=== PATIENT | female | born 1980 | race Caucasian/White ===

== ENCOUNTER 2017-10-02 10:00 | Emergency (ER) | payer OTHER ==
[2017-10-02 12:06] LABS: Urine Blood TRACE (NEG); Urine Glucose NEGATIVE (NEG); Urine Protein NEGATIVE (NEG); Urine pH 6.5 (5.0-7.0)
[2017-10-02 12:08] LABS: Absolute Lymphocytes (CBC) 2.9 K/uL (0.7-4.9); Absolute Monocytes 1.1 K/uL (0.1-1.3); Absolute Neutrophil 10.1 K/uL (1.8-8.0); Eosinophils % 0.7 % (0-4.4); Lymphocytes % 20.1 % (15.3-44.8); MCH 31.4 pg (27.0-35.0); MCV 93.1 fL (80-100); MPV 8.2 fL (7.6-11.3); Monocytes % 7.5 % (3.3-12.3); RBC Red Blood Cell Count 4.95 M/uL (3.86-4.86)
[2017-10-02] MEDS ORDERED: NA CHLORIDE 0.9% 1,000 ML ONE (12:13)
[2017-10-02] MEDS ORDERED: ONDANSETRON 4 MG/2 ML VIAL ONE (12:13)
[2017-10-02 12:16] LABS: Potassium 3.5 mEq/L (3.6-5.0)
[2017-10-02 12:23] LABS: Albumin 4.6 g/dL (3.2-5.5); Bilirubin Direct 0.1 mg/dL (0-0.2); Bilirubin Total 0.8 mg/dL (0.3-1.2); Protein, Total 8.1 g/dL (6.0-8.3)
[2017-10-02 12:24] LABS: Urine Bacteria <20 /HPF (<20); Urine Culture Reflex Order NOT NEEDED; Urine Mucus SLIGHT /HPF (NONE SEEN)
--- NOTE | 2017-10-02 13:03 | EDPHYS ---
Physician Documentation [facility] Name: Sally Vora Age: 37 yrs Sex: Female : 1980 Arrival Date: 10/02/2017 Time: 10:02 Bed 16 Private MD: ED Physician Rusty Gamino HPI: 10/02 12:55 This 37 yrs old Female presents to ER via Ambulatory with complaints of gs Vomiting. 12:55 The patient presents to the emergency department with vomiting. Onset: The gs symptoms/episode began/occurred yesterday. Possible causes: unknown. The symptoms are aggravated by food . Associated signs and symptoms: Pertinent negatives: abdominal pain, dysuria, fever, GI bleeding, hematuria. Severity of symptoms: At their worst the symptoms were moderate in the emergency department the symptoms are unchanged. The patient has experienced similar episodes in the past, several times. The patient has been recently seen by a physician: The patient has been recently seen at the [facility] Emergency Department, last month, for similar complaints labs were performed, CT scan was performed. 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 - Social history:: Smoking status: Patient uses tobacco products, smokes one-half pack cigarettes per day. ROS: 12:55 Constitutional: Negative for fever. gs 12:55 Cardiovascular: Negative for chest pain. 12:55 Abdomen/GI: Negative for diarrhea. 12:55 All other systems are negative. Exam: 12:55 Head/Face: Normocephalic, atraumatic. Eyes: Pupils equal round and reactive to light, gs extra-ocular motions intact. Lids and lashes normal. Conjunctiva and sclera are non-icteric and not injected. Cornea within normal limits. Periorbital areas with no swelling, redness, or edema. ENT: Nares patent. No nasal discharge, no septal abnormalities noted. Tympanic membranes are normal and external auditory canals are clear. Oropharynx with no redness, swelling, or masses, exudates, or evidence of obstruction, uvula midline. Mucous membranes moist. Neck: Trachea midline, no thyromegaly or masses palpated, and no cervical lymphadenopathy. Supple, full range of motion without nuchal rigidity, or vertebral point tenderness. No Meningismus. Chest/axilla: Normal chest wall appearance and motion. Nontender with no deformity. No lesions are appreciated. Cardiovascular: Regular rate and rhythm with a normal S1 and S2. No gallops, murmurs, or rubs. Normal PMI, no JVD. No pulse deficits. Respiratory: Lungs have equal breath sounds bilaterally, clear to auscultation and percussion. No rales, rhonchi or wheezes noted. No increased work of breathing, no retractions or nasal flaring. Back: No spinal tenderness. No costovertebral tenderness. Full range of motion. Skin: Warm, dry with normal turgor. Normal color with no rashes, no lesions, and no evidence of cellulitis. MS/ Extremity: Pulses equal, no cyanosis. Neurovascular intact. Full, normal range of motion. Neuro: Awake and alert, GCS 15, oriented to person, place, time, and situation. Cranial nerves II-XII grossly intact. Motor strength 5/5 in all extremities. Sensory grossly intact. Cerebellar exam normal. Normal gait. 12:55 Constitutional: The patient appears alert, awake, non-toxic. 12:55 Abdomen/GI: Palpation: mild abdominal tenderness, in all quadrants, mass, is not appreciated, rebound tenderness, is not appreciated. Vital Signs: 10:18 BP 135 / 100; Pulse 92; Resp 18; Temp 98.6(TE); Pulse Ox 100% on R/A; Weight 58.97 kg; hj Height 5 ft. 4 in. (162.56 cm); Pain 0/10; 11:57 BP 114 / 92; Pulse 81; Resp 17; Pulse Ox 100% on R/A; tw2 12:46 BP 112 / 84; Pulse 72; Resp 14; Pulse Ox 100% on R/A; mh5 10:18 Body Mass Index 22.32 (58.97 kg, 162.56 cm) MDM: 11:45 Patient medically screened. 12:55 Differential diagnosis: Nonspecific abd pain, gastritis, pancreatitis. Data reviewed: vital signs, nurses notes. Response to treatment: the patient's symptoms have markedly improved after treatment, and as a result, I will discharge patient. 10/02 11:46 Order name: Hepatic Function; Complete Time: 12:51 10/02 11:46 Order name: Basic Metabolic Panel; Complete Time: 12:51 10/02 11:46 Order name: CBC with Diff; Complete Time: 12:51 10/02 11:46 Order name: Lipase; Complete Time: 12:51 10/02 11:46 Order name: Urine Microscopic Only; Complete Time: 12:51 10/02 11:59 Order name: Urine Dipstick--Ancillary (enter results); Complete Time: 12:51 10/02 11:46 Order name: Urine Test (obtain specimen); Complete Time: 11:57 10/02 11:46 Order name: IV Saline Lock; Complete Time: 11:57 10/02 11:46 Order name: Labs collected and sent; Complete Time: 11:57 10/02 11:46 Order name: Urine Dipstick-Ancillary (obtain specimen); Complete Time: 11:57 10/02 11:59 Order name: Urine --Ancillary (enter results); Complete Time: 12:51 ag Administered Medications: 11:56 Drug: NS 0.9% 1000 ml Route: IV; Rate: 1 bolus; Site: right antecubital; tw2 13:40 Follow up: Response: No adverse reaction; IV Status: Completed infusion; IV Intake: tw2 1000ml 11:56 Drug: Zofran 4 mg Route: IVP; Site: right antecubital; tw2 13:40 Follow up: Response: No adverse reaction tw2 Disposition: 10/02/17 13:03 Discharged to Home. Impression: Cyclical vomiting, not intractable. - Condition is Stable. - Discharge Instructions: Cyclic Vomiting Syndrome. - Prescriptions for Reglan 10 mg Oral Tablet - take 1 tablet by ORAL route every 6 hours As needed take 30 minutes before meals and at bedtime; 20 tablet. Pepcid 20 mg Oral Tablet - take 1 tablet by ORAL route once daily; 20 tablet. - Medication Reconciliation Form, Thank You Letter, Antibiotic Education, Prescription Opioid Use form. - Follow up: Krystal Zuniga MD; When: 2 - 3 days; Reason: Re-evaluation by your physician. Signatures: Dispatcher [employer] Adrián Huntley RN RN hj Magali Prabhakar RN RN tw2 Rusty Gamino MD MD
--- NOTE | 2017-10-02 13:03 | ER ---
Nurse's Notes [facility] Name: Sally Vora Age: 37 yrs Sex: Female : 1980 Arrival Date: 10/02/2017 Time: 10:02 Bed 16 Private MD: Diagnosis: Cyclical vomiting, not intractable Presentation: 10/02 10:15 Presenting complaint: Patient states: been throwing up since Monday, reports fever; hj denies abd pain and denies diarrhea;. Transition of care: patient was not received from another setting of care. Onset of symptoms was October 02, 2017. Care prior to arrival: None. 10:15 Method Of Arrival: Ambulatory hj 10:15 Acuity: MICHELLE 3 hj Triage Assessment: 10:17 General: Appears in no apparent distress. uncomfortable, Behavior is calm, cooperative, hj appropriate for age. Pain: Denies pain. GI: Reports nausea, vomiting. 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 - Social history:: Smoking status: Patient uses tobacco products, smokes one-half pack cigarettes per day. Screenin:45 Abuse screen: Denies threats or abuse. Nutritional screening: No deficits noted. tw2 Tuberculosis screening: No symptoms or risk factors identified. Fall Risk None identified. Assessment: 10:18 GI: Abdomen is non-distended. hj 11:57 General: Appears in no apparent distress. unkempt, Behavior is calm, cooperative, tw2 appropriate for age. Pain: Complains of pain in abdomen. Neuro: Level of Consciousness is awake, alert, obeys commands, Oriented to person, place, time, situation. Cardiovascular: Denies chest pain, shortness of breath, Heart tones S1 S2 Capillary refill < 3 seconds Patient's skin is warm and dry. Respiratory: Airway is patent Respiratory effort is even, unlabored, Respiratory pattern is regular, symmetrical, Breath sounds are clear bilaterally. GI: Abdomen is flat, non-distended, Bowel sounds present X 4 quads. Abd is soft X 4 quads Reports intolerance of fluids, intolerance of food, nausea. : No signs and/or symptoms were reported regarding the genitourinary system. Urine is dark sarah urine noted. EENT: No signs and/or symptoms were reported regarding the EENT system. Derm: No signs and/or symptoms reported regarding the dermatologic system. Skin is intact, is healthy with good turgor, Skin temperature is warm. Musculoskeletal: Range of motion: intact in all extremities. 12:47 Reassessment: Patient appears in no apparent distress at this time. No changes from tw2 previously documented assessment. Patient and/or family updated on plan of care and expected duration. Pain level reassessed. Patient is alert, oriented x 3, equal unlabored respirations, skin warm/dry/pink. Vital Signs: 10:18 BP 135 / 100; Pulse 92; Resp 18; Temp 98.6(TE); Pulse Ox 100% on R/A; Weight 58.97 kg; hj Height 5 ft. 4 in. (162.56 cm); Pain 0/10; 11:57 BP 114 / 92; Pulse 81; Resp 17; Pulse Ox 100% on R/A; tw2 12:46 BP 112 / 84; Pulse 72; Resp 14; Pulse Ox 100% on R/A; mh5 10:18 Body Mass Index 22.32 (58.97 kg, 162.56 cm) ED Course: 10:02 Patient arrived in ED. rg4 10:16 Triage completed. hj 10:17 Arm band placed on right wrist. 11:37 Rusty Gamino MD is Attending Physician. 11:44 Magali Prabhakar, TERRANCE is Primary Nurse. tw2 11:44 Bed in low position. Call light in reach. Pulse ox on. NIBP on. tw2 11:59 Urine collected: clean catch specimen, cloudy. 5 12:00 Urine Dipstick--Ancillary (enter results) Sent. 5 12:00 Urine --Ancillary (enter results) Sent. 5 12:47 No provider procedures requiring assistance completed. tw2 13:01 Krystal Zuniga MD is Referral Physician. 13:46 IV discontinued, intact, bleeding controlled, No redness/swelling at site. Pressure tw2 dressing applied. Administered Medications: 11:56 Drug: NS 0.9% 1000 ml Route: IV; Rate: 1 bolus; Site: right antecubital; tw2 13:40 Follow up: Response: No adverse reaction; IV Status: Completed infusion; IV Intake: tw2 1000ml 11:56 Drug: Zofran 4 mg Route: IVP; Site: right antecubital; tw2 13:40 Follow up: Response: No adverse reaction tw2 Intake: 13:40 IV: 1000ml; Total: 1000ml. tw2 Outcome: 13:03 Discharge ordered by . 13:46 Patient left the ED. tw2 13:46 Discharged to home ambulatory. tw2 13:46 Condition: stable 13:46 Discharge instructions given to patient, Instructed on discharge instructions, follow up and referral plans. medication usage, Demonstrated understanding of instructions, follow-up care, medications, Prescriptions given X 2. Signatures: Adrián Shaikh RN RN Magali Prabhakar RN RN 2 Jessica Olea [facility] Joanne Mendez 5 Rusty Gamino MD MD Corrections: (The following items were deleted from the chart) 10:19 10:18 Pulse 92bpm; Resp 18bpm; Pulse Ox 100% RA; Temp 98.6F Temporal; 58.97 kg; Height hj 5 ft. 4 in.; BMI: 22.3; Pain 0/10; hj
== END 2017-10-02 13:46 | disposition home or self-care (01) ==
LOC: ER 10:00
DX: G43.A0 Cyclical vomiting, in migraine, not intractable (principal); E03.9 Hypothyroidism, unspecified; D64.9 Anemia, unspecified; F17.210 Nicotine dependence, cigarettes, uncomplicated
CPT/HCPCS: 36415; 80048; 80076; 81025; 83690; 85025; 96361; 96374; 99284; J2405; J7030; 81003; 81015

== ENCOUNTER 2017-10-03 14:17 | Emergency (ER) | payer OTHER ==
[2017-10-03 15:03] LABS: Absolute Lymphocytes (CBC) 2.6 K/uL (0.7-4.9); Absolute Monocytes 1.1 K/uL (0.1-1.3); Absolute Neutrophil 8.4 K/uL (1.8-8.0); Basophils % 0.7 % (0-1.3); Eosinophils % 1.1 % (0-4.4); Hematocrit 42.6 % (36.0-45.0); Lymphocytes % 21.1 % (15.3-44.8); MCH 31.7 pg (27.0-35.0); MCV 93.2 fL (80-100); MPV 8.3 fL (7.6-11.3); Monocytes % 8.8 % (3.3-12.3); RBC Red Blood Cell Count 4.57 M/uL (3.86-4.86)
[2017-10-03 15:25] LABS: ALT/SGPT 12 IU/L (10-60); AST/SGOT 21 IU/L (10-42); Albumin 4.1 g/dL (3.2-5.5); Alkaline Phosphatase 56 IU/L (42-121); BUN Blood Urea Nitrogen 12 mg/dL (6-20); Bicarbonate 26 mEq/L (21-31); Bilirubin Total 0.6 mg/dL (0.3-1.2); Glomerular Filtration Rate > 90 mL/min (=/>90); Glucose Level 113 mg/dL (65-120); Potassium 3.3 mEq/L (3.6-5.0); Protein, Total 7.3 g/dL (6.0-8.3); Sodium Level 133 mEq/L (135-145)
[2017-10-03] MEDS ORDERED: HALOPERIDOL LACT 5 MG/ML INJ ONE (15:34)
[2017-10-03] MEDS ORDERED: DICYCLOMINE HCL 10 MG CAP ONE (15:35)
[2017-10-03] MEDS ORDERED: NA CHLORIDE 0.9% 1,000 ML ONE (15:35)
[2017-10-03] MEDS ORDERED: DIPHENHYDRAMINE 50 MG/ML VIAL ONE (15:35)
[2017-10-03] MEDS ORDERED: ONDANSETRON 4 MG/2 ML VIAL ONE (15:35)
--- NOTE | 2017-10-03 17:45 | ER ---
Nurse's Notes [facility] Name: Sally Vora Age: 37 yrs Sex: Female : 1980 Arrival Date: 10/03/2017 Time: 14:24 Bed 13 Private MD: Diagnosis: Nausea and vomiting Presentation: 10/03 14:25 Presenting complaint: Patient states: "I have been throwing up almost a week. I came lk1 here yesterday and got pills, but im getting worse.". Transition of care: patient was not received from another setting of care. Onset of symptoms was September 27, 2017. Care prior to arrival: None. 14:25 Method Of Arrival: Ambulatory lk1 14:25 Acuity: MICHELLE 3 lk1 Triage Assessment: 14:26 General: Appears ill, Behavior is calm, cooperative, appropriate for age. Pain: Pain lk1 currently is 8 out of 10 on a pain scale. GI: Reports nausea, normal bowel habits, vomiting. 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 - Social history:: Smoking status: Patient uses tobacco products, smokes one-half pack cigarettes per day. Screenin:57 Abuse screen: Denies threats or abuse. Denies injuries from another. Nutritional ch screening: No deficits noted. Tuberculosis screening: No symptoms or risk factors identified. Fall Risk None identified. Assessment: 15:00 Reassessment: Patient appears in no apparent distress at this time. Patient and/or ch family updated on plan of care and expected duration. Pain level reassessed. Patient is alert, oriented x 3, equal unlabored respirations, skin warm/dry/pink. General: Appears in no apparent distress. uncomfortable, Behavior is cooperative, appropriate for age. 15:00 GI: Reports nausea, vomiting. ch 15:57 Reassessment: Patient appears in no apparent distress at this time. Patient and/or ch family updated on plan of care and expected duration. Pain level reassessed. Patient is alert, oriented x 3, equal unlabored respirations, skin warm/dry/pink. General: Appears in no apparent distress. comfortable, Behavior is calm, cooperative, appropriate for age. Pain: Complains of pain in abdomen Pain currently is 4 out of 10 on a pain scale. Pain began gradually. Respiratory: Airway is patent Respiratory effort is even, unlabored, Breath sounds are clear bilaterally. GI: Abdomen is flat, non-distended, Bowel sounds present X 4 quads. Abd is soft and non tender X 4 quads. Reports nausea, vomiting, pt states her stomach is just sore from vomiting. Derm: No signs and/or symptoms reported regarding the dermatologic system. Skin is pink, warm \\T\\ dry. 17:00 Reassessment: Patient appears in no apparent distress at this time. Patient and/or ch family updated on plan of care and expected duration. Pain level reassessed. Patient is alert, oriented x 3, equal unlabored respirations, skin warm/dry/pink. Patient states feeling better. Patient states symptoms have improved. 17:40 Reassessment: Patient appears in no apparent distress at this time. Patient and/or ch family updated on plan of care and expected duration. Pain level reassessed. Patient is alert, oriented x 3, equal unlabored respirations, skin warm/dry/pink. pt tolerating po water well. 18:04 Reassessment: Patient appears in no apparent distress at this time. No changes from previously documented assessment. Patient is alert, oriented x 3, equal unlabored respirations, skin warm/dry/pink. Patient states feeling better. Patient states symptoms have improved. Vital Signs: 14:27 BP 119 / 86; Pulse 86; Resp 15; Temp 98.6(TE); Pulse Ox 97% on R/A; Weight 58.97 kg lk1 (R); Height 5 ft. 4 in. (162.56 cm) (R); Pain 8/10; 15:57 BP 116 / 84; Pulse 56; Resp 16; Temp 98.3; Pulse Ox 99% on R/A; Pain 6/10; ch 18:04 BP 132 / 74; Pulse 62; Resp 18; Temp 98.3; Pulse Ox 99% on R/A; Pain 0/10; ch 14:27 Body Mass Index 22.31 (58.97 kg, 162.56 cm) [facility] ED Course: 14:24 Patient arrived in ED. lk1 14:26 Triage completed. lk1 14:28 Arm band placed on right wrist. lk1 14:36 Jose Otero MD is Attending Physician. ps1 14:50 Initial lab(s) drawn, by me, sent to lab. Inserted saline lock: 20 gauge in left tm3 antecubital area, using aseptic technique. Blood collected. 15:00 No apparent distress. Resting quietly. ch 15:00 Patient has correct armband on for positive identification. Placed in gown. Bed in low ch position. Call light in reach. Side rails up X2. Adult w/ patient. Pulse ox on. NIBP on. 15:00 Warm blanket given. ch 15:00 No provider procedures requiring assistance completed. ch 15:13 La Piper, TERRANCE is Primary Nurse. ch 18:04 IV discontinued, intact, bleeding controlled, No redness/swelling at site. Pressure ch dressing applied. Administered Medications: 15:20 Drug: Benadryl 50 mg Route: IVP; Site: right antecubital; ch 16:03 Follow up: Response: No adverse reaction; Marked relief of symptoms ch 15:20 Drug: Zofran 4 mg Route: IVP; Site: right antecubital; ch 16:03 Follow up: Response: No adverse reaction; Marked relief of symptoms ch 15:20 Drug: Bentyl 20 mg Route: PO; ch 16:03 Follow up: Response: No adverse reaction; Marked relief of symptoms ch 15:25 Drug: HALdol 2.5 mg Route: IVP; Site: right antecubital; ch 16:04 Follow up: Response: No adverse reaction; Marked relief of symptoms ch 16:03 Drug: NS 0.9% 1000 ml Route: IV; Rate: 1 bolus; Site: right antecubital; ch 17:20 Follow up: IV Status: Completed infusion; IV Intake: 1000ml ch Intake: 17:20 IV: 1000ml; Total: 1000ml. ch Outcome: 17:44 Discharge ordered by . ps1 18:04 Discharged to home ambulatory, with family. ch 18:04 Condition: stable 18:04 Discharge instructions given to patient, Instructed on discharge instructions, follow up and referral plans. Demonstrated understanding of instructions, follow-up care. 18:06 Patient left the ED. ch Signatures: La Piper RN RN Hemanth Preciado tm3 Claire Khalil, TERRANCE RN lk1 Jose Otero MD MD ps1
--- NOTE | 2017-10-03 17:45 | EDPHYS ---
Physician Documentation [facility] Name: Sally Vora Age: 37 yrs Sex: Female : 1980 Arrival Date: 10/03/2017 Time: 14:24 Bed 13 Private MD: ED Physician Jose Otero HPI: 10/03 17:45 This 37 yrs old Female presents to ER via Ambulatory with complaints of ps1 Nausea/Vomiting. 17:45 The patient presents to the emergency department with nausea, vomiting, daily. Onset: ps1 The symptoms/episode began/occurred last week. Possible causes: unknown, bad food exposure. The symptoms are aggravated by nothing. Associated signs and symptoms: Pertinent positives: fatigue, Pertinent negatives: fever. Severity of symptoms: At their worst the symptoms were moderate. The patient has experienced similar episodes in the past, several times. The patient has been recently seen at the [facility] Emergency Department, yesterday, for similar complaints labs were performed, was given IV fluids, was given a prescription for an antiemetic, the patient was told to return for a recheck. Has an appointment with GI tomorrow. Not able to keep fluids down. . 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 - Social history:: Smoking status: Patient uses tobacco products, smokes one-half pack cigarettes per day. ROS: 17:45 Constitutional: Negative for fever, chills, and weight loss, Eyes: Negative for injury, ps1 pain, redness, and discharge, Neck: Negative for injury, pain, and swelling, Cardiovascular: Negative for chest pain, palpitations, and edema, Respiratory: Negative for shortness of breath, cough, wheezing, and pleuritic chest pain, Back: Negative for injury and pain, MS/Extremity: Negative for injury and deformity, Skin: Negative for injury, rash, and discoloration. 17:45 Constitutional: Positive for fatigue. 17:45 Abdomen/GI: Positive for nausea and vomiting. 17:45 Psych: Exam: 17:45 Constitutional: This is a well developed, well nourished patient who is awake, alert, ps1 and in no acute distress. Head/Face: Normocephalic, atraumatic. Eyes: Pupils equal round and reactive to light, extra-ocular motions intact. Lids and lashes normal. Conjunctiva and sclera are non-icteric and not injected. Chest/axilla: Normal chest wall appearance and motion. Nontender with no deformity. No lesions are appreciated. Cardiovascular: Regular rate and rhythm. No gallops, murmurs, or rubs. Normal PMI, no JVD. No pulse deficits. Respiratory: Lungs have equal breath sounds bilaterally, clear to auscultation and percussion. No rales, rhonchi or wheezes noted. No increased work of breathing, no retractions or nasal flaring. Abdomen/GI: Soft, non-tender, with normal bowel sounds. No distension or tympany. No guarding or rebound. No evidence of tenderness throughout. Skin: Warm, dry with normal turgor. Normal color with no rashes, no lesions, and no evidence of cellulitis. MS/ Extremity: Pulses equal, no cyanosis. Neurovascular intact. Full, normal range of motion. Neuro: Awake and alert, GCS 15, oriented to person, place, time, and situation. Cranial nerves II-XII grossly intact. Sensory grossly intact. Vital Signs: 14:27 BP 119 / 86; Pulse 86; Resp 15; Temp 98.6(TE); Pulse Ox 97% on R/A; Weight 58.97 kg lk1 (R); Height 5 ft. 4 in. (162.56 cm) (R); Pain 8/10; 15:57 BP 116 / 84; Pulse 56; Resp 16; Temp 98.3; Pulse Ox 99% on R/A; Pain 6/10; ch 18:04 BP 132 / 74; Pulse 62; Resp 18; Temp 98.3; Pulse Ox 99% on R/A; Pain 0/10; ch 14:27 Body Mass Index 22.31 (58.97 kg, 162.56 cm) lk1 MDM: 14:42 Patient medically screened. ps1 17:45 Data reviewed: vital signs, nurses notes, lab test result(s). ED course: responded to ps1 treatment. Will send home with zofran. Follow up with GI tomorrow. . 10/03 14:42 Order name: CBC with Diff; Complete Time: 15:06 ps1 10/03 14:42 Order name: CMP; Complete Time: 15:28 ps1 10/03 15:09 Order name: Urine Dipstick--Ancillary (enter results) 10/03 15:10 Order name: Urine --Ancillary (enter results) 10/03 14:42 Order name: Urine Dipstick-Ancillary (obtain specimen); Complete Time: 18:06 ps1 Administered Medications: 15:20 Drug: Benadryl 50 mg Route: IVP; Site: right antecubital; ch 16:03 Follow up: Response: No adverse reaction; Marked relief of symptoms ch 15:20 Drug: Zofran 4 mg Route: IVP; Site: right antecubital; ch 16:03 Follow up: Response: No adverse reaction; Marked relief of symptoms ch 15:20 Drug: Bentyl 20 mg Route: PO; ch 16:03 Follow up: Response: No adverse reaction; Marked relief of symptoms ch 15:25 Drug: HALdol 2.5 mg Route: IVP; Site: right antecubital; ch 16:04 Follow up: Response: No adverse reaction; Marked relief of symptoms ch 16:03 Drug: NS 0.9% 1000 ml Route: IV; Rate: 1 bolus; Site: right antecubital; ch 17:20 Follow up: IV Status: Completed infusion; IV Intake: 1000ml ch Disposition: 10/03/17 17:44 Discharged to Home. Impression: Nausea and vomiting. - Condition is Stable. - Discharge Instructions: Nausea and Vomiting. - Prescriptions for Zofran 4 mg Oral Tablet - take 1 tablet by ORAL route every 12 hours As needed; 20 tablet. Bentyl 10 mg Oral Capsule - take 1 capsule by ORAL route every 6 hours As needed; 40 capsule. - Medication Reconciliation Form, Thank You Letter, Antibiotic Education, Prescription Opioid Use form. - Follow up: Private Physician; When: Tomorrow; Reason: Recheck today's complaints, Continuance of care, Re-evaluation by your physician. Follow up: Emergency Department; When: As needed; Reason: Fever > 102 F, Worsening of condition. - Problem is an ongoing problem. - Symptoms are unchanged. Signatures: Dispatcher [employer] EDMS La Piper, RN RN ch Claire Khalil RN RN lk1 Jose Otero MD MD ps1
[2017-10-03 18:18] LABS: Urine Specific Gravity 1.015 (1.005-1.030)
[2017-10-03 18:19] LABS: Urine Blood 2+ (NEG); Urine Glucose NEGATIVE (NEG); Urine Protein NEGATIVE (NEG); Urine Specific Gravity 1.015 (1.005-1.030); Urine pH 7.5 (5.0-7.0)
== END 2017-10-03 18:06 | disposition home or self-care (01) ==
LOC: ER 14:17
DX: F17.210 Nicotine dependence, cigarettes, uncomplicated; E03.9 Hypothyroidism, unspecified; R11.2 Nausea with vomiting, unspecified
CPT/HCPCS: 36415; 80053; 81003; 81025; 85025; 96361; 96374; 96375; 99284; J1630; J2405; J7030

== ENCOUNTER 2020-01-18 12:27 | Emergency (ER) | payer OTHER ==
[2020-01-18] MEDS ORDERED: LIDOCAINE 1% MPF 5 ML VIAL ONE (13:49)
--- NOTE | 2020-01-18 13:55 | RAD REPORT ---
EXAM DESCRIPTION: RAD - Foot Left 3 View - 01/18/2020 1:31 pm CLINICAL HISTORY: puncture wound on L big toe with object still in place COMPARISON: None FINDINGS: No fracture, dislocation or periosteal reaction. No acute or destructive bony process. A small metallic foreign body is present in the medial plantar soft tissues at the first proximal pha lanx level. There is a single linear foreign body with no small foreign body fragments. IMPRESSION: Left first toe foreign body as detailed.
--- NOTE | 2020-01-18 14:03 | ER ---
Nurse's Notes [facility] Name: Sally Vora Age: 39 yrs Sex: Female : 1980 Arrival Date: 01/18/2020 Time: 12:29 Bed 25 Private MD: Diagnosis: Puncture wound with foreign body, left foot Presentation: 01/17 12:34 Chief complaint: Patient states: Stepped on a tiny metal in mu living room carpet ca1 today. I tried to take it out but can't. Puncture wound on L lateral big toe, piece of metal still in place. No bleeding noted. Coronavirus screen: Proceed with normal triage. Patient denies a cough. Patient denies shortness of breath or difficulty breathing. Patient denies measured and/or subjective temperature greater than 100.4F prior to today's visit. Patient denies travel on a cruise ship or to a country the [facility] currently lists as an affected area. Patient denies contact with known and/or suspected case of COVID-19. Ebola Screen: Patient negative for fever greater than or equal to 101.5 degrees Fahrenheit, and additional compatible Ebola Virus Disease symptoms Patient denies exposure to infectious person. Patient denies travel to an Ebola-affected area in the 21 days before illness onset. No symptoms or risks identified at this time. Initial Sepsis Screen: Does the patient meet any 2 criteria? No. Patient's initial sepsis screen is negative. Does the patient have a suspected source of infection? No. Patient's initial sepsis screen is negative. Risk Assessment: Do you want to hurt yourself or someone else? Patient reports no desire to harm self or others. Onset of symptoms was January 18, 2020. 12:34 Method Of Arrival: Wheelchair ca1 12:34 Acuity: MICHELLE 4 ca1 Triage Assessment: 14:20 General: Appears in no apparent distress. Behavior is calm. 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 - Social history:: Smoking status: Patient reports the use of cigarette tobacco products, smokes one-half pack cigarettes per day. - Family history:: not pertinent. - Hospitalizations: : No recent hospitalization is reported. Screenin:29 Abuse screen: Denies threats or abuse. Denies injuries from another. Nutritional iw screening: No deficits noted. Tuberculosis screening: No symptoms or risk factors identified. Fall Risk None identified. Assessment: 13:30 General: Appears in no apparent distress. Behavior is calm, cooperative. Pain: iw Complains of pain in plantar aspect of left first toe. Neuro: Level of Consciousness is awake, alert, obeys commands, Oriented to person, place, time, situation, Moves all extremities. Full function. Cardiovascular: Patient's skin is warm and dry. Respiratory: Respiratory effort is even, unlabored, Respiratory pattern is regular, symmetrical. Derm: Skin is intact, is healthy with good turgor. Injury Description: Puncture sustained to plantar aspect of left first toe. Vital Signs: 12:34 BP 107 / 73; Pulse 59; Resp 15 S; Temp 97.6(TE); Pulse Ox 98% on R/A; Weight 61.23 kg ca1 (R); Height 5 ft. 4 in. (162.56 cm) (R); Pain 8/10; 12:34 Body Mass Index 23.17 (61.23 kg, 162.56 cm) ca1 ED Course: 12:29 Patient arrived in ED. ag5 12:36 Triage completed. ca1 12:37 Arm band placed on right wrist. ca1 12:57 Alek Kidd MD is Attending Physician. rn 13:00 Patient has correct armband on for positive identification. iw 13:31 Foot Left 3 View XRAY In Process Unspecified. EDMS 14:04 Alma Lim, TERRANCE is Primary Nurse. iw 14:20 Assist provider with foreign body removal of needle Performed by Alek Kidd MD Patient iw tolerated well. Patient did not have IV access during this emergency room visit. 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 Exp: iw 02/09/2020. Lot #: [id number]. } Route: IM; Site: right deltoid; 14:30 Follow up: Response: No adverse reaction iw Outcome: 14:02 Discharge ordered by . rn 14:29 Discharged to home with family. iw 14:29 Condition: good 14:29 Discharge instructions given to patient, Instructed on discharge instructions, follow up and referral plans. Demonstrated understanding of instructions, follow-up care. 14:30 Patient left the ED. iw Signatures: Dispatcher [employer] Alma Hidalgo RN RN iw Nieto, Roman, MD MD rn Acob, Cheryl, RN RN ca1 Gaskin, Ajare ag5
--- NOTE | 2020-01-18 14:03 | EDPHYS ---
Physician Documentation [facility] Name: Sally Vora Age: 39 yrs Sex: Female : 1980 Arrival Date: 01/18/2020 Time: 12:29 Bed 25 Private MD: ED Physician Alek Kidd HPI: 01/17 13:04 This 39 yrs old Female presents to ER via Wheelchair with complaints of rn Puncture Wound To Foot. 13:04 The patient presents with stepped on piece of metal. The patient presents with a rn puncture wound. Context: The problem was sustained at home, resulted from the patient stepping on the patient can fully bear weight. Onset: The symptoms/episode began/occurred just prior to arrival. Severity of symptoms: At their worst the symptoms were mild, in the emergency department the symptoms are unchanged. The patient has not experienced similar symptoms in the past. Reports stepped on something today, looks like nail or needle, soaked it, unable to pull out, also not UTD on tetanus. . 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 - Social history:: Smoking status: Patient reports the use of cigarette tobacco products, smokes one-half pack cigarettes per day. - Family history:: not pertinent. - Hospitalizations: : No recent hospitalization is reported. ROS: 13:04 MS/extremity: Positive for puncture, Negative for erythema, laceration. rn 13:04 Constitutional: Negative for fever, chills, and weight loss, MS/Extremity: + puncture with foreign body to left great toe Exam: 13:04 Constitutional: This is a well developed, well nourished patient who is awake, alert, rn and in no acute distress. Skin: Warm, dry, no surrounding erythema. MS/ Extremity: Pulses equal, no cyanosis. NV intact. + left great toe with metallic thin object, appears to be finish nail, approx 2 cm straight metallic object. Vital Signs: 12:34 BP 107 / 73; Pulse 59; Resp 15 S; Temp 97.6(TE); Pulse Ox 98% on R/A; Weight 61.23 kg ca1 (R); Height 5 ft. 4 in. (162.56 cm) (R); Pain 8/10; 12:34 Body Mass Index 23.17 (61.23 kg, 162.56 cm) ca1 Procedures: 14:00 Foreign Body Removal: sewing needle, from the left first toe, by using a hemostat, rn Dressing: none, The patient tolerated the removal well, Numbed using lidocaine without epi, 1cc, after skin cleaned with alcohol.. MDM: 12:57 Patient medically screened. rn 14:00 Differential diagnosis: foreign body. Data reviewed: vital signs, nurses notes, rn radiologic studies, plain films, and as a result, I will discharge patient. Counseling: I had a detailed discussion with the patient and/or guardian regarding: the historical points, exam findings, and any diagnostic results supporting the discharge/admit diagnosis, radiology results, the need for outpatient follow up, to return to the emergency department if symptoms worsen or persist or if there are any questions or concerns that arise at home. Response to treatment: the patient's symptoms have resolved after treatment, the patient's condition has returned to base line, and as a result, I will discharge patient. Special discussion: I discussed with the patient/guardian in detail that at this point there is no indication for admission to the hospital. It is understood, however, that if the symptoms persist or worsen the patient needs to return immediately for re-evaluation. ED course: Sewing needle removed after lidocaine, using hemostat, tolerated well. Tetanus updated.. 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 Exp: iw 02/09/2020. Lot #: [id number]. } Route: IM; Site: right deltoid; 14:30 Follow up: Response: No adverse reaction iw Disposition: 01/18/20 14:02 Discharged to Home. Impression: Puncture wound with foreign body, left foot. - Condition is Stable. - Discharge Instructions: Puncture Wound. - Medication Reconciliation Form, Thank You Letter, Antibiotic Education, Prescription Opioid Use form. - Follow up: Private Physician; When: As needed; Reason: Recheck today's complaints, Re-evaluation by your physician. - Problem is new. - Symptoms have improved. Signatures: Dispatcher [employer] Alma Hidalgo, RN RN Alek Carver MD MD rn Acob, TERRANCE Garza RN ca1 Corrections: (The following items were deleted from the chart) 14:30 14:02 01/18/2020 14:02 Discharged to Home. Impression: Puncture wound with foreign iw body, left foot. Condition is Stable. Forms are Medication Reconciliation Form, Thank You Letter, Antibiotic Education, Prescription Opioid Use. Follow up: Private Physician; When: As needed; Reason: Recheck today's complaints, Re-evaluation by your physician. Problem is new. Symptoms have improved. rn
[2020-01-18] MEDS ORDERED: TETANUS & DIPHTHERIA TOX,ADULT 0.5 ML VIAL ONE (14:21)
[2020-01-18 14:36] VITALS: BP 107/73; TEMP 97.6; O2SAT 98
== END 2020-01-18 14:30 | disposition home or self-care (01) ==
LOC: ER 12:27
DX: S91.142A Puncture wound with foreign body of left great toe without damage to nail, initial encounter (principal); W45.8XXA Other foreign body or object entering through skin, initial encounter; Y93.01 Activity, walking, marching and hiking; Y92.009 Unspecified place in unspecified non-institutional (private) residence as the place of occurrence of the external cause; Z23 Encounter for immunization; E03.9 Hypothyroidism, unspecified; F17.210 Nicotine dependence, cigarettes, uncomplicated
CPT/HCPCS: 90471; 90714; 99283

== ENCOUNTER 2021-03-17 08:23 | Emergency (ER) | payer OTHER ==
--- NOTE | 2021-03-17 09:32 | RAD REPORT ---
EXAM DESCRIPTION: RAD -Hand Left 3 View - 03/17/2021 8:50 am CLINICAL HISTORY: Left hand pain status post injury FINDINGS: A curvilinear lucency within the hamate. Prominent trabecula versus nondisplaced fracture. This should be correlated clinically. No dislocation
--- NOTE | 2021-03-17 10:01 | EDPHYS ---
Physician Documentation [facility] Name: Sally Vora Age: 40 yrs Sex: Female : 1980 Arrival Date: 03/17/2021 Time: 08:26 Bed 11 Private MD: ED Physician Elisa Limon HPI: 03/17 09:55 This 40 yrs old Female presents to ER via Ambulatory with complaints of Hand kb Pain. 09:55 The patient or guardian reports an abrasion, a rash. The complaints affect the left kb little finger. Context: resulted from breaking pets apart. Onset: The symptoms/episode began/occurred yesterday. Modifying factors: The symptoms are alleviated by nothing, the symptoms are aggravated by movement. Associated signs and symptoms: The patient has no apparent associated signs or symptoms. Severity of symptoms: At their worst the symptoms were mild, in the emergency department the symptoms are unchanged. The patient has not experienced similar symptoms in the past. The patient has not recently seen a physician. 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 - Social history:: Smoking status: Patient reports the use of cigarette tobacco products, denies chronic smoking, but will smoke occasionally. ROS: 09:35 Constitutional: Negative for fever, chills, and weight loss. kb 09:35 MS/extremity: Positive for injury or acute deformity, pain, tenderness, of the left little finger. 09:35 Skin: Positive for abrasion(s), of the left hand. 09:35 All other systems are negative. Exam: 09:54 Constitutional: This is a well developed, well nourished patient who is awake, alert, kb and in no acute distress. Head/Face: Normocephalic, atraumatic. ENT: Moist Mucous membranes Respiratory: Respirations even and unlabored. No increased work of breathing, no retractions or nasal flaring. Skin: Warm, dry with normal turgor. Normal color. Neuro: Awake and alert, GCS 15, oriented to person, place, time, and situation. Moves all extremities. Normal gait. Psych: Awake, alert, with orientation to person, place and time. Behavior, mood, and affect are within normal limits. 09:54 Musculoskeletal/extremity: Extremities: grossly normal except: noted in the left little finger: abrasion, pain, ROM: limited active range of motion due to pain, Circulation is intact in all extremities. Sensation intact. Vital Signs: 08:32 BP 133 / 89; Pulse 82; Resp 17; Temp 98.8(TE); Pulse Ox 100% on R/A; Weight 63.5 kg (R);tw2 MDM: 08:32 Patient medically screened. kb 09:38 Data reviewed: vital signs, nurses notes. Data interpreted: Pulse oximetry: on room air kb is 100 %. Interpretation: normal. Counseling: I had a detailed discussion with the patient and/or guardian regarding: the historical points, exam findings, and any diagnostic results supporting the discharge/admit diagnosis, radiology results, the need for outpatient follow up, a orthopedic surgeon, to return to the emergency department if symptoms worsen or persist or if there are any questions or concerns that arise at home. 03/17 08:32 Order name: Hand Left 3 View XRAY; Complete Time: 09:35 kb Administered Medications: No medications were administered Disposition: 03/18 06:59 Co-signature as Attending Physician, Elisa Limon MD I agree with the assessment and sp3 plan of care. Disposition Summary: 03/17/21 10:00 Discharge Ordered Location: Home kb Condition: Stable kb Diagnosis - Abrasion of left hand kb - Pain in left hand kb Followup: kb - With: Private Physician - When: 2 - 3 days - Reason: Recheck today's complaints, Continuance of care, Re-evaluation by your physician Followup: kb - With: Emergency Department - When: As needed - Reason: Worsening of condition Discharge Instructions: - Discharge Summary Sheet kb - Musculoskeletal Pain kb Forms: - Medication Reconciliation Form kb - Thank You Letter kb - Antibiotic Education kb - Prescription Opioid Use kb Signatures: Dispatcher [employer] Mariluz Fox, RUTH ANN QUEEN-Magali Ignacio RN RN tw2 Limon, Setul, MD MD sp3
--- NOTE | 2021-03-17 10:01 | ER ---
Nurse's Notes [facility] Name: Sally Vora Age: 40 yrs Sex: Female : 1980 Arrival Date: 03/17/2021 Time: 08:26 Bed 11 Private MD: Diagnosis: Abrasion of left hand;Pain in left hand Presentation: 03/17 08:32 Chief complaint: Patient states: yesterday i was pulling apart cats and it pulled my tw2 left hand back. i just need to make sure its not broken. its my LEFT hand pinky finger area. Coronavirus screen: At this time, the client does not indicate any symptoms associated with coronavirus-19. Ebola Screen: Patient denies travel to an Ebola-affected area in the 21 days before illness onset. Initial Sepsis Screen: Does the patient meet any 2 criteria? No. Patient's initial sepsis screen is negative. Does the patient have a suspected source of infection? No. Patient's initial sepsis screen is negative. Risk Assessment: Do you want to hurt yourself or someone else? Patient reports no desire to harm self or others. Note provider in triage room at this time performing assessment. Note provider in exam room at this time. Onset of symptoms was March 16, 2021. 08:32 Acuity: MICHELLE 4 tw2 08:32 Method Of Arrival: Ambulatory tw2 Triage Assessment: 08:36 General: Appears in no apparent distress. slender, well groomed, Behavior is calm, tw2 cooperative, appropriate for age. Pain: Complains of pain in medial aspect of left hand and medial aspect of left fingers. Neuro: Level of Consciousness is awake, alert, obeys commands, Oriented to person, place, time, situation. Respiratory: Airway is patent Respiratory effort is even, unlabored, Respiratory pattern is regular, symmetrical. Musculoskeletal: Circulation, motion, and sensation intact. Range of motion: intact in all extremities. 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 - Social history:: Smoking status: Patient reports the use of cigarette tobacco products, denies chronic smoking, but will smoke occasionally. Screenin:38 Abuse screen: Denies threats or abuse. Nutritional screening: No deficits noted. tw2 Tuberculosis screening: No symptoms or risk factors identified. Fall Risk None identified. Assessment: 08:37 Reassessment: see triage assessment. tw2 10:03 Reassessment: Patient appears in no apparent distress at this time. Patient is alert, vg1 oriented x 3, equal unlabored respirations, skin warm/dry/pink. Vital Signs: 08:32 BP 133 / 89; Pulse 82; Resp 17; Temp 98.8(TE); Pulse Ox 100% on R/A; Weight 63.5 kg (R);tw2 ED Course: 08:26 Patient arrived in ED. am2 08:26 [facility] kb 08:26 Elisa Limon MD is Attending Physician. kb 08:35 Triage completed. tw2 08:37 Arm band placed on. tw2 08:37 pt returned to waiting area chair at this time. awaiting xray. tw2 08:38 No provider procedures requiring assistance completed. tw2 08:49 Hand Left 3 View XRAY In Process Unspecified. EDMS 10:04 Patient did not have IV access during this emergency room visit. vg1 Administered Medications: No medications were administered Outcome: 10:00 Discharge ordered by . kb 10:04 Discharged to home ambulatory. vg1 10:04 Condition: stable 10:04 Discharge instructions given to patient, Instructed on discharge instructions, follow up and referral plans. Demonstrated understanding of instructions, follow-up care. 10:04 Patient left the ED. vg1 Signatures: Dispatcher [employer] EDHI Mariluz Booth FNP-C FNP-Ckb Wise, Tara RN RN tw2 Theresa Romeo [facility] Mala Olea RN RN vg1
[2021-03-17 10:08] VITALS: BP 133/89; TEMP 98.8; O2SAT 100
== END 2021-03-17 10:04 | disposition home or self-care (01) ==
LOC: ER 08:23
DX: S60.512A Abrasion of left hand, initial encounter (principal); X50.3XXA Overexertion from repetitive movements, initial encounter; Y93.89 Activity, other specified; Y92.9 Unspecified place or not applicable; Y99.9 Unspecified external cause status; F17.210 Nicotine dependence, cigarettes, uncomplicated
CPT/HCPCS: 99283

== ENCOUNTER 2021-12-25 14:13 | Inpatient (IN) | payer OTHER ==
--- OUTSIDE RECORDS SUMMARY | 2021-12-25 14:15 | XMS REPORT | Continuity of Care Document ---
:1980 Author Organization [facility] t Address [address] [place] [address] Care Team Providers Name Role Phone GC_SWHATBIC_Ball_C Attending Clinician Unavailable GC_SWHAOMC_Ramos_C Attending Clinician Unavailable Michael Milner Attending Clinician [phone] Alf, Rinku Attending Clinician Unavailable GC_SWHAWPRC_Cathey Attending Clinician Unavailable Alvarez_R Attending Clinician Unavailable GC_SWHATBIC_Ball_C Admitting Clinician Unavailable GC_SWHAOMC_Ramos_C Admitting Clinician Unavailable GC_SWHAWPRC_Cathey Admitting Clinician Unavailable Alvarez_R Admitting Clinician Unavailable Payers Payer Name Policy Type Policy Number Effective Date Expiration Date S [facility] [id number] Dual Complete [facility] - [id number] [facility] - DUAL ELIGIBLE (MEDICARE REPLACEMENT/ADVANTAGE - HMO) [place] [id number] [place]MEDICAID[place] Problems This patient has no known problems. Allergies, Adverse Reactions, Alerts This patient has no known allergies or adverse reactions. Medications This patient has no known medications. Procedures This patient has no known procedures. Encounters Start End Encounter Admission Attending Care Care Encounter Source Date/Time Date/Time Type Type Clinicians Facility Department ID 2021-04-25 Outpatient [facility] [id number] [facility] 12:49:24 [id number] [facility] 2021-04-25 Outpatient [facility] [id number] [facility] 12:06:46 [id number] [facility] 2021-11-10 2021-11-10 Outpatient [facility] PRIV PRIV [id number] [facility] 03:29:00 03:29:00 _Ball_C [id number] [facility] 2021-10-14 2021-10-14 Outpatient GC_[facility] PRIV PRIV [id number] [facility] 01:06:00 01:06:00 _Ball_C [id number] Med[facility] 2021-10-14 2021-10-14 Outpatient GC_SWHAOMC_ PRIV PRIV [id number] [facility] 01:06:00 01:06:00 Ramos_C [id number] Medica l 2021-10-12 2021-10-12 Outpatient GC_SWHATBIC PRIV PRIV [id number] [facility] 02:16:00 02:16:00 _Ball_C [id number] Medica l 2021-10-06 2021-10-06 Outpatient GC_SWHAOMC_ PRIV PRIV [id number] [facility] 10:50:00 10:50:00 Ramos_C [id number] Medica l 2021-10-05 2021-10-05 Outpatient GC_SWHATBIC PRIV PRIV [id number] [facility] 01:26:00 01:26:00 _Ball_C [id number] Medica l 2021-09-29 2021-09-29 Outpatient GC_[facility]AOM[facility]_ PRIV PRIV 226 [id number] [facility] 11:55:00 11:55:00 Ramos_C [id number] Medica l 2021-09-27 2021-09-27 Outpatient GC_SWHATBIC PRIV PRIV [id number] [facility] 03:15:00 03:15:00 _Ball_C [id number] Medica l 2021-09-27 2021-09-27 Outpatient Milner, PRIV PRIV [id number] [id number] 00:00:00 00:00:00 Chandan [id number] Michael [id number] 2021-09-22 2021-09-22 Outpatient [facility]_ PRIV PRIV [id number] [facility] 03:12:00 03:12:00 Ramos_C [id number] Medica l 2021-09-01 2021-09-01 Outpatient GC_SWHAOMC_ PRIV PRIV [id number] [facility] 05:45:00 05:45:00 Ramos_C [id number] Medica l 2021-09-01 2021-09-01 Outpatient GC_SWHAOMC_ PRIV PRIV [id number] [facility] 05:45:00 05:45:00 Ramos_C [id number] Medica l 2021-09-01 2021-09-01 Outpatient Milner, PRIV PRIV [id number] 00:00:00 00:00:00 Chandan [id number] [facility] [id number] 2021-08-31 2021-08-31 Outpatient GC_SWHAOMC_ PRIV PRIV [id number] [facility] 04:03:00 04:03:00 Ramos_C [id number] Medica l 2021-08-25 2021-08-25 Outpatient GC_SWHAOMC_ PRIV PRIV [id number] [facility] 03:09:00 03:09:00 Ramos_C [id number] Medica l 2021-08-25 2021-08-25 Outpatient GC_SWHAOMC_ PRIV PRIV [id number] [facility] 03:09:00 03:09:00 Ramos_C [id number] Medica l 2021-08-09 2021-08-09 [facility] [id number] 14:25:00 14:25:00 Chandan [id number] [facility] 2021-08-09 2021-08-09 Outpatient Milner, [facility] [id number] [facility] 14:25:00 14:25:00 Chandan [address] [facility] 2021-08-09 2021-08-09 Outpatient GC_SWHAOMC_ PRIV PRIV [id number] [facility] 08:37:00 08:37:00 Ramos_C [id number] Medica l 2021-08-05 2021-08-05 Outpatient GC_SWHAOMC_ PRIV PRIV [id number] [facility] 04:29:00 04:29:00 Ramos_C [id number] Medica l 2021-08-04 2021-08-04 Outpatient GC_SWHAOMC_ PRIV PRIV [id number] [facility] 03:25:00 03:25:00 Ramos_C [id number] Medica l 2021-08-03 2021-08-03 Outpatient GC_SWHAOMC_ PRIV PRIV [id number] [facility] 12:45:00 12:45:00 Ramos_C [id number] Medica l 2021-08-02 2021-08-02 Outpatient GC_SWHAOMC_ PRIV PRIV [id number] [facility] 04:05:00 04:05:00 Ramos_C [id number] Medica l 2021-07-27 2021-07-27 Outpatient GC_SWHAOMC_ PRIV PRIV 226 [id number] [facility] 11:36:00 11:36:00 Ramos_C [id number] Medica l 2021-07-27 2021-07-27 Outpatient GC_SWHAOMC_ PRIV PRIV [id number] [facility] 11:36:00 11:36:00 Ramos_C [id number] Medica l 2021-07-21 2021-07-21 Outpatient GC_SWHAWPRC PRIV PRIV [id number] [facility] 04:29:00 04:29:00 _Toña [id number] Medica l 2021-05-25 2021-05-25 Outpatient GC_SWHAOMC_ PRIV PRIV [id number] [facility] 04:19:00 04:19:00 Ramos_C [id number] Medica l 2020-08-12 2020-08-12 Outpatient Alvarez_R VFP VFP [id number] [facility] 11:07:00 11:07:00 [id number] [facility] Results Test Description Test Time Test Comments Results Result Comments Source SURGICAL 2021-08-11 13:49:00 Test Item Value Reference Range Interpretation Comme nts SURGICAL RUN (test DATE: 08/11/21 [facility] PAGE 1 RUN code = TIME: 1349 Specimen Inquiry RUN USER: INTERFACE SR) JACKY ENT: STEFFEN CABRAL LOC: YAJAIRA U #: [id number] AGE/SX: 40/F ROOM: RE08/09/21REG DR: Chandan Milner Jr, MD : 82 BED : DIS: STATUS: REG REF TLOC: SPEC #: [id number] DIETARY SERVICES DIRECTOR: 08/09/21 STATUS: RHIANNON REQ #: [id number] EUSEBIO: [facility] DR: Chandan Milner Jr, MD ENTERED: 08/09/21 SP TYPE: COY RGICAL [facility] DR: ORDERED: ANATOMIC SPEC, SPEC TRACK, [id number] PROCEDURES: [id number] (08/09/21) TISSUE S: A. UTERUS W/WO TUBES OVARIES NON NEOPLASTIC/PROLAPSE - UTERUS, BILATERAL FALLOPIAN TUBES FINAL DIAGNOSIS UTERUS, CERVIX, BILATERAL FALLOPIAN TUBES, T OTAL HYSTERECTOMY AND BILATERAL SALPINGECTOMY: - Cervix with parakeratosis. - Basalis la rita of endometrium. - Adenomyosis. - Serosa without pathologic alteration. - Bilateral fal lopian tubes without pathologic alteration. - No malignancy seen.- Specimen 107 gram. GR OSS DESCRIPTION Labeled with the patient's name, designated "uterus, bilateral fallopian tubes", andReceived in formalin is an intact total hysterectomy and bilateral salpingectomy. The uterus weighs 107 grams and measures 4.5 cm (cornu- cornu) x 4.7 cm (fundus-lower uterinesegment ) x 5 cm (anterior - posterior)]. The cervix measures 3.8 cm in length x 2.7 cm indiameter. The endometrial cavity measures 4.5 cm in length, up to 2.6 cm wide. Theendometrium measures 0.1 cm in average thickness. The myometrium ranges from 0.9 to 2 cm inthickness. The right fallo pian tube measures 6 cm in length with fimbriae x 0.7 cm indiameter, with a 0.4 cm average lumina l diameter. The left fallopian tube measures 5.7 cmin length with fimbriae x 0.8 cm in diamete r, with a 0.4 cm average luminal diameter.The serosa is pink, smooth, glistening. The endo metrium is lizama-red, unremarkable. Themyometrium is lizama-yellow, unremarkable. No lesions or masses are grossly identified. Theright and left fallopian tubes are grossly unremarkable. Repre sentative sections aresubmitted as follows:Section code: A1: Anterior cervix. A2: General Utility Machine Operator ior cervix A3: Anterior endometrium.A4: Posterior endometrium. A5: Anterior myometrium.A6: Pos terior myometrium.A7: Right fallopian tube. A 8: Left fallopian tube.XZ CONTINUED ON NEXT PAGE RUN DATE: 08/11/21 [facility] PAGE 2 RUN TIME: 1349 Specimen Inquiry RUN USER: INTERFACE SPEC #: [id number] PATIENT: STEFFEN CABRAL #[id number] (Continued) ------- RHODA XIE (Continued) Technical component performed at [employer],[id number], [place] [address] MICROSCOPIC DESCRIPTION The diagnosis is based upon microscopic exami [facility] CLINICAL INFORMATION DYSMENORRHEA, MENORRHAGIA, ADENOMYOSIS ------- Signed SIGNATURE ON FILE Rusty Siulin 08/11/21 1349 END OF REPORT
[2021-12-25 14:41] LABS: Absolute Lymphocytes (CBC) 1.1 K/uL (0.7-4.9); Hematocrit 37.1 % (36.0-45.0); Lymphocytes % 3.7 % (15.3-44.8); MCV 92.8 fL (80-100); MPV 8.1 fL (7.6-11.3)
[2021-12-25] MEDS ORDERED: NA CHLORIDE 0.9% 1,000 ML ONE (15:04)
[2021-12-25] MEDS ORDERED: ONDANSETRON 4 MG/2 ML VIAL ONE ×2 (15:04→21:07)
[2021-12-25 15:10] LABS: Albumin 3.4 g/dL (3.4-5.0); Bilirubin Total 0.4 mg/dL (0.2-1.0); Potassium 3.3 mmol/L (3.5-5.1); Protein, Total 8.4 g/dL (6.4-8.2)
--- NOTE | 2021-12-25 15:44 | RAD REPORT ---
EXAM DESCRIPTION: CTAbdomen Pelvis W Contrast - 12/25/2021 3:26 pm CLINICAL HISTORY: Abdominal pain. Abdominal pain, acute, nonlocalized COMPARISON: <Comparisons> TECHNIQUE: Biphasic CT imaging of the abdomen and pelvis was performed with 100 ml non-ionic IV cont rast. All CT scans are performed using dose optimization technique as appropriate and may include automated exposure control or mA/KV adjustment according to patient size. FINDINGS: The lung bases are clear. The liver, spleen, pancreas, adrenal glands and kidneys are within normal limits. Significant stool is retained throughout the colon. Inflammatory changes are present in the left lowe r quadrant in close approximation to the left ovary as well as small bowel loops in the region. Sever al cystic collections are present in the left adnexa. Appendectomy. No evidence of significant lymph adenopathy. No suspicious bony findings. IMPRESSION: Left lower quadrant inflammatory changes seen in close proximity to the left ovary small bowel loops. Possibilities would include pelvic infection with left-sided tubo-ovarian abscesses sonia orestes small bowel enteritis.
[2021-12-25 16:15] LABS: Blood Morphology Comment NOT SEEN (NOT SEEN); Platelet Estimate INCR
--- NOTE | 2021-12-25 18:14 | RAD REPORT ---
EXAM DESCRIPTION: US - Transvaginal Study Probe - 12/25/2021 6:05 pm CLINICAL HISTORY: ABD PAIN Pelvic pain. COMPARISON: No comparisons FINDINGS: The patient is status posthysterectomy. Both ovaries are normal in size, shape and echotexture. The right ovary measures 2.8 x 2.2 cm. The left ovary measures 3.8 x 3.5 cm. Mild heterogenous material seen surrounding the left ovary. Normal Doppler blood flow was demonstrated to both ovaries. No significant pelvic ascites. IMPRESSION: No evidence of ovarian torsion. Mild heterogenous material surrounds left ovary which could indicate infection. Correlation with clin ical signs and symptoms of pelvic infection recommended.
[2021-12-25] MEDS ORDERED: CEFTRIAXONE 1000 MG/VIAL ONE (18:18)
[2021-12-25] MEDS ORDERED: DOXYCYCLINE 100 MG CAP PO ONE (18:18)
--- NOTE | 2021-12-25 18:45 | ER ---
Nurse's Notes [facility] Name: Sally Vora Age: 41 yrs Sex: Female : 1980 Arrival Date: 12/25/2021 Time: 14:13 Bed 13 Private MD: Diagnosis: Elevated white blood cell count;Nausea with vomiting, unspecified Presentation: 12/25 14:13 Coronavirus screen: fever, vomiting. Ebola Screen: Patient denies travel to an [facility] Ebola-affected area in the 21 days before illness onset. Initial Sepsis Screen: Does the patient meet any 2 criteria? No. Patient's initial sepsis screen is negative. Does the patient have a suspected source of infection? No. Patient's initial sepsis screen is negative. Risk Assessment: Do you want to hurt yourself or someone else? Patient reports no desire to harm self or others. Onset of symptoms was December 2021. 14:13 Method Of Arrival: EMS: [facility] 14:13 Acuity: MICHELLE 3 aa5 14:13 Chief complaint: reports generalized abd cramping, vomiting that began yesterday. Pt aa5 reports syncopal episode prior to EMS's arrival. Triage Assessment: 14:45 General: Appears uncomfortable, Behavior is calm. Pain: Complains of pain in abdomen. jg9 EENT: No deficits noted. Neuro: No deficits noted. Cardiovascular: No deficits noted. Respiratory: No deficits noted. GI: Reports nausea, vomiting. : No deficits noted. Derm: No deficits noted. Musculoskeletal: No deficits noted. 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 - Social history:: Smoking status: Patient reports the use of cigarette tobacco products, smokes one-half pack cigarettes per day. Screenin:54 Abuse screen: Denies threats or abuse. Denies injuries from another. Nutritional jg9 screening: No deficits noted. Tuberculosis screening: No symptoms or risk factors identified. Fall Risk None identified. Assessment: 14:52 Reassessment: No changes from previously documented assessment. Patient and/or family jg9 updated on plan of care and expected duration. Pain level reassessed. Patient is alert, oriented x 3, equal unlabored respirations, skin warm/dry/pink. 14:55 GI: Bowel sounds present X 4 quads. Abd is soft Abdomen is tender to palpation X 4 jg9 quads. 15:41 Reassessment: Patient and/or family updated on plan of care and expected duration. Pain jg9 level reassessed. Patient is alert, oriented x 3, equal unlabored respirations, skin warm/dry/pink. Patient states symptoms have improved. 18:58 Reassessment: Patient and/or family updated on plan of care and expected duration. Pain jg9 level reassessed. Patient is alert, oriented x 3, equal unlabored respirations, skin warm/dry/pink. Vital Signs: 14:13 BP 136 / 89; Pulse 66; Resp 18 S; Temp 100.1(O); Pulse Ox 100% on R/A; Weight 57.61 kg aa5 (R); Height 5 ft. 3 in. (160.02 cm) (R); 14:16 BP 127 / 82 Supine; Pulse 69; Resp 14 S; Pulse Ox 100% on R/A; jg9 14:18 BP 123 / 91; Pulse 86; Resp 18; Pulse Ox 100% on R/A; jg9 14:20 BP 118 / 91; Pulse 93; Resp 20 S; Pulse Ox 100% on R/A; jg9 15:42 BP 133 / 84; Pulse 64; Resp 22; Pulse Ox 100% on R/A; jg9 16:00 BP 138 / 96; Pulse 66; Resp 17; Pulse Ox 100% on R/A; jg9 17:00 BP 111 / 83; Pulse 65; Resp 22; Pulse Ox 100% on R/A; jg9 18:00 BP 133 / 85; Pulse 86; Resp 14 S; Temp 99.0(O); Pulse Ox 99% ; jg9 14:13 Body Mass Index 22.50 (57.61 kg, 160.02 cm) aa5 ED Course: 14:13 Patient arrived in ED. aa 14:13 Mariluz Booth FNP-C is PHCP. 14:13 Erika Granger MD is Attending Physician. kb 14:13 Arm band placed on. aa5 14:14 Triage completed. aa5 14:32 Inserted saline lock: 20 gauge in right antecubital area, using aseptic technique. mb7 Blood collected. 14:32 EKG done, by ED staff, reviewed by Mariluz VALLECILLO. mb7 14:32 CBC with Diff Sent. mb7 14:32 CMP Sent. mb7 14:32 Lipase Sent. mb7 14:33 Bed in low position. Call light in reach. Side rails up X 1. Door closed. Noise mb7 minimized. Warm blanket given. 14:33 COVID-19 SARS RT PCR (Document "Date of Onset" if Symptomatic) Sent. mb7 14:33 Flu Sent. mb7 14:52 Maricarmen Rahman, RN is Primary Nurse. jg9 15:27 CT Abd/Pelvis - IV Contrast Only In Process Unspecified. EDMS 16:16 Appears to be sleeping. jg9 18:07 US Transvaginal Study (Probe) In Process Unspecified. EDMS 18:45 Erika Forde MD is Hospitalizing Provider. kb Administered Medications: 15:01 Drug: NS 0.9% 1000 ml Route: IV; Rate: 1 bolus; Site: right antecubital; jg9 16:14 Follow up: IV Status: Completed infusion; IV Intake: 1000ml jg9 15:01 Drug: Zofran (Ondansetron) 4 mg Route: IVP; Site: right antecubital; jg9 16:14 Follow up: Response: No adverse reaction; Nausea is decreased jg9 18:17 Drug: Rocephin (cefTRIAXone) 1 grams Route: IV; Rate: calculated rate; Site: right j9 antecubital; 18:59 Follow up: IV Status: Completed infusion; IV Intake: 50ml jg9 18:17 Drug: Doxycycline 100 mg Route: PO; jg9 18:59 Follow up: Response: No adverse reaction jg9 Medication: 14:56 VIS not applicable for this client. jg9 Intake: 16:14 IV: 1000ml; Total: 1000ml. jg9 18:59 IV: 50ml; Total: 1050ml. jg9 Outcome: 18:45 Decision to Hospitalize by Provider. kb 21:33 Patient left the ED. ke1 Signatures: Dispatcher [employer] EDMS Mariluz Booth, RUTH ANN COMMERCIAL REAL ESTATE ASSISTANT-Ame Jansen, RN RN aa5 Madison Mock Jennifer, RN RN jg9 Caroline Naik RN RN ke1 Corrections: (The following items were deleted from the chart) 15:45 15:42 Pulse 64bpm; Resp 22bpm; Pulse Ox 100% RA; jg9 jg9 19:00 18:00 BP 133 / 85; Pulse 86bpm; Resp 14bpm; Spontaneous; Pulse Ox 99%; jg9 jg9
--- NOTE | 2021-12-25 18:46 | EDPHYS ---
Physician Documentation [facility] Name: Sally Vora Age: 41 yrs Sex: Female : 1980 Arrival Date: 12/25/2021 Time: 14:13 Bed 13 Private MD: ED Physician Erika Granger HPI: 12/25 17:27 This 41 yrs old Female presents to ER via EMS with complaints of Abdominal Pain. kb 17:27 The patient has not experienced similar symptoms in the past. The patient has not kb recently seen a physician. Pt reports she had fever 2 days ago, then started vomiting last night at 2100. States she has been unable to tolerate fluids due to vomiting. Also reports abd cramping that is diffuse and started after vomiting. Had a syncopal episode prior to calling 911. . 17:28 The patient presents to the emergency department with nausea, vomiting, abdominal pain, kb of the abdomen diffusely, described as crampy. Onset: The symptoms/episode began/occurred last night. Possible causes: unknown. The symptoms are aggravated by nothing. The symptoms are alleviated by nothing. Associated signs and symptoms: Pertinent positives: abdominal pain, fever, nausea, vomiting. Severity of symptoms: At their worst the symptoms were moderate in the emergency department the symptoms are unchanged. 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 - Social history:: Smoking status: Patient reports the use of cigarette tobacco products, smokes one-half pack cigarettes per day. ROS: 17:26 Respiratory: Negative for shortness of breath, cough, wheezing, and pleuritic chest kb pain. 17:26 Abdomen/GI: Positive for nausea and vomiting, abdominal cramps. 17:26 Neuro: Positive for syncope. 17:26 All other systems are negative. 17:29 Constitutional: Positive for fever. kb Exam: 14:51 Constitutional: This is a well developed, well nourished patient who is awake, alert, kb and in no acute distress. Head/Face: Normocephalic, atraumatic. ENT: Moist Mucous membranes Cardiovascular: Regular rate and rhythm with a normal S1 and S2. No gallops, murmurs, or rubs. No pulse deficits. Respiratory: Respirations even and unlabored. No increased work of breathing. Talking in full sentences Skin: Warm, dry with normal turgor. Normal color. MS/ Extremity: Pulses equal, no cyanosis. Neurovascular intact. Full, normal range of motion. Neuro: Awake and alert, GCS 15, oriented to person, place, time, and situation. Moves all extremities. Normal gait. Psych: Awake, alert, with orientation to person, place and time. Behavior, mood, and affect are within normal limits. 14:51 ECG was reviewed by the Attending Physician. 14:51 Abdomen/GI: Inspection: abdomen appears normal, Bowel sounds: normal, in all quadrants, Palpation: soft, in all quadrants, mild abdominal tenderness, in all quadrants. Vital Signs: 14:13 BP 136 / 89; Pulse 66; Resp 18 S; Temp 100.1(O); Pulse Ox 100% on R/A; Weight 57.61 kg aa5 (R); Height 5 ft. 3 in. (160.02 cm) (R); 14:16 BP 127 / 82 Supine; Pulse 69; Resp 14 S; Pulse Ox 100% on R/A; jg9 14:18 BP 123 / 91; Pulse 86; Resp 18; Pulse Ox 100% on R/A; jg9 14:20 BP 118 / 91; Pulse 93; Resp 20 S; Pulse Ox 100% on R/A; jg9 15:42 BP 133 / 84; Pulse 64; Resp 22; Pulse Ox 100% on R/A; jg9 16:00 BP 138 / 96; Pulse 66; Resp 17; Pulse Ox 100% on R/A; jg9 17:00 BP 111 / 83; Pulse 65; Resp 22; Pulse Ox 100% on R/A; jg9 18:00 BP 133 / 85; Pulse 86; Resp 14 S; Temp 99.0(O); Pulse Ox 99% ; jg9 14:13 Body Mass Index 22.50 (57.61 kg, 160.02 cm) aa5 MDM: 14:17 Patient medically screened. kb 17:26 Data reviewed: vital signs, nurses notes. Data interpreted: Pulse oximetry: on room air kb is 100 %. Interpretation: normal. 18:31 Physician consultation: Buck Warner MD was called at 18:32, regarding consult, kb voicemail left on cell, no answer at home. 18:41 Counseling: I had a detailed discussion with the patient and/or guardian regarding: the kb historical points, exam findings, and any diagnostic results supporting the discharge/admit diagnosis, lab results, radiology results, the need for further work-up and treatment in the hospital. Physician consultation: Buck Warner MD was contacted at 18:42, regarding consult, patient's condition, and will see patient in inpatient room, tomorrow. 18:44 Physician consultation: Marita RECINOS was called at 18:44, regarding admission, to the medical/surgical unit. patient's condition, and will see patient in ED, shortly. 12/25 14:14 Order name: CBC with Diff; Complete Time: 16:17 kb 12/25 14:14 Order name: CMP; Complete Time: 15:22 kb 12/25 14:14 Order name: Lipase; Complete Time: 15:22 kb 12/25 14:14 Order name: Flu; Complete Time: 15:22 kb 12/25 14:14 Order name: COVID-19 SARS RT PCR (Document "Date of Onset" if Symptomatic); Complete kb Time: 15:30 12/25 16:16 Order name: Manual Differential; Complete Time: 16:17 EDMS 12/25 14:44 Order name: CT Abd/Pelvis - IV Contrast Only; Complete Time: 15:51 kb 12/25 15:52 Order name: US Transvaginal Study (Probe); Complete Time: 18:22 kb 12/25 18:43 Order name: Blood Culture Adult (2) kb 12/25 18:44 Order name: Lactate; Complete Time: 19:56 kb 12/25 14:14 Order name: IV Saline Lock; Complete Time: 14:32 kb 12/25 14:14 Order name: Labs collected and sent; Complete Time: 14:32 kb 12/25 14:14 Order name: Orthostatics; Complete Time: 14:53 kb 12/25 14:14 Order name: EKG; Complete Time: 14:16 kb 12/25 14:14 Order name: EKG - Nurse/Tech; Complete Time: 14:32 kb 12/25 18:44 Order name: Vital Signs: repeat temp; Complete Time: 18:59 kb EC:51 Rate is 67 beats/min. Rhythm is regular. QRS [place] is Normal. [place] interval is normal at kb 120 msec. QRS interval is normal at 72 msec. QT interval is normal at 435 msec. Administered Medications: 15:01 Drug: NS 0.9% 1000 ml Route: IV; Rate: 1 bolus; Site: right antecubital; jg9 16:14 Follow up: IV Status: Completed infusion; IV Intake: 1000ml jg9 15:01 Drug: Zofran (Ondansetron) 4 mg Route: IVP; Site: right antecubital; jg9 16:14 Follow up: Response: No adverse reaction; Nausea is decreased jg9 18:17 Drug: Rocephin (cefTRIAXone) 1 grams Route: IV; Rate: calculated rate; Site: right jg9 antecubital; 18:59 Follow up: IV Status: Completed infusion; IV Intake: 50ml jg9 18:17 Drug: Doxycycline 100 mg Route: PO; jg9 18:59 Follow up: Response: No adverse reaction jg9 Disposition Summary: 12/25/21 18:45 Hospitalization Ordered Hospitalization Status: Inpatient Admission kb Provider: Erika Forde [facility] kb Condition: Stable kb Problem: new kb Symptoms: are unchanged kb Bed/Room Type: Standard Room Assignment: 205(12/25/21 19:49) Diagnosis - Elevated white blood cell count kb - Nausea with vomiting, unspecified kb Forms: - Medication Reconciliation Form kb - SBAR form kb Addendum: 01/02/2022 18:05 Co-signature as Attending Physician, Erika Granger MD. m a2 Signatures: Dispatcher [employer] Mariluz Fox, BERNICE-C DEVELOPER ARCHITECT-Radha Ozuna RN RN Ame De La Rosa RN RN javed5 Erika Granger MD MD ma2 Maricarmen Rahman RN RN jg9 Corrections: (The following items were deleted from the chart) 12/25 17:29 17:26 Constitutional: Negative for fever, chills, and weight loss, kb kb 19:49 18:45 kb dw
--- NOTE | 2021-12-25 19:32 | P.HP ---
Certification for Inpatient Patient admitted to: Inpatient With expected LOS: <2 Midnights Patient will require the following post-hospital care: None Practitioner: I am a practitioner with admitting privileges, knowledge of patient current condition, hospital course, and medical plan of care. Services: Services provided to patient in accordance with Admission requirements found in Title 42 Section 412.3 of the Code of Federal Regulations <Marita Brower - Last Filed: 12/25/21 22:02> Patient History Date of Service: 12/25/21 Reason for admission: Enteritis/Oophoritis History of Present Illness: Patient is a 41-year-old female who presented to the ED with complaints of fever, generalized abdominal pain, nausea, vomiting, and 1 episode of syncope. Patient reports that she had a fever about 2 days ago then started vomiting last night and has been unable to tolerate fluids. She had a hysterectomy in August 2021 because of endometriosis. Labs significant for WBC 30, neutrophils 88.1%, potassium 3.3, bandemia. Temp of 100.[address] abdomen pelvis showed left lower quadrant inflammatory changes seen in close proximity to the left ovary small bowel loops. Follow-up transvaginal ultrasound showed mild heterogeneous material surrounding left ovary which could indicate infection. Dr. Warner was notified and wishes for patient to be admitted under hospitalist and he will consult. She was given fluids and started on doxycycline and Rocephin in the ED. Home medications list reviewed: Yes (NA) - Past Medical/Surgical History Diabetic: No Past Medical History: Patient denies medical history -: Hysterectomy (08/2021) -: Endometriosis -: -: C5-C6 Spinal Fusion Psychosocial/ Personal History: Patient lives at home with her son. - Family History Family History: Reviewed- Non-Contributory - Social History Smoking Status: Current every day smoker Alcohol use: No CD- Drugs: No Caffeine use: Yes Place of Residence: Home <Marita Brower - Last Filed: 12/25/21 22:02> Date of Service: 12/26/21 <Erika Forde - Last Filed: 12/26/21 16:15> Allergies No Known Allergies Allergy (Verified 12/25/21 21:56) Home Medications: NK [No Home Meds] 12/25/21 Review of Systems General: Fever, Weakness Gastrointestinal: Nausea, Vomiting, Abdominal Pain <Marita Brower - Last Filed: 12/25/21 22:02> Physical Examination - Physical Exam General: Alert, In no apparent distress HEENT: Atraumatic, PERRLA, EOMI, Sclerae nonicteric Neck: Supple, 2+ carotid pulse no bruit, No LAD, Without JVD or thyroid abnormality Respiratory: Clear to auscultation bilaterally, Normal air movement Cardiovascular: Regular rate/rhythm, Normal S1 S2 Gastrointestinal: Normal bowel sounds, No rebound, No guarding, Tenderness Musculoskeletal: No tenderness Integumentary: No rashes Neurological: Normal gait, Normal speech, Normal strength at 5/5 x4 extr, Normal tone, Normal affect - Studies Laboratory Data (last 24 hrs) 12/25/21 14:28: Sodium 135 L, Potassium 3.3 L, BUN 18, Creatinine 0.81, Glucose 174 H, Total Bilirubin 0.4, AST 7 L, ALT 15, Alkaline Phosphatase 103, Lipase 22 L 12/25/21 14:28: WBC 30.9 H*, Hgb 12.4, Hct 37.1, Plt Count 443 H Microbiology Data (last 24 hrs): 12/25/21 14:20 Nasopharnyx Influenza Type A Antigen Screen - Final 12/25/21 14:20 Nasopharnyx Influenza Type B Antigen Screen - Final <Marita Brower - Last Filed: 12/25/21 22:02> - Studies Laboratory Data (last 24 hrs) 12/25/21 14:28: WBC 30.9 H*, Hgb 12.4, Hct 37.1, Plt Count 443 H Microbiology Data (last 24 hrs): 12/25/21 14:20 Nasopharnyx Influenza Type A Antigen Screen - Final 12/25/21 14:20 Nasopharnyx Influenza Type B Antigen Screen - Final <Erika Forde - Last Filed: 12/26/21 16:15> Assessment and Plan - Problems (Diagnosis) (1) Enteritis Current Visit: Yes Status: Acute (2) Oophoritis Current Visit: Yes Status: Acute (3) Leukocytosis Current Visit: Yes Status: Acute Qualifiers: Leukocytosis type: unspecified Qualified Code(s): D72.829 - Elevated white blood cell count, unspecified (4) Nausea and vomiting Current Visit: Yes Status: Acute Qualifiers: Vomiting type: unspecified Qualified Code(s): R11.2 - Nausea with vomiting, unspecified (5) Fever Current Visit: Yes Status: Acute Qualifiers: Fever type: unspecified Qualified Code(s): R50.9 - Fever, unspecified (6) Syncope Current Visit: Yes Status: Acute Qualifiers: Syncope type: unspecified Qualified Code(s): R55 - Syncope and collapse - Plan -Continue IVF and IV antibiotics -Dr. Warner to see patient tomorrow -Lactate negative. WBC 30, will monitor CBC. Blood cultures drawn. -Orthostatic VS + in ED. Likely cause of syncope. Continue to monitor. -Morphine PRN pain, zofran PRN nausea -Monitor and replete electrolytes per protocol -Lovenox for VTE ppx -Full code Discharge Plan: Home Plan to discharge in: 48 Hours - Advance Directives Does patient have a Living Will: No Does patient have a Durable POA for Healthcare: No - Code Status/Comfort Care Code Status Assessed: Yes (Full) Critical Care: No Time Spent Managing Pts Care (In Minutes): 50 <Marita Brower - Last Filed: 12/25/21 22:02> Date of Service: 12/25/21 Subjective: HPI as mentioned above Physical Examination: Vitals: Afebrile vital signs are stable Physical exam: Cardiovascular: Within normal limits. Lungs: Within normal limits Abdomen: Within normal limits Neuro: Awake, alert, oriented to person place and time Assessment: 1. Enteritis/ovarian infection Plan: 1. Continue with current plan of care as mentioned above <Erika Forde - Last Filed: 12/26/21 16:15>
[2021-12-25 20:54] VITALS: BMI 22.5
[2021-12-25] MEDS: CEFTRIAXONE 1,000 MG in NA CHLORIDE 0.9% 50 ML IVPB SCH (21:00)
[2021-12-25] MEDS: DOXYCYCLINE 100 MG in NA CHLORIDE 0.9% 100 ML IVPB SCH (21:00)
[2021-12-25] MEDS: MORPHINE 2 MG/ML SYR IV PRN (21:04)
[2021-12-25] MEDS: ONDANSETRON 4 MG/2 ML VIAL IV PRN (21:04)
[2021-12-25] MEDS ORDERED: MORPHINE 2 MG/ML SYR ONE (21:07)
[2021-12-25] MEDS ORDERED: POTASSIUM CL SA 10 MEQ TAB PO ONE (22:05)
[2021-12-25] MEDS: NA CHLORIDE 0.9% 1,000 ML IV SCH (22:18)
[2021-12-25 22:51] VITALS: O2SAT 99
[2021-12-26] MEDS: MORPHINE 2 MG/ML SYR IV PRN ×5 (02:32→20:46)
[2021-12-26 04:14] LABS: Absolute Lymphocytes (CBC) 1.4 K/uL (0.7-4.9); Hematocrit 34.2 % (36.0-45.0); Lymphocytes % 5.5 % (15.3-44.8); MCV 94.1 fL (80-100); MPV 8.4 fL (7.6-11.3); RBC Red Blood Cell Count 3.64 M/uL (3.86-4.86)
[2021-12-26 04:17] LABS: Urine Appearance Clear (Clear); Urine Bilirubin Negative (Negative); Urine Blood 2+ (Negative); Urine Color Yellow (Yellow); Urine Glucose Negative (Negative); Urine Protein 1+ (Negative); Urine Specific Gravity 1.025 (1.005-1.030); Urine Urobilinogen 0.2 mg/dL (0.2-1.0)
[2021-12-26 04:29] LABS: Urine Microscopic Reflex ORDER UMIC
[2021-12-26 04:32] LABS: Urine Bacteria 20-50 /HPF (<20); Urine Mucus 3+ /HPF (NONE SEEN)
[2021-12-26 04:42] LABS: Magnesium 1.6 mg/dL (1.8-2.4); Potassium 3.3 mmol/L (3.5-5.1); Thyroid Stimulating Hormone 1.77 uIU/mL (0.360-3.740)
[2021-12-26] MEDS ORDERED: POTASSIUM CL SA 10 MEQ TAB PO ONE (05:09)
[2021-12-26] MEDS ORDERED: MAGNESIUM SULFATE 1 gm IVPB 1 GM/100 ML BAG IV ONE (06:10)
[2021-12-26] MEDS: ONDANSETRON 4 MG/2 ML VIAL IV PRN ×2 (06:34→19:01)
--- NOTE | 2021-12-26 07:43 | CON ---
A 41-year-old female, admitted through the emergency room with diffuse abdominal pain, low-grade fever, nausea and vomiting. The patient says she is better this morning. The patient gives a history of _hysterectomy in August of this year, she had a laparoscopic hysterectomy for something that was endometriosis or close to endometriosis, apparently a lot of scarring going on into her pelvis. Could , but she is unsure. The surgery went apparently uneventfully and she had uneventful postoperative course. She has been having intermittent episodes of nausea and vomiting and abdominal discomfort that have cleared on their own during the last 2-3 months. At this time, she has came to the emergency room because of the intensity of the discomfort. Ultrasound and CAT scan demonstrated what could be a left lower quadrant inflammatory mass, could be the left ovary, could be an inflammatory bowel disease or some other type of problems. The patient has no history of any kind of bowel problems. No history of diverticulitis. She has been placed on antibiotics. Says she is hungry this morning and looks quite good now with no signs of any problems and moving around the bed quite easily. The plan at this point is to continue antibiotics until she is afebrile and the white count is back down to normal. She knows she will be going home today, possibly tomorrow either. If she does not get better, then at some point laparoscopy would be in order, but right now she certainly does not qualify for that. If she has recurrence in the future, she said she will contact her physician in [place] who did surgery since they are more aware of why she had that surgery. It would be interesting to get a surgical note from the surgeon who did the procedure at [facility]. In any event, the patient is quite stable this morning. I think the current course of action is reasonable and should continue. I will see the patient again tomorrow, but right now I do not think she needs any kind of surgical intervention. ALLYSSA/NEEMA Voice ID: [id number] Report ID: [id number] PRABHU
[2021-12-26] MEDS: NA CHLORIDE 0.9% 1,000 ML IV SCH ×2 (08:12→16:18)
[2021-12-26] MEDS: CEFTRIAXONE 1,000 MG in NA CHLORIDE 0.9% 50 ML IVPB SCH (08:13)
[2021-12-26] MEDS: ENOXAPARIN 40 MG/0.4 ML SQ SCH (08:13)
[2021-12-26] MEDS: DOXYCYCLINE 100 MG in NA CHLORIDE 0.9% 100 ML IVPB SCH (09:54)
[2021-12-26] MEDS: ACETAMINOPHEN 500 MG TAB PO PRN (13:23)
--- NOTE | 2021-12-26 15:28 | CON ---
History Of Present Illness: This is a 41-year-old female coming into the emergency non with fever, g eneralized abdominal pain, nausea, vomiting. Her symptoms started about a month ago. The patient devine s no fever this morning, but she was running fever of 100.[address] abdomen showed the patien t has left upper quadrant inflammatory changes compatible with pelvic infection and left-sided tubo-o varian abscess with small bowel enteritis. The patient was started on Rocephin and doxycycline. Den ies any headache and vomiting this morning. Continue to have some nausea. Past Medical History: Hysterectomy, endometriosis, , C5-C6 spinal fusion. Social History: Tobacco positive, half pack per day since age 13. Medications: Doxycycline, Rocephin. See MAR for other medications. Allergies: INCLUDE NO KNOWN DRUG ALLERGIES. Review of Systems: A 10-point review was performed. Physical Examination: General: This is a 41-year-old female, sitting in bed, not in any acute cardiopulmonary distress. Vital signs: Temperature 100, pulse 91, respirations 16, blood pressure 127/77. HEENT: Unremarkable. Neck: Supple. Lungs: Clear to auscultation. Heart: S1, S2, regular. Abdomen: Soft. Bowel sounds present. Abdominal discomfort in the left lower quadrant. Extremities: No edema. Laboratory Data: Shows WBC 25,000 down from 30,000, hemoglobin 11.5, platelets 381. Micro data: Blood cultures are pending. Urine cultures are pending. Assessment And Plan: The patient with abdominal pain and possible abscess and left-sided tubo-ovaria n junction with small bowel enteritis, leukocytosis in a patient with multiple surgeries in the repro ductive region, pending culture results. We will recommend to start the patient on Zosyn, and discon tinue doxycycline and Rocephin. We will follow the patient closely. Thank you Dr. Forde for consult. NF/ARIL Voice ID: [id number] Report ID: [id number]
[2021-12-26] MEDS: PIPER TAZO 3.375 GM in NA CHLORIDE 0.9% 100 ML IV SCH (16:18)
--- NOTE | 2021-12-26 16:20 | P.PN ---
Subjective Date of Service: 12/26/21 Subjective: Improving Patient is feeling better. Still having abdominal pain. Clinical symptoms continue to improve Review of Systems 10-point ROS is otherwise unremarkable Physical Examination - Vital Signs Temperature: 98.6 F Blood Pressure: 142/93 Pulse: 78 Respirations: 14 Pulse Ox (%): 100 - Physical Exam General: Alert, In no apparent distress, Oriented x3 HEENT: Atraumatic, PERRLA, EOMI Neck: Supple, JVD not distended Respiratory: Clear to auscultation bilaterally, Normal air movement Cardiovascular: Regular rate/rhythm, Normal S1 S2 Gastrointestinal: Normal bowel sounds, Soft and benign, Non-distended, Tenderness Musculoskeletal: No clubbing, No swelling, No tenderness Neurological: Sensation intact, Cranial nerves 3-12 intact - Studies Laboratory Data (last 24 hrs) 12/25/21 14:28: WBC 30.9 H*, Hgb 12.4, Hct 37.1, Plt Count 443 H Microbiology Data (last 24 hrs): 12/25/21 14:20 Nasopharnyx Influenza Type A Antigen Screen - Final 12/25/21 14:20 Nasopharnyx Influenza Type B Antigen Screen - Final Medications List Reviewed: Yes Assessment & Plan - Problems (Diagnosis) (1) Enteritis Current Visit: Yes Status: Acute (2) Fever Current Visit: Yes Status: Acute Qualifiers: Fever type: unspecified Qualified Code(s): R50.9 - Fever, unspecified (3) Leukocytosis Current Visit: Yes Status: Acute Qualifiers: Leukocytosis type: unspecified Qualified Code(s): D72.829 - Elevated white blood cell count, unspecified (4) Oophoritis Current Visit: Yes Status: Acute - Plan -IV antibiotics -IV fluids -OB and infectious disease consultation -Monitor lab -Clear liquid diet and n.p.o. after midnight -Repeat abdominal film -NG tube if persistent nausea and vomiting -Antiemetics Discharge Plan: Home Plan to discharge in: Greater than 2 days - Advance Directives Does patient have a Living Will: No Does patient have a Durable POA for Healthcare: No - Code Status/Comfort Care Code Status Assessed: Yes Code Status: Full Code Critical Care: No Time Spent Managing PTS Care (In Minutes): 35
[2021-12-27] MEDS: PIPER TAZO 3.375 GM in NA CHLORIDE 0.9% 100 ML IV SCH ×3 (00:50→17:27)
[2021-12-27] MEDS: ONDANSETRON 4 MG/2 ML VIAL IV PRN ×2 (00:50→14:30)
[2021-12-27] MEDS: MORPHINE 2 MG/ML SYR IV PRN ×6 (00:50→21:02)
[2021-12-27 04:44] LABS: Absolute Lymphocytes (CBC) 1.9 K/uL (0.7-4.9); Hematocrit 34.3 % (36.0-45.0); MCV 92.8 fL (80-100); MPV 8.4 fL (7.6-11.3); RBC Red Blood Cell Count 3.69 M/uL (3.86-4.86)
[2021-12-27 04:45] LABS: Potassium 4.1 mmol/L (3.5-5.1)
[2021-12-27] MEDS: NA CHLORIDE 0.9% 1,000 ML IV SCH ×2 (05:01→12:16)
[2021-12-27] MEDS: ACETAMINOPHEN 500 MG TAB PO PRN (08:09)
[2021-12-27] MEDS: ENOXAPARIN 40 MG/0.4 ML SQ SCH (08:09)
--- NOTE | 2021-12-27 11:38 | PN ---
Over the last 24 hours, the patient spiked a fever. White count is still in the 24,000 range. She devine s no real good appetite, not really ambulating. Her pain level is no worse, but no better. I think that I would add metronidazole 500 mg IV q.8 hours. I would also try to give her Toradol 30 mg IV ev true 8-12 hours to see if we can get her off morphine, so she can ambulate and then may be switched to Percocet instead of morphine. All of this is discussed with the patient. Our laparoscopist, Dr. Magnolia hawk, is out of town and will not be back until the . If the patient does not improve in the n ext 24-48 hours, I suggested that we possibly transfer her to her doctor in [place] at [facility] for possible laparoscopic evaluation. If we do it here, we will get General Surgery involved, but I am sure they would rather have a gynecologic laparoscopist involved in this case if possible. Follow up according to response. ALLYSSA/NEEMA Voice ID: [id number] Report ID: [id number]
--- NOTE | 2021-12-27 11:54 | EKG ---
Test Date: 2021-12-25 Test Time: 14:12:26 Locator Specialist: KALE MEASUREMENT RESULTS: Intervals: Rate: 67 NH: 120 QRSD: 72 QT: 412 QTc: 435 [place]: P: 33 NH: 120 QRS: 79 T: 65 INTERPRETIVE STATEMENTS: Normal sinus rhythm Normal ECG Compared to ECG 10/19/2018 13:47:56 No significant changes Electronically Signed On 12-27-21 11:50:29 CDT by Vasquez Cardoso
--- NOTE | 2021-12-27 13:09 | P.PN ---
Subjective Date of Service: 12/27/21 Chief Complaint: Enteritis/Oophoritis Subjective: No new changes (Recurrent abdominal pain Tolerating p.o.) Physical Examination - Vital Signs Temperature: 98.1 F Blood Pressure: 107/74 Pulse: 80 Respirations: 12 Pulse Ox (%): 98 - Studies Medications List Reviewed: Yes Assessment And Plan Physician Review: Patient Assessed, Agree with Above Assessment and Plan Physician Review Additional Text: 12/27/21 13:07 - Physical Exam General: Alert, In no apparent distress, Oriented x3 HEENT: Atraumatic, PERRLA, EOMI Neck: Supple, JVD not distended Respiratory: Clear to auscultation bilaterally, Normal air movement Cardiovascular: Regular rate/rhythm, Normal S1 S2 Gastrointestinal: Normal bowel sounds, Soft and benign, Non-distended, mild generalized tenderness Musculoskeletal: No clubbing, No swelling, No tenderness Neurological: Sensation intact, Cranial nerves 3-12 intact - Studies Laboratory Data (last 24 hrs) 12/25/21 14:28: WBC 30.9 H*, Hgb 12.4, Hct 37.1, Plt Count 443 H Microbiology Data (last 24 hrs): 12/25/21 14:20 Nasopharnyx Influenza Type A Antigen Screen - Final 12/25/21 14:20 Nasopharnyx Influenza Type B Antigen Screen - Final Medications List Reviewed: Yes Assessment & Plan - Problems (Diagnosis) (1) Enteritis Current Visit: Yes Status: Acute (2) Fever Current Visit: Yes Status: Acute Qualifiers: Fever type: unspecified Qualified Code(s): R50.9 - Fever, unspecified (3) Leukocytosis Current Visit: Yes Status: Acute Qualifiers: Leukocytosis type: unspecified Qualified Code(s): D72.829 - Elevated white blood cell count, unspecified (4) Oophoritis Current Visit: Yes Status: Acute Brief [id number] female with recent hysterectomy for endometriosis 4 months ago admitted for abdominal pain. CT shows inflammation of the bowel surrounding the left ovary, transvaginal ultrasound shows possible ovarian abscess - Plan -Likely due to left ovarian abscess based on transvaginal ultrasound and CT finding Possible secondary inflammatory bowel adjacent to the left ovary Continue antibiotics, added Flagyl by SENIOR LIVING ADVISOR to the Consult general surgery as per SENIOR LIVING ADVISOR for possible assist with laparoscopy Continue gentle IV fluid Renal function stable Continue clear liquid diet Continue antiemetics Continue pain regimen, avoid excess Toradol to avoid kidney injury Discharge Plan: Home Plan to discharge in: Greater than 2 days Time Spent Managing PTS Care (In Minutes): 35
--- NOTE | 2021-12-27 15:04 | P.PN ---
Subjective Date of Service: 12/27/21 Chief Complaint: Enteritis/Oophoritis Patient is still having sharp abdominal pain, anorexia, nausea. WBC downtrending, afebrile. Review of Systems 10-point ROS is otherwise unremarkable Physical Examination - Vital Signs Temperature: 98.1 F Blood Pressure: 107/74 Pulse: 80 Respirations: 16 Pulse Ox (%): 99 - Physical Exam General: Alert, In no apparent distress, Oriented x3 HEENT: Atraumatic, Normocephalic Neck: 2+ carotid pulse no bruit Respiratory: Clear to auscultation bilaterally, Normal air movement Capillary refill: <2 Seconds Gastrointestinal: Other, Tenderness (diffuse), Guarding Musculoskeletal: No clubbing, No swelling, No contractures Integumentary: No rashes, No breakdown, No significant lesion - Studies Medications List Reviewed: Yes Assessment And Plan - Plan Antibiotics Zosyn: 12/26current Left-sided enteritis versus tubo-ovarian abscess CT abdomen pelvis demonstrated pelvic inflammation concerning for small bowel enteritis versus tubo-ovarian abscess We recommend continuing Zosyn at this time. Can discontinue on oral antibiotic. Recommend treating for at least 2 to 4 weeks. Patient has no history of sexually transmitted infections, is not currently sexually active, and has no current concern for loki an STD. Patient had hysterectomy in August 2021 secondary to endometriosis. Both fallopian tubes and ovaries still present. -Patient seen and cleared by surgery. Recommend patient follow-up with her surgeon who performed her hysterectomy on discharge - Leukocytosis Downtrending, patient afebrile Anemia Continue to monitor H&H Plan of care discussed Dr. Newton Thank you for consultation Physician Review: Patient Assessed, Agree with Above Assessment and Plan
--- NOTE | 2021-12-27 16:02 | P.DS ---
Admission Date: 12/25/21 Discharge Date: 12/27/21 Disposition: TRANSFER TO [facility] Discharge Condition: FAIR Reason for Admission: Enteritis/Oophoritis Brief History of Present Illness: istory of Present Illness: Patient is a 41-year-old female who presented to the ED with complaints of fever, generalized abdominal pain, nausea, vomiting, and 1 episode of syncope. Patient reports that she had a fever about 2 days ago then started vomiting last night and has been unable to tolerate fluids. She had a hysterectomy in August 2021 because of endometriosis. Labs significant for WBC 30, neutroph ils 88.1%, potassium 3.3, bandemia. Temp of 100.[address] abdomen pelvis showed left lower quadrant inflammatory changes seen in close proximity to the left ovary small bowel loops. Follow-up transvaginal ultrasound showed mild heterogeneous material surrounding left ovary which could indicate infection. Dr. Warner was notified and wishes for patient to be admitted under hospitalist and he will consult. She was given fluids and started on doxycycline and Rocephin in the ED. Home medications list reviewed: Yes (NA) - Past Medical/Surgical History Diabetic: No Past Medical History: Patient denies medical history -: Hysterectomy (08/2021) -: Endometriosis -: -: C5-C6 Spinal Fusion Psychosocial/ Personal History: Patient lives at home with her son. - Family History Family History: Reviewed- Non-Contributory - Social History Smoking Status: Current every day smoker Alcohol use: No CD- Drugs: No Caffeine use: Yes Place of Residence: Home <Marita Brower - Last Filed: 12/25/21 22:02> Date of Service: 12/26/21 <Erika Forde - Last Filed: 12/26/21 16:15> Allergies No Known Allergies Allergy (Verified 12/25/21 21:56) Home Medications: Hospital Course: Hospital course Patient with recent hysterectomy admitted for abdominal pain. CT imaging as well as transvaginal ultrasound shows evidence of left ovarian abscess with secondary inflammation of the surrounding bowel. Patient has marked leukocytosis started on Zosyn with marginal change in WBC count. Abdominal pain still persistent. Added Flagyl today. Evaluated by gynecology and recommended transfer for laparoscopic gynecology evaluation. 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 reaves Chandan Physical Exam General: Alert, In no apparent distress HEENT: Atraumatic, PERRLA, EOMI, Sclerae nonicteric Neck: Supple, 2+ carotid pulse no bruit, No LAD, Without JVD or thyroid abnormality Respiratory: Clear to auscultation bilaterally, Normal air movement Cardiovascular: Regular rate/rhythm, Normal S1 S2 Gastrointestinal: Normal bowel sounds, No rebound, No guarding, + Tenderness Musculoskeletal: No tenderness Integumentary: No rashes Neurological: Normal gait, Normal speech, Normal strength at 5/5 x4 extr, Normal tone, Normal affect Vital Signs/Physical Exam: Temp Pulse Resp BP Pulse Ox 98.1 F 80 16 107/74 99 12/27/21 15:04 12/27/21 15:04 12/27/21 15:04 12/27/21 15:04 12/27/21 15:04 Laboratory Data at Discharge: WBC 24.4 K/uL (4.3-10.9) H* 12/27/21 03:55 Hgb 11.5 g/dL (12.0-15.0) L 12/27/21 03:55 Hct 34.3 % (36.0-45.0) L 12/27/21 03:55 Plt Count 382 K/uL (152-406) 12/27/21 03:55 Sodium 137 mmol/L (136-145) 12/27/21 03:55 Potassium 4.1 mmol/L (3.5-5.1) 12/27/21 03:55 BUN 4 mg/dL (7-18) L 12/27/21 03:55 Creatinine 0.47 mg/dL (0.55-1.3) L 12/27/21 03:55 Glucose 111 mg/dL (74-106) H 12/27/21 03:55 Magnesium 1.6 mg/dL (1.8-2.4) L 12/26/21 03:36 Total Bilirubin 0.4 mg/dL (0.2-1.0) 12/25/21 14:28 AST 7 U/L (15-37) L 12/25/21 14:28 ALT 15 U/L (12-78) 12/25/21 14:28 Alkaline Phosphatase 103 U/L (45-117) 12/25/21 14:28 Lipase 22 U/L (73-393) L 12/25/21 14:28 Home Medications: NK [No Home Meds] 12/25/21 Activity: Ad michael Followup: Unknown,U [Primary Care Provider] - Physician Review: Patient Assessed, Agree with Above Assessment and Plan Time spent managing pt's care (in minutes): 35
[2021-12-27] MEDS ORDERED: METRONIDAZOLE 500mg IVPB 500 MG/100 ML BAG IV SCH (17:00)
[2021-12-27 20:29] VITALS: BP 135/79; TEMP 99.5
== END 2021-12-27 22:51 | disposition short-term general hospital (02) | DRG 872 ==
LOC: ER 14:13 → ERHOLD 19:23 → 2ND 20:57
PROVIDERS: ADMIT Hospitalist; ATTEND Hospitalist
DX: A41.9 Sepsis, unspecified organism (principal); N70.02 Acute oophoritis; Z90.710 Acquired absence of both cervix and uterus; K52.9 Noninfective gastroenteritis and colitis, unspecified; Z20.822 Contact with and (suspected) exposure to COVID-19
CPT/HCPCS: 36415; 74177; 76830; 80048; 80053; 81003; 81015; 83605; 83690; 83735; 84132; 84443; 85025; 87040; 87086; 87088; 87804; 93005; 96361; 96365; 96375; 99284; J1650; J2270; J2405; J2543; J3475; J3490; J7030; Q9967; U0003

== ENCOUNTER → 2023-08-26 | Emergency (ER) | payer OTHER, SELFPAY ==
[~2023-08-26] MED LIST: FLUORESCEIN SODIUM 1 MG/WRAP ONE; GENTAMICIN 0.3% OPTH DROP 5ML ONE; HYDROCODONE/APAP 10/325 TAB ONE; TETRACAINE HCL 0.5% 4ML OPTH ONE; TOBRAMYCIN SULF 0.3% OPTH OINT ONE; WATER FOR INJ,STERILE 10 ML ONE
--- OUTSIDE RECORDS SUMMARY | 2023-08-26 11:26 | XMS REPORT | Continuity of Care Document ---
Author Name Unknown Address [address] [facility] [place] [address] [facility] thconnect Address [address] [place] [address] Care Team Providers Care Nuts And Bolts Assembler Name Role Phone Chandan Reaves Attending Clinician Unavailable Physician, No Primary or Family Attending Clinic codi Unavailable GC_SWHATBIC_Ramos_C Attending Clinician Unavaila ble GC_SWHAOMC_Ramos_C Attending Clinician Unavailab Chandan Ledezma Attending Clinician [phone] GC_SWHATBIC_Ball_C Attending Clinician Unavailab le GC_SWHAWPRC_Cathey Attending Clinician Unavailab le Alvarez_R Attending Clinician Unavailable Chandan Reaves Admitting Clinician Unavailable Physician, No Primary or Family Admitting Clinic codi Unavailable GC_SWHATBIC_Ramos_C Admitting Clinician Unavaila ble GC_SWHAOMC_Ramos_C Admitting Clinician Unavailab le GC_SWHATBIC_Ball_C Admitting Clinician Unavailab le GC_SWHAWPRC_Cathey Admitting Clinician Unavailab le Alvarez_R Admitting Clinician Unavailable Payers Payer Name Policy Type Policy Number Effective Date Expirati on Date Source [facility] Dual Complete P [id number] [facility] - DUAL ELIGIBLE (MEDICARE REPLACEMENT/ADVANTA GE - HMO) [id number] 2021 00:00:00 [place] [id number] Allergies, Adverse Reactions, Alerts Allergy Name Allergy Type Status Severity Reaction(s) Onset Date Inactive Date Treating Clinician Comments Source No Known Allergie s DA Active U 12-28 00:00: 00 [facility] Social History Smoking Status Start Date Stop Date Source Heavy Tobacco Smoker [facility] Medications Ordered Medication Name Filled Medication Name Start Date Stop Date Current Medication? Ordering Clinician Indication Dosage Frequency Signature (SIG) Comments Components Source benzonatate 100 mg capsule benzonatate 100 mg capsule No benzonatat e 100 mg capsule [facility] Colace 100 mg capsule Take 1 capsule twice a day by oral route as needed. Colace 100 mg capsule Take 1 capsule twice a day by oral route as needed. No 1capsul e(s) BID Colace 100 mg capsule Take 1 capsule twice a day by oral route as needed. [facility] dextroamphe tamine-amph etamine 20 mg tablet TAKE 1 TABLET BY MOUTH EVERY DAY FOR 30 DAYS dextroamphe tamine-amph etamine 20 mg tablet TAKE 1 TABLET BY MOUTH EVERY DAY FOR 30 DAYS No dextroamph etamine-am phetamine 20 mg tablet TAKE 1 TABLET BY MOUTH EVERY DAY FOR 30 DAYS [facility] hydrocodone 5 mg-acetamin ophen 325 mg tablet Take 1 tablet every 6 hours by oral route as needed. hydrocodone 5 mg-acetamin ophen 325 mg tablet Take 1 tablet every 6 hours by oral route as needed. No 1 Q6H hydrocodon e 5 mg-acetami nophen 325 mg tablet Take 1 tablet every 6 hours by oral route as needed. [facility] ibuprofen 600 mg tablet Take 1 tablet 3 times a day by oral route as needed. ibuprofen 600 mg tablet Take 1 tablet 3 times a day by oral route as needed. No 1 TID ibuprofen 600 mg tablet Take 1 tablet 3 times a day by oral route as needed. [facility] acetaminoph en 300 mg-codeine 30 mg tablet Take 1 tablet every 6 hours by oral route as needed. acetaminoph en 300 mg-codeine 30 mg tablet Take 1 tablet every 6 hours by oral route as needed. No 1 Q6H acetaminop hen 300 mg-codeine 30 mg tablet Take 1 tablet every 6 hours by oral route as needed. [facility] benzonatate 100 mg capsule benzonatate 100 mg capsule No benzonatat e 100 mg capsule [facility] dextroamphe tamine-amph etamine 20 mg tablet TAKE 1 TABLET BY MOUTH TWICE A DAY FOR 30 DAYS dextroamphe tamine-amph etamine 20 mg tablet TAKE 1 TABLET BY MOUTH TWICE A DAY FOR 30 DAYS No dextroamph etamine-am phetamine 20 mg tablet TAKE 1 TABLET BY MOUTH TWICE A DAY FOR 30 DAYS [facility] docusate sodium 100 mg capsule Take 1 capsule twice a day by oral route. docusate sodium 100 mg capsule Take 1 capsule twice a day by oral route. No docusate sodium 100 mg capsule Take 1 capsule twice a day by oral route. [facility] ibuprofen 800 mg tablet TAKE 1 TABLET 3 TIMES A DAY BY ORAL ROUTE. ibuprofen 800 mg tablet TAKE 1 TABLET 3 TIMES A DAY BY ORAL ROUTE. No ibuprofen 800 mg tablet TAKE 1 TABLET 3 TIMES A DAY BY ORAL ROUTE. [facility] oxycodone-a cetaminophe n 5 mg-325 mg tablet TAKE 1 TABLET BY MOUTH EVERY 6 HOURS NEEDED oxycodone-a cetaminophe n 5 mg-325 mg tablet TAKE 1 TABLET BY MOUTH EVERY 6 HOURS NEEDED No oxycodone- acetaminop hen 5 mg-325 mg tablet TAKE 1 TABLET BY MOUTH EVERY 6 HOURS NEEDED [facility] benzonatate 100 mg capsule benzonatate 100 mg capsule No benzonatat e 100 mg capsule [facility] dextroamphe tamine-amph etamine 20 mg tablet TAKE 1 TABLET BY MOUTH TWICE A DAY FOR 30 DAYS dextroamphe tamine-amph etamine 20 mg tablet TAKE 1 TABLET BY MOUTH TWICE A DAY FOR 30 DAYS No dextroamph etamine-am phetamine 20 mg tablet TAKE 1 TABLET BY MOUTH TWICE A DAY FOR 30 DAYS [facility] hydrocodone 5 mg-acetamin ophen 325 mg tablet Take 1 tablet every 6 hours by oral route as needed. hydrocodone 5 mg-acetamin ophen 325 mg tablet Take 1 tablet every 6 hours by oral route as needed. No 1 Q6H hydrocodon e 5 mg-acetami nophen 325 mg tablet Take 1 tablet every 6 hours by oral route as needed. [facility] Vital Signs Vital Name Observation Time Observation Value Comments S ource BP Diastolic 2022-01-20 00:00:00 80 mm[Hg] [facility] Height 2022-01-20 00:00:00 63 [in_i] [facility] BMI (Body Mass Index) 2022-01-20 00:00:00 22.3 kg/m2 [facility] BP Systolic 2022-01-20 00:00:00 128 mm[Hg] [facility] Body Weight 2022-01-20 00:00:00 126 [lb_av] [facility] BP Diastolic 2021-09-27 00:00:00 74 mm[Hg] [facility] Height 2021-09-27 00:00:00 63 [in_i] [facility] BMI (Body Mass Index) 2021-09-27 00:00:00 24.1 kg/m2 [facility] BP Systolic 2021-09-27 00:00:00 116 mm[Hg] [facility] Body Weight 2021-09-27 00:00:00 136 [lb_av] [facility] BP Diastolic 2021-09-01 00:00:00 58 mm[Hg] [facility] Height 2021-09-01 00:00:00 63 [in_i] [facility] BMI (Body Mass Index) 2021-09-01 00:00:00 24.4 [facility] 2021-09-01 00:00:00 120 mm[Hg] [facility] Body Weight 2021-09-01 00:00:00 138 [lb_av] [facility] Procedures Procedure Date / Time Performed Performing Clinicia n Source MAMMO, screening, bilateral 2022-01-20 00:00:00 [facility] [id number] 2022-01-06 00:00:00 RODED.01 [facility] [id number] 2021-12-30 00:00:00 [facility] [id number] 2021-12-30 00:00:00 [facility] [id number] 2021-12-30 00:00:00 [facility] [id number] 2021-12-29 00:00:00 RAMCA.01 [facility] MAMMO, screening, bilateral 2021-09-27 00:00:00 [facility] Oral / Dental Surgery 2018-07-19 00:00:00 [facility] Caesarean Section 2006-04-13 00:00:00 [facility] Appendectomy 1991-08-19 00:00:00 [facility] Encounters Start Date/Time End Date/Time Encounter Type Admission Type Attending Critical Access Hospital Care Facility Care Department Encounter ID Source 2021-12-28 00:31:00 Inpatient UR Chandan Reaves [facility].01 [id number] [facility] 2021-12-27 19:06:00 Inpatient UR Carrie Anderson [facility] [id number] [facility] 2021-04-25 12:49:24 Outpatient [facility] [id number] [facility] 2021-04-25 12:06:46 Outpatient [facility] [id number] [facility] 2023-03-13 00:00:00 2023-03-13 00:00:00 Outpatient GC_SWHATBIC _Ramos_C PRIV PRIV [id number] [facility] 2023-03-13 00:00:00 2023-03-13 00:00:00 Outpatient GC_SWHATBIC _Ramos_C PRIV PRIV [id number] [facility] 2023-03-13 00:00:00 2023-03-13 00:00:00 Outpatient GC_SWHATBIC _Ramos_C PRIV PRIV [id number] [facility] 2023-02-13 00:00:00 2023-02-13 00:00:00 Outpatient GC_SWHAOMC_ Ramos_C PRIV PRIV [id number] [facility] 2023-02-13 00:00:00 2023-02-13 00:00:00 Outpatient GC_SWHAOMC_ Ramos_C PRIV PRIV [id number] [facility] 2023-02-13 00:00:00 2023-02-13 00:00:00 Outpatient GC_SWHATBIC _Ramos_C PRIV PRIV [id number] [facility] 2023-02-13 00:00:00 2023-02-13 00:00:00 Outpatient GC_SWHAOMC_ Ramos_C PRIV PRIV [id number] [facility] 2023-02-11 00:00:00 2023-02-11 00:00:00 Outpatient GC_SWHAOMC_ Ramos_C PRIV PRIV [id number] [facility] 2023-01-23 00:00:00 2023-01-23 00:00:00 Outpatient GC_SWHAOMC_ Ramos_C PRIV PRIV [id number] [facility] 2022-01-27 05:12:00 2022-01-27 05:12:00 Outpatient GC_SWHAOMC_ Ramos_C PRIV PRIV [id number] [facility] 2022-01-20 11:38:00 2022-01-20 11:38:00 Outpatient GC_SWHATBIC _Ramos_C PRIV PRIV [id number] [facility] 2022-01-20 00:00:00 2022-01-20 00:00:00 Outpatient Chandan Reaves PRIV PRIV [id number] 2022-01-20 00:00:00 2022-01-20 00:00:00 Chandan Reaves MD: [address], [address], [place] [address] , Ph. Formerly [facility], [facility]1983 - GC_SWHAOMC_ [place] Office* [id number] [facility] 2022-01-19 05:02:00 2022-01-19 05:02:00 Outpatient GC_SWHAOMC_ Ramos_C PRIV PRIV [id number] [facility] 2022-01-14 11:01:00 2022-01-14 11:01:00 Outpatient GC_SWHAOMC_ Ramos_C PRIV PRIV [id number] [facility] 2021-12-29 12:00:00 2022-01-08 13:11:00 Inpatient UR Chandan Reaves [facility]. [id number] [facility] 2021-12-29 12:00:00 2022-01-08 13:11:00 Inpatient UR Chandan Reaves [facility] MED[facility].01 [id number] [facility] 2021-11-10 03:29:00 2021-11-10 03:29:00 Outpatient GC_SWHATBIC _Ball_C PRIV PRIV [id number] [facility] 2021-10-14 01:06:00 2021-10-14 01:06:00 Outpatient GC_SWHATBIC _Ball_C PRIV PRIV [id number] [facility] 2021-10-14 01:06:00 2021-10-14 01:06:00 Outpatient GC_SWHAOMC_ Ramos_C PRIV PRIV [id number] [facility] 2021-10-12 02:16:00 2021-10-12 02:16:00 Outpatient GC_SWHATBIC _Ball_C PRIV PRIV [id number] [facility] 2021-10-06 10:50:00 2021-10-06 10:50:00 Outpatient GC_SWHAOMC_ Ramos_C PRIV PRIV [id number] [facility] 2021-10-05 01:26:00 2021-10-05 01:26:00 Outpatient GC_SWHATBIC _Ball_C PRIV PRIV [id number] [facility] 2021-09-29 11:55:00 2021-09-29 11:55:00 Outpatient GC_SWHAOMC_ Ramos_C PRIV PRIV [id number] [facility] 2021-09-27 03:15:00 2021-09-27 03:15:00 Outpatient GC_SWHATBIC _Ball_C PRIV PRIV [id number] [facility] 2021-09-27 00:00:00 2021-09-27 00:00:00 Outpatient Chandan Reaves [facility] PRIV PRIV [id number] 2021-09-27 00:00:00 2021-09-27 00:00:00 Chandan Reaves MD: [address], [address], [place] [address] , Ph. Formerly [facility], [facility] - GC_SWHAOMC_ [place] Office* [id number] [facility] 2021-09-22 03:12:00 2021-09-22 03:12:00 Outpatient GC_SWHAOMC_ Ramos_C PRIV PRIV [id number] [facility] 2021-09-01 05:45:00 2021-09-01 05:45:00 Outpatient GC_SWHAOMC_ Ramos_C PRIV PRIV [id number] [facility] 2021-09-01 05:45:00 2021-09-01 05:45:00 Outpatient GC_SWHAOMC_ Ramos_C PRIV PRIV [id number] [facility] 2021-09-01 00:00:00 2021-09-01 00:00:00 Outpatient Alf Chandan Rodriguez PRIV PRIV [id number] 2021-09-01 00:00:00 2021-09-01 00:00:00 Chandan Reaves MD: [address], [address], [place] [address] , Ph. Formerly [facility], [facility] - GC_SWHAOMC_ [place] Office* [id number] [facility] 2021-08-31 04:03:00 2021-08-31 04:03:00 Outpatient GC_SWHAOMC_ Ramos_C PRIV PRIV [id number] [facility] 2021-08-25 03:09:00 2021-08-25 03:09:00 Outpatient GC_SWHAOMC_ Ramos_C PRIV PRIV [id number] [facility] 2021-08-25 03:09:00 2021-08-25 03:09:00 Outpatient GC_SWHAOMC_ Ramos_C PRIV PRIV [id number] [facility] 2021-08-09 14:25:00 2021-08-09 14:25:00 Outpatient Chandan Reaves [facility] [id number] [facility] 2021-08-09 08:37:00 2021-08-09 08:37:00 Outpatient GC_SWHAOMC_ Ramos_C PRIV PRIV [id number] [facility] 2021-08-05 04:29:00 2021-08-05 04:29:00 Outpatient GC_SWHAOMC_ Ramos_C PRIV PRIV [id number] [facility] 2021-08-04 03:25:00 2021-08-04 03:25:00 Outpatient GC_SWHAOMC_ Ramos_C PRIV PRIV [id number] [facility] 2021-08-03 12:45:00 2021-08-03 12:45:00 Outpatient GC_SWHAOMC_ Ramos_C PRIV PRIV [id number] [facility] 2021-08-02 04:05:00 2021-08-02 04:05:00 Outpatient GC_SWHAOMC_ Ramos_C PRIV PRIV [id number] [facility] 2021-08-02 00:00:00 2021-08-02 00:00:00 Chandan Reaves MD: [address], [address], [place] [address] , Ph. [facility] - GC_SWHAOMC_ [place] Office* [id number] [facility] 2021-07-27 11:36:00 2021-07-27 11:36:00 Outpatient GC_SWHAOMC_ Ramos_C PRIV PRIV [id number] [facility] 2021-07-27 11:36:00 2021-07-27 11:36:00 Outpatient GC_SWHAOMC_ Ramos_C PRIV PRIV [id number] [facility] 2021-07-21 04:29:00 2021-07-21 04:29:00 Outpatient GC_SWHAWPRC _Cathey PRIV PRIV [id number] [facility] 2021-05-25 04:19:00 2021-05-25 04:19:00 Outpatient GC_PATRICIA_ Ramjuan c_C [facility] [id number] [facility] 2020-08-12 11:07:00 2020-08-12 11:07:00 Outpatient Alvarez_R VFP VFP [id number] [facility] Results Test Description Test Time Test Comments Results Result Co mments Source BASIC METABOLIC [id number] 05:34:00* Test Item Value Reference Range Interpretation Comme nts SODIUM (test code = NA) 136 mEq/L 135-145 N POTASSIUM (test code = K) 3.5 mEq/L 3.5-5.0 N CHLORIDE (test code = CL) 104 mEq/L 100-115 N CARBON DIOXIDE (test code = CO2) 26 mEq/L 22-31 N ANION GAP (test code = GAP) 9.50 10-20 L GLUCOSE (test code = GLU) 86 mg/dL 65-110 N BLOOD UREA NITROGEN (test co de = BUN) 7 mg/dL 7-18 GLOMERULAR FILTRATION RATE ( test code = GFR) 111 ml/min >60 N CREATININE (test code = CREAT) 0.6 mg/dL 0.5-1.0 N CALCIUM (test code = CA) 8.0 mg/dL 8.4-10.2 L CBC W/AUTO [id number] 05:30:00* Test Item Value Reference Range Interpretation Comme nts WHITE BLOOD CELL (test code = WBC) 12.6 K/mm3 6.5-12.3 H RED BLOOD CELL (test code = RBC) 3.57 M/mm3 3.51-4.69 N HEMOGLOBIN (test code = HGB) 10.7 g/dL 10.1-13.8 N HEMATOCRIT (test code = HCT) 33.7 % 32.5-41.8 N MEAN CELL VOLUME (test code = MCV) 94.4 fL 84.6-96.6 N MEAN CELL HGB (test code = MCH) 30.0 pg 27.3-33.9 N MEAN CELL HGB CONCETRATION ( test code = MCHC) 31.8 gm/dL 32.0-34.2 L RED CELL DISTRIBUTION WIDTH (test code = RDW) 13.6 % 12.2-16.3 N PLATELET COUNT (test code = PLT) 741 K/mm3 134-363 H MEAN PLATELET VOLUME (test c ode = MPV) 9.2 fL 9.2-12.7 N NEUTROPHIL % (test code = NT%) 63.8 % 57.9-77.3 N LYMPHOCYTE % (test code = LY%) 20.5 % 14.5-29.7 N MONOCYTE % (test code = MO%) 8.4 % 3.6-10.2 N EOSINOPHIL % (test code = EO%) 3.8 % 0.0-3.0 H BASOPHIL % (test code = BA%) 1.1 % 0.1-0.9 H NEUTROPHIL # (test code = NT#) 8.1 K/mm3 LYMPHOCYTE # (test code = LY#) 2.6 K/mm3 MONOCYTE # (test code = MO#) 1.1 K/mm3 EOSINOPHIL # (test code = EO#) 0.48 K/mm3 BASOPHIL # (test code = BA#) 0.1 K/mm3 RBC MORPHOLOGY REQUIRED (estlele t code = RBCM) NORMAL NORMAL PLATELET MORPHOLOGY REQUIRED (test code = PLTMR) NORMAL NORMAL - US ABDOMEN [id number] 00:00:00 [facility] : 1980 Sex: F Patient Name: STEFFEN CABRAL Unit No: [id number] EXAMS: CPT CODE: [id number] US ABDOM EN LTD 78524 PROCEDURE INFORMATION: Exam: US Abdomen; Limited Exam date and time: 01/06/2022 10:14 AM Age: 41 years old Clinical indication: Screening exam; Other: Abscess; Prior surgery TECHNIQUE: Imaging protocol: Real time ultrasound of the abdomen with image documentation. Limited exam focused on the region of clinical interest. COMPARISON: CT ABD PELVIS W/CONT 01/04/2022 11:33 AM FINDINGS: Limited grayscale assessment of the left adnexa was performed using a transabdominal approach. Ovaries:A persistent left adnexal collection is noted measuring roughly 27 x 20 mm versus 31 x [address] Low volume hypoechoic material is seen intraluminally. No free pelvic fluid. IMPRESSION: 1. Similar, roughly 27 mm hypoechoic left tubo-ovarian abscess. 2. No surrounding free fluid. at 1231 Reported and signed by:Real Ko MD CC: Chandan Reaves Technologist: Taylor Meraz RDMS Probe: Trnscrbd D/ (1231) GCD.CPS Orig Print D/T: S: 01/07/2022 (1133) [facility] [place] [facility] Rad[facility] Department PHYS: Chandan Cabrera MD [address] : 1980 AGE: 41 SEX: F [place] [address] LOC: F.2600 A PHONE #: [phone] EXAM DATE: 01/06/2022 STATUS: ADM IN FAX #: [phone] RAD NO: Page 1 Signed Report Patient Name: RYLEE CABRALPHERJm BRIANDOREEN Unit No: [id number] EXAMS: CPT CODE: [id number] ABDOMEN LTD 74982 (Continued) [facility] NAME: STEFFEN CABRAL Radiology Department PHYS: Chandan Cabrera MD [address] : 1980 AGE: 41 SEX: F [place] [address] LOC: F.2600 A PHONE #: [phone] EXAM DATE: 01/06/2022 STATUS: ADM IN FAX #: [phone] RAD NO: Page 2 Signed Report- CT GUID NDL [facility] (Biopsy/Asp)2022-01-06 00:00:00 [facility] : 1980 Sex: F Patient Name: STEFFEN CABRAL Unit No: [id number] EXAMS: CPT CODE: [id number] CT GUID [facility] (Biopsy/Asp) 99923 Radiation Dose CTDIVOL = 13.84 (mGy): DLP = 1025.37 (mGy-cm) PROCEDUREINFORMATION: Exam: IR Left DRAIN OVARIAN ABCESS ABD APPROACH Exam date and time: 01/06/2022 3:53 PM Age: 41 years old Clinical indication: Device placement; Patient HX: Pelvic abscess drain and elsie placement on 12/30/2021; Additional info: Left ovarian abscess drain TECHNIQUE: Imaging protocol: Left IR DRAIN OVARIAN ABCESS ABD APPROACH Radiation optimization: All CT scans at this facility use at least one of these dose optimization techniques: automated exposure control; mA and/or kV adjustment per patient size (includes targeted exams where dose is matched to clinical indication); or iterativereconstruction. ADDITIONAL STUDY INFORMATION: CTDI volume (mGy): 13.84 Total DLP (mGy-cm): 1025.37 Fluoroscopy time (seconds): N/A Number of fluoro spot images: N/A COMPARISON: US ABDOMEN LTD 01/06/2022 10:14 AM FINDINGS: After explanation of the procedure as well as the involved risks and alternatives, written informed consent was obtained. A time-out procedure was performed to document the patient's name, date of , medical record number, procedure, procedure site and allergy history and the entire team is in agreement. The patient was placed in prone position on the CT table and the left tubo-ovarian abscess was localized under CT imaging. The intended puncture site was marked on the skin and this area prepped and draped in the usual sterile fashion. Elements of maximum sterile barrier use include face mask, sterile drapes, sterile gloves, hand washing and chlorhexidine for cutaneous antisepsis (skin prep). [facility] NAME: MARIANNASTEFFEN FOSS Radiology Dep artment PHYS: ANA. Chandan Reaves MD [address] : 1980 AGE: 41 SEX: F [place], [place] [address] LOC: Phill.2600 A PHONE #: [phone] EXAM DATE: 01/06/2022 STATUS: ADM IN FAX #: [phone] RAD NO: Page 1 Signed Report 1 Patient Name: STEFFEN CABRALDOREEN Unit No: [id number] EXAMS: CPT CODE: [id number] CT GUID NDL [facility] (Biopsy/Asp) 17027 (Continued) After infiltration of the skin and soft tissues with 1% lidocaine solution, access into the left tubal ovarian abscess was obtained using an 18 gauge, 20 cm long Chiba biopsy needle. After confirmation of needle tip position with CT, approximately 11 cc of jorje purulent fluid were aspirated with complete collapse of the abscess cavity. Postprocedure images showed collapse of the pre-existing cavity and no visible procedural complication. The procedure was then terminated and adequate hemostasis was achieved. No immediate complications were reported. The fluid sample was sent for culture, sensitivity and Gram stain analysis. IMPRESSION: 1. Successful, uncomplicated CT-guided aspiration of left tubalovarian abscess. Comments: Case was discussed with Dr. Reaves at 1658 hrs. at 1811 Reported and signed by: Real Ko MD CC: Chandan Reaves Technologist: Xavier Deutsch, RT, CT CTDI: DLP: Trnscrbd D/ (181) GCD.CPS [facility] NAME: STEFFEN CABRAL Radiology Department PHYS: ANA. Ok Chandan Reaves MD [address] : 1980 AGE: 41 SEX: F [place], [place] [address] LOC: Phill.2600 A PHONE #: [phone] EXAM DATE: 01/06/2022 STATUS: ADM IN FAX#: [phone] RAD NO: Page 2 Signed Report 1 Patient Name: STEFFEN CABRAL Unit No: [id number] EXAMS: CPT CODE: [id number] CT GUID NDL [facility] (Biopsy/Asp) 74562 (Continued) Orig Print D/T: S: 01/06/2022 (1810) [facility] NAME: STEFFEN CABRAL Radiology Department PHYS: Ok Chandan Reaves MD [address] : 1980 AGE: 41 SEX: F [place], [place] [address] LOC: F.2600 A PHONE #: [phone] EXAM DATE: 01/06/2022 STATUS: ADM IN FAX#: [phone] RAD NO: Page 3 Signed Report 1BASIC METABOLIC [id number] 06:22:00* Test Item Value Reference Range Interpretation Comme nts SODIUM (test code = NA) 133 mEq/L 135-145 L POTASSIUM (test code = K) 3.9 mEq/L 3.5-5.0 N CHLORIDE (test code = CL) 101 mEq/L 100-115 N CARBON DIOXIDE (test code = CO2) 26 mEq/L 22-31 N ANION GAP (test code = GAP) 10.10 10-20 N GLUCOSE (test code = GLU) 81 mg/dL 65-110 N BLOOD UREA NITROGEN (test co de = BUN) 4 mg/dL 7-18 L GLOMERULAR FILTRATION RATE ( test code = GFR) 111 ml/min >60 N CREATININE (test code = CREAT) 0.6 mg/dL 0.5-1.0 N CALCIUM (test code = CA) 8.0 mg/dL 8.4-10.2 L PROTHROMBIN [id number] 06:11:00* Test Item Value Reference Range Interpretation Comme nts PROTHROMBIN TIME PATIENT (te st code = PTP) 16.6 secs 10.1-12.3 H IS PATIENT ON ANTICOAGULANTS ? NINTERNATIONAL NORMAL [id number] 06:11:00* Test Item Value Reference Range Interpretation Comme nts INTERNATIONAL NORMAL RATIO (test code = INR) 1.45 The INR is to be used only for monitoring oral anticoagulanttherapy. INDICATION INR VALUE 1. Prophylaxis including high risk surgery 2.0 - 2.52. Deep venous thrombosis. Pulmonary embolism. Atrial fibrillation or bioprosthetic heart valves 2.0 - 3.03. Mechanical heart valves or recurrent systemic embolism. 3.0 - 3.5 IS PATIENT ON ANTICOAGULANTS ? NTHROMBOPLASTIN TIME [id number] 06:11:00* Test Item Value Reference Range Interpretation Comme nts THROMBOPLASTIN TIME PARTIAL (test code = PTT) 36.6 secs 22-38 N IS PATIENT ON ANTICOAGULANTS ? NCBC W/AUTO [id number] 05:52:00* Test Item Value Reference Range Interpretation Comme nts WHITE BLOOD CELL (test code = WBC) 18.1 K/mm3 6.5-12.3 H RED BLOOD CELL (test code = RBC) 3.53 M/mm3 3.51-4.69 N HEMOGLOBIN (test code = HGB) 10.8 g/dL 10.1-13.8 N HEMATOCRIT (test code = HCT) 33.0 % 32.5-41.8 N MEAN CELL VOLUME (test code = MCV) 93.5 fL 84.6-96.6 N MEAN CELL HGB (test code = MCH) 30.6 pg 27.3-33.9 N MEAN CELL HGB CONCETRATION ( test code = MCHC) 32.7 gm/dL 32.0-34.2 N RED CELL DISTRIBUTION WIDTH (test code = RDW) 13.2 % 12.2-16.3 N PLATELET COUNT (test code = PLT) 702 K/mm3 134-363 H MEAN PLATELET VOLUME (test c ode = MPV) 9.4 fL 9.2-12.7 N NEUTROPHIL % (test code = NT%) 72.5 % 57.9-77.3 N LYMPHOCYTE % (test code = LY%) 13.3 % 14.5-29.7 L MONOCYTE % (test code = MO%) 7.1 % 3.6-10.2 N EOSINOPHIL % (test code = EO%) 2.1 % 0.0-3.0 N BASOPHIL % (test code = BA%) 1.1 % 0.1-0.9 H NEUTROPHIL # (test code = NT#) 13.1 K/mm3 LYMPHOCYTE # (test code = LY#) 2.4 K/mm3 MONOCYTE # (test code = MO#) 1.3 K/mm3 EOSINOPHIL # (test code = EO#) 0.38 K/mm3 BASOPHIL # (test code = BA#) 0.2 K/mm3 RBC MORPHOLOGY REQUIRED (estelle t code = RBCM) NORMAL NORMAL PLATELET MORPHOLOGY REQUIRED (test code = PLTMR) NORMAL NORMAL CBC W/AUTO [id number] 05:22:00* Test Item Value Reference Range Interpretation Comme nts WHITE BLOOD CELL (test code = WBC) 17.3 K/mm3 6.5-12.3 H RED BLOOD CELL (test code = RBC) 3.35 M/mm3 3.51-4.69 L HEMOGLOBIN (test code = HGB) 10.3 g/dL 10.1-13.8 N HEMATOCRIT (test code = HCT) 31.1 % 32.5-41.8 L MEAN CELL VOLUME (test code = MCV) 92.8 fL 84.6-96.6 N MEAN CELL HGB (test code = MCH) 30.7 pg 27.3-33.9 N MEAN CELL HGB CONCETRATION ( test code = MCHC) 33.1 gm/dL 32.0-34.2 N RED CELL DISTRIBUTION WIDTH (test code = RDW) 13.2 % 12.2-16.3 N PLATELET COUNT (test code = PLT) 571 K/mm3 134-363 H MEAN PLATELET VOLUME (test c ode = MPV) 9.3 fL 9.2-12.7 N NEUTROPHIL % (test code = NT%) 70.8 % 57.9-77.3 N LYMPHOCYTE % (test code = LY%) 13.9 % 14.5-29.7 L MONOCYTE % (test code = MO%) 7.1 % 3.6-10.2 N EOSINOPHIL % (test code = EO%) 2.5 % 0.0-3.0 N BASOPHIL % (test code = BA%) 0.8 % 0.1-0.9 N NEUTROPHIL # (test code = NT#) 12.3 K/mm3 LYMPHOCYTE # (test code = LY#) 2.4 K/mm3 MONOCYTE # (test code = MO#) 1.2 K/mm3 EOSINOPHIL # (test code = EO#) 0.44 K/mm3 BASOPHIL # (test code = BA#) 0.1 K/mm3 RBC MORPHOLOGY REQUIRED (estelle t code = RBCM) NORMAL NORMAL PLATELET MORPHOLOGY REQUIRED (test code = PLTMR) NORMAL NORMAL - CT ABD PELVIS W/[id number] 00:00:00 [facility] 1980 Sex: F Patient Name: STEFFEN CABRAL Unit No: [id number] EXAMS: CPT CODE: [id number] CT ABD PELVIS W/CONT 25712 Radiation Dose CTDIVOL = 4.43 (mGy): DLP = 217.96 (mGy-cm) PROCEDURE INFORMATION: Exam: CT Abdomen And Pelvis With Contrast Exam date and time: 01/04/2022 11:33 AM Age: 41 years old Clinical indication: Condition or disease; Patient HX: Pelvic abscess drain and elsie placement 12/30/2021. Total hysterectomy 07/2021. L-spine hardware 2009. Appendectomy 1992. ; Additional info: Pelvic abscess follow up TECHNIQUE: Imaging protocol: Computed tomography of the abdomen and pelvis with contrast. Radiation optimization: All CT scans at this facility use at least one of these dose optimization techniques: automated exposure control; mA and/or kV adjustment per patient size (includes targeted exams where dose is matched to clinical indication); or iterative reconstruction. Contrastmaterial: ISOVUE 300; Contrast volume: 100 ml; Contrast route: INTRAVENOUS (IV); Other contrast: Oral, GASTROGRAFIN, 40ML; Rectal, GASTROGRAFIN, 60ML; COMPARISON: 1. CTA ABDPEL W CONT 12/25/2021 3:[address] ABD PELVIS W/CONT 12/28/2021 9:44 AM RADIATION DOSE METRICS: CTDI volume (mGy): 4.43 Total DLP (mGy-cm): 217.96 FINDINGS: Lungs: Dependent atelectasis in bilateral lung bases. Pleural spaces: Small bilateral pleural effusions, left greater than right. Liver: Smooth contour. No focal mass. Gallbladder and bile ducts: No calcified stones, wall thickening or pericholecystic fluid. No ductal dilation. Pancreas: Normal. No ductal dilation. Spleen: Normal. No splenomegaly. Adrenal glands: Normal. No mass. The [facility] NAME: STEFFEN CABRAL Radiology Department PHYS: Arvin Williamson MD [address] : 1980 AGE: 41 SEX: F [place], [place] [address] LOC: F.2600 A PHONE #: [phone] EXAM DATE: 01/04/2022 STATUS: ADM IN FAX #: [phone] RAD NO: Page 1 Signed Report 1 Patient Name: STEFFEN CABRAL Unit No: [id number] EXAMS: CPT CODE: [id number] CT ABD PELVIS W/CONT 47347 (Continued) Kidneys and ureters: Normal. No stones or hydronephrosis. Stomach and bowel: Mild circumferential wall thickening of the sigmoid colon is felt to be secondary. No significant colonic diverticula. Contrast passes throughout the small bowel as well as the colon and to the rectum. No abnormal small bowel wall thickening or distention. Appendix: No evidence of appendicitis. Intraperitoneal space: See "Soft tissues" finding. Vasculature: Noabdominal aortic aneurysm. Lymph nodes: No lymphadenopathy. Urinary bladder: Normal for degree of distention. Reproductive: The uterus is surgically absent. Decreased size of the complex multi cysticfluid collection in the left hemipelvis. Left lower quadrant surgical drain terminates in the region of the previously visualized largest cyst which has resolved. Multiple adjacent cysts remain posterior to the drain. The entire collection now measures 4.3 x 3.9 x 3.6 cm, previously 7.1 x 7.4 x 5.7cm. Normal appearance of the right ovary. Bones/joints: Stable lumbar spine fusion hardware. Soft tissues: Subcutaneous air along the abdominal wall related to recent surgical procedure. Air is most p rominent along the left, but a small amount is also noted in the right upper quadrant in extending along the left inguinal region. IMPRESSION: 1. Decreased size of the left pelvic abscess following placement of abdominal drain. The largest previously visualized cyst has resolved, and a multi-cysticfluid collection now remains posterior to the location of the drain. 2. Inflammatory changes of thesigmoid colon are felt to be secondary. 3. Postsurgical changes along the abdominal wall. 4. Small bilateral pleural effusions with bibasilar atelectasis. at 2939 Reported and signed by: Jose J Shearer MD [facility] NAME: STEFFEN CABRAL Radiology Department PHYS: Arvin Williamson MD [address] : 1980 AGE: 41 SEX: F [place] [address] LOC: F.2600 A PHONE #: [phone] EXAM DATE: 01/04/2022 STATUS: ADM IN FAX #: [phone] RAD NO: Page 2 Signed Report 1Patient Name: MARIANNASTEFFEN FOSS Unit No: [id number] EXAMS: CPT CODE: [id number] CT ABD PELVIS W/CONT 63133 (Continued) CC: Chandan Reaves; Arvin Harding MD Technologist: Xavier Deutsch, RT, CT CTDI: DLP: Trnscrbd D/ (1225) GCD.CPS The [facility] NAME: STEFFEN CABRAL Radiology Department PHYS: Arvin Williamson MD [address] : 1980 AGE: 41 SEX: F [place] [address] LOC: F.2600 A PHONE #: [phone] EXAM DATE: 01/04/2022 STATUS: ADM IN FAX #: [phone] RAD NO: Page 3 Signed Report 1 Patient Name: STEFFEN CABRAL Unit No: [id number] EXAMS: CPT CODE: [id number] CT ABD PELVIS W/CONT 40701 (Continued) Orig Print D/T: S: 01/04/2022 (1225) The [facility] NAME: STEFFEN CABRAL Radiology Department PHYS: Arvin Williamson MD [address] : 1980 AGE: 41 SEX: F [place], [place] [address] LOC: Rayo0 A PHONE #: [phone] EXAM DATE: 01/04/2022TATUS: ADM IN FAX #: [phone] RAD NO: Page 4 Signed Report 1CBC W/AUTO [id number] 07:10:00* Test Item Value Reference Range Interpretation Comme nts WHITE BLOOD CELL (test code = WBC) 19.1 K/mm3 6.5-12.3 H RED BLOOD CELL (test code = RBC) 3.33 M/mm3 3.51-4.69 L HEMOGLOBIN (test code = HGB) 10.3 g/dL 10.1-13.8 N HEMATOCRIT (test code = HCT) 31.0 % 32.5-41.8 L MEAN CELL VOLUME (test code = MCV) 93.1 fL 84.6-96.6 N MEAN CELL HGB (test code = MCH) 30.9 pg 27.3-33.9 N MEAN CELL HGB CONCETRATION ( test code = MCHC) 33.2 gm/dL 32.0-34.2 N RED CELL DISTRIBUTION WIDTH (test code = RDW) 13.2 % 12.2-16.3 N PLATELET COUNT (test code = PLT) 552 K/mm3 134-363 H MEAN PLATELET VOLUME (test c ode = MPV) 9.2 fL 9.2-12.7 N MANUAL DIFF REQUIRED (test c ode = MDIFF) YES RBC MORPHOLOGY REQUIRED (estelle t code = RBCM) NORMAL NORMAL PLATELET MORPHOLOGY REQUIRED (test code = PLTMR) NORMAL NORMAL WBC [id number] 07:10:00* Test Item Value Reference Range Interpretation Comme nts SEGMENTED NEUTROPHILS (test code = SEG) 75 % 56.5-79.4 N LYMPHOCYTE (test code = LYMPH) 11 % 20-40 L TOTAL CELLS COUNTED (test co de = TCC) 100 #CELLS BAND NEUTROPHIL (test code = BAND) 1 % 0-5 N MONOCYTE (test code = MON) 9 % 0-8 H EOSINOPHIL (test code = EOS) 4 % 0-4 N MICROCYTOSIS (test code = MICR) 1+ PLATELET ESTIMATE (test code = PLTEST) ADEQUATE ADEQ PLATELET MORPHOLOGY (test co de = PLTMORPH) NORMAL NORMAL CBC W/AUTO [id number] 05:42:00* Test Item Value Reference Range Interpretation Comme nts WHITE BLOOD CELL (test code = WBC) 16.8 K/mm3 6.5-12.3 H RED BLOOD CELL (test code = RBC) 3.00 M/mm3 3.51-4.69 L HEMOGLOBIN (test code = HGB) 9.3 g/dL 10.1-13.8 L HEMATOCRIT (test code = HCT) 28.4 % 32.5-41.8 L MEAN CELL VOLUME (test code = MCV) 94.7 fL 84.6-96.6 N MEAN CELL HGB (test code = MCH) 31.0 pg 27.3-33.9 N MEAN CELL HGB CONCETRATION ( test code = MCHC) 32.7 gm/dL 32.0-34.2 N RED CELL DISTRIBUTION WIDTH (test code = RDW) 13.3 % 12.2-16.3 N PLATELET COUNT (test code = PLT) 466 K/mm3 134-363 H MEAN PLATELET VOLUME (test c ode = MPV) 9.5 fL 9.2-12.7 N NEUTROPHIL % (test code = NT%) 68.3 % 57.9-77.3 N LYMPHOCYTE % (test code = LY%) 15.2 % 14.5-29.7 N MONOCYTE % (test code = MO%) 9.6 % 3.6-10.2 N EOSINOPHIL % (test code = EO%) 1.7 % 0.0-3.0 N BASOPHIL % (test code = BA%) 0.9 % 0.1-0.9 N NEUTROPHIL # (test code = NT#) 11.5 K/mm3 LYMPHOCYTE # (test code = LY#) 2.6 K/mm3 MONOCYTE # (test code = MO#) 1.6 K/mm3 EOSINOPHIL # (test code = EO#) 0.29 K/mm3 BASOPHIL # (test code = BA#) 0.2 K/mm3 RBC MORPHOLOGY REQUIRED (estelle t code = RBCM) NORMAL NORMAL PLATELET MORPHOLOGY REQUIRED (test code = PLTMR) NORMAL NORMAL CBC W/AUTO [id number] 05:32:00* Test Item Value Reference Range Interpretation Comme nts WHITE BLOOD CELL (test code = WBC) 19.9 K/mm3 6.5-12.3 H RED BLOOD CELL (test code = RBC) 3.12 M/mm3 3.51-4.69 L HEMOGLOBIN (test code = HGB) 9.7 g/dL 10.1-13.8 L HEMATOCRIT (test code = HCT) 29.3 % 32.5-41.8 L MEAN CELL VOLUME (test code = MCV) 93.9 fL 84.6-96.6 N MEAN CELL HGB (test code = MCH) 31.1 pg 27.3-33.9 N MEAN CELL HGB CONCETRATION ( test code = MCHC) 33.1 gm/dL 32.0-34.2 N RED CELL DISTRIBUTION WIDTH (test code = RDW) 13.2 % 12.2-16.3 N PLATELET COUNT (test code = PLT) 505 K/mm3 134-363 H MEAN PLATELET VOLUME (test c ode = MPV) 9.5 fL 9.2-12.7 N NEUTROPHIL % (test code = NT%) 74.4 % 57.9-77.3 N LYMPHOCYTE % (test code = LY%) 10.1 % 14.5-29.7 L MONOCYTE % (test code = MO%) 9.6 % 3.6-10.2 N EOSINOPHIL % (test code = EO%) 1.5 % 0.0-3.0 N BASOPHIL % (test code = BA%) 0.5 % 0.1-0.9 N NEUTROPHIL # (test code = NT#) 14.9 K/mm3 LYMPHOCYTE # (test code = LY#) 2.0 K/mm3 MONOCYTE # (test code = MO#) 1.9 K/mm3 EOSINOPHIL # (test code = EO#) 0.29 K/mm3 BASOPHIL # (test code = BA#) 0.1 K/mm3 RBC MORPHOLOGY REQUIRED (estelle t code = RBCM) NORMAL NORMAL PLATELET MORPHOLOGY REQUIRED (test code = PLTMR) NORMAL NORMAL CBC W/AUTO [id number] 06:01:00* Test Item Value Reference Range Interpretation Comme nts WHITE BLOOD CELL (test code = WBC) 27.2 K/mm3 6.5-12.3 HH RESULTS CALLED Arnaud NOWAK.READ BACK & CONFIRMED? Y.BY FMateusLAB.LGL0 12/31/21 0559.RESULTS VERIFIED BY REPEAT ANALYSIS RED BLOOD CELL (test code = RBC) 3.41 M/mm3 3.51-4.69 L HEMOGLOBIN (test code = HGB) 10.6 g/dL 10.1-13.8 N HEMATOCRIT (test code = HCT) 32.5 % 32.5-41.8 N MEAN CELL VOLUME (test code = MCV) 95.3 fL 84.6-96.6 N MEAN CELL HGB (test code = MCH) 31.1 pg 27.3-33.9 N MEAN CELL HGB CONCETRATION (test code = MCHC) 32.6 gm/dL 32.0-34.2 N RED CELL DISTRIBUTION WIDTH (test code = RDW) 13.1 % 12.2-16.3 N PLATELET COUNT (test code = PLT) 501 K/mm3 134-363 H MEAN PLATELET VOLUME (test code = MPV) 9.7 fL 9.2-12.7 N NEUTROPHIL % (test code = NT%) 86.1 % 57.9-77.3 H LYMPHOCYTE % (test code = LY%) 5.2 % 14.5-29.7 L MONOCYTE % (test code = MO%) 4.9 % 3.6-10.2 N EOSINOPHIL % (test code = EO%) 0.0 % 0.0-3.0 N BASOPHIL % (test code = BA%) 0.4 % 0.1-0.9 N NEUTROPHIL # (test code = NT#) 23.5 K/mm3 LYMPHOCYTE # (test code = LY#) 1.4 K/mm3 MONOCYTE # (test code = MO#) 1.3 K/mm3 EOSINOPHIL # (test code = EO#) 0 K/mm3 BASOPHIL # (test code = BA#) 0.1 K/mm3 RBC MORPHOLOGY REQUIRED (test code = RBCM) NORMAL NORMAL PLATELET MORPHOLOGY REQUIRED (test code = PLTMR) NORMAL NORMAL CBC W/AUTO [id number] 06:43:00* Test Item Value Reference Range Interpretation Comme nts WHITE BLOOD CELL (test code = WBC) 19.9 K/mm3 6.5-12.3 H RED BLOOD CELL (test code = RBC) 3.48 M/mm3 3.51-4.69 L HEMOGLOBIN (test code = HGB) 10.9 g/dL 10.1-13.8 N HEMATOCRIT (test code = HCT) 33.5 % 32.5-41.8 N MEAN CELL VOLUME (test code = MCV) 96.3 fL 84.6-96.6 N MEAN CELL HGB (test code = MCH) 31.3 pg 27.3-33.9 N MEAN CELL HGB CONCETRATION ( test code = MCHC) 32.5 gm/dL 32.0-34.2 N RED CELL DISTRIBUTION WIDTH (test code = RDW) 13.5 % 12.2-16.3 N PLATELET COUNT (test code = PLT) 429 K/mm3 134-363 H MEAN PLATELET VOLUME (test c ode = MPV) 9.6 fL 9.2-12.7 N NEUTROPHIL % (test code = NT%) 75.2 % 57.9-77.3 N LYMPHOCYTE % (test code = LY%) 9.7 % 14.5-29.7 L MONOCYTE % (test code = MO%) 10.2 % 3.6-10.2 N EOSINOPHIL % (test code = EO%) 2.0 % 0.0-3.0 N BASOPHIL % (test code = BA%) 0.6 % 0.1-0.9 N NEUTROPHIL # (test code = NT#) 14.9 K/mm3 LYMPHOCYTE # (test code = LY#) 1.9 K/mm3 MONOCYTE # (test code = MO#) 2.0 K/mm3 EOSINOPHIL # (test code = EO#) 0.40 K/mm3 BASOPHIL # (test code = BA#) 0.1 K/mm3 RBC MORPHOLOGY REQUIRED (estelle t code = RBCM) NORMAL NORMAL PLATELET MORPHOLOGY REQUIRED (test code = PLTMR) NORMAL NORMAL - CT ABD PELVIS [id number] 00:00:00 [facility] : 1980 Sex: F Patient Name: STEFFEN CABRAL Unit No: [id number] Report Has Been Amended EXAM S: CPT CODE: [id number] CT ABD PELVIS W/CONT 16690 Addendum - 12/29/2021 SIGNED 12/29/2021 ADDENDUM: [id number] CT/CTABPLW Radiation Dose CTDIVOL = 4.51 (mGy): DLP = 219.41 (mGy-cm) Addendum after is questions with colorectal surgeon the finding in the pelvis may represent tubo-ovarian abscess. Lesslikely is postop abscess as the patient's prior surgery was in July 2021. The possibility this is an colonic abscess is thought to be less likely. at 0808 Reported and signed by: Talia Branch MD Transcribed: 12/29/2021 (0808) GCD.CPS Report Radiation Dose CTDIVOL = 4.51 (mGy): DLP = 219.41 (mGy-cm) PROCEDURE INFORMATION: Exam:CT Abdomen And Pelvis With Contrast Exam date and time: 12/28/2021 9:44 AM Age: 41 years old Clinical indication: Abdominal pain; Prior surgery; Surgery type: History of hysterectomy/appendectomy/csection/spine surgery; Additional info: Abdominal pain, pelvic infection TECHNIQUE: Imaging protocol: Computed tomography of the abdomen and pelvis with contrast. Radiation optimization: All CT scans at this facility use at least one of these dose optimization techniques: automated exposure control; mAand/or kV adjustment per patient size (includes targeted exams where dose is matched to clinical indication); or iterative reconstruction. Contrast material: ISOVUE 300; Contrast volume: 100 ml; Contrast route: INTRAVENOUS (IV); Other contrast: Oral, GASTROGRAFIN, 40; COMPARISON: The [facility] NAME: STEFFEN CABRAL Radiology Department PHYS: Karen Cruz MD [address] : 1980 AGE: 41 SEX: F [place], [place] [address] LOC: F.2600 A PHONE#: [phone] EXAM DATE: 12/28/2021 STATUS: ADM IN FAX #: [phone] RAD NO: Page 1 Signed Report 1 Patient Name: STEFFEN CABRAL Unit No: [id number] Report Has Been Amended EXAMS:CPT CODE: [id number] CT ABD PELVIS W/CONT 43584 (Continued) No relevant prior studies available. RADIATION DOSE METRICS: CTDI volume (mGy): 4.51 Total DLP (mGy-cm): 219.41 FINDINGS: Lungs: Hypoventilat ory changes are noted in the lung bases bilaterally.. Heart: Visualized portions of the heart are unremarakble. Liver: Normal. No mass. Gallbladder and bile ducts: Normal. No calcified stones. No ductal dilation. Pancreas: Normal. No ductal dilation. Spleen: Normal. No splenomegaly. Adrenal glands:Normal. No mass. Kidneys and ureters: Normal. No hydronephrosis. Stomach and bowel: Moderate residual fecal matter is noted. Intraperitoneal space: In the pelvic region midline to the left is a multifocal fluid collection with thickened rim. This area in total measures 7.1 x 7.4 by 5.7 cm with the largest fluid collection measuring 4.0 x 2.2 x 2.6 cm. Small amount of free fluid is noted. Vasculature: Unremarkable. No abdominal aortic aneurysm. Lymph nodes: Unremarkable. No enlarged lymph nodes.Urinary bladder: Unremarkable as visualized. Reproductive: Patient is status post hysterectomy Bones/joints: Fixation device is noted in the L5 4-5 region. Soft tissues: Unremarkable. IMPRESSION: Findings compatible with abscess noted in the left pelvic region as described above. Small amount of free fluid noted in the pelvic region. Bilateral bibasilar hypoventilatory changes noted. [facility] NAME: STEFFEN CABRAL Radiology Department PHYS: Karen Cruz MD[address] : 1980 AGE: 41 SEX: F [place], [place] [address] LOC: F.2600 A PHONE #: [phone] EXAM DATE: 12/28/2021 STATUS: ADM IN FAX #: [phone] RAD NO: Page 2 Signed Report 1 Patient Name: STEFFEN CABRAL Unit No: [id number] Report Has Been Amended EXAMS: CPT CODE: [id number] CT ABD PELVIS W/CONT 13957 (Continued) at 1019 Reported and signed by: Talia Branch MD CC: Karen De La Rosa MD; Chandan Reaves Technologist: Danii Guerra RT, CT CTDI: 4.51 DLP: 219.41 Trnscrbd D/ (1019) GCD.[facility] NAME: RYLEE CABRALNORA FOSS Radiology Department PHYS: Karen Cruz MD [address] : 1980 AGE: 41 SEX: F [place] [address] LOC: F.2600 A PHONE #: [phone] EXAM DATE: 12/28/2021 STATUS: ADM IN FAX #: [phone] RAD NO: Page 3 Signed Report 1 Patient Name: STEFFEN CABRAL Unit No: [id number] Report Has Been Amended EXAMS: CPT CODE: [id number] CT ABD PELVIS W/CONT 59072 (Continued) Orig Print D/T: S: 12/28/2021 (1020) [facility] NAME: STEFFEN CABRAL Radiology Department PHYS: Karen Cruz MD [address] : 1980 AGE: 41 SEX: F [place], [place] [address] LOC: F.2600 A PHONE #: [phone] EXAM DATE: 12/28/2021 STATUS: ADM IN FAX #: [phone] RAD NO: Page 4 Signed Report 1CBC W/AUTO [id number] 06:22:00* Test Item Value Reference Range Interpretation Comme nts WHITE BLOOD CELL (test code = WBC) 20.8 K/mm3 6.5-12.3 HH RESULTS CALLED Arnaud HERNANDEZ.READ BACK & CONFIRMED? Y.BY [id number] 12/28/21 0604. RED BLOOD CELL (test code = RBC) 3.44 M/mm3 3.51-4.69 L HEMOGLOBIN (test code = HGB) 10.7 g/dL 10.1-13.8 N HEMATOCRIT (test code = HCT) 32.6 % 32.5-41.8 N MEAN CELL VOLUME (test code = MCV) 94.8 fL 84.6-96.6 N MEAN CELL HGB (test code = MCH) 31.1 pg 27.3-33.9 N MEAN CELL HGB CONCETRATION (test code = MCHC) 32.8 gm/dL 32.0-34.2 N RED CELL DISTRIBUTION WIDTH (test code = RDW) 13.2 % 12.2-16.3 N PLATELET COUNT (test code = PLT) 403 K/mm3 134-363 H MEAN PLATELET VOLUME (test code = MPV) 9.9 fL 9.2-12.7 N MANUAL DIFF REQUIRED (test code = MDIFF) YES RBC MORPHOLOGY REQUIRED (test code = RBCM) NORMAL NORMAL PLATELET MORPHOLOGY REQUIRED (test code = PLTMR) NORMAL NORMAL WBC [id number] 06:22:00* Test Item Value Reference Range Interpretation Comme nts SEGMENTED NEUTROPHILS (test code = SEG) 76 % 56.5-79.4 N LYMPHOCYTE (test code = LYMPH) 11 % 20-40 L TOTAL CELLS COUNTED (test co de = TCC) 100 #CELLS MONOCYTE (test code = MON) 12 % 0-8 H EOSINOPHIL (test code = EOS) 1 % 0-4 N COMPREHENSIVE METABOLIC [id number] 05:59:00* Test Item Value Reference Range Interpretation Comme nts SODIUM (test code = NA) 138 mEq/L 135-145 N POTASSIUM (test code = K) 3.6 mEq/L 3.5-5.0 N CHLORIDE (test code = CL) 103 mEq/L 100-115 N CARBON DIOXIDE (test code = CO2) 27 mEq/L 22-31 N ANION GAP (test code = GAP) 11.70 10-20 N GLUCOSE (test code = GLU) 113 mg/dL 65-110 H BLOOD UREA NITROGEN (test co de = BUN) 4 mg/dL 7-18 L GLOMERULAR FILTRATION RATE ( test code = GFR) 111 ml/min >60 N CREATININE (test code = CREAT) 0.6 mg/dL 0.5-1.0 N TOTAL PROTEIN (test code = PROT) 5.5 gm/dL 6.3-8.2 L ALBUMIN (test code = ALB) 2.3 gm/dL 3.4-4.8 L CALCIUM (test code = CA) 8.3 mg/dL 8.4-10.2 L BILIRUBIN TOTAL (test code = BILT) 0.2 mg/dL 0.2-1.0 N SGOT/AST (test code = AST) 13 units/L 15-37 L SGPT/ALT (test code = ALT) 13 units/L 12-78 N ALKALINE PHOSPHATASE TOTAL ( test code = ALKP) 106 units/L 46-116 N [id number] 13:49:00* Test Item Value Reference Range Interpretation Comme nts SURGICAL (test code = SR) RUN DATE: 08/11/21 [facility] PAGE 1 RUN TIME: 1349 Specimen Inquiry RUN USER: INTERFACE [id number] LOC: YAJAIRA #: [id number] AGE/SX: 40/F ROOM: RE08/09/21REG DR: Chandan Reaves Jr, MD : 81 BED: DIS: STATUS: REG REF TLOC: SPEC #: [id number] RECD: 08/09/21 STATUS: [facility] #: [id number] EUSEBIO: 08/09/[address]: Chandan Reaves Jr, MD ENTERED: 08/09/21 SP TYPE: SURGICAL OTHR DR: ORDERED: ANATOMIC SPEC, SPEC TRACK, [id number] PROCEDURES: [id number] (08/09/21) TISSUES: A. UTERUS W/WO TUBES OVARIES NON NEOPLASTIC/PROLAPSE - UTERUS, BILATERAL FALLOPIAN TUBES FINAL DIAGNOSIS UTERUS, CERVIX, BILATERAL FALLOPIAN TUBES, TOTAL HYSTERECTOMY AND BILATERAL SALPINGECTOMY: - Cervix with parakeratosis. - Basalis layer of endometrium. - Adenomyosis. - Serosa without pathologic alteration. - Bilateral fallopian tubes without pathologic alteration. - No malignancy seen.- Specimen 107 gram. GROSS DESCRIPTION Labeled with the patient's name, designated "uterus, bilateral fallopian tubes", andReceived in formalin is an intact total hysterectomy and bilateral salpingectomy. Theuterus weighs 107 grams and measures 4.5 cm (cornu-cornu) x 4.7 cm (fundus-lower uterinesegment) x 5 cm (anterior - posterior)]. The cervix measures 3.8 cm in length x 2.7 cm indiameter. The endometrial cavity measures 4.5 cm in length, up to 2.6 cm wide. Theendometrium measures 0.1 cm in average thickness. The myometrium ranges from 0.9 to 2 cm inthickness. The right fallopian tube measures 6 cm in length with fimbriae x 0.7 cm indiameter, with a 0.4 cm average luminal diameter. The left fallopian tube measures 5.7 cmin length with fimbriae x 0.8 cm in diameter, with a 0.4 cm average luminal diameter.The serosa is pink, smooth, glistening. The endometrium is lizama-red, unremarkable. Themyometrium is lizama-yellow, unremarkable. No lesions or masses are grossly identified. Theright and left fallopian tubes are grossly unremarkable. Almond Huller sections aresubmitted as follows:Section code: A1: Anterior cervix. A2: Posterior cervix A3: Anterior endometrium.A4: Posterior endometrium. A5: Anterior myometrium.A6: Posterior myometrium.A7: Right fallopian tube. A 8: Left fallopian tube.XZ CONTINUED ON NEXT PAGE RUN DATE: 08/11/21 [facility] PAGE 2 RUN TIME: 1349 Specimen Inquiry RUN USER: INTERFACE SPEC #: [id number] PATIENT: RYLEE CABRALNORA Duarte #[id number] (Continued) --- GROSS DESCRIPTION (Continued) Technical component performed at [facility],[id number] , [place] [address] MICROSCOPIC DESCRIPTION The diagnosis is based upon microscopic examination. CLINICAL INFORMATION DYSMENORRHEA, MENORRHAGIA, ADENOMYOSIS --- Signed SIGNATURE ON FILE Mildred Siu 08/11/21 1349 END OF REPORT Notes Date/Time Note Provider Source 2022-01-20 13:01:00 [id number]:01:0 [id number] [facility] [facility] [address] [place], [place] [address] PATIENT NAME: STEFFEN CABRAL ADMIT DATE: 12/29/21ACCOUNT NO: [id number] ROOM NO: [facility] AGE: 41 SEX: F ADMITTING PHYSICIAN: Chandan Reaves MD ATTENDING PHYSICIAN: Chandan Reaves MD ADMISSION DATE: 2DISCHARGE DATE: 01/08/2022 ADMISSION DIAGNOSIS: Pelvic abscess. DISCHARGE DIAGNOSIS: Status post treatment of pelvic abscess. DISCHARGE MEDICATIONS: Augmentin. DISCHARGE FOLLOWUP: In 2 weeks. DISCHARGE ACTIVITY: Nonstrenuous. SUMMARY OF HOSPITAL COURSE: The patient is a 41-year-old who was transferredfrom [place] for continued care of a pelvic abscess. The patient had anuncomplicated hysterectomy in 07/2021 with full recovery. Two to three daysprior to transfer, the patient experienced abdominal pain and fever and nausea.She was admitted and was determined to have a pelvic abscess of unknown origin.She was placed on antibiotics. After 2 nights with no improvement, the managingphysician asked for her to be transferred to [facility]. Theyinformed the patient there were no surgeons available to potentially drain theabscess. They were also uncertain if this was an ovarian abscess in nature.The patient does not have fallopian tubes which were removed with priorhysterectomy. Transfer was accepted and she was admitted to [facility] on[facility]. Upon admission to [facility], her antibiotics were changed toZosyn and Flagyl. Her initial temperature was 98.6. Other vitals were normal.Her initial white count upon admission was 20.8. The patient underwent a repeatCAT scan. Her CAT scan on 12/28 had findings compatible with an abscess notedin the left pelvic region. The abscess measured approximately 7 cm in diameterand again it was difficult to ascertain the exact etiology of the abscess.Colorectal surgery consultation was obtained. Colorectal surgery initiallyconsulted with interventional radiology who stated they were initially unable toperform the drainage. I explained to the patient that a TOA is usuallyassociated with STI, which the patient never had a history of and has no uterusor fallopian tubes. However, an ovarian abscess would still be a remotepossibility. Colorectal surgery agreed to perform a diagnostic laparoscopy withwashout, and if necessary, possible oophorectomy if needed. The patient agreedto the surgery. The patient underwent the surgery by colorectal surgery, whichis dictated separately and was found to have a pelvic abscess, still of unknownorigin, as the ovary was not identified. A drain was placed and the pus wassent for cultures. Postoperatively, the patient was feeling well and remainedafebrile; but however, the WBC was elevated at 27.2. On postoperative day #3,from the laparoscopic abscess drainage, the patient was continued to have an PATIENT NAME: STEFFEN CABRAL elevated white count of 16.8 and remained afebrile, but was still having someabdominal pain. The microbiology of the cultures returned streptococcus. Atthis time, an infectious disease consult was obtained and the patient wasevaluated by ID. There was no change in antibiotics. On 01/03, the patient'swhite count was again elevated at 19.1 and the patient was therefore re-imaged.Reimaging showed a residual abscess but smaller than originally seen. IR reevaluated the imaging and agreed to the drain the abscess. She underwent drainage and felt significantly improved the next day. Her WBC dropped to 12 and her pain dissapated. Patient remained stable two days after the drainage and was ready for discharge home. ID susgested two weeks of oral antibiotics. Patient was given precautions and a follow appointment was scheduled. Dictated By: Chandan Reaves Jr, MD WT: DS:FCOLBY/ANA.Guerda/NTSDD: 01/20/2022 13:01:08DT: 01/21/2022 03:43:54Conf#: [id number]/DID#: [id number] Authenticated and Edited by Chandan Reaves MD On 02/10/22 7:52:24 AM at 0755 PATIENT NAME: STEFFEN CABRAL wjwiwln8291-53-15V21:43:00F.[id number] ilable for patient exmrTBYSJOBLSRBMRP1038-09-00B92:55:51 [facility] 2022-01-13 07:23:00 [id number] cXZgwfkuQC7p3pDOLkk8edyOkQPor 5gPWab3G6WUZw7S+e3bpHh4qy4gmilt1545-31-59M98:23:0 [id number] [facility] [address] [place], [place] [address] PATIENT NAME: STEFFEN CABRAL ADMIT DATE: 12/29/21ACCOUNT NO: [id number] ROOM NO: 260 AGE: 41 SEX: F ADMITTING PHYSICIAN: Chandan Reaves MD ATTENDING PHYSICIAN: Chandan Reaves MD Provider Query QUERY TEXT: Relationship Procedure Condition 360MD Query related questions should be directed to: [facility] Coding Query Helpline Please clarify the etiology of the diagnosis left tubal ovarian abscess and its relationship, if any, to the procedure s/p hysterectomyThe classification system provides these guidelines for intraoperative and/or post procedure conditions/diagnoses:-- Not all post procedure conditions are classified as complications.- There must be an unexpected or abnormal occurrence.- There must be a documented cause and effect relationship between the condition and the care.- There must be an indication that it is a complication-- The term ''complication'' as used in ICD-10-CM does not imply that improper or inadequate care is responsible for the problem-- There is no time limit for development of complication-- The term postoperative requires clarity to determine if it is a complication or condition resulting from medical/surgical care that is a residual condition of the procedure.-- When laceration/tear/enterotomy occurs during a procedure, the physician must provide clarity as to whether the tear was an incidental occurrence inherent to the procedure or clinically significant (complication).-- When hemorrhage occurs with procedure, clarify if it is expected or unexpected as well as abnormal amount of blood loss and the organ or tissue structure involved (i.e., subcutaneous, fascia, specific organ, specific artery/vein, etc.). The patient's Clinical Indicators include:Upon entry into the pocket and we opened this up, there was noted to be copious amounts of purulent drainage.The drainage was thick white drainage.We cultured this and sent off as pelvic abscess and we irrigated the area locally.We then placed a 19 round Taran drain under laparoscopic guidance at the areaand secured this to the skin-OPERATIVE REPORT 12/30/2021he had uncomplicated recovery from hysterectomy, these symptoms started approximately a month ago well after surgical recovery-History Physical - Adult 12/28/2021OD 4 for l-scope pelvic abscess drainage by CRS.Afebrile since procedure with an initial drop in WBC.However patient is clinically the same and WBC is elevated this am.Continues on Zosyn/Flagly and awaiting sensitivities-Clinical Note 01/03/2022T scan of abd/pelvis repeated 6/28- showing decreased size of the left pelvic abscess following placement of abdominal drain-Infectious Dis. Progress Note 01/07/2022uccessful, uncomplicated CT-guided aspiration of left tubal ovarian abscess-CT GUID NDL PLCMT 2Options provided:-- Routine, inherent or integral-- Unexpected or abnormal-- Unrelated, Please specify the cause if known.-- Other - I will add my own diagnosis-- Dismiss - Not applicable / Not valid-- Dismiss - Clinically unable to determine / Unknown-- Assign to another provider QUERY RESPONSE: This was unrelated to procedure/due to other cause. The abscess was GI related and not ovarian. She does not have fallopian tubes. The hyst was 6 months prior and she was fully recovered. The abscess is totally unrelated to the hysterectomy. Query created by: Ashley Pimentel on 01/10/2022 7:56 AM QUERY TEXT: Clarification Diagnostic Test 360MD Query related questions should be directed to: [facility] Coding Query Helpline Please clarify the condition or diagnosis for the clinical / diagnostic findings noted within the clinical indicators. (Hyponatremia ,Abnormal Lab result ,unable to determine or other more appropriate diagnosis) The patient's Clinical Indicators include:SODIUM (mEq/L) 136 133L -Laboratory ResultsRINGERS SOLUTION,LACTATED 1000 ML BAG-MAR Options provided:-- Respond - Create new note now-- Dismiss - Not applicable / Not valid-- Dismiss - Clinically unable to determine / Unknown-- Assign to another provider QUERY RESPONSE: Provider was clinically unable to determine a response for this query Query created by: Ashley Pimentel on 01/10/2022 7:58 AM at 0723 PATIENT NAME: STEFFEN CABRAL noteF.[id number] for patient vplvBWICAAPWUBAWIO9047-85-37T23:24:44 [facility] 2022-01-08 08:30:00 [id number] E+kL/KBUJJUplW2rgv53riCvL9IiZ 6/paz2Tabuon1Ps6TbselILoJXU2lMD6379-65-17U09:30:0 0 [facility] ([facility])Colorectal Surgery Prog NoteREPORT#:[id number] REPORT STATUS: SignedDATE:01/08/22 TIME: 829 PATIENT: STEFFEN CABRAL UNIT #: [id number]#: [id number] ROOM/BED: [facility]-ADOB: [birth year] AGE: 41 SEX: F ATTEND: Chandan Reaves [facility] AUTHOR: Chucky Velarde MD * ALL edits or amendments must be made on the electronic/computer document * SubjectiveChief complaint:Abdominal pain and LLQ pelvic multiloculated massHPI:s/p IR drainage on 01/06 and she is feeling better. Still with some slight soreness but denies fever or chills, no nausea or vomiting, tolerating diet. + ambulation Objective Physical ExamWound/incision: Location:CDI.Respiratory: aerating wellAbdomen: tenderness (minimal in LLQ), soft, no distention, no guarding, no rebound, ELSIE drain is serous. ResultsFindings/Data:Laboratory Tests 01/08/22 0620:[Embedded Image Not Available]Laboratory Tests 01/09 620 Hematology WBC (6.5 - 12.3 K/mm3) 12.3 RBC (3.51 - 4.69 M/mm3) 3.71 Hgb (10.1 - 13.8 g/dL) 11.3 Hct (32.5 - 41.8 %) 35.6 MCV (84.6 - 96.6 fL) 96.0 MCH (27.3 - 33.9 pg) 30.5 MCHC (32.0 - 34.2 gm/dL) 31.7 L RDW (12.2 - 16.3 %) 13.8 Plt Count (134 - 363 K/mm3) 829 H MPV (9.2 - 12.7 fL) 9.4 Neut % (Auto) (57.9 - 77.3 %) 62.6 Lymph % (Auto) (14.5 - 29.7 %) 22.2 Citrus % (Auto) (3.6 - 10.2 %) 7.6 Eos % (Auto) (0.0 - 3.0 %) 3.6 H Baso % (Auto) (0.1 - 0.9 %) 1.6 H Neut # (Auto) (K/mm3) 7.7 Lymph # (Auto) (K/mm3) 2.7 Citrus # (Auto) (K/mm3) 0.9 Eos # (Auto) (K/mm3) 0.44 Baso # (Auto) (K/mm3) 0.2 Diagnosis, Assessment PlanFree Text A P:41/F with pelvic abscess on cross sectional imaging WBC remains elevated, vitals stable. Hgb stable. Continue IV abx, Continue PPI, Cotninue zofran as needed. Advance diet as tolerated. IF the WBC remains elevated consider CT scan with rectal contrast tomorrow to rule out undrained abscesses. remainder of care per [facility]IOLOGIST [facility]ARMACEUT[facility].Discussed with Dr. Velarde. 01/04/22. PT is still feeling distended and hacing abdominal discomfort. Toelrating diet and having bowel movement. No chills, no fevers. WBC trending down, rest of vitals stable. Recommend advancing diet ast tolerated, low residue diet. Continue antibiotics for now. No CT scan today as WBC is improving. IF needed, the farther from surgery the better the quality of the CT scan. No other intervention from the colorectal surgery standpoint. 01/05/22. After reviewing CT scan with Dr. Velarde we decided to consult IR. I discussed the imaging with Dr. Real Davies and he agreed to perform percutaneous drainage on . We will keep the ELSIE drain until after the procedure. No other change from CRs standpoint. Continue antibiotics and diet. rest of the management per primary. We will continue to follow. 01/06/22. Pt scheduled to have IR percutaneous aspiration of fluid collection.NPO until after the procedure is completed. No labs today. We should follow WBC trend.Continue antibiotics per ID recommendations. We will continue to follow. 01/08/22She is doing better with improved pain and no fever or chills. WBC: 12okay to advance and keep on soft dietAbx recs per ID We discussed with her that either a repeat imaging study or another surgery may be required in the future, but at this time, we would attempt to allow the inflammation to improve and for her to recover. She is okay to discharge from a colona nd rectal standpoint at 0835 RPT #:[id number] OF REPORT PRProgress gexn3547-38-13K02:30:00F.[id number] able for patient ogsmBNDYYEIVLTPTDJ3425-73-43J00:35:43 [facility] 2022-01-08 07:57:00 [id number] KS9qYYT5eq5ZAm8jcBgET05kRfj98 JDqURaPiEjTTYuLd8HB9HHnFzeK/2h69235-53-21W07:57:0 0 [facility] ([facility])Clinical NoteREPORT#:[id number] REPORT STATUS: SignedDATE:01/08/22 TIME: 756 PATIENT: STEFFEN CABRAL UNIT #: [id number]#: [id number] [address] [birth year] AGE: 41 SEX: F ATTEND: Chandan Reaves [facility] AUTHOR: Chandan Reaves MD * ALL edits or amendments must be made on the electronic/computer document * Clinical NoteNote:Patient is doing wellJP removed yesterday Vital Signs Date Time Temp Pulse Resp B/P B/P Pulse O2 O2 Flow FiO2 Mean Ox Delivery Rate 01/08 713 98.2 69 16 113/75 87.3 98 01/08 0530 98.1 83 18 124/86 98.8 97 Room air 01/07 2340 97.9 74 18 105/69 81.2 97 Room air 01/07 2000 98.1 64 18 134/58 0.0 98 Room air 01/07 1612 98.1 60 18 113/72 85.6 97 07/ 1110 97.5 63 16 112/74 86.3 97 / 0712 97.7 66 18 109/71 83.6 98 07/ 0323 98.1 61 16 124/80 95.0 98 Room air 01/07 0004 97.9 68 16 115/77 89.9 97 Room air 01/06 2006 97.7 73 16 122/83 95.7 97 Room air 01/06 1748 98.2 63 18 127/86 99.4 97 01/06 1730 63 17 114/79 99 Room air 01/06 1715 62 15 113/75 98 Room air 01/06 1700 86 17 108/71 97 Room air 01/06 1655 98.0 66 18 131/77 98 Room air 01/06 1153 97.5 63 17 128/87 100.3 97 01/06 0805 98.2 66 17 132/88 102.7 97Laboratory Tests: 01/08 01/07 0620 0445 Chemistry Sodium (135 - 145 mEq/L) 136 Potassium (3.5 - 5.0 mEq/L) 3.5 Chloride (100 - 115 mEq/L) 104 Carbon Dioxide (22 - 31 mEq/L) 26 Anion Gap (10 - 20) 9.50 L BUN (7 - 18 mg/dL) 7 Creatinine (0.5 - 1.0 mg/dL) 0.6 Glomerular Filtr Rate (>60 ml/min) 111 Glucose (65 - 110 mg/dL) 86 Calcium (8.4 - 10.2 mg/dL) 8.0 L Hematology WBC (6.5 - 12.3 K/mm3) 12.3 12.6 H RBC (3.51 - 4.69 M/mm3) 3.71 3.57 Hgb (10.1 - 13.8 g/dL) 11.3 10.7 Hct (32.5 - 41.8 %) 35.6 33.7 MCV (84.6 - 96.6 fL) 96.0 94.4 MCH (27.3 - 33.9 pg) 30.5 30.0 MCHC (32.0 - 34.2 gm/dL) 31.7 L 31.8 L RDW (12.2 - 16.3 %) 13.8 13.6 Plt Count (134 - 363 K/mm3) 829 H 741 H MPV (9.2 - 12.7 fL) 9.4 9.2 Neut % (Auto) (57.9 - 77.3 %) 62.6 63.8 Lymph % (Auto) (14.5 - 29.7 %) 22.2 20.5 Citrus % (Auto) (3.6 - 10.2 %) 7.6 8.4 Eos % (Auto) (0.0 - 3.0 %) 3.6 H 3.8 H Baso % (Auto) (0.1 - 0.9 %) 1.6 H 1.1 H Neut # (Auto) (K/mm3) 7.7 8.1 Lymph # (Auto) (K/mm3) 2.7 2.6 Citrus # (Auto) (K/mm3) 0.9 1.1 Eos # (Auto) (K/mm3) 0.44 0.48 Baso # (Auto) (K/mm3) 0.2 0.1 Microbiology: Date/Time Procedure - Status Source Growth 01/06 2100 Gram Stain - CAN ABDOMINAL Cancelled: DUPLICATE 01/06 2100 Body Fluid Culture - RES GASTRIC 01/06 2100 Gram Stain - RES GASTRIC Pending Recent Impressions:ULTRASOUND - US ABDOMEN LTD 01/06 1015 Report Impression - Status: SIGNED Entered: 01/07/2022 1133 IMPRESSION: 1. Similar, roughly 27 mm hypoechoic left tubo-ovarian abscess. 2. No surrounding free fluid. Impression By: Chantal Ko [facility] SCAN - CT GUID NDL [facility] (Biopsy/Asp) 01/06 1535 Report Impression - Status: SIGNED Entered: 01/06/2022 1811 IMPRESSION:1. Successful, uncomplicated CT-guided aspiration of left tubal ovarian abscess. Comments: Case was discussed with Dr. Reaves at 1658 hrs.Impression By: Chantal Ko MD Discussed potential discharge today.Awaiting updated read on cultures this am to help determine PO antibiotics. at 0800 RPT #:[id number] OF REPORT CLClinical sbcf1844-71-06G54:57:00F.[id number] able for patient jvfdZOGPZJAUOUEOOA1868-28-69X06:01:01 [facility] 2022-01-07 14:34:00 [id number] fSnrvtDA1l23I5Jj+hnMiiXu5uF26 39cdJTQ5+ntnj9+0LF+n5DGJVmzov620114-94-52H19:34:0 0 [facility] ([facility])Infectious Dis. Progress NoteREPORT#:[id number] REPORT STATUS: SignedDATE:01/07/22 TIME: 1434 PATIENT: STEFFEN CABRAL UNIT #: [id number]#: [id number] ROOM/BED: [facility]-ADOB: [birth year] AGE: 41 SEX: F ATTEND: Chandan Reaves [facility] AUTHOR: Henrique Mckenna APRNNP * ALL edits or amendments must be made on the electronic/computer document * Henrique Mckenna 01/07/22 1434:SubjectivePatient reports:Yes: feeling better. No: fever. Objective GeneralVS/I O:Vital Signs Date Temp Pulse Resp B/P B/P Mean Pulse Ox FiO2 01/06-01/07 97.5-98.2 61-86 15-18 108-131/71-86 83.6-99.4 97-99 Last Documented: Result Date Time Pulse Ox 97 / 1110 B/P 112/74 07/ 1110 B/P Mean 86.3 07/ 1110 Temp 97.5 / 1110 Pulse 63 / 1110 Resp 16 / 1110 O2 Delivery Room air 01/07 0323 O2 Flow Rate 12/30 Vital Signs: Date Time Temp Pulse Resp B/P B/P Pulse O2 O2 Flow FiO2 Mean Ox Delivery Rate 01/07 1110 97.5 63 16 112/74 86.3 97 / 0712 97.7 66 18 109/71 83.6 98 / 0323 98.1 61 16 124/80 95.0 98 Room air 01/07 0004 97.9 68 16 115/77 89.9 97 Room air 01/06 2006 97.7 73 16 122/83 95.7 97 Room air 01/06 1748 98.2 63 18 127/86 99.4 97 01/06 1730 63 17 114/79 99 Room air 01/06 1715 62 15 113/75 98 Room air 01/06 1700 86 17 108/71 97 Room air 01/06 1655 98.0 66 18 131/77 98 Room air 24 hour I O ending at 0700: 01/07 0700 01/06 1900 Intake Total 250.00 220.00 Output Total 2 Balance 248.00 220.00 Intake, IV 250.00 220.00 Intake, Oral 0 Output, 2 Drainage PATIENT WEIGHT: Weight (lb): 130Weight (oz): 1.16Weight (kg): 59.000 Medications:Active Meds + DC'd Last 24 HrsLidocaine HCl (XYLOCAINE 1% MDV 20 ML) 20 ML .STK-MED ONE SUBDERMAL (DC) Fentanyl Citrate (SUBLIMAZE 2 ML) 50 MCG PACU ASDIR PRN PRN IV (DC) Hydromorphone HCl (DILAUDID) 0.5 MG PACU Q5MIN PRN PRN IV (DC) Ondansetron HCl (ZOFRAN 2 MG/ML 4 MG SYR) 4 MG PACU ONCE PRN IV (DC) Oxycodone HCl (OXYIR 5MG TAB) 5 MG PACU ONCE PRN PO (DC) Promethazine HCl (PROMETHAZINE HCL 25 MG) 12.5 MG PACU ONCE PRN IM (DC) Sevoflurane (SEVOFLURANE 250ML BOTTLE) 0 .STK-MED ONE .ROUTE (DC) Fentanyl Citrate (SUBLIMAZE 2 ML) 0 .STK-MED ONE .ROUTE (DC) Midazolam HCl (VERSED 2 MG/2 ML VIAL) 0 .STK-MED ONE .ROUTE (DC) Propofol (DIPRIVAN 10MG/ML 20 ML AMP) 0 .STK-MED ONE .ROUTE (DC) Diatrizoate Meglum/Diatrizoate Sod (GASTROGRAFIN) 40 ML ONCE PRN PO Piperacillin Sod/Tazobactam Sod (PIPERACILLIN/TAZOBACTAM 3 GM/0.375 GM INJ.) 3.375 GM Q6H IV Sodium Chloride (SODIUM CHLORIDE 0.9% 100 ML ADD-[place]) 100 MLOndansetron HCl (ZOFRAN 2 MG/ML 4 MG SYR) 4 MG Q6H PRN IV Tramadol HCl (ULTRAM 50 MG) 50 MG Q6H PRN PRN PO Sodium Chloride (SODIUM CHLORIDE 0.9% PF) 10 ML ASDIR IV Hydromorphone HCl (DILAUDID HCl) 1 MG Q3H PRN PRN IV Oxycodone/Acetaminophen (PERCOCET TAB 5/325 MG) 1 TAB Q4H PRN PRN PO Pantoprazole Sodium (PROTONIX VIAL) 40 MG DAILY IV Ibuprofen (IBUPROFEN 800 MG TAB) 800 MG Q8H PRN PRN PO Docusate Sodium (DOCUSATE SODIUM 100 MG CAP) 200 MG 0900,2100 PO (CKD) Ondansetron HCl (ZOFRAN 2 MG/ML 4 MG SYR) 4 MG Q8H PRN PRN IV (DC) Promethazine HCl (PROMETHAZINE HCL 25 MG) 12.5 MG Q6H PRN PRN IM Promethazine HCl (PROMETHAZINE HCL) 25 MG Q6H PRN PRN PO Physical ExamGeneral appearance: alert, awake, orientedHead/Eyes: atraumatic, EOMI, normocephalic, PERRLACardiovascular: normal heart sounds, regular rate rhythmRespiratory: clear to auscultation, aerating well, no distressAbdomen: non-tender, normal bowel sounds, soft, no distentionExtremities: no contracture, no cyanosis, no edemaNeuro/MEALS ON WHEELS DRIVER: alert, oriented X 3 ResultsFindings/Data:Laboratory Tests 01/07 445 Chemistry Sodium (135 - 145 mEq/L) 136 Potassium (3.5 - 5.0 mEq/L) 3.5 Chloride (100 - 115 mEq/L) 104 Carbon Dioxide (22 - 31 mEq/L) 26 Anion Gap (10 - 20) 9.50 L BUN (7 - 18 mg/dL) 7 Creatinine (0.5 - 1.0 mg/dL) 0.6 Glomerular Filtr Rate (>60 ml/min) 111 Glucose (65 - 110 mg/dL) 86 Calcium (8.4 - 10.2 mg/dL) 8.0 L Laboratory Tests 01/07 445 Hematology WBC (6.5 - 12.3 K/mm3) 12.6 H RBC (3.51 - 4.69 M/mm3) 3.57 Hgb (10.1 - 13.8 g/dL) 10.7 Hct (32.5 - 41.8 %) 33.7 MCV (84.6 - 96.6 fL) 94.4 MCH (27.3 - 33.9 pg) 30.0 MCHC (32.0 - 34.2 gm/dL) 31.8 L RDW (12.2 - 16.3 %) 13.6 Plt Count (134 - 363 K/mm3) 741 H MPV (9.2 - 12.7 fL) 9.2 Neut % (Auto) (57.9 - 77.3 %) 63.8 Lymph % (Auto) (14.5 - 29.7 %) 20.5 Citrus % (Auto) (3.6 - 10.2 %) 8.4 Eos % (Auto) (0.0 - 3.0 %) 3.8 H Baso % (Auto) (0.1 - 0.9 %) 1.1 H Neut # (Auto) (K/mm3) 8.1 Lymph # (Auto) (K/mm3) 2.6 Citrus # (Auto) (K/mm3) 1.1 Eos # (Auto) (K/mm3) 0.48 Baso # (Auto) (K/mm3) 0.1 Radiology data:Recent Impressions:CAT SCAN - CT GUID [facility] (Biopsy/Asp) 01/06 1535 Report Impression - Status: SIGNED Entered: 01/06/2022 1811 IMPRESSION:1. Successful, uncomplicated CT-guided aspiration of left tubal ovarian abscess. Comments: Case was discussed with Dr. Reaves at 1658 hrs.Impression By: InesERR2 - Real Ko MD Results: labs reviewed, vital signs reviewed, vital signs stable, CT results reviewed, x-ray personally reviewed, current med profile rev'd Diagnosis, Assessment PlanFree Text A P:This is a 41-year-old female, who has a history of hysterectomy in July or August of this year. Has been unwell with abdominal pain, which has been going on for about a month, had been at outpatient facility, and which showed a CT scan showing a left lower quadrant inflammatory mass. The patient had been started on antibiotic treatment. Seen by colorectal surgery. Underwent an evaluation by IR, not a drainable collection. Subsequently, on 12/30/2021 had arobotic-assisted diagnostic laporoscopy with lysis of pelvic adhesions, drainageof pelvic abscess on the left side. A drain was left in place. A small bowel or large bowel resection was deferred at that point. The patient has been on antibiotic treatment with Zosyn and metronidazole. Cultures from abscess showedStreptococcus anginosus. Since surgery, white count has fluctuated between 19,000 to 16,000. Abdominal pain is less and has not had any febrile episodes. CT scan of abd/pelvis repeated 01/04- showing decreased size of the left pelvic abscess following placement of abdominal drain. The largest previously visualized cyst has resolved, and a multi-cystic fluid collection now remains posterior to the location of the drain. IR has been consulted for aspiration of remaining fluid and plans procedure tomorrow (01/06) ASSESSMENT pelvic abscess, status post laparoscopic drainage of multiloculated mass. Probably related to small bowel or colon. Cultures positive for Streptococcus anginosus. Persistent leukocytosis, need to evaluate for any residual fluid collection.- CTscan repeated 01/04 RECOMMENDATIONS continue with IV Zosyn follow repeat culture results case discussed with Dr. Harding we will continue to follow along with you Arvin Harding 01/08/22 1809:Attestations Physician AttestationAgree w/findings plan:Agree with the findings and plan as documented by Bala COBURN at 1539 at 1813 RPT #:[id number] OF REPORT PRProgress ytxr0947-94-57Q22:34:00F.[id number] able for patient cgfxNJRNBOJVZVVSRL7579-34-33T61:39:54 [facility] 2022-01-07 11:56:00 [id number] onH5xhawv5DMfb0CNX9kMG6Qeom2w FeODV4pT+eNEdQ0Q6Rrv9dMDwcQq6dD0331-48-03F51:56:0 0 [facility] ([facility])Clinical NoteREPORT#:[id number] REPORT STATUS: SignedDATE:01/07/22 TIME: 1156 PATIENT: STEFFEN CABRAL UNIT #: [id number]#: [id number] ROOM/BED: [facility]-ADOB: [birth year] AGE: 41 SEX: F ATTEND: Chandan Reaves [facility] AUTHOR: Chandan Reaves MD * ALL edits or amendments must be made on the electronic/computer document * Clinical NoteNote:POD 7 s/p l-scope pelvic abscess drainagePOD 1 s/p IR drainage of residual abscess Feeling better after drainage of abscess yesterday 01/06/22. Vital Signs Date Time Temp Pulse Resp B/P B/P Pulse O2 O2 Flow FiO2 Mean Ox Delivery Rate 01/07 1110 97.5 63 16 112/74 86.3 97 01/07 0712 97.7 66 18 109/71 83.6 98 01/07 0323 98.1 61 16 124/80 95.0 98 Room air 01/07 0004 97.9 68 16 115/77 89.9 97 Room air 01/06 2006 97.7 73 16 122/83 95.7 97 Room air 01/06 1748 98.2 63 18 127/86 99.4 97 01/06 1730 63 17 114/79 99 Room air 01/06 1715 62 15 113/75 98 Room air 01/06 1700 86 17 108/71 97 Room air 01/06 1655 98.0 66 18 131/77 98 Room air 01/06 1153 97.5 63 17 128/87 100.3 97 01/06 0805 98.2 66 17 132/88 102.7 97 01/06 0402 98.6 62 18 136/88 103.6 96 Room air 01/06 0005 98.2 66 18 118/76 90.0 97 Room air 01/05 1920 98.4 77 19 111/74 86.5 97 Room air 01/05 1606 98.1 69 16 119/77 91.1 98 Abd soft Laboratory Tests: 01/07 0445 Chemistry Sodium (135 - 145 mEq/L) 136 Potassium (3.5 - 5.0 mEq/L) 3.5 Chloride (100 - 115 mEq/L) 104 Carbon Dioxide (22 - 31 mEq/L) 26 Anion Gap (10 - 20) 9.50 L BUN (7 - 18 mg/dL) 7 Creatinine (0.5 - 1.0 mg/dL) 0.6 Glomerular Filtr Rate (>60 ml/min) 111 Glucose (65 - 110 mg/dL) 86 Calcium (8.4 - 10.2 mg/dL) 8.0 L Hematology WBC (6.5 - 12.3 K/mm3) 12.6 H RBC (3.51 - 4.69 M/mm3) 3.57 Hgb (10.1 - 13.8 g/dL) 10.7 Hct (32.5 - 41.8 %) 33.7 MCV (84.6 - 96.6 fL) 94.4 MCH (27.3 - 33.9 pg) 30.0 MCHC (32.0 - 34.2 gm/dL) 31.8 L RDW (12.2 - 16.3 %) 13.6 Plt Count (134 - 363 K/mm3) 741 H MPV (9.2 - 12.7 fL) 9.2 Neut % (Auto) (57.9 - 77.3 %) 63.8 Lymph % (Auto) (14.5 - 29.7 %) 20.5 Citrus % (Auto) (3.6 - 10.2 %) 8.4 Eos % (Auto) (0.0 - 3.0 %) 3.8 H Baso % (Auto) (0.1 - 0.9 %) 1.1 H Neut # (Auto) (K/mm3) 8.1 Lymph # (Auto) (K/mm3) 2.6 Citrus # (Auto) (K/mm3) 1.1 Eos # (Auto) (K/mm3) 0.48 Baso # (Auto) (K/mm3) 0.1 Microbiology: Date/Time Procedure - Status Source Growth 01/06 2100 Gram Stain - CAN ABDOMINAL Cancelled: DUPLICATE 01/06 2100 Body Fluid Culture - RES GASTRIC 01/06 2100 Gram Stain - RES GASTRIC Recent Impressions:CAT SCAN - CT GUID NDL [facility] (Biopsy/Asp) 01/06 1535 Report Impression - Status: SIGNED Entered: 01/06/2022 1811 IMPRESSION:1. Successful, uncomplicated CT-guided aspiration of left tubal ovarian abscess. Comments: Case was discussed with Dr. Reaves at 1658 hrs.Impression By: InesERR2 - Real Ko MD Doing wellImproved leukocytosis Discussed with ID discharge plan. Awaiting culture results to determine antibiotic regimen. at 1200 RPT #:[id number] OF REPORT CLClinical nfqq0039-28-88H16:56:00F.[id number] able for patient apmgVENTIFZDIWZDYZ1503-69-42D89:01:05 [facility] 2022-01-06 13:22:00 [id number] 1pIpgxX8C610UeNoA0IGJXnnKMgsZ lsZpIXi+zTkNWoAIXGhTmrtHqW+XUHU8624-50-05W33:22:0 0 [facility] ([facility])Clinical NoteREPORT#:[id number] REPORT STATUS: SignedDATE:01/06/22 TIME: 1322 PATIENT: STEFFEN CABRAL UNIT #: [id number]#: [id number] [address] [birth year] AGE: 41 SEX: F ATTEND: Chandan Reaves [facility] AUTHOR: Chandan Reaves MD * ALL edits or amendments must be made on the electronic/computer document * Clinical NoteNote:Patient awainting IR abscess drainage.Schedule for 11 am but IR is delayed. at 1323 RPT #:[id number] OF REPORT CLClinical vore8568-39-27J17:22:00F.UWTW64060320-2162IFBhsxj able for patient kubaTUAZSGOYYFDZLB7021-90-69R20:23:55 [facility] 2022-01-06 09:24:00 [id number]/c0 3b4JpPUrAamZpG/0Q1BZD/dnYH28z Ath9HBH94hPU/FdRnDnvdkVMrqAzVNe6406-85-02R06:24:0 0 [facility] ([facility])Colorectal Surgery Prog NoteREPORT#:[id number] REPORT STATUS: SignedDATE:01/06/22 TIME: 923 PATIENT: STEFFEN CABRAL UNIT #: [id number]#: [id number] [address] [birth year] AGE: 41 SEX: F ATTEND: Chandan Reaves [facility] AUTHOR: Scott Nguyễn MD * ALL edits or amendments must be made on the electronic/computer document * SubjectiveChief complaint:Abdominal pain and LLQ pelvic multiloculated massComments:Pt feels better, still having lower abdominal pain, low appetite. No fevers or chills. Objective GeneralVS/I O:Last Documented: Result Date Time Pulse Ox 97 01/06 0805 B/P 132/88 01/06 0805 B/P Mean 102.7 01/06 0805 Temp 36.8 01/06 0805 Pulse 66 01/06 0805 Resp 17 01/06 0805 O2 Delivery Room air 01/06 0402 O2 Flow Rate 10 12/30 1957 24 hour I O ending at 0700: 01/06 0700 01/05 1900 Intake Total 450.00 240.00 Output Total 0 Balance 450.00 240.00 Intake, IV 250.00 240.00 Intake, Oral 200 Output, 0 Drainage PATIENT WEIGHT: Weight (lb): 130Weight (oz): 1.16Weight (kg): 59.000 Nutrition assessment:The data set between the solid lines has been imported from the dietitian's assessment. Any exceptions have been noted under Provider comments. BMI Calculated: 23.8Nutrition related diagnosis: Nutrition diagnosis details: Nutrition problem: Altered nutrition labsNutrition etiology: Inadequate mineral intakeNutrition signs and symptoms: LOW H HNutrition prescription: Dietitian name: Mickey Mccallessment completed: 01/04/22 Provider comments on imported dietitian assessment: Physical ExamGeneral appearance: alert, awake, oriented, no acute distress, no respiratory distressWound/incision: Location:CDI.Respiratory: aerating wellAbdomen: tenderness (lower abdomen), soft, no distention, no guarding, no rebound, ELSIE drain is serous. Diagnosis, Assessment PlanFree Text A P:4//0/F with pelvic abscess on cross sectional imaging WBC remains elevated, vitals stable. Hgb stable. Continue IV abx, Continue PPI, Cotninue zofran as needed. Advance diet as tolerated. IF the WBC remains elevated consider CT scan with rectal contrast tomorrow to rule out undrained abscesses. remainder of care per BACTERIOLOGIST PHARMACEUTICAL.Discussed with Dr. Velarde. 01/04/22. PT is still feeling distended and hacing abdominal discomfort. Toelrating diet and having bowel movement. No chills, no fevers. WBC trending down, rest of vitals stable. Recommend advancing diet ast tolerated, low residue diet. Continue antibiotics for now. No CT scan today as WBC is improving. IF needed, the farther from surgery the better the quality of the CT scan. No other intervention from the colorectal surgery standpoint. 01/05/22. After reviewing CT scan with Dr. Velarde we decided to consult IR. I discussed the imaging with Dr. Real Davies and he agreed to perform percutaneous drainage on . We will keep the ELSIE drain until after the procedure. No other change from CRs standpoint. Continue antibiotics and diet. rest of the management per primary. We will continue to follow. 01/06/22. Pt scheduled to have IR percutaneous aspiration of fluid collection.NPO until after the procedure is completed. No labs today. We should follow WBC trend.Continue antibiotics per ID recommendations. We will continue to follow. at 0928 RPT #:[id number] OF REPORT PRProgress yjsc5570-17-15L87:24:00F.ZSGF18694133-7250TOHgacr able for patient xkqpGIRACGQZUXNYCI2427-16-51Y39:28:41 [facility] 2022-01-05 19:18:00 [id number] cfGl0ldGdPYurQ5oIf7MRV6eYR6Lc phb/PnjcxR/WrrAQ5b0wPHa09Vm89tq9108-47-04R95:18:0 0 [facility] ([facility])Infectious Dis. Progress NoteREPORT#:[id number] REPORT STATUS: SignedDATE:01/05/22 TIME: 1917 PATIENT: STEFFEN CABRAL UNIT #: [id number]#: [id number] [address] [birth year] AGE: 41 SEX: F ATTEND: Chandan Reaves [facility] AUTHOR: Henrique Mckenna * ALL edits or amendments must be made on the electronic/computer document * Henrique Mckenna 01/05/221917:SubjectiveChief complaint:[id number] reports:Yes: feeling better. No: fever. Objective GeneralVS/I O:Vital SignsDate Temp Pulse Resp B/P B/P Mean Pulse Ox OxF058/-01/05 98.1-98.8 65-70 16-18 112-138/76-89 88.1-105.6 97-98 Last Documented: Result Date Time Pulse Ox 98 01/05 1606 B/P 119/77 01/05 1606 B/P Mean 91.1 01/05 1606 Temp 98.1 01/05 1606 Pulse 69 01/05 1606 Resp 16 01/05 1606 O2 Delivery Room air 01/05 1135 O2 Flow Rate 10 12/30 1956 Vital Signs: Date Time Temp Pulse Resp B/P B/P Pulse O2 O2 Flow FiO2 Mean Ox Delivery Rate 01/05 1606 98.1 69 16 119/77 91.1 98 01/05 1135 98.1 70 16 112/76 88.1 97 Room air 01/05 0830 98.1 66 16 120/81 93.7 97 Room air 01/05 0539 98.2 65 16 138/89 105.6 98 Room air 01/05 0006 98.2 67 18 117/78 91.2 97 Room air 01/04 1956 98.8 67 16 115/77 89.6 98 Room air 24 hour I O ending at 0700: 01/05 0700 01/04 1900 Intake Total 430.00 300.00 Output Total 0 Balance 430.00 300.00 Intake, IV 230.00 300.00 Intake, Oral 200 Output, 0 Drainage PATIENT WEIGHT: Weight (lb): 130Weight (oz): 1.16Weight (kg): 59.000 Medications:Active Meds + DC'd Last 24 HrsDiatrizoate Meglum/Diatrizoate Sod (GASTROGRAFIN) 40 ML ONCE PRN PO Piperacillin Sod/Tazobactam Sod (PIPERACILLIN/TAZOBACTAM 3 GM/0.375 GM INJ.) 3.375 GM Q6H IV Sodium Chloride (SODIUM CHLORIDE 0.9% 100 ML ADD-[place]) 100 MLOndansetron HCl (ZOFRAN 2 MG/ML 4 MG SYR) 4 MG Q6H PRN IV Tramadol HCl (ULTRAM 50 MG) 50 MG Q6H PRN PRN PO Sodium Chloride (SODIUM CHLORIDE 0.9% PF) 10 ML ASDIR IV Hydromorphone HCl (DILAUDID HCl) 1 MG Q3H PRN PRN IV Oxycodone/Acetaminophen (PERCOCET TAB 5/325 MG) 1 TAB Q4H PRN PRN PO Pantoprazole Sodium (PROTONIX VIAL) 40 MG DAILY IV Ibuprofen (IBUPROFEN 800 MG TAB) 800 MG Q8H PRN PRN PO Docusate Sodium (DOCUSATE SODIUM 100 MG CAP) 200 MG 0900,2100 PO (CKD) Ondansetron HCl (ZOFRAN 2 MG/ML 4 MG SYR) 4 MG Q8H PRN PRN IV Promethazine HCl (PROMETHAZINE HCL 25 MG) 12.5 MG Q6H PRN PRN IM Promethazine HCl (PROMETHAZINE HCL) 25 MG Q6H PRN PRN PO Physical ExamGeneral appearance: alert, awake, orientedHead/Eyes: atraumatic, EOMI, normocephalic, PERRLACardiovascular: normal heart sounds, regular rate rhythmRespiratory: clear to auscultation, aerating well, no distressAbdomen: non-tender, normal bowel sounds, soft, no distentionExtremities: no contracture, no cyanosis, no edemaNeuro/MEALS ON WHEELS DRIVER: alert, oriented X 3 ResultsFindings/Data:Laboratory Tests 01/05 0437 Chemistry Sodium (135 - 145 mEq/L) 133 L Potassium (3.5 - 5.0 mEq/L) 3.9 Chloride (100 - 115 mEq/L) 101 Carbon Dioxide (22 - 31 mEq/L) 26 Anion Gap (10 - 20) 10.10 BUN (7 - 18 mg/dL) 4 L Creatinine (0.5 - 1.0 mg/dL) 0.6 Glomerular Filtr Rate (>60 ml/min) 111 Glucose (65 - 110 mg/dL) 81 Calcium (8.4 - 10.2 mg/dL) 8.0 L Laboratory Tests 01/057 Coagulation PT (10.1 - 12.3 secs) 16.6 H INR 1.45 PTT ([place]) (22 - 38 secs) 36.6 Laboratory Tests 01/057 Hematology WBC (6.5 - 12.3 K/mm3) 18.1 H RBC (3.51 - 4.69 M/mm3) 3.53 Hgb (10.1 - 13.8 g/dL) 10.8 Hct (32.5 - 41.8 %) 33.0 MCV (84.6 - 96.6 fL) 93.5 MCH (27.3 - 33.9 pg) 30.6 MCHC (32.0 - 34.2 gm/dL) 32.7 RDW (12.2 - 16.3 %) 13.2 Plt Count (134 - 363 K/mm3) 702 H MPV (9.2 - 12.7 fL) 9.4 Neut % (Auto) (57.9 - 77.3 %) 72.5 Lymph % (Auto) (14.5 - 29.7 %) 13.3 L Citrus % (Auto) (3.6 - 10.2 %) 7.1 Eos % (Auto) (0.0 - 3.0 %) 2.1 Baso % (Auto) (0.1 - 0.9 %) 1.1 H Neut # (Auto) (K/mm3) 13.1 Lymph # (Auto) (K/mm3) 2.4 Citrus # (Auto) (K/mm3) 1.3 Eos # (Auto) (K/mm3) 0.38 Baso # (Auto) (K/mm3) 0.2 Results: labs reviewed, vital signs reviewed, vital signs stable, x-ray personally reviewed, current med profile rev'd Diagnosis, Assessment PlanFree Text A P:This is a 41-year-old female, who has a history of hysterectomy in July or August of this year. Has been unwell with abdominal pain, which has been going on for about a month, had been at outpatient facility, and which showed a CT scan showing a left lower quadrant inflammatory mass. The patient had been started on antibiotic treatment. Seen by colorectal surgery. Underwent an evaluation by IR, not a drainable collection. Subsequently, on 12/30/2021 had arobotic-assisted diagnostic laporoscopy with lysis of pelvic adhesions, drainageof pelvic abscess on the left side. A drain was left in place. A small bowel or large bowel resection was deferred at that point. The patient has been on antibiotic treatment with Zosyn and metronidazole. Cultures from abscess showedStreptococcus anginosus. Since surgery, white count has fluctuated between 19,000 to 16,000. Abdominal pain is less and has not had any febrile episodes. CT scan of abd/pelvis repeated 01/04- showing decreased size of the left pelvic abscess following placement of abdominal drain. The largest previously visualized cyst has resolved, and a multi-cystic fluid collection now remains posterior to the location of the drain. IR has been consulted for aspiration of remaining fluid and plans procedure tomorrow (01/06) ASSESSMENT pelvic abscess, status post laparoscopic drainage of multiloculated mass. Probably related to small bowel or colon. Cultures positive for Streptococcus anginosus. Persistent leukocytosis, need to evaluate for any residual fluid collection.- CTscan repeated 01/04 RECOMMENDATIONS continue with IV Zosyn planning oral abxs for discharge aspiration planned tomorrow case discussed with Dr. Harding we will continue to follow along with Arvin Rey 01/08/221:Attestations Physician AttestationAgree w/findings plan:Agree with the findings and plan as documented by Bala COBURN at 1928 at 1813 RPT #:[id number] OF REPORT PRProgress nucn5634-37-45I68:18:00F.SADO31303858-9695HPZwswj able for patient wvwaSRMNLMUYLXLUXQ3004-08-30F95:29:12 [facility] 2022-01-05 09:04:00 [id number] V9XyJVglps79pXOBJuHYE3EG8DFhq O7lIGvcvSZCN6114Av4dhHh2ppbzhGH8709-20-40Q73:04:0 0 [facility] ([facility])Colorectal Surgery Prog NoteREPORT#:[id number] REPORT STATUS: SignedDATE:01/05/22 TIME: 09 PATIENT: STEFFEN CABRAL UNIT #: [id number]#: [id number] ROOM/BED: [facility]-ADOB: [birth year] AGE: 41 SEX: F ATTEND: Chandan Reaves [facility] AUTHOR: Scott Nguyễn MD * ALL edits or amendments must be made on the electronic/computer document * SubjectiveChief complaint:Abdominal pain and LLQ pelvic multiloculated massComments:PT feels well, passing BMs and eating well, no chills. Still complains of mild lower abdominal discomfort. Objective GeneralVS/I O:Last Documented: Result Date Time Pulse Ox 97 01/05 08 B/P 120/81 01/05 0830 B/P Mean 93.7 01/05 0830 O2 Delivery Room air 01/05 08 Temp 36.7 01/05 0830 Pulse 66 01/05 0830 Resp 16 01/05 0830 O2 Flow Rate 10 12/30 1956 24 hour I O ending at 0700: 01/05 0700 01/04 1900 Intake Total 430.00 300.00 Output Total 0 Balance 430.00 300.00 Intake, IV 230.00 300.00 Intake, Oral 200 Output, 0 Drainage PATIENT WEIGHT: Weight (lb): 130Weight (oz): 1.16Weight (kg): 59.000 Physical ExamWound/incision: Location:CDI.Respiratory: aerating wellAbdomen: tenderness (lower abdomen), soft, no distention, no guarding, no rebound, ELSIE drain is serous. Diagnosis, Assessment PlanFree Text A P:4//0F with pelvic abscess on cross sectional imaging WBC remains elevated, vitals stable. Hgb stable. Continue IV abx, Continue PPI, Cotninue zofran as needed. Advance diet as tolerated. IF the WBC remains elevated consider CT scan with rectal contrast tomorrow to rule out undrained abscesses. remainder of care per BACTERIOLOGIST PHARMACEUTICAL.Discussed with Dr. Velarde. 01/04/22. PT is still feeling distended and hacing abdominal discomfort. Toelrating diet and having bowel movement. No chills, no fevers. WBC trending down, rest of vitals stable. Recommend advancing diet ast tolerated, low residue diet. Continue antibiotics for now. No CT scan today as WBC is improving. IF needed, the farther from surgery the better the quality of the CT scan. No other intervention from the colorectal surgery standpoint. 01/05/22. After reviewing CT scan with Dr. Velarde we decided to consult IR. I discussed the imaging with Dr. Real Davies and he agreed to perform percutaneous drainage on . We will keep the ELSIE drain until after the procedure. No other change from CRs standpoint. Continue antibiotics and diet. rest of the management per primary. We will continue to follow. at 0909 [facility] #:[id number] OF REPORT PRProgress keue3976-15-45Z74:04:00F.UHNY39735174-0028YEDcfkx able for patient nkzpXTPJFUTRHNROUY5369-09-50T72:09:34 [facility] 2022-01-05 07:46:00 [id number] D2uwIpfS05t/ufZf4Ke3QBtH6cihX vEKw7CumPQVAqUSBijTFY/xGjiK/OEd7788-77-05H32:46:0 0 [facility] ([facility])Clinical NoteREPORT#:[id number] REPORT STATUS: SignedDATE:01/05/22 TIME: 07 PATIENT: STEFFEN CABRAL UNIT #: [id number]#: [id number] ROOM/BED: [facility]-ADOB: [birth year] AGE: 41 SEX: F ATTEND: Chandan Reaves AUTHOR: Chandan Reaves MD * ALL edits or amendments must be made on the electronic/computer document * Clinical NoteNote:POD 5 s/p l-scope pelvic abscess drainage No new complaintsPatient had discussion with CRS yesterday regarding IR drainage of residual abscess seen on CT 01/04/22.Pt agrees with plan.Also seen by ID 01/04/22 who agreed with antibiotic choice. at 0752 RPT #:[id number] OF REPORT CLClinical soht3099-42-89P22:46:00F.EDWU87236573-3362XBNfjua able for patient pbssIEIZFHSHJSXJKC1192-92-09Q70:52:39 [facility] 2022-01-04 17:42:00 [id number] i8iscO91JU2lN1G2ZzZ7ifXY60Q/z 14hdsge0bKwF/SnpDtGYyyJ2IsIrFeo7787-01-32H57:42:0 0 [facility] ([facility])Clinical NoteREPORT#:[id number] REPORT STATUS: SignedDATE:01/04/22 TIME: 1741 PATIENT: STEFFEN CABRAL UNIT #: [id number]#: [id number] ROOM/BED: [facility]-ADOB: [birth year] AGE: 41 SEX: F ATTEND: Chandan Reaves AUTHOR: Chucky Velarde MD * ALL edits or amendments must be made on the electronic/computer document * Clinical NoteNote:The patient was seen and evaluated with her mother in the room. The patient is doing well but feeling tired. She has completed the CT scan of the abdomen pelvis at this time. She denies any fevers or chills. She states she will havesome discomfort in her lower pelvic region. But mainly at this time she is hungry. Reviewed the CT scan of the abdomen pelvis. We discussed the findings with interventional radiology. They stated that they could access the area at this time and would consider doing so on . At this time we made the patient n.p.o. after midnight on Monday as well as ordered labs for potential interventional radiology intervention. We answered all the patient's questions and her mother's questions. We discussed with them that due to the amount of inflammation present in the secondary reaction from the left lower pelvic abscess site we would likely require bowel resection and possibility of an ostomy. If drainage is possible we would recommend that at this time. We also discussed that we would defer to infectious disease regarding antibiotictreatment plan. Please call with any questions or concerns Efren Velarde [phone] at 1745 RPT #:[id number] OF REPORT CLClinical wbgn1450-90-95L65:42:00F.WRDH38833660-8487NCUgzke able for patient hpnyFZXAYBZFBEGDVY9605-06-83I44:45:19 [facility] 2022-01-04 10:27:00 [id number]/F9 /UxhkHXnYvewbWYV+arstJFN6 65hjRxzTntqtVPmq5XxY+QT0xP5Bdhr0842-46-18I98:27:0 0 [facility] ([facility])Infect Dis Consult Note_ BriefREPORT#:[id number] REPORT STATUS: SignedDATE:01/04/22 TIME: 1027 PATIENT: STEFFEN CABRAL UNIT #: [id number]#: [id number] ROOM/BED: [facility]-ADOB: [birth year] AGE: 41 SEX: F ATTEND: Chandan Reaves MDADM AUTHOR: Arvin Harding MD * ALL edits or amendments must be made on the electronic/computer document * History of Present Illness [facility] complaint:[id number] History - Adult longitudinalPast medical history:Reports: ADD/ADHD. Past surgical history:Reports: Appendectomy, , Hysterectomy, Spine surgery. Smoking status: Smoking status for patients 13 years old or older: Current every day smoker Packs per day: 0.5 Pack years: 0Other social history: Local resident, Good social supportAllergies:Coded Allergies:No Known Allergies (12/28/21) at 1346 RPT #:[id number] OF REPORT EPFydrtczygovs9939-58-41O79:27:00F.EECV76453660-4 164AVAvailable for patient bttfSOGZVKIYBORCTT7586-88-33D30:46:13 [facility] 2022-01-04 10:27:00 [id number]/Vincent U2NW9nE4Rg1mSyf06LFfbeHq8GG39 mUsiaLVngxsGfrfOB9WAmYFMpWD3562-26-86J74:27:51789 8-[address]10 [place] [address] patient name: steffen cabral admit date: 12/29/21account no: [id number] room no: f.2600 age: 41 sex: f admitting physician: chandan reaves md attending physician: chandan reaves md consultation date: 01/04/2022 consulting physician: arvin harding md hematology consultation physician requesting consultation: chandan reaves jr, md consultation requested regarding: pelvic abscess, persistent leukocytosis. thank you for this consultation. history of present illness: this is a 41-year-old female, who has a history ofhysterectomy in july or august of this year. has been unwell withabdominal pain, which has been going on for about a month, [facility] and which showed a ct scan showing a left lower quadrantinflammatory mass. the patient had been started on antibiotic treatment. seenby colorectal surgery. underwent an evaluation by ir, not a drainablecollection. subsequently, on 12/30/2021 had a robotic-assisted diagnosticlaporoscopy with lysis of pelvic adhesions, drainage of pelvic abscess on theleft side. a drain was left in place. a small bowel or large bowel resectionwas deferred at that point. the patient has been on antibiotic treatment withzosyn and metronidazole. cultures from abscess showed streptococcus anginosus. since surgery, white count has fluctuated between 19,000 to 16,000. abdominalpain is less and has not had any febrile episodes. review of systems:heent: denies any headaches, visual complaints, sinus congestion, earache,throat pain, neck pain.respiratory: no cough or shortness of breath.cardiovascular: no chest pain or palpitations.gastrointestinal: some abdominal pain.genitourinary: no urinary symptoms. past medical history: appendectomy, , hysterectomy, spine surgery. allergies: no known drug allergies. chronic medications: reviewed. family history: noncontributory. social history: no active alcohol, tobacco, or drug use. patient name: steffen cabral physical examination:vital signs: temperature 36.8, pulse 69, respiratory rate 18, blood ypgzuxic886/88.heent: normocephalic and atraumatic. extraocular movements not assessed.neck: supple.lungs: fair entry bilaterally. clear to auscultation.heart: sounds s1, s2.abdomen: soft. left lower quadrant drain is in place.extremities: there is no cyanosis, clubbing, or edema. laboratory data: wbc count 17, hemoglobin 10.3, and platelets 571. assessment: this is a 41-year-old female, who had a pelvic abscess, status postlaparoscopic drainage of multiloculated mass. probably related to small bowelor colon. cultures positive for streptococcus anginosus. persistent leukocytosis, need to evaluate for any residual fluid collection. recommendations: antibiotic regimen of zosyn to continue. will repeat ct scanof the abdomen and pelvis to evaluate for any residual collection. willnimacontinue metronidazole. zosyn adequate coverage for pelvic abscess. once repeat ct scan is done, candetermine course and duration of antibiotic treatment. thank you for this consultation. will follow the patient along with you. dictated by: arvin harding md wt: con:f.mt/autumn/ntsdd: 01/04/2022 10:27:20dt: 01/04/2022 12:16:46conf#: [id number]/did#: [id number] authenticated by arvin harding md on 03/02/2022 03:29:03 pm electronically signed by arvin harding md on 03/02/22 at 0329 patient name: steffen cabral :16:00[facility] [id number] for patient xlzdPAKKZQQUGHLFJW6506-80-92F85:29:29 [facility] 2022-01-04 07:28:00 [id number] F6DjPss0vTw9Mu0XXLn3ofFcr/nHQ H39daVCgFRRc5evbAS307OYZij/i34n8684-24-05A57:28:0 0 [facility] ([facility]Clinical NoteREPORT#:[id number] REPORT STATUS: SignedDATE:01/04/22 TIME: 727 PATIENT: STEFFEN CABRAL UNIT #: [id number]#: [id number] ROOM/BED: [facility]-ADOB: [birth year] AGE: 41 SEX: F ATTEND: Chandan Reaves MDADM AUTHOR: Chandan Reaves MD * ALL edits or amendments must be made on the electronic/computer document * Clinical NoteNote:PPD 4s/p l-scope by CRS for pelvic abscess drainage and washout Patient has no new complaints Vital Signs: Date Time Temp Pulse Resp B/P B/P Pulse O2 O2 Flow FiO2 Mean Ox Delivery Rate 01/04 0333 98.2 70 18 138/86 103.6 96 Room air 01/03 2334 98.4 74 18 119/74 89.3 98 Room air 01/03 1954 98.4 78 18 121/80 93.4 97 Room air 01/03 1700 98.5 79 16 113/76 88 98 01/03 1223 98.1 65 17 115/77 89 97 01/03 0849 97.9 65 16 128/89 102 96 01/03 0412 98.3 68 18 123/82 95 99 Room air 01/03 0000 98.4 65 17 122/83 96 98 Room air 01/02 2022 98.8 78 18 117/72 86.9 97 Room air 01/02 1609 98.6 78 18 116/76 89.2 97 01/02 1416 98.6 78 16 120/80 93.4 96 01/02 0807 98.2 73 18 116/78 90.5 96 01/02 0430 97.7 72 16 110/72 84.6 96 01/01 2315 98.1 65 17 110/74 86.0 97 01/01 2005 98.2 66 17 107/69 81.6 98 01/01 1614 98.8 52 18 144/83 103.5 98 01/01 1131 98.2 69 18 143/92 108.9 96 ALaboratory Tests: 01/04 01/03 0504 0510 Hematology WBC (6.5 - 12.3 K/mm3) 17.3 H 19.1 H RBC (3.51 - 4.69 M/mm3) 3.35 L 3.33 L Hgb (10.1 - 13.8 g/dL) 10.3 10.3 Hct (32.5 - 41.8 %) 31.1 L 31.0 L MCV (84.6 - 96.6 fL) 92.8 93.1 MCH (27.3 - 33.9 pg) 30.7 30.9 MCHC (32.0 - 34.2 gm/dL) 33.1 33.2 RDW (12.2 - 16.3 %) 13.2 13.2 Plt Count (134 - 363 K/mm3) 571 H 552 H MPV (9.2 - 12.7 fL) 9.3 9.2 Neut % (Auto) (57.9 - 77.3 %) 70.8 Lymph % (Auto) (14.5 - 29.7 %) 13.9 L Citrus % (Auto) (3.6 - 10.2 %) 7.1 Eos % (Auto) (0.0 - 3.0 %) 2.5 Baso % (Auto) (0.1 - 0.9 %) 0.8 Neut # (Auto) (K/mm3) 12.3 Lymph # (Auto) (K/mm3) 2.4 Citrus # (Auto) (K/mm3) 1.2 Eos # (Auto) (K/mm3) 0.44 Baso # (Auto) (K/mm3) 0.1 Add Manual Diff YES Total Counted (#CELLS) 100 Seg Neutrophils % (56.5 - 79.4 %) 75 Band Neutrophils % (0 - 5 %) 1 Lymphocytes % (Manual) (20 - 40 %) 11 L Monocytes % (Manual) (0 - 8 %) 9 H Eosinophils % (Manual) (0 - 4 %) 4 Platelet Estimate (ADEQ) ADEQUATE Plt Morphology Comment (NORMAL) NORMAL Microcytosis 1+ A/P Appreciate CRS involvementAfebrile and improving leukocytosis.No new imaging orders per CRPlan in ID consult as uncertainty of abx choice and micro results. at 0739 RPT #:[id number] OF REPORT CLClinical rswp8907-14-36M44:28:00F.[id number] able for patient qpnfKFYVIBXKTXKWZM2990-11-98W14:39:30 [facility] 2022-01-04 07:15:00 [id number] zFGNMJ8bt/dPotQFqjujh3X/VdJ/x wJ6Y1VqS2MRjIf6p4fkEXs0GOARF5WE5619-15-14G95:15:0 0 [facility] ([facility])Colorectal Surgery Prog NoteREPORT#:[id number] REPORT STATUS: SignedDATE:01/04/22 TIME: 0715 PATIENT: STEFFEN CABRAL UNIT #: [id number]#: [id number] ROOM/BED: [facility]-ADOB: [birth year] AGE: 41 SEX: F ATTEND: Chandan Reaves MDADM AUTHOR: Scott Nguyễn MD * ALL edits or amendments must be made on the electronic/computer document * See AddendumSubjectiveChief complaint:Abdominal pain and LLQ pelvic multiloculated massComments:Pt feels better today, has tolerated crackers and bread, no nausea or vomiting reported. Still having bowel function. No chills, abd discomfort persists. Objective GeneralVS/I O:Last Documented: Result Date Time Pulse Ox 96 01/04 333 B/P 138/86 01/04 333 B/P Mean 103.6 01/04 333 O2 Delivery Room air 01/04 333 Temp 36.8 01/04 333 Pulse 70 01/04 333 Resp 18 01/04 333 O2 Flow Rate 10 12/30 1957 24 hour I O ending at 0700: 01/04 0700 01/03 1900 Intake Total 690.00 1000.00 Output Total 1 15 Balance 689.00 985.00 Intake, IV 390.00 400.00 Intake, Oral 300 600 Output, 1 15 Drainage PATIENT WEIGHT: Weight (lb): 130Weight (oz): 1.16Weight (kg): 59.000 Nutrition assessment:The data set between the solid lines has been imported from the dietitian's assessment. Any exceptions have been noted under Provider comments. BMI Calculated: 23.8Nutrition related diagnosis: Nutrition diagnosis details: Nutrition problem: Nutrition etiology: Nutrition signs and symptoms: Nutrition prescription: Dietitian name: Assessment completed: Provider comments on imported dietitian assessment: Physical ExamGeneral appearance: alert, awake, oriented, no acute distress, mental status normal, no respiratory distressWound/incision: Location:CDI.Respiratory: aerating wellAbdomen: tenderness (difusely to deep palpation), soft, no distention, no guarding, no rebound, ELSIE drain is serous. Diagnosis, Assessment PlanFree Text A P:4//0F with pelvic abscess on cross sectional imaging WBC remains elevated, vitals stable. Hgb stable. Continue IV abx, Continue PPI, Cotninue zofran as needed. Advance diet as tolerated. IF the WBC remains elevated consider CT scan with rectal contrast tomorrow to rule out undrained abscesses. remainder of care per BACTERIOLOGIST PHARMACEUTICAL.Discussed with Dr. Velarde. 01/04/22. PT is still feeling distended and hacing abdominal discomfort. Toelrating diet and having bowel movement. No chills, no fevers. WBC trending down, rest of vitals stable. Recommend advancing diet ast tolerated, low residue diet. Continue antibiotics for now. No CT scan today as WBC is improving. IF needed, the farther from surgery the better the quality of the CT scan. No other intervention from the colorectal surgery standpoint. at 0719 Addendum 1: 01/04/22 1350 by Scott Nguyễn MD Discussed with Dr. Velarde, he ordered a CT scan and we reviewed the results together. There is a persistent pelvic loculation of fluid in her pelvis. I am contacting IR to see if this fluid collection can be drained percutaneously. at 1352 [facility] #:[id number] OF REPORT PRProgress eshl8979-54-20C57:15:00F.[id number] able for patient bttpPSBKFGVLCRLWZP4020-80-79U86:19:49 [facility] 2022-01-03 08:20:00 [id number] UR11ZYHt4c0kPt6pHNqp92YpKff0/ vb0H1EcgbYuQqkDORSfbBun/04vgqs32161-07-92J57:20:0 0 [facility] ([facility])Clinical NoteREPORT#:[id number] REPORT STATUS: SignedDATE:01/03/22 TIME: 819 PATIENT: STEFFEN CABRAL UNIT #: [id number]#: [id number] ROOM/BED: [facility]-ADOB: [birth year] AGE: 41 SEX: F ATTEND: Chandan Reaves AUTHOR: Chandan Reaves MD * ALL edits or amendments must be made on the electronic/computer document * Clinical NoteNote:POD #4 s/p l/s pelvic abscess drainage by CRS. Patient states that she still has llq pain. Tolerating PO and taking PO pain meds. Had some n/v over the last couple of days which is improved. Vital Signs Date Time Temp Pulse Resp B/P B/P Pulse O2 O2 Flow FiO2 Mean Ox Delivery Rate 01/03 0412 98.3 68 18 123/82 95 99 Room air 01/03 0000 98.4 65 17 122/83 96 98 Room air 01/02 2022 98.8 78 18 117/72 86.9 97 Room air 01/02 1609 98.6 78 18 116/76 89.2 97 01/02 1416 98.6 78 16 120/80 93.4 96 01/02 0807 98.2 73 18 116/78 90.5 96 01/02 0430 97.7 72 16 110/72 84.6 96 01/01 2315 98.1 65 17 110/74 86.0 97 01/01 2005 98.2 66 17 107/69 81.6 98 01/01 1614 98.8 52 18 144/83 103.5 98 01/01 1131 98.2 69 18 143/92 108.9 96 NADAbd llq tendernessno rebound/guardingJP drain with minimal drainage. Microbiology:12/30 1409 ABSCESS: Wound Culture - RES STREPTOCOCCUS DNKMRRT39/23 141 ABSCESS: Anaerobic Culture - RES12/30 1409 ABSCESS: Gram Stain - RES12/28 0230 NASAL: MRSA Screen - RES Laboratory Tests: 01/03 01/02 0510 0522 Hematology WBC (6.5 - 12.3 K/mm3) 19.1 H 16.8 H RBC (3.51 - 4.69 M/mm3) 3.33 L 3.00 L Hgb (10.1 - 13.8 g/dL) 10.3 9.3 L Hct (32.5 - 41.8 %) 31.0 L 28.4 L MCV (84.6 - 96.6 fL) 93.1 94.7 MCH (27.3 - 33.9 pg) 30.9 31.0 MCHC (32.0 - 34.2 gm/dL) 33.2 32.7 RDW (12.2 - 16.3 %) 13.2 13.3 Plt Count (134 - 363 K/mm3) 552 H 466 H MPV (9.2 - 12.7 fL) 9.2 9.5 Neut % (Auto) (57.9 - 77.3 %) 68.3 Lymph % (Auto) (14.5 - 29.7 %) 15.2 Citrus % (Auto) (3.6 - 10.2 %) 9.6 Eos % (Auto) (0.0 - 3.0 %) 1.7 Baso % (Auto) (0.1 - 0.9 %) 0.9 Neut # (Auto) (K/mm3) 11.5 Lymph # (Auto) (K/mm3) 2.6 Citrus # (Auto) (K/mm3) 1.6 Eos # (Auto) (K/mm3) 0.29 Baso # (Auto) (K/mm3) 0.2 Add Manual Diff YES Total Counted (#CELLS) 100 Seg Neutrophils % (56.5 - 79.4 %) 75 Band Neutrophils % (0 - 5 %) 1 Lymphocytes % (Manual) (20 - 40 %) 11 L Monocytes % (Manual) (0 - 8 %) 9 H Eosinophils % (Manual) (0 - 4 %) 4 Platelet Estimate (ADEQ) ADEQUATE Plt Morphology Comment (NORMAL) NORMAL Microcytosis 1+ A/P POD 4 for l-scope pelvic abscess drainage by CRS. Afebrile since procedure with an initial drop in WBC. However patient is clinically the same and WBC is elevated this am.Continues on Zosyn/Flagly and awaiting sensitivities.If no improvement CRS is recommending additional imaging. at 0828 RPT #:[id number] OF REPORT CLClinical fvgj0772-45-45M13:20:00F.FNWT58176333-5700SPNeoxo able for patient tnmhJCCFOIKAOEHCZT0727-42-12W28:28:52 [facility] 2022-01-03 07:53:00 [id number]+5 vF4qxrdfLiH5wgBflT203LVDFrbVu ZAA3b1kARWojuYrpA7Mk9LO8++haauT2329-94-89U92:53:0 0 [facility] ([facility])Colorectal Surgery Prog NoteREPORT#:[id number] REPORT STATUS: SignedDATE:01/03/22 TIME: 0753 PATIENT: STEFFEN CABRAL UNIT #: [id number]#: [id number] [address] [birth year] AGE: 41 SEX: F ATTEND: Chandan Reaves [facility] AUTHOR: Scott Nguyễn MD * ALL edits or amendments must be made on the electronic/computer document * SubjectiveChief complaint:Abdominal pain and LLQ pelvic multiloculated massComments:PT says that she has not vomited for 24 hrs, tolerating apple sauce. Having BMs.No fevers/chills. Complains of diffuse abdominal discomfort. Objective GeneralVS/I O:Last Documented: Result Date Time Pulse Ox 99 01/032 B/P 123/82 01/03 0412 B/P Mean 95 01/032 O2 Delivery Room air 01/04 412 Temp 36.8 01/03 0412 Pulse 68 01/03 0412 Resp 18 01/04 412 O2 Flow Rate 10 12/30 1956 24 hour I O ending at 0700: 01/03 0700 01/02 1900 Intake Total 240 1600.00 Output Total 9 Balance 240 1591.00 Intake, IV 700.00 Intake, Oral 240 900 Number Voids 1 5 Output, 9 Drainage PATIENT WEIGHT: Weight (lb): 130Weight (oz): 1.16Weight (kg): 59.000 Physical ExamGeneral appearance: alert, awake, oriented, no acute distress, mental status normal, no respiratory distressWound/incision: Location:CDI. Respiratory: aerating wellAbdomen: tenderness (difusely to deep palpation), soft, no distention, ELSIE drain is serous. Diagnosis, Assessment PlanFree Text A P:41F with pelvic abscess on cross sectional imaging WBC remains elevated, vitals stable. Hgb stable. Continue IV abx, Continue PPI, Cotninue zofran as needed. Advance diet as tolerated. IF the WBC remains elevated consider CT scan with rectal contrast tomorrow to rule out undrained abscesses. remainder of care per BACTERIOLOGIST PHARMACEUTICAL.Discussed with Dr. Velarde. at 0757 RPT #:[id number] OF REPORT PRProgress bxqn3800-31-57R05:53:00F.EIAC83355119-1272WYRdvdp able for patient tmynIPWLUTISAFDSCA6770-07-37Y39:57:23 [facility] 2022-01-02 15:39:00 [id number] Gk1qheLCh5imNuZK6tD631HLiTXWC BPdsThAh1N7b6wVT8GXn3WXoywf4B9Z4455-22-60I19:39:0 0 [facility] ([facility])Clinical NoteREPORT#:[id number] REPORT STATUS: SignedDATE:01/02/22 TIME: 1539 PATIENT: STEFFEN CABRAL UNIT #: [id number]#: [id number] ROOM/BED: [facility]-ADOB: [birth year] AGE: 41 SEX: F ATTEND: Chandan Reaves MDA AUTHOR: Lindsey Zimmerman MD * ALL edits or amendments must be made on the electronic/computer document * Clinical NoteNote:call center support consultant for Dr. Reaves POD#3,s/p L/S drainage of pelvic abcess by CRS Patient clear liquid diet Vital Signs Date Time Temp Pulse Resp B/P B/P Pulse O2 O2 Flow FiO2 Mean Ox Delivery Rate 01/02 1416 98.6 78 16 120/80 93.4 96 01/02 0807 98.2 73 18 116/78 90.5 96 01/02 0430 97.7 72 16 110/72 84.6 96 01/01 2315 98.1 65 17 110/74 86.0 97 01/01 2005 98.2 66 17 107/69 81.6 98 01/01 1614 98.8 52 18 144/83 103.5 98 01/01 1131 98.2 69 18 143/92 108.9 96 01/01 0720 98.4 71 18 125/83 97.1 97 01/01 0324 98.6 81 18 114/71 85.1 96 Room air 12/31 2329 98.6 77 18 109/74 85.7 97 Room air 12/31 1942 98.6 83 16 111/76 87.4 97 Room air General :NAD Laboratory Tests: 01/02 522 Hematology WBC (6.5 - 12.3 K/mm3) 16.8 H RBC (3.51 - 4.69 M/mm3) 3.00 L Hgb (10.1 - 13.8 g/dL) 9.3 L Hct (32.5 - 41.8 %) 28.4 L MCV (84.6 - 96.6 fL) 94.7 MCH (27.3 - 33.9 pg) 31.0 MCHC (32.0 - 34.2 gm/dL) 32.7 RDW (12.2 - 16.3 %) 13.3 Plt Count (134 - 363 K/mm3) 466 H MPV (9.2 - 12.7 fL) 9.5 Neut % (Auto) (57.9 - 77.3 %) 68.3 Lymph % (Auto) (14.5 - 29.7 %) 15.2 Citrus % (Auto) (3.6 - 10.2 %) 9.6 Eos % (Auto) (0.0 - 3.0 %) 1.7 Baso % (Auto) (0.1 - 0.9 %) 0.9 Neut # (Auto) (K/mm3) 11.5 Lymph # (Auto) (K/mm3) 2.6 Citrus # (Auto) (K/mm3) 1.6 Eos # (Auto) (K/mm3) 0.29 Baso # (Auto) (K/mm3) 0.2 A/P POD#3,s/p L/S drainage of pelvic mass -afebrile and vitals stable -leukocytosis improving -GI: tolerating clear lig diet. Continue current management as recommended by Colorectal service. at 1548 RPT #:[id number] OF REPORT CLClinical fhro8802-79-62M47:39:00F.BAQE67742543-1541PLCeayr able for patient yuweCWOIELPENISHVD5076-80-21L02:48:14 [facility] 2022-01-01 17:31:00 [id number] 2QrzXw2PCaLPR5pYpUpHWMK3Zj1gU v24QqGho887/miqZ/o9SryBRx3437zP2144-60-89G22:31:0 0 [facility] ([facility])Clinical NoteREPORT#:[id number] REPORT STATUS: SignedDATE:01/01/22 TIME: 173 PATIENT: STEFFEN CABRAL UNIT #: [id number]#: [id number] ROOM/BED: [facility]-ADOB: [birth year] AGE: 41 SEX: F ATTEND: Chandan Reaves [facility] AUTHOR: Magali Carlson MD * ALL edits or amendments must be made on the electronic/computer document * Clinical NoteNote:Pt reports continued pain. Reports that the pain is making her nauseous. She hashad several episodes of vomiting despite starting zofran. Last episode with possible coffee grounds. Toradol discontinued, change diet back to clearsAbdomen mildly distended, hypoactive bowel soundsPlan to continue IV pain meds and zofran. Protonix IV per colorectalwill continue to follow at 1737 RPT #:[id number] OF REPORT CLClinical kevk0618-49-62S38:31:00F.ZWQV24848206-5483GUEited able for patient hafmNVSCXOHYBTFJHB9762-33-14P25:37:46 [facility] 2022-01-01 15:55:00 [id number] S+plSJ0RlPTSuZOw+0cVkIqm/oKCV RWCRYolF899/GVQRXzKfbyDGcIKycJo7394-07-93K21:55:0 0 [facility] ([facility])Clinical NoteREPORT#:[id number] REPORT STATUS: SignedDATE:01/01/22 TIME: 1555 PATIENT: STEFFEN CABRAL UNIT #: [id number]#: [id number] ROOM/BED: [facility]-ADOB: [birth year] AGE: 41 SEX: F ATTEND: Chandan Reaves [facility] AUTHOR: Magali Carlson MD * ALL edits or amendments must be made on the electronic/computer document * Clinical NoteNote:Pt had starte PO pain meds, reported nausea and had episode of vomiting. Pt is now asleep. Nurse staff states that pt's pain is being reported as 8/10Will change back to toradol and dilaudid for now, zofran OTC.will return to assess pt when awake at 1556 RPT #:[id number] OF REPORT CLClinical oalj5242-76-59D00:55:00F.HHDJ71303403-4475KJItsxu able for patient fjbwLQGRBIOIMIZIFI1926-14-10R46:56:49 [facility] 2021-12-31 17:17:00 [id number] K/+vUg+yqt1KNpRuDaGA5+zz+Juod YlbXXmzfEa82wGi6jprPrlUYLMfJgYH3581-79-43C93:17:0 0 [facility] ([facility])Clinical NoteREPORT#:[id number] REPORT STATUS: SignedDATE:12/31/21 TIME: 1716 PATIENT: STEFFEN CABRAL UNIT #: [id number]#: [id number] ROOM/BED: [facility]-ADOB: [birth year] AGE: 41 SEX: F ATTEND: Chandan Reaves AUTHOR: Chandan Reaves MD * ALL edits or amendments must be made on the electronic/computer document * Clinical NoteNote:Patient is feeling wellPassing gas, requesting reg diet s/p Pelvic abscess washout by CRL Will advance diet and change to PO pain meds. at 1718 RPT #:[id number] OF REPORT CLClinical zqmw7872-56-46C95:17:00F.JOGH87841805-3532KDYpkjb able for patient ggjjOBQJJJGCIKNQGP6029-20-23I51:18:52 [facility] 2021-12-31 07:22:00 [id number] vAkXh57PP2KfYlR1UpUySLoFNyOFn iznzKvdGy3U3xzE+fYeYdGFgSzfNErK1446-29-52W79:22:0 0 [facility] ([facility])Clinical NoteREPORT#:[id number] REPORT STATUS: SignedDATE:12/31/21 TIME: 721 PATIENT: STEFFEN CABRAL UNIT #: [id number]#: [id number] ROOM/BED: [facility]-ADOB: [birth year] AGE: 41 SEX: F ATTEND: Chandan Reaves AUTHOR: Chandan Reaves MD * ALL edits or amendments must be made on the electronic/computer document * Clinical NoteNote:POD 1 s/p l-scope drainage of pelvic abscess Patient feeling wellno n/vno flatus Vital Signs Date Time Temp Pulse Resp B/P B/P Pulse O2 O2 Flow FiO2 Mean Ox Delivery Rate 12/31 0343 97.9 65 18 101/68 78.7 96 Room air 12/31 0001 97.7 74 16 110/75 86.8 96 Room air 12/31 2003 98.2 78 19 108/74 85.7 96 Room air 12/30 1957 Simple 10 mask 12/30 1746 97.9 65 16 117/79 92.1 95 12/30 1645 60 12 124/82 98 Room air 12/30 1630 60 12 120/80 100 Simple 10 mask 12/30 1611 97.5 73 18 106/73 98 Simple 10 mask 12/30 1230 97.9 77 17 132/87 98 Room air 12/30 1151 98.4 77 18 114/78 89.7 98 Room air 12/30 0736 98.6 79 18 114/77 89.2 97 Room air 12/30 0353 99.5 86 18 117/78 91.3 96 Room air 12/29 2347 98.6 78 18 115/79 91.0 99 Room air 12/29 2002 98.6 85 18 109/72 84.7 98 Room air 12/29 1507 97.7 82 18 110/76 87.1 96 12/29 1104 99.0 80 17 122/76 91.2 97 12/29 0834 98.8 78 17 104/69 80 97 Abd appropriate ELSIE drain - mild drainage Laboratory Tests: 12/31 0510 Hematology WBC (6.5 - 12.3 K/mm3) 27.2 *H RBC (3.51 - 4.69 M/mm3) 3.41 L Hgb (10.1 - 13.8 g/dL) 10.6 Hct (32.5 - 41.8 %) 32.5 MCV (84.6 - 96.6 fL) 95.3 MCH (27.3 - 33.9 pg) 31.1 MCHC (32.0 - 34.2 gm/dL) 32.6 RDW (12.2 - 16.3 %) 13.1 Plt Count (134 - 363 K/mm3) 501 H MPV (9.2 - 12.7 fL) 9.7 Neut % (Auto) (57.9 - 77.3 %) 86.1 H Lymph % (Auto) (14.5 - 29.7 %) 5.2 L Citrus % (Auto) (3.6 - 10.2 %) 4.9 Eos % (Auto) (0.0 - 3.0 %) 0.0 Baso % (Auto) (0.1 - 0.9 %) 0.4 Neut # (Auto) (K/mm3) 23.5 Lymph # (Auto) (K/mm3) 1.4 Citrus # (Auto) (K/mm3) 1.3 Eos # (Auto) (K/mm3) 0 Baso # (Auto) (K/mm3) 0.1 Microbiology: Date/Time Procedure - Status Source Growth 12/30 141 Wound Culture - RECD ABSCESS 12/30 141 Anaerobic Culture - RECD ABSCESS 12/30 141 Gram Stain - RECD ABSCESS DC IV fluids in change to oral medsFolliow CBCAdvance diet per CRS at 0726 RPT #:[id number] OF REPORT CLClinical wuhr3590-49-38A70:22:00F.QVCY45623948-1614TFAmzxf able for patient palcZHLRYEXUQSLFNR8412-87-16I62:26:33 [facility] 2021-12-31 06:30:00 [id number] o+BgFb3IHRi0YbyVqcm4ti+fwAi01 U9x9migG6zaXzZw3s0hcQk1zx+oJ60j6149-19-12N87:30:0 0 [facility] ([facility])Colorectal Surgery Prog NoteREPORT#:[id number] REPORT STATUS: SignedDATE:12/31/21 TIME: 629 PATIENT: STEFFEN CABRAL UNIT #: [id number]#: [id number] ROOM/BED: [facility]-ADOB: [birth year] AGE: 41 SEX: F ATTEND: Chandan Reaves [facility] AUTHOR: Thony Stallworth DO * ALL edits or amendments must be made on the electronic/computer document * SubjectiveChief complaint:Abdominal pain and LLQ pelvic multiloculated massHPI:S/p drainage of intraabdominal abscess. WBC 27. Feeling better lower abdominal pain Review of SystemsAll systems rev neg: except as marked Objective GeneralVS/I O:Last Documented: Result Date Time Pulse Ox 96 12/31 342 B/P 101/68 12/313 B/P Mean 78.7 12/31 342 O2 Delivery Room air 12/31 342 Temp 97.9 12/31 342 Pulse 65 12/31 0343 Resp 18 12/31 342 O2 Flow Rate 10 12/307 24 hour I O ending at 0700: 12/31 0700 12/30 1900 Intake Total 1600.00 1500.00 Output Total 1900 300 Balance -300 1200.00 Intake, IV 1100.00 1500.00 Intake, Oral 500 Output, 200 40 Drainage Output, 10 Estimated Blood Loss Output, Urine 1700 250 Patient 59 kg Weight Weight Standing scale Measurement Method PATIENT WEIGHT: Weight (lb): 130Weight (oz): 1.16Weight (kg): 59.000 Physical ExamRespiratory: aerating wellAbdomen: soft, no distention, +LLQ TTP, mild TTP in suprapubic/RLQ as well, wellhealed incisions; ELSIE drain serosanguinous Diagnosis, Assessment PlanFree Text A P:41F with pelvic abscess on cross sectional imaging Monitor drain outputscontinue IV abxfu culturescontinue cld for nowrepeat CBC/labs in AM tomorrowOOB as toleratedremainder of care per BACTERIOLOGIST PHARMACEUTICAL at 0632 RPT #:[id number] OF REPORT PRProgress gnpi5580-67-09D05:30:00F.PVCP41170220-7265XLPvhxt able for patient cchhFLGRAWQCKQSLCF9535-79-80C35:33:02 [facility] 2021-12-30 16:08:00 [id number] ptshXImkW2HYv/rjgMrX3afBQ/NYj 0bupaHTSHnYzTbn3Npv5R1+Zj8Eup2/3206-19-70C81:08:0 [id number] [address] PATIENT NAME: WINSOME CABRALDEVAUGHN FOSS ADMIT DATE: 12/29/21ACCOUNT NO: [id number] ROOM NO: .2600 AGE: 41 SEX: F ADMITTING PHYSICIAN: Chandan Reaves MD ATTENDING PHYSICIAN: Chandan Reaves MD OPERATION DATE: 12/30/2021 SURGEON: Chucky Velarde MD PREOPERATIVE DIAGNOSES:1. Left lower quadrant pain.2. Multiloculated collection concerning for abscess. POSTOPERATIVE DIAGNOSES:1. Left lower quadrant pain.2. Multiloculated abscess. PROCEDURES PERFORMED:1. Robotic-assisted diagnostic laparoscopy with lysis of pelvic adhesions.2. Robotic-assisted laparoscopic drainage of pelvic abscess on the left side.3. Robotic-assisted laparoscopic placement of 19-round Taran drain. DEVICES: None. IMPLANTS: A 19 round Taran drain placed along the left lower quadrant andpelvis. ANESTHESIA: General. INDICATIONS: The patient is a 41-year-old female with history of roughly 1month of worsening abdominal pain with fevers and chills. She presents forsurgical exploration secondary to inability to place interventional radiologydrain and continued elevated WBC while on antibiotics. We have spoken with interventional radiology, Dr. Mccurdy and he stated thatthere was no window to achieve adequate drainage. FINDINGS: Entry into the abdomen was achieved [facility]. Upon entry to the abdomen, there was noted to be multipleloops of small bowel and the sigmoid colon adherent to the pelvis and left lowerabdominal and pelvic peritoneum. We then placed 3 other ports including theleft upper, right lower quadrant and umbilical port sites. These were placedunder direct visualization. Then, we docked the robot. We noted that therewere multiple inflame loops of bowel with dense adherence to each other as wellas the peritoneum. We were able to carefully lyse these down from the abdominalwall and upon doing so, we started to come to the lateral aspect of the sigmoidcolon. Upon doing so further, we entered into an abscess cavity, which roughlyabout 10 to 15 mL of purulent material was expressed from the area. We PATIENT NAME: STEFFEN CABRAL irrigated and suctioned this locally. Then, any further dissection would havejeopardized the bowel and likely caused the bowel injury. Therefore, we electedto place a 19 round Taran drain in the area. No overt bowel injury was identified during the lysis of adhesions portion. Most of the lysis of adhesion was performed with blunt and minimal sharpdissection. The drain was secured in place. We desufflated the abdomen. Due to her thinbody habitus, we did place a 0 Vicryl stitch in the fascia at 2 other port sitesfor we could see the fascia. Of note, the liver was very low lying and there was a small rent created in theliver parenchyma during entry into the right upper quadrant; however, thisappeared to be hemostatic at the end of the case. PROCEDURE IN DETAIL: The patient was seen and evaluated in preoperativeholding. Proper consents were obtained. All questions were answered priortaken back to the operating theater. We had spoken to her and her mother regarding steps. We informed them that ourgoal was to drain the collection and then to see if we could identify the sourceof the abscess. They wished to proceed with drainage and possible small bowel resection, butavoid any sigmoid or colon resection if at all possible. At this point, the patient was brought to the operating theater and placed insupine position. The patient underwent general anesthesia via anesthesia staff. Proper time-out occurred with everyone in agreement of procedure. The patient was then placed in modified lithotomy position. Alonso catheter wasplaced by OR team. The patient was prepped and draped in normal sterile fashion. Proper time-out occurred with her in agreement of procedure. Entry into the abdomen was achieved via Optiview technique in the right upperquadrant. Upon entry into the abdomen, there was noted to be a small rent inthe liver; however, this appeared hemostatic at the end of the case. We then placed 3 other ports in the abdomen, 1 in the right mid and 1 in theumbilical and one in the left upper abdomen. These ports were placed underdirect visualization. Once we placed the patient in Trendelenburg position, we docked the robot andnoted there were multiple loops of small bowel adherent into the pelvis and theleft lower pelvic sidewall. Also, the sigmoid colon was noted to be thickenedand inflamed up to the descending colon and adherent into the left lowerquadrant as well. We were able to use the camera and looking into the pelvis, we could see the PATIENT NAME: STEFFEN CABRAL right ovary, which appeared to be uninvolved. The left side was then we werenot able to visualized. Therefore, we started blunt and minimal sharp dissection in order to lyseadhesions down into the pelvis. The colon was carefully peeled off of theanterior abdominal wall and the left lateral sidewall. Upon doing so, westarted to see a pocket on the left as we were going into the pelvis. Uponentry into the pocket and we opened this up, there was noted to be copiousamounts of purulent drainage. The drainage was thick white drainage. Wecultured this and sent off as pelvic abscess and we irrigated the area locally. We then placed a 19 round Taran drain under laparoscopic guidance at the areaand secured this to the skin. After this was accomplished, we checked the abdomen and pelvis for hemostasis,which appeared to be achieved and then, we evaluated the bowel and the colon. Of note, the small bowel and the sigmoid colon were densely adherent to eachother. Most of the loops of bowel present in the pelvis were inflamed andthickened. We could not free up any further without concern for bowel injury. At this point, the ports were removed. Due to her body habitus and being sothin, we noted the fascia when we removed the ports. Therefore, we put a stitchon this with 0 Vicryl in order to close the fascial edges that we could see. This was done with careful visualization of the peritoneum underneath it. At this point, all counts were correct at the end of the case. The patienttolerated the procedure well. Dr. Reaves was present for the critical portions of the procedure and wasconsulted during the procedure. Dictated By: Chucky Velarde MD WT: OP:NORA/MARIA ISABEL/NTSDD: 12/30/2021 16:08:34DT: 12/30/2021 21:02:34Conf#: [id number]/DID#: [id number] Authenticated by Chucky Velarde MD On 01/03/2022 01:00:55 PM at 0100 PATIENT NAME: STEFFEN CABRAL jtamzs1604-11-77B12:02:00F.[id number] lable for patient qsfnGHARHKHYQZNKVQ8454-94-25J73:01:30 [facility] 2021-12-30 08:43:00 [id number] MKoNta20W8ClNys2UaF40Ow92EMeh V02HlSSNudqOJmWfxM4EzW4+/G4qJcn9649-84-85Z34:43:0 0 [facility] ([facility])Clinical NoteREPORT#:[id number] REPORT STATUS: SignedDATE:12/30/21 TIME: 0843 PATIENT: STEFFEN CABRAL UNIT #: [id number]#: [id number] ROOM/BED: [facility]-ADOB: [birth year] AGE: 41 SEX: F ATTEND: Chandan Reaves [facility] AUTHOR: Chandan Reaves MD * ALL edits or amendments must be made on the electronic/computer document * Clinical NoteNote:Patient has no new complaints Vital Signs Date Time Temp Pulse Resp B/P B/P Pulse O2 O2 Flow FiO2 Mean Ox Delivery Rate 12/30 0736 98.6 79 18 114/77 89.2 97 Room air 12/30 0353 99.5 86 18 117/78 91.3 96 Room air 12/29 2347 98.6 78 18 115/79 91.0 99 Room air 12/29 2002 98.6 85 18 109/72 84.7 98 Room air 12/29 1507 97.7 82 18 110/76 87.1 96 12/29 1104 99.0 80 17 122/76 91.2 97 12/29 0834 98.8 78 17 104/69 80 97 12/29 0435 99.3 86 16 119/82 94.3 96 Room air 12/29 0005 98.4 88 16 120/83 95.2 99 Room air 12/28 1934 98.6 84 16 119/83 94.8 98 Room air 12/28 1542 98.2 84 18 111/77 88.4 98 12/28 1112 98.4 72 16 106/72 83.2 99 Discussed plan for dx-l-scope and possible oophorectomy.Patient is in agreement. Appreciate CRS involvement in taking lead on surgery given the probabilty of bowel involvement. at 0845 RPT #:[id number] OF REPORT CLClinical qdms5073-32-58S82:43:00F.EPHW38133362-6246BRBhwnq able for patient cusgFFIPSRITIURVZC2468-17-46V38:45:51 [facility] 2021-12-30 07:37:00 [id number] c8QQ+4NpxR/kXKNNYb/aSmir+15UQh VnannLlDTS+tulxZuafrIe04JvXnS2I6401-78-42D49:37:0 0 [facility] ([facility])Colorectal Surgery Prog NoteREPORT#:[id number] REPORT STATUS: SignedDATE:12/30/21 TIME: 736 PATIENT: STEFFEN CABRAL UNIT #: [id number]#: [id number] ROOM/BED: [facility]-ADOB: [birth year] AGE: 41 SEX: F ATTEND: Chandan Reaves [facility] AUTHOR: Chucky Velarde MD * ALL edits or amendments must be made on the electronic/computer document * SubjectiveChief complaint:Abdominal pain and LLQ pelvic multiloculated massHPI:41 year old female with a history of LLQ abdominal pain and elevated WBC. She is doing okay this morning but still with LLQ pain. She was tolerating some liquids. She states she was having bowel movements as of last night. She deniesfever over night. She is ambulatory. Objective GeneralVS/I O:Last Documented: Result Date Time Pulse Ox 97 12/31 735 B/P 114/77 12/31 735 B/P Mean 89.2 12/31 735 O2 Delivery Room air 12/31 735 Temp 98.6 12/31 735 Pulse 79 12/31 735 Resp 18 12/31 735 24 hour I O ending at 0700: 12/30 0700 12/29 1900 Intake Total 1200.00 1300.00 Output Total Balance 1200.00 1300.00 Intake, IV 1200.00 1300.00 PATIENT WEIGHT: Weight (lb): 130Weight (oz): 1.16Weight (kg): 59.000 Physical ExamRespiratory: aerating wellAbdomen: soft, no distention, +LLQ TTP, mild TTP in suprapubic/RLQ as well, wellhealed incisions Diagnosis, Assessment PlanFree Text A P:41F with pelvic abscess on cross sectional imaging Continue IV abximaging reviewed with radiology, abscess etiology difficult to surmise based on imaging.12/29/2021: IR (Dr. Alvarado) has stated that there is not a safe window for pecutaneous drainageNPO for now pending surgical exploration with possible drainagemonitor labsSerial abdominal exams at 0742 RPT #:[id number] OF REPORT PRProgress orjr1072-70-26A98:37:00F.SOSI22291331-4919NYDcefv able for patient szdtDWPRQGIZUUGEQR4721-69-78Y25:42:22 [facility] 2021-12-29 12:32:00 [id number] hz22kIcg1zSs8mi+PV7yYwuG9Py72 zttREN4MUeouDcTf7z+eQEo1EFCV1qF2847-28-00L14:32:0 0 [facility] ([facility])Clinical NoteREPORT#:[id number] REPORT STATUS: SignedDATE:12/29/21 TIME: 1232 PATIENT: STEFFEN CABRAL UNIT #: [id number]#: [id number] ROOM/BED: [facility]-ADOB: [birth year] AGE: 41 SEX: F ATTEND: Chandan Reaves AUTHOR: Chandan Reaves MD * ALL edits or amendments must be made on the electronic/computer document * Clinical NoteNote:Updated patientIR reviewed films and states patient is not a candidate for drainage.Patient denies h/o STIs. Explained TOA is usually associated with STI. Patient does not have a uterus or fallopian tubes but there are case reports of ovarian abscess 10 years after a hyst. Considering dx l-scope with washout and possible oophorectomy versus continue abx treatment as patient is afebrile and WBC is declining.Patient defers decision to managing doctors. at 1237 RPT #:[id number] OF REPORT CLClinical yckw2778-08-32J49:32:00F.UHHC86870749-5679FUWwbco able for patient vqjvVNRXZSXRDSPCEQ7680-16-84S03:37:59 [facility] 2021-12-29 07:39:00 [id number] kUpooB/n9isE4Sm4QQGQWFHQ1+JQm yxx2109F4+jwGkoPN06WkGMPRVwo6aA1893-35-47J77:39:0 0 [facility] ([facility])Clinical NoteREPORT#:[id number] REPORT STATUS: SignedDATE:12/29/21 TIME: 0739 PATIENT: STEFFEN CABRAL UNIT #: [id number]#: [id number] [address] [birth year] AGE: 41 SEX: F ATTEND: Chandan Reaves [facility] AUTHOR: Chandan Reaves MD * ALL edits or amendments must be made on the electronic/computer document * Clinical NoteNote:HD#2 Pelvic abscessNo new complaints Vital Signs Date Temp Pulse Resp B/P B/P Mean Pulse Ox FiO2 12/28-12/29 98.2-99.3 72-88 16-18 106-120/72-83 83.2-95.2 96-99 Exam unchanged Laboratory Tests: 12/29 12/28 0615 0515 Chemistry Sodium (135 - 145 mEq/L) 138 Potassium (3.5 - 5.0 mEq/L) 3.6 Chloride (100 - 115 mEq/L) 103 Carbon Dioxide (22 - 31 mEq/L) 27 Anion Gap (10 - 20) 11.70 BUN (7 - 18 mg/dL) 4 L Creatinine (0.5 - 1.0 mg/dL) 0.6 Glomerular Filtr Rate (>60 ml/min) 111 Glucose (65 - 110 mg/dL) 113 H Calcium (8.4 - 10.2 mg/dL) 8.3 L Total Bilirubin (0.2 - 1.0 mg/dL) 0.2 AST (15 - 37 units/L) 13 L ALT (12 - 78 units/L) 13 Total Alk Phosphatase (46 - 116 units/L) 106 Total Protein (6.3 - 8.2 gm/dL) 5.5 L Albumin (3.4 - 4.8 gm/dL) 2.3 L Hematology WBC (6.5 - 12.3 K/mm3) 19.9 H 20.8 *H RBC (3.51 - 4.69 M/mm3) 3.48 L 3.44 L Hgb (10.1 - 13.8 g/dL) 10.9 10.7 Hct (32.5 - 41.8 %) 33.5 32.6 MCV (84.6 - 96.6 fL) 96.3 94.8 MCH (27.3 - 33.9 pg) 31.3 31.1 MCHC (32.0 - 34.2 gm/dL) 32.5 32.8 RDW (12.2 - 16.3 %) 13.5 13.2 Plt Count (134 - 363 K/mm3) 429 H 403 H MPV (9.2 - 12.7 fL) 9.6 9.9 Neut % (Auto) (57.9 - 77.3 %) 75.2 Lymph % (Auto) (14.5 - 29.7 %) 9.7 L Citrus % (Auto) (3.6 - 10.2 %) 10.2 Eos % (Auto) (0.0 - 3.0 %) 2.0 Baso % (Auto) (0.1 - 0.9 %) 0.6 Neut # (Auto) (K/mm3) 14.9 Lymph # (Auto) (K/mm3) 1.9 Citrus # (Auto) (K/mm3) 2.0 Eos # (Auto) (K/mm3) 0.40 Baso # (Auto) (K/mm3) 0.1 Add Manual Diff YES Total Counted (#CELLS) 100 Seg Neutrophils % (56.5 - 79.4 %) 76 Lymphocytes % (Manual) (20 - 40 %) 11 L Monocytes % (Manual) (0 - 8 %) 12 H Eosinophils % (Manual) (0 - 4 %) 1 Microbiology: Date/Time Procedure - Status Source Growth 12/28 0230 MRSA Screen - RECD NASAL Recent Impressions:CAT SCAN - CT ABD PELVIS W/CONT 12/28 0944 Report Impression - Status: SIGNED Entered: 12/28/2021 1020 IMPRESSION: Findings compatible with abscess noted in the left pelvic region as described above.Small amount of free fluid noted in the pelvic region.Bilateral bibasilar hypoventilatory changes noted.Impression By: Ralph Branch MD s/p CRS evaluationPossibility of drainage by IR. at 0741 RPT #:[id number] OF REPORT CLClinical utsm6049-18-32F78:39:00F.DEGB98213864-3187CEMfwoe able for patient mfjbLKPFMWHFMMRFBV7634-97-18F01:42:18 [facility] 2021-12-29 07:31:00 [id number] xKb2LOQAcBK57F4O3ldE3mY0V3tMC Fod1xoG6HALy5EdUaEyfOVd7mPpz2tL8383-30-22X98:31:0 0 [facility] ([facility])Colorectal Surgery Prog NoteREPORT#:[id number] REPORT STATUS: SignedDATE:12/29/21 TIME: 07 PATIENT: STEFFEN CABRAL UNIT #: [id number]#: [id number] ROOM/BED: [facility]-ADOB: [birth year] AGE: 41 SEX: F ATTEND: Chandan Reaves [facility] AUTHOR: Thony Stallworth DO * ALL edits or amendments must be made on the electronic/computer document * SubjectiveHPI:No events, still with LLQ pain. Imaging reviewed with radiology, abscess etiology unclear, possible ToA Review of SystemsAll systems rev neg: except as marked Objective GeneralVS/I O:Last Documented: Result Date Time Pulse Ox 96 12/29 434 B/P 119/82 12/29 434 B/P Mean 94.3 12/29 434 O2 Delivery Room air 12/29 434 Temp 99.3 12/29 434 Pulse 86 12/29 434 Resp 16 12/29 434 24 hour I O ending at 0700: 12/29 0700 12/28 1900 Intake Total 700.00 1300.00 Output Total Balance 700.00 1300.00 Intake, IV 700.00 1300.00 PATIENT WEIGHT: Weight (lb): 130Weight (oz): 1.16Weight (kg): 59.000 Physical ExamGeneral appearance: alert, awake, orientedRespiratory: aerating wellAbdomen: soft, no distention, +LLQ TTP, mild TTP in suprapubic/RLQ as well Diagnosis, Assessment PlanFree Text A P:41F with pelvic abscess on cross sectional imaging Continue IV abximaging reviewed with radiology, abscess etiology difficult to surmise based on imaging. possible ToA given history would reach out to IR to evaluate for possible percutaneous drainageNPO for now pending possible drainagemonitor labswill follow at 0734 RPT #:[id number] OF REPORT PRProgress wtlk2858-39-02M61:31:00F.EGLJ11673927-7515NSLkdlg able for patient sfbpJPCQZJXXYJICSI1015-62-26L26:35:09 [facility] 2021-12-29 02:51:00 [id number] odtG81jD9cDr6NipcFS0BL4frtfDH 63/DN6sMkyR8G6jNNzrJrC8+ZiaIcRj9356-46-99J68:51:0 0 [facility] ([facility])OB Delivery NoteREPORT#:[id number] REPORT STATUS: SignedDATE:12/29/21 TIME: 250 PATIENT: STEFFEN CABRAL UNIT #: [id number]#: [id number] [address] [birth year] AGE: 41 SEX: F ATTEND: Chandan Reaves MDADM AUTHOR: Chandan Reaves MD * ALL edits or amendments must be made on the electronic/computer document * See AddendumOB Delivery Pre-deliveryNewborn evaluation at delivery: NRP certified personnelAdmission EGA: Weeks: 40 Days: 1EGA at delivery (wks/days): 40 weeks (2 days)Admission indication:Labor Blood Loss/DetailsBlood loss at delivery: <1K: no sx hypovol=no hem, no more than expectedEBL at delivery (ml's): 300 Baby A InformationBaby A information Delivery date: 12/29/21 Delivery time: 229 status: live born Wt of baby: not yet available Gender: female 1 minute: 8 5 minutes: 9 Presentation: vertexNuchal cord Baby A Nuchal cord: no Vaginal Delivery Vaginal DeliveryVaginal delivery: Labor: spontaneous Vaginal delivery: spontaneous Amniotic fluid: clear Anesthesia type: epidural anesthesia Episiotomy: none Episiotomy repair: not applicable Laceration repair: yes, 2-0 suture Placenta: spontaneous Post delivery meds used: oxytocin Count: correct Vaginal packing: No Mother's condition: mother stable 's condition: stable in roomLacerations: Perineal laceration(s): 2nd DegreeShoulder dystocia present: no at 0253 Addendum 1: 12/29/21256 by Chandan Reaves MD Disregard above note. Wrong patient. at 0258 RPT #:[id number] OF REPORT CLClinical nsjp6140-32-68B18:51:00F.ACOQ55061882-8123CFVvibp able for patient ztacAGXPFEWTIUEKJM4750-56-26E58:53:32 [facility] 2021-12-28 18:59:00 [id number] +QCdHHkoo57lhtP7Ie4OU7Tzkiv3Q aFk+CsW3WVkHlBP+wSqZPx039FvhT3o6151-22-21G71:59:0 [id number] [facility] [address], [place] [address] PATIENT NAME: STEFFEN CABRAL ADMIT DATE: 12/28/21ACCOUNT NO: [id number] ROOM NO: [facility] AGE: 41 SEX: F ADMITTING PHYSICIAN: Chandan Reaves MD ATTENDING PHYSICIAN: Chandan Reaves MD CONSULTATION DATE: 12/28/2021 CONSULTING PHYSICIAN: Chucky Velarde MD SURGEON: Chucky Velarde MD CONSULTING SERVICE: Colorectal surgery. REASON FOR CONSULTATION: Abdominal pain and left lower quadrant inflammatoryprocess. CHIEF COMPLAINT: Abdominal pain. HISTORY OF PRESENT ILLNESS: The patient is a 41-year-old female who presentsafter transfer from an outside facility due to concern for pelvic infection andleft ovarian versus small bowel inflammatory process. The patient states nyas had intermittent abdominal pain and cramps over the last month or so. Nyas had times where she has had severe pain. This led her to an episode ofsyncope due to the pain. This is the only time this has occurred. It took bonnie few minutes to regain consciousness, but she was transferred to the hospitalat that time. The symptoms were also related to nausea and decreased p.o.intake. She thinks she has lost some weight; however, during the hospital stay,she has gained a little bit of weight back as well. She states that her bowel habits have never been "regular", but she denies anyconsistent diarrhea or constipation. She has had some decreased p.o. intake. In the past, she had undergone an uncomplicated same day hysterectomy by in July or August of this year. She states she recovered well fromthis and her symptoms really did not start until roughly 1 month ago. She has had fevers at home up to 103, but also she has had multiple low-gradetemperatures. On outside laboratory work at the other facility, it was notedthat she had a WBC of 30. She was initially started on antibiotics including doxycycline and Rocephin. CT scan of the abdomen and pelvis was performed as well as ultrasound. The images are being uploaded into the [facility] imaging system. At the outside facility, there was concern that this could be small bowelinvolvement with an inflammatory process and surgery was consulted. PATIENT NAME: STEFFEN CABRAL During her current hospital stay, she states the pain has improved. She has nothad the significant fevers that she was having before. She states she istolerating some diet. She states she is having bowel movements. She denies anyvomiting episodes at this time. The abdominal pain is mostly in the lower abdomen, worse on the left than right. She states that she has had no significant blood per rectum, dark stools, orblack stools. She has not had a colonoscopy. She denies any family history of ulcerative colitis, Crohn's disease, coloncancer, colon polyps. We reviewed [facility] including laboratorywork and urinalysis, which was negative. Her COVID test was negative. Herwhite blood cell count on 12/27/2021 was 24.4. Hemoglobin was 11.5. SOCIAL HISTORY: The patient denies alcohol use, illicit substance use, and iscurrently an every day smoker since the age of 13. PAST MEDICAL HISTORY: Significant for ADHD, endometriosis, abdominal pain,status post back surgery. PAST SURGICAL HISTORY: Includes appendectomy, section, hysterectomyperformed laparoscopically in 2021, and anterior approach for back surgery withhardware implantation. HOME MEDICATIONS: None. We reviewed her current medications in the hospital. ALLERGIES: NONE. REVIEW OF SYSTEMS:SKIN: Shows no rashes or itching, well-healed incisions.HEAD: Shows no headaches, but history of syncope.EYES: Show no double vision or flashing lights.EARS: Show no changes in hearing.NOSE AND SINUSES: No nosebleeds or congestion.ALLERGIES: NO KNOWN DRUG ALLERGIES.MOUTH AND THROAT: Showed no swelling or cough.NECK: Shows no lumps or lymph nodes.BREASTS: Show no pain or discharge.RESPIRATORY: No shortness of breath, cough, or wheezing.GASTROINTESTINAL: As stated above, but with decreased p.o. intake and no bloodin the stool.URINARY: Shows no difficulty with urination, slight discomfort of lowerabdominal pain with urination. No blood in the urine. PERIPHERAL VASCULAR: Shows no cramps or varicose veins.MUSCULOSKELETAL: Shows positive back pain and status post back surgery.NEUROLOGIC: Shows history of syncope, first episode one month ago.HEMATOLOGIC: History of anemia.ENDOCRINE: Shows no abnormal growth, increased thirst or appetite.PSYCHIATRIC: Appropriate judgment and insight. No history of anxiety. PATIENT NAME: STEFFEN CABRAL PHYSICAL EXAMINATION:GENERAL: Awake, alert, and oriented x3.SKIN: Shows no rash or ecchymosis. Positive tattoos on the abdomen. Multipleskin incisions from prior surgery including a lower midline and laparoscopicport sites.HEENT: Shows clear oropharynx.EYES: Extraocular motions intact. Appropriate hearing.NECK: Shows no masses.CHEST: Shows no cough, wheezing, or shortness of breath.CARDIOVASCULAR: Shows positive peripheral pulses.GASTROINTESTINAL: Shows nondistended, no rebound but some slight voluntaryguarding present. Pain on deep palpation in the left lower and right lower andsuprapubic regions. No peritoneal signs appreciated at this time.GYNECOLOGIC: Status post hysterectomy.GENITOURINARY: Currently voiding on own.NEUROLOGIC: Intact with no deficits appreciated.MUSCULOSKELETAL: Shows no joint pain or swelling to extremities.PSYCHIATRIC: Appropriate judgment and insight.VITAL SIGNS: Show most recent temperature is 36.8, pulse 84, respiratory rate18, blood pressure 111/77, and pulse ox 98. LABORATORY WORK: Reviewed with WBC of 20, hemoglobin 10.7, hematocrit 32.6, andplatelet count 403. Sodium 138, potassium 3.6, chloride 103, bicarbonate 27,BUN 4, creatinine 0.6, glucose 113, and calcium 8.3. RADIOGRAPHIC STUDIES: Reviewed including a CT scan performed at the [facility]. We reviewed the images. There does appear to be amultiloculated or loculated cystic structure in the left lower abdominal/pelvicregion. The colon appears to be separate from the area. There are loops ofsmall bowel present as well. There may be some enteritis associated orreactive. There does not appear to be any free air. There is no diverticulathat we can fully appreciate on this side. ASSESSMENT AND PLAN: A 41-year-old female presenting with abdominal pain andinflammatory process on CT scan concerning for ovarian abscess versus smallbowel enteritis, leukocytosis, history of fever and nausea and decreased p.o.appetite, status post hysterectomy in July or August of this year.1. Serial abdominal exams.2. We had the CT scan imaging from the outside facility brought to radiologyfor upload. We will compare the images with the radiologist and discuss nextsteps and intervention.3. At this time, we will discuss potential interventional radiology drainage,particularly with the continued elevated white blood cell count in the settingof recent IV antibiotic use.4. If interventional radiology is not capable, then consideration for eitherearly repeat imaging study versus surgical washout and exploration with possibleoophorectomy versus drain placement.5. At this time, we would recommend n.p.o. after midnight in caseinterventional radiology would be performed. We recommend IV antibiotics and IVfluids. Recommend pain control.6. Recommend deep venous thrombosis and gastrointestinal prophylaxis.7. At this time, we would trend labs as well. We discussed these findings with the patient as well as Dr. Reaves. PATIENT NAME: STEFFEN CABRAL Thank you for this consultation and we will continue to follow along with thepatient. Dictated By: Chucky Velarde MD WT: CON:FCOLBY/MARIA ISABEL/ALEJANDRODD: 12/28/2021 18:59:25DT: 12/29/2021 00:13:03Conf#: [id number]/DID#: [id number] Authenticated by Chucky Velarde MD On 12/29/2021 07:31:44 AM at 0731 PATIENT NAME: STEFFEN CABRALDOREEN :13:00F[facility] [id number] for patient ikpmWGJTQUKZDKNBGA5658-39-30P74:32:18 [facility] 2021-12-28 07:39:00 [id number] x6Zy7unViH4DILbwqdKwdHuni6szF 6ndYP98nw6vMPWjTPA0qFh8xGFptVB40783-87-87Z38:39:0 0 [facility] ([facility])Clinical NoteREPORT#:[id number] REPORT STATUS: SignedDATE:12/28/21 TIME: 738 PATIENT: STEFFEN CABRAL UNIT #: [id number]#: [id number] ROOM/BED: [facility]-ADOB: [birth year] AGE: 41 SEX: F ATTEND: Chandan Reaves [facility] AUTHOR: Chandan Reaves MD * ALL edits or amendments must be made on the electronic/computer document * Clinical NoteNote:HD #1 - Transfer from [place] Patient has no complaints this am. No BM for 1 week.Abdominal pain is stable. Vital Signs: Date Time Temp Pulse Resp B/P B/P Pulse O2 O2 Flow FiO2 Mean Ox Delivery Rate 12/28 0720 98.4 71 16 102/69 80.2 99 12/28 0338 98.6 79 16 104/69 80.4 97 Room air 12/27 2355 98.6 87 18 129/87 101 98 NAD ConversantUnlabored breathingAbd mild left lower quadrant tendernessNo rebound or guarding Laboratory Tests Test Result Date Time Chemistry Sodium (135 - 145 mEq/L) 138 12/28 0515 Potassium (3.5 - 5.0 mEq/L) 3.6 12/28 0515 Chloride (100 - 115 mEq/L) 103 12/28 0515 Carbon Dioxide (22 - 31 mEq/L) 27 12/28 0515 Anion Gap (10 - 20) 11.70 12/28 0515 BUN (7 - 18 mg/dL) 4 L 12/28 0515 Creatinine (0.5 - 1.0 mg/dL) 0.6 12/28 0515 Glomerular Filtr Rate (>60 ml/min) 111 12/28 0515 Glucose (65 - 110 mg/dL) 113 H 12/28 0515 Calcium (8.4 - 10.2 mg/dL) 8.3 L 12/28 0515 Total Bilirubin (0.2 - 1.0 mg/dL) 0.2 12/28 0515 AST (15 - 37 units/L) 13 L 12/28 0515 ALT (12 - 78 units/L) 13 12/28 514 Total Alk Phosphatase (46 - 116 units/L) 106 12/28 0415 Total Protein (6.3 - 8.2 gm/dL) 5.5 L 12/28 0515 Albumin (3.4 - 4.8 gm/dL) 2.3 L 12/28 514 Hematology WBC (6.5 - 12.3 K/mm3) 20.8 *H 12/28 514 RBC (3.51 - 4.69 M/mm3) 3.44 L 12/28 514 Hgb (10.1 - 13.8 g/dL) 10.7 12/28 05 Hct (32.5 - 41.8 %) 32.6 12/28 514 MCV (84.6 - 96.6 fL) 94.8 12/28 514 MCH (27.3 - 33.9 pg) 31.1 12/28 514 MCHC (32.0 - 34.2 gm/dL) 32.8 12/28 514 RDW (12.2 - 16.3 %) 13.2 12/28 514 Plt Count (134 - 363 K/mm3) 403 H 12/28 514 MPV (9.2 - 12.7 fL) 9.9 12/28 0415 Add Manual Diff YES 12/28 514 Total Counted (#CELLS) 100 12/28 514 Seg Neutrophils % (56.5 - 79.4 %) 76 12/28 0415 Lymphocytes % (Manual) (20 - 40 %) 11 L 12/28 0415 Monocytes % (Manual) (0 - 8 %) 12 H 12/28 0415 Eosinophils % (Manual) (0 - 4 %) 1 12/[address] pending 41 yo s/p TLH/BS on 08/09/21 admitted for nausea and abdominal pain with fever and leukocyctosis in [place]. Pelvic scan showed normal ovaries. CT showed significant stool in colon and inflammatory changes in left lower quadrant in close approximation to the left ovary as well as small bowel loops. Currently stable with decreasing WBC and afebrile. Given the patients h/o uncomplicated hyst in 07/2021 inflammation is more likely bowel related. Plan to continue antibiotics (Zosyn and Flagyl), repeat CT, and obtain CRS consultation. Will add laxatives to help with constipation. at 0759 RPT #:[id number] OF REPORT CLClinical [id number]:39:[id number] able for patient [id number]:00:07 [facility] 2021-12-28 01:13:00 [id number]+AThPww2ic [id number]:13:0 0 [facility] ([facility])History Physical - AdultREPORT#:[id number] REPORT STATUS: SignedDATE:12/28/21 TIME: 0113 PATIENT: STEFFEN CABRAL UNIT #: [id number]#: [id number] ROOM/BED: [facility]-ADOB: [birth year] AGE: 41 SEX: F ATTEND: Chandan Reaves MDADM AUTHOR: Karen De La Rosa MD * ALL edits or amendments must be made on the electronic/computer document * History of Present Illness HPIChief complaint:abdominal painHPI:pt is transferred from outside facility for continued care for presumed pelvic infection - left ovarian vs small bowel. Pt reports intermittent abdominal painassociated with nausea over the past month. She presented to the ED due to episode of syncope associated with pain. The most consistent symptom that she has had is nausea and decreased appetite. She denies change in bowel habits. Uncomplicated hysterectomy done by Dr. Reaves in July of this year. She reports a normal recovery from the surgery and had been feeling well until a month ago. She was admitted, noted to have leukocytosis to 30 and fever, and placed on antibiotics - initially doxycycline and rocephin. CT scan and pelvic ultrasound were performed which showed LLQ inflammatory mass ovary vs small bowel. Leukocytosis did not improve significantly, today at 24, and antibiotics were changed to zosyn and flagyl. blood cultures negative. Ekg negativeInformant/historian: patient HistoryPast medical history:Reports: ADD/ADHD. Past surgical history:Reports: Appendectomy, , Hysterectomy, Spine surgery. Smoking status: Smoking status for patients 13 years old or older: Current every day smokerOther social history: Local resident, Good social support Medication/Allergy-Vaccine HxMedications:Current Hospital Medications:Anti-Infective Agents Sig/Jax Start time Last Medication Dose Route Stop Time Status Admin Metronidazole/Sodium 100 ML Q8H 12/28 114 UNV Chloride IV 02/26 114 (metroNIDAZOLE 500 MG PREMIX IV) Piperacillin Sod/ 3.375 GM Q6H 12/28 114 UNV Tazobactam Sod IV 02/26 114 (PIPERACILLIN/ TAZOBACTAM 3 GM/ 0.375 GM INJ.) Sodium Chloride 100 ML (SODIUM CHLORIDE 0.9% 100 ML ADD- [place]) Antihistamine Drugs Sig/Jax Start time Last Medication Dose Route Stop Time Status Admin Diphenhydramine HCl 25 MG Q4H PRN PRN 12/28 114 AC (diphenhydrAMINE HCL PO 01/11 110 25 MG CAP) Diphenhydramine HCl 25 MG Q4H PRN PRN 12/28 114 AC (diphenhydrAMINE HCL PO 01/11 111 25 MG CAP) Central Nervous System Agents Sig/Jax Start time Last Medication Dose Route Stop Time Status Admin Hydroxyzine HCl 25 MG Q6H PRN PRN 12/28 114 AC (ATARAX) PO 01/11 110 Hydroxyzine HCl 25 MG Q6H PRN PRN 12/28 114 AC (ATARAX) PO 01/11 111 Morphine Sulfate 30 MG TITRATE 12/28 114 CKD (morphine SULFATE IV 01/11 111 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 1 MG/ML 30ML) Naloxone HCl 0.4 MG Q3M PRN PRN 12/28 114 AC (NALOXONE HCL 0.4 MG/ IV 01/11 110 ML 1 ML VIAL) Naloxone HCl 0.4 MG Q3M PRN PRN 12/28 114 AC (NALOXONE HCL 0.4 MG/ IV 01/11 111 ML 1 ML VIAL) Electrolytic, Caloric, And Екатерина Sig/Jax Start time Last Medication Dose Route Stop Time Status Admin Dextrose/Sodium 1,000 ML ASDIR 12/28 114 AC Chloride IV 08/20 0114 (DEXTROSE 5% WITH NORMAL SALINE 1000ML) Gastrointestinal Drugs Sig/Jax Start time Last Medication Dose Route Stop Time Status Admin Pantoprazole Sodium 40 MG DAILY@0800 12/28 0800 AC (PROTONIX) PO 02/26 0759 Ondansetron HCl 4 MG Q4H PRN PRN 12/28 0115 AC (ZOFRAN 2 MG/ML 4 MG IV 02/26 0114 SYR) Allergies:Coded Allergies:No Known Allergies (12/28/21) Review of SystemsSkin:Denies: rash. Respiratory:Denies: BEAL (dyspnea on exertion), SOB. Cardiovascular:Denies: chest pain, edema, palpitations. GI:Reports: abdominal pain, anorexia, nausea, vomiting. Denies: constipation, diarrhea, hematochezia, melena, rectal pain. :Denies: dysuria, vaginal discharge. Neuro:Denies: focal weakness, headache, seizure. Psych:Denies: change in mental status. Physical ExamVS/I OVital Signs: Date Time Temp Pulse Resp B/P B/P Pulse O2 O2 Flow FiO2 Mean Ox Delivery Rate 12/27 2355 98.6 87 18 129/87 101 98 24 hour I O ending at 0700: 12/28 0700 12/27 1900 Intake Total Output Total Balance Patient 59 kg Weight Weight Standing scale Measurement Method PATIENT WEIGHT: Weight (lb): 130Weight (oz): 1.16Weight (kg): 59.000 General appearance: alert, awake, oriented, no acute distress, pleasant, conversational, mental status normal, no respiratory distressHead/Eyes: atraumaticENT: moist mucosal membranesCardiovascular: regular rate rhythmRespiratory: clear to auscultationAbdomen/GI: soft, non-tender, no guarding, no rebound, no distentionGenitourinary: deferredExtremities: no edema-all extremitiesNeuro/ME[employer] WHE[employer] DRIVER: alert, oriented X 3, normal speechPsychiatry: normal affect, normal judgment/insight, normal mood Diagnosis, Assessment Plan Free Text DxA P NotesFree Text DxA P Notes:41 year old with abdominal pain, LLQ inflammation on CT scan TOA vs small bowel enteritis, leukocytosis, fever, nausea, decreased appetite. She had uncomplicated recovery from hysterectomy, these symptoms started approximately a month ago well after surgical recovery. Unlikely TOA given history of hysterectomy. Exam benign upon admit.Continue IV antibiotics, anti emetics, pain controlNPO for now. Will hold lovenox for now.CT scan in am, surgical consult after CT scan results. repeat labs in am. at 0131 RPT #:[id number] OF REPORT HPHistory and physical [id number]:13:[id number] AVAvailable for patient [id number]:31:42 [facility]
--- NOTE | 2023-08-26 12:43 | EDPHYS ---
Physician Documentation [facility] Name: Sally Vora Age: 42 yrs Sex: Female : 1980 Arrival Date: 08/26/2023 Time: 11:21 Bed 19 Private MD: ED Physician Cy Navarrete HPI: 08/26 12:33 This 42 yrs old Female presents to ER via Ambulatory with complaints of Eye isacc Pain. 12:33 The patient is experiencing blurred vision, decreased vision, pain, redness, The isacc patient sustained Unknown. to the left eye. Onset: The symptoms/episode began/occurred yesterday. Duration: the symptoms are continuous. Aggravated by blinking, light. Associated signs and symptoms: Pertinent positives: None. Patient wears soft contacts. Severity of symptoms: At their worst the symptoms were moderate severe in the emergency department the symptoms are unchanged. The patient has not experienced similar symptoms in the past. Historical: - Allergies: 11:35 No Known Allergies; nj1 - PMHx: 11:35 Hypothyroidism; Anemia; nj1 - PSHx: 11:35 Appendectomy; back; back surgery; section; hysterectomy; intraabdominal nj1 abscess; neck surgery; - Immunization history:: Client reports receiving the 2nd dose of the Covid vaccine. - Social history:: Smoking status: Patient reports the use of cigarette tobacco products, smokes one-half pack cigarettes per day. ROS: 12:38 Constitutional: Negative for fever, chills, and weight loss, ENT: Negative for injury, isacc pain, and discharge, Neck: Negative for injury, pain, and swelling, Cardiovascular: Negative for chest pain, palpitations, and edema, Respiratory: Negative for shortness of breath, cough, wheezing, and pleuritic chest pain, Abdomen/GI: Negative for abdominal pain, nausea, vomiting, diarrhea, and constipation, Back: Negative for injury and pain, : Negative for injury, bleeding, discharge, and swelling, MS/Extremity: Negative for injury and deformity, Skin: Negative for injury, rash, and discoloration, Neuro: Negative for headache, weakness, numbness, tingling, and seizure, Psych: Negative for depression, anxiety, suicide ideation, homicidal ideation, and hallucinations, Allergy/Immunology: Negative for hives, rash, and allergies, Endocrine: Negative for neck swelling, polydipsia, polyuria, polyphagia, and marked weight changes, Hematologic/Lymphatic: Negative for swollen nodes, abnormal bleeding, and unusual bruising, 12:38 Eyes: Positive for pain, photophobia, redness, of the iris of left eye, Exam: 12:38 Constitutional: This is a well developed, well nourished patient who is awake, alert, isacc and in no acute distress. Head/Face: Normocephalic, atraumatic. ENT: Nares patent. No nasal discharge, no septal abnormalities noted. Tympanic membranes are normal and external auditory canals are clear. Oropharynx with no redness, swelling, or masses, exudates, or evidence of obstruction, uvula midline. Mucous membranes moist. Neck: Trachea midline, no thyromegaly or masses palpated, and no cervical lymphadenopathy. Supple, full range of motion without nuchal rigidity, or vertebral point tenderness. No Meningismus. Chest/axilla: Normal chest wall appearance and motion. Nontender with no deformity. No lesions are appreciated. Cardiovascular: Regular rate and rhythm with a normal S1 and S2. No gallops, murmurs, or rubs. Normal PMI, no JVD. No pulse deficits. Respiratory: Lungs have equal breath sounds bilaterally, clear to auscultation and percussion. No rales, rhonchi or wheezes noted. No increased work of breathing, no retractions or nasal flaring. Abdomen/GI: Soft, non-tender, with normal bowel sounds. No distension or tympany. No guarding or rebound. No evidence of tenderness throughout. Back: No spinal tenderness. No costovertebral tenderness. Full range of motion. Skin: Warm, dry with normal turgor. Normal color with no rashes, no lesions, and no evidence of cellulitis. MS/ Extremity: Pulses equal, no cyanosis. Neurovascular intact. Full, normal range of motion. Neuro: Awake and alert, GCS 15, oriented to person, place, time, and situation. Cranial nerves II-XII grossly intact. Motor strength 5/5 in all extremities. Sensory grossly intact. Cerebellar exam normal. Normal gait. Psych: Awake, alert, with orientation to person, place and time. Behavior, mood, and affect are within normal limits. 12:38 Eyes: Periorbital structures: appear normal, no acute changes, Pupils: equal, round, and reactive to light and accomodation, Extraocular movements: no acute changes, Conjunctiva: normal, Corneas: abrasion, a fluorescein strip employed to appreciate the findings, Sclera: injected, Visual house: are intact, Nystagmus: is not appreciated, Vital Signs: 11:27 BP 119 / 92; Pulse 98; Resp 16; Temp 98(O); Pulse Ox 100% on R/A; Weight 58.97 kg; nj1 Height 5 ft. 3 in. ; Pain 8/10; 11:27 Body Mass Index 23.03 (58.97 kg, 160.02 cm) [facility] 11:27 Pain Scale: Adult nj MDM: 11:26 Patient medically screened. isacc 12:40 Differential diagnosis: Corneal abrasion of Corneal ulcer of Foreign body in Acute isacc iritis of Data reviewed: vital signs, nurses notes. Consideration of Admission/Observation Escalation of care including admission/observation considered. Test considered but Not performed: Labs: no nlabs. Historians other than the Patient: Spouse/Significant Other: informed. Care significantly affected by the following chronic conditions: hypothyroid, anemia. 08/26 12:38 Order name: Eye Tray; Complete Time: 13:05 isacc 08/26 12:38 Order name: Fluoresene Opth strip; Complete Time: 13:05 isacc Administered Medications: 12:30 Drug: Tetracaine Ophthalmic Drops 0.5 % 1 drops Ophthalmic once Route: Ophthalmic; bp Site: left eye; 12:30 Drug: Tobrex Ophthalmic Ointment 0.3 % 1 application Ophthalmic in left eye once Route: bp Ophthalmic; Site: left eye; 12:45 Drug: Lannon PO 10 mg-325 mg 1 tabs PO once Route: PO; bp 13:05 Follow up: Response: No adverse reaction bp Disposition Summary: 08/26/23 12:43 Discharge Ordered Notes: Location: Home isacc Problem: new isacc Symptoms: have improved isacc Condition: Stable isacc Diagnosis - Unspecified corneal ulcer, left eye isacc - Ocular pain, left eye isacc Followup: isacc - With: Private Physician - When: 2 - 3 days - Reason: Recheck today's complaints, Re-evaluation by your physician Followup: isacc - With: Yves Omalley MD - When: Upon discharge from the Emergency Department - Reason: Recheck today's complaints, Re-evaluation by your physician Discharge Instructions: - Discharge Summary Sheet isacc - Corneal Ulcer isacc Forms: - Medication Reconciliation Form isacc - Thank You Letter isacc - Antibiotic Education isacc - Prescription Opioid Use isacc - Patient Portal Instructions isacc - Leadership Thank You Letter isacc Prescriptions: - acetaminophen-codeine 300-30 mg Oral tablet - take 2 tablet ORAL route every 6 hours; 20 tablet; Refills: 0, Product [facility] Selection Permitted - Vigamox 0.5 % Ophthalmic drops - instill 1 drop OPHTHALMIC route every 3-4 hours for 7 days; 7.5 milliliter; [facility] Refills: 0, Product Selection Permitted Signatures: Cy Navarrete MD MD cha Peltier, Brian, RN RN bp [place] RN RN nj1
--- NOTE | 2023-08-26 12:43 | ER ---
Nurse's Notes [facility] Name: Sally Vora Age: 42 yrs Sex: Female : 1980 Arrival Date: 08/26/2023 Time: 11:21 Bed 19 Private MD: Diagnosis: Unspecified corneal ulcer, left eye;Ocular pain, left eye Presentation: 08/26 11:27 Chief complaint: Patient states: Left eye pain, "unable to open it, keeps watering". No nj1 known injury. Onset yesterday, gotten worse. 11:27 Coronavirus screen: Vaccine status: Patient reports receiving the 2nd dose of the covid nj1 vaccine. Ebola Screen: Patient denies travel to an Ebola-affected area in the 21 days before illness onset. Initial Sepsis Screen: Does the patient meet any 2 criteria? No. Patient's initial sepsis screen is negative. Does the patient have a suspected source of infection? No. Patient's initial sepsis screen is negative. Risk Assessment: Do you want to hurt yourself or someone else? Patient reports no desire to harm self or others. Onset of symptoms was August 25, 2023. 11:27 Method Of Arrival: Ambulatory [facility] 11:27 Acuity: MICHELLE 4 nj1 Triage Assessment: 11:30 General: Appears uncomfortable, Behavior is cooperative, appropriate for age, anxious. bp Pain: Complains of pain in iris of left eye. EENT: Eyes are tearing on left eye. Historical: - Allergies: 11:35 No Known Allergies; nj1 - PMHx: 11:35 Hypothyroidism; Anemia; nj1 - PSHx: 11:35 Appendectomy; back; back surgery; section; hysterectomy; intraabdominal nj1 abscess; neck surgery; - Immunization history:: Client reports receiving the 2nd dose of the Covid vaccine. - Social history:: Smoking status: Patient reports the use of cigarette tobacco products, smokes one-half pack cigarettes per day. Screenin:00 [facility] ED Fall Risk Assessment (Adult) History of falling in the last 3 months, bp including since admission No falls in past 3 months (0 pts). Abuse screen: Denies threats or abuse. Denies injuries from another. Nutritional screening: No deficits noted. Tuberculosis screening: No symptoms or risk factors identified. Assessment: 11:30 General: SEE TRIAGE NOTE. bp 13:00 Reassessment: PT DC AMBULATORY, TO F/U WITH OPTHO \\T\\ 1300. bp Vital Signs: 11:27 BP 119 / 92; Pulse 98; Resp 16; Temp 98(O); Pulse Ox 100% on R/A; Weight 58.97 kg; nj1 Height 5 ft. 3 in. ; Pain 8/10; 11:27 Body Mass Index 23.03 (58.97 kg, 160.02 cm) nj1 11:27 Pain Scale: Adult [facility] ED Course: 11:26 Patient arrived in ED. ts1 11:26 Cy Navarrete MD is Attending Physician. [facility] 11:30 Kit Fuentes, RN is Primary Nurse. bp 11:35 Triage completed. nj1 11:35 Arm band placed on. nj1 12:41 Yves Omalley MD is Referral Physician. isacc 13:00 Patient has correct armband on for positive identification. bp 13:00 No provider procedures requiring assistance completed. Patient did not have IV access bp during this emergency room visit. Administered Medications: 12:30 Drug: Tetracaine Ophthalmic Drops 0.5 % 1 drops Ophthalmic once Route: Ophthalmic; bp Site: left eye; 12:30 Drug: Tobrex Ophthalmic Ointment 0.3 % 1 application Ophthalmic in left eye once Route: bp Ophthalmic; Site: left eye; 12:45 Drug: Douglas PO 10 mg-325 mg 1 tabs PO once Route: PO; bp 13:05 Follow up: Response: No adverse reaction bp Medication: 13:00 VIS not applicable for this client. bp Outcome: 12:43 Discharge ordered by . [facility] 13:00 Discharged to home ambulatory, bp 13:00 Condition: stable 13:00 Discharge instructions given to patient, Instructed on discharge instructions, follow up and referral plans. medication usage, Demonstrated understanding of instructions, follow-up care, medications, Prescriptions given X 2, 13:07 Patient left the ED. bp Signatures: Cy Navarrete MD MD cha Peltier, Brian, RN RN bp [place] RN RN nj1 Cyndy Cortés PAS PAS ts1 Corrections: (The following items were deleted from the chart) 11:36 11:27 Chief complaint: Patient states: Left eye pain, "unable to open it". No known [facility] injury. Onset yesterday, gotten worse. nj1
[2023-08-26 13:15] VITALS: BP 119/92; TEMP 98; O2SAT 100
== END ==
LOC: ER 11:21
DX: H16.002 Unspecified corneal ulcer, left eye (principal); F17.210 Nicotine dependence, cigarettes, uncomplicated
CPT/HCPCS: 99283

== ENCOUNTER 2024-02-22 03:03 | Emergency (ER) | payer OTHER ==
[2024-02-22] MEDS ORDERED: IBUPROFEN 400 MG TAB ONE (03:30)
[2024-02-22] MEDS ORDERED: HYDROCODONE/APAP 5/325 MG TAB ONE (03:31)
--- NOTE | 2024-02-22 06:08 | ER ---
Nurse's Notes [facility] Name: Sally Vora Age: 43 yrs Sex: Female : 1980 Arrival Date: 02/22/2024 Time: 03:03 Bed 7 Private MD: Diagnosis: Acute right great toe contusion, acute right great toe sprain Presentation: 02/21 03:25 Chief complaint: Patient states: I got my toe caught under my bed and think I broke it. jb4 Coronavirus screen: At this time, the client does not indicate any symptoms associated with coronavirus-19. Ebola Screen: No symptoms or risks identified at this time. Initial Sepsis Screen: Does the patient meet any 2 criteria? No. Patient's initial sepsis screen is negative. Does the patient have a suspected source of infection? No. Patient's initial sepsis screen is negative. Risk Assessment: Do you want to hurt yourself or someone else? Patient reports no desire to harm self or others. Onset of symptoms was February 22, 2024. Transition of care: patient was not received from another setting of care. 03:25 Method Of Arrival: Ambulatory jb4 03:25 Acuity: MICHELLE 4 jb4 Historical: - Allergies: 03:27 No Known Allergies; jb4 - PMHx: 03:27 Anemia; Hypothyroidism; jb4 - PSHx: 03:27 Appendectomy; back; back surgery; section; hysterectomy; intraabdominal jb4 abscess; neck surgery; - Immunization history:: Adult Immunizations up to date. - Infectious Disease History:: Denies. - Social history:: Smoking status: Patient denies any tobacco usage or history of. - Family history:: not pertinent. Screenin:31 [facility] ED Fall Risk Assessment (Adult) History of falling in the last 3 months, jb4 including since admission No falls in past 3 months (0 pts) Confusion or Disorientation No (0 pts) Intoxicated or Sedated No (0 pts) Impaired Gait No (0 pts) Mobility Assist Device Used No (0 pt) Altered Elimination No (0 pt) Score/Fall Risk Level 0 - 2 = Low Risk Oriented to surroundings, Maintained a safe environment. Abuse screen: Denies threats or abuse. Nutritional screening: No deficits noted. Tuberculosis screening: No symptoms or risk factors identified. Assessment: 03:28 General: Appears in no apparent distress. uncomfortable, Behavior is calm, cooperative. jb4 Pain: Complains of pain in right first toe and Right first toenail Pain does not radiate. Pain currently is 9 out of 10 on a pain scale. Quality of pain is described as throbbing. Neuro: Level of Consciousness is awake, alert, obeys commands, Oriented to person, place, time, situation. Cardiovascular: Patient's skin is warm and dry. Respiratory: Airway is patent Trachea midline Respiratory effort is even, unlabored, Respiratory pattern is regular, symmetrical. GI: No signs and/or symptoms were reported involving the gastrointestinal system. : No signs and/or symptoms were reported regarding the genitourinary system. EENT: No signs and/or symptoms were reported regarding the EENT system. Derm: Skin is intact, Skin is pink, warm \T\ dry. Musculoskeletal: Circulation, motion, and sensation intact. Range of motion: intact in all extremities. 05:13 Reassessment: Patient appears in no apparent distress at this time. Patient and/or jb4 family updated on plan of care and expected duration. Pain level reassessed. Patient is alert, oriented x 3, equal unlabored respirations, skin warm/dry/pink. 06:31 Reassessment: Patient appears in no apparent distress at this time. Patient and/or jb4 family updated on plan of care and expected duration. Pain level reassessed. Patient is alert, oriented x 3, equal unlabored respirations, skin warm/dry/pink. Vital Signs: 03:25 BP 117 / 89; Pulse 71; Resp 16; Temp 97.2(TE); Pulse Ox 100% on R/A; Weight 58.97 kg jb4 (R); Height 5 ft. 2 in. (R); Pain 9/10; 05:13 BP 118 / 89; Pulse 51; Resp 16; Pulse Ox 99% on R/A; jb4 03:25 Body Mass Index 23.78 (58.97 kg, 157.48 cm) [facility] 03:25 Pain Scale: Adult jb4 [place] Coma Score: 22:23 Eye Response: spontaneous(4). Motor Response: obeys commands(6). Verbal Response: sp4 oriented(5). Total: 15. ED Course: 03:05 Patient arrived in ED. jj6 03:22 Ventura Hubbard MD is Attending Physician. sp4 03:27 Triage completed. jb4 03:27 Arm band placed on right wrist. jb4 03:55 Foot Right 3 View XRAY In Process Unspecified. EDMS 06:31 Patient has correct armband on for positive identification. Bed in low position. Call jb4 light in reach. Side rails up X 1. Provided Education on: Discharge instructions.. 06:31 No provider procedures requiring assistance completed. Patient did not have IV access jb4 during this emergency room visit. Administered Medications: 03:34 Drug: HYDROcodone-acetaminophen PO 5 mg-325 mg 2 tabs PO once Route: PO; jb4 03:34 Drug: Ibuprofen PO 800 mg PO once Route: PO; jb4 Medication: 06:31 VIS not applicable for this client. jb4 Outcome: 06:08 Discharge ordered by . sp4 06:31 Discharged to home ambulatory, jb4 06:31 Condition: stable 06:31 Discharge instructions given to patient, Instructed on discharge instructions, follow up and referral plans. Demonstrated understanding of instructions, follow-up care, 06:33 Patient left the ED. jb4 Signatures: Dispatcher [employer] EDNC Scotty Burt, RN RN jb4 Maricarmen Manrique jj6 Ventura Hubbard MD MD sp4
--- NOTE | 2024-02-22 06:08 | EDPHYS ---
Physician Documentation [facility] Name: Sally Vora Age: 43 yrs Sex: Female : 1980 Arrival Date: 02/22/2024 Time: 03:03 Bed 7 Private MD: ED Physician Ventura Hubbard HPI: 02/21 03:22 This 43 yrs old Female presents to ER via Unassigned with complaints of Toe sp4 Injury. 22:23 43-year-old female presents with complaint of a injury to the toe. Patient states right sp4 great toe was caught underneath the bed causing pain discomfort and tenderness. There is purplish discoloration of the right great toe. Historical: - Allergies: 03:27 No Known Allergies; jb4 - PMHx: :27 Anemia; Hypothyroidism; jb4 - PSHx: 03:27 Appendectomy; back; back surgery; section; hysterectomy; intraabdominal jb4 abscess; neck surgery; - Immunization history:: Adult Immunizations up to date. - Infectious Disease History:: Denies. - Social history:: Smoking status: Patient denies any tobacco usage or history of. - Family history:: not pertinent. ROS: 22:23 Constitutional: Negative for fever, chills, and weight loss, positive for right sp4 great toe pain 22:23 All other systems are negative, Exam: 22:23 Constitutional: This is a well developed, well nourished patient who is awake, alert, sp4 and in no acute distress. Head/Face: Normocephalic, atraumatic. Eyes: Pupils equal round and reactive to light, extra-ocular motions intact. Lids and lashes normal. Conjunctiva and sclera are not injected. Cornea within normal limits. Periorbital areas with no swelling, redness, or edema. ENT: Nares patent. No nasal discharge, no septal abnormalities noted. Tympanic membranes are normal and external auditory canals are clear. Oropharynx with no redness, swelling, or masses, exudates, or evidence of obstruction, uvula midline. Mucous membranes moist. Neck: Trachea midline, no thyromegaly or masses palpated, and no cervical lymphadenopathy. Supple, full range of motion without nuchal rigidity, or vertebral point tenderness. Chest/axilla: Normal chest wall appearance and motion. Nontender with no deformity. No lesions are appreciated. Cardiovascular: Regular rate and rhythm with a normal S1 and S2. No gallops, murmurs, or rubs. Normal PMI, no JVD. No pulse deficits. Respiratory: Lungs have equal breath sounds bilaterally, clear to auscultation and percussion. No rales, rhonchi or wheezes noted. No increased work of breathing, no retractions or nasal flaring. Abdomen/GI: Soft, with normal bowel sounds. No distension or tympany. No guarding or rebound. No evidence of tenderness throughout. Back: No spinal tenderness. No costovertebral tenderness. Skin: Warm, dry with normal turgor. Normal color with no rashes, no lesions, and no evidence of cellulitis. MS/ Extremity: Pulses equal, no cyanosis. Neurovascular intact. Full, normal range of motion. Positve Right great toe pain, tenderness, and discoloration , no deformity Neuro: Awake and alert, GCS 15, oriented to person, place, time, and situation. Cranial nerves II-XII grossly intact. Motor strength 5/5 in all extremities. Sensory grossly intact. Psych: Awake, alert, with orientation to person, place and time. Behavior, mood, and affect are within normal limits Vital Signs: 03:25 BP 117 / 89; Pulse 71; Resp 16; Temp 97.2(TE); Pulse Ox 100% on R/A; Weight 58.97 kg jb4 (R); Height 5 ft. 2 in. (R); Pain 9/10; 05:13 BP 118 / 89; Pulse 51; Resp 16; Pulse Ox 99% on R/A; jb4 03:25 Body Mass Index 23.78 (58.97 kg, 157.48 cm) jb4 03:25 Pain Scale: Adult jb4 [place] Coma Score: 22:23 Eye Response: spontaneous(4). Motor Response: obeys commands(6). Verbal Response: sp4 oriented(5). Total: 15. MDM: 03:27 Patient medically screened. sp4 06:05 ED course: CLINICAL HISTORY: Right great toe pain COMPARISON: None. TECHNIQUE: XR FOOT sp4 3 OR MORE VIEWS RIGHT 02/22/2024 3:27 AM CDT FINDINGS: There is no fracture. Joint spaces are preserved. Soft tissues are unremarkable. IMPRESSION: No acute osseous findings.. 22:23 Differential Diagnosis Right toe fracture, sprain, contusion . Data reviewed: vital sp4 signs, nurses notes, radiologic studies, plain films. 02/21 03:27 Order name: Foot Right 3 View XRAY sp4 Administered Medications: 03:34 Drug: HYDROcodone-acetaminophen PO 5 mg-325 mg 2 tabs PO once Route: PO; jb4 03:34 Drug: Ibuprofen PO 800 mg PO once Route: PO; jb4 Disposition Summary: 02/22/24 06:08 Discharge Ordered Notes: Location: Home sp4 Problem: new sp4 Symptoms: have improved sp4 Condition: Stable sp4 Diagnosis - Acute right great toe contusion, acute right great toe sprain sp4 Followup: sp4 - With: Private Physician - When: 7 - 10 days - Reason: Recheck today's complaints Discharge Instructions: - Discharge Summary Sheet sp4 - Foot Sprain sp4 Forms: - Work release form sp4 - Patient Portal Instructions sp4 Signatures: Dispatcher [employer] Scotty Clark RN RN jb4 Ventura Hubbard MD MD sp4 Corrections: (The following items were deleted from the chart) 03:27 03:27 Foot Right 3 View+[email or web address] ordered. EDMS EDMS
[2024-02-22 06:40] VITALS: TEMP 97.2
[2024-02-22 06:42] VITALS: BP 118/89; O2SAT 99
--- NOTE | 2024-02-22 11:47 | RAD REPORT ---
EXAM DESCRIPTION: RAD - Foot Right 3 View - 02/22/2024 3:53 am CLINICAL HISTORY: Right great toe pain COMPARISON: None. TECHNIQUE: XR FOOT 3 OR MORE VIEWS RIGHT 02/22/2024 3:27 AM CDT FINDINGS: There is no fracture. Joint spaces are preserved. Soft tissues are unremarkable. IMPRESSION: No acute osseous findings. Electronically signed by: Barrett Nettles MD 02/22/2024 05:32 AM CDT RP Due to temporary technical issues with the PACS/Fluency reporting system, reports are being signed by the in house radiologist without review as a courtesy to ensure prompt reporting. The interpreting r adiologist is fully responsible for the content of the report.
--- OUTSIDE RECORDS SUMMARY | 2024-02-23 09:20 | XMS REPORT | Continuity of Care Document ---
Author Name Unknown Address [address] [facility] [address]. [address] [place] [address] [facility] thconnect Address [address] [facility]. [address] [place] [address] Care Team Providers Care Welfare Eligibility Interviewer Name Role Phone Chandan Reaves Attending Clinician Unavailable Physician, No Primary or Family Attending Clinic codi Unavailable FLYNN AGUILLON Attending Clinician Unavailable GC_SWHATBIC_Ramos_C Attending Clinician Unavaila ble GC_SWHAOMC_Ramos_C Attending Clinician Unavailab Chandan Ledezma Attending Clinician [phone] GC_SWHATBIC_Ball_C Attending Clinician Unavailab le GC_SWHAWPRC_Cathey Attending [...] Number Effective Date Expirati on Date Source [facility] Dual Complete P [id number] [employer] MEDICARE Medicare [id number] 2023 00:00:00 [facility] - DUAL ELIGIBLE (MEDICARE REPLACEMENT/ADVANTA GE - HMO) [id number] 2021 00:00:00 [place] [id number] Allergies, Adverse Reactions, Alerts Allergy Name Allergy Type Status Severity Reaction(s) Onset Date Inactive Date Treating Clinician Comments Source No Known Allergie s DA Active U 12-28 00:00: 00 [facility] NO KNOWN ALLERGIE S SYSTEMIC Active MHEOUT NO KNOWN ALLERGIE S SYSTEMIC Active MHEOUT NO KNOWN ALLERGIE S SYSTEMIC Active MHEOUT NO KNOWN ALLERGIE S SYSTEMIC Active MHEOUT Social History Smoking Status Start Date Stop [...] 6 hours by oral route as needed. [facility] benzonatate 100 mg capsule benzonatate 100 mg capsule No benzonatat e 100 mg capsule [facility] dextroamphe tamine-amph etamine 20 mg tablet TAKE 1 TABLET BY MOUTH TWICE A DAY FOR 30 DAYS dextroamphe tamine-amph etamine 20 mg tablet TAKE 1 TABLET BY MOUTH TWICE A DAY FOR 30 DAYS No dextroamph etamine-am phetamine 20 mg tablet TAKE 1 TABLET BY MOUTH TWICE A DAY FOR 30 DAYS [facility] docusate sodium 100 mg capsule Take 1 capsule twice a day by oral route. docusate sodium 100 mg capsule Take 1 capsule twice a day by oral route. No docusate sodium 100 mg capsule Take 1 capsule twice a day by oral route. [facility] ibuprofen 800 mg tablet TAKE 1 TABLET 3 TIMES A DAY BY ORAL ROUTE. ibuprofen 800 mg tablet TAKE 1 TABLET 3 TIMES A DAY BY ORAL ROUTE. No ibuprofen 800 mg tablet TAKE 1 TABLET 3 TIMES A DAY BY ORAL ROUTE. [facility] oxycodone-a cetaminophe n 5 mg-325 mg tablet TAKE 1 TABLET BY MOUTH EVERY 6 HOURS NEEDED oxycodone-a cetaminophe n 5 mg-325 mg tablet TAKE 1 TABLET BY MOUTH EVERY 6 HOURS NEEDED No oxycodone- acetaminop hen 5 mg-325 mg tablet TAKE 1 TABLET BY MOUTH EVERY 6 HOURS NEEDED [facility] hydrocodone 5 mg-acetamin ophen 325 mg tablet Take 1 tablet every 6 hours by oral route as needed. hydrocodone 5 mg-acetamin ophen 325 mg tablet Take 1 tablet every 6 hours by oral route as needed. No 1 Q6H hydrocodon e 5 mg-acetami nophen 325 mg tablet Take 1 tablet every 6 hours by oral route as needed. [facility] Vital Signs Vital Name Observation Time Observation Value Comments S ource BP Diastolic 2022-01-20 00:00:00 80 mm[Hg] [facility] Height 2022-01-20 00:00:00 63 [in_i] [facility] BMI (Body Mass Index) 2022-01-20 00:00:00 22.3 kg/m2 [facility] BP Systolic 2022-01-20 00:00:00 128 mm[Hg] [facility] Body Weight 2022-01-20 00:00:00 126 [lb_av] [facility] BP Diastolic 2021-09-27 00:00:00 74 mm[Hg] [facility] Height 2021-09-27 00:00:00 63 [in_i] [facility] BMI (Body Mass Index) 2021-09-27 00:00:00 24[facility]1 [facility] Systolic 2021-09-27 00:00:00 116 mm[Hg] [facility] Body Weight 2021-09-27 00:00:00 136 [lb_av] [facility] BP Diastolic 2021-09-01 00:00:00 58 mm[Hg] [facility] Height 2021-09-01 00:00:00 63 [in_i] [facility] BMI (Body Mass Index) 2021-09-01 00:00:00 24.4 kg/m2 [facility] BP Systolic 2021-09-01 00:00:00 120 mm[Hg] [facility] Body Weight 2021-09-01 00:00:00 138 [lb_av] [facility] Procedures Procedure Date / Time Performed Performing Clinicia n Source MAMMO, screening, bilateral 2022-01-20 00:00:00 [facility] [id number] 2022-01-06 00:00:00 RODED.01 [facility] [id number] 2021-12-30 00:00:00 [facility] ALMACARLOS [facility] [id number] 2021-12-30 00:00:00 [facility] [id number] 2021-12-30 00:00:00 [facility] [id number] 2021-12-29 00:00:00 RAMCA.01 [facility] MAMMO, screening, bilateral 2021-09-27 00:00:00 [facility] Oral / Dental Surgery 2018-07-19 00:00:00 [facility] Caesarean Section 2006-04-13 00:00:00 [facility] Appendectomy 1991-08-19 00:00:00 [facility] M edical Back / Spine Surgery [facility] Encounters Start Date/Time End Date/Time Encounter Type Admission Type Attending [facility] Care Facility Care Department Encounter ID Source 2021-12-28 00:31:00 Inpatient UR Chandan Reaves [facility].01 [id number] [facility] 2021-12-27 19:06:00 Inpatient UR Physician, Carrie [facility] [id number] [facility] 2021-04-25 12:49:24 Outpatient [facility] [id number] [facility] 2021-04-25 12:06:46 Outpatient [facility] [id number] [facility] 2023-12-13 14:00:02 2023-12-13 14:19:22 Outpatient Elective FLYNN AGUILLON MHEOUT MHEOUT [id number] MHEOUT 2023-03-13 00:00:00 2023-03-13 00:00:00 Outpatient GC_SWHATBIC _Ramos_C PRIV PRIV [id number] [facility] 2023-03-13 00:00:00 2023-03-13 00:00:00 Outpatient GC_SWHATBIC _Ramos_C PRIV PRIV [id number] [facility] 2023-03-13 00:00:00 2023-03-13 00:00:00 Outpatient GC_SWHATBIC _Ramos_C PRIV PRIV [id number] [facility] 2023-02-13 00:00:00 2023-02-13 00:00:00 Outpatient GC_SWHAOMC_ Ramos_C PRIV PRIV [id number] [facility] 2023-02-13 00:00:00 2023-02-13 00:00:00 Outpatient GC_SWHAOMC_ Ramos_C PRIV PRIV [id number] [facility] 2023-02-13 00:00:00 2023-02-13 00:00:00 Outpatient GC_SWHAOMC_ Ramos_C PRIV PRIV [id number] [facility] 2023-02-13 00:00:00 2023-02-13 00:00:00 Outpatient GC_SWHATBIC _Ramos_C PRIV PRIV [id number] [facility] 2023-02-11 00:00:00 2023-02-11 00:00:00 Outpatient GC_SWHAOMC_ Ramos_C PRIV PRIV [id number] [facility] 2023-01-23 00:00:00 2023-01-23 00:00:00 Outpatient GC_SWHAOMC_ Ramos_C PRIV PRIV [id number] [facility] 2022-01-27 05:12:00 2022-01-27 05:12:00 Outpatient GC_SWHAOMC_ Ramos_C PRIV PRIV [id number] [facility] 2022-01-20 11:38:00 2022-01-20 11:38:00 Outpatient GC_SWHATBIC _Ramos_C PRIV PRIV [id number] [facility] 2022-01-20 00:00:00 2022-01-20 00:00:00 Outpatient Chandan Reaves PRIV PRIV [id number] 2022-01-20 00:00:00 2022-01-20 00:00:00 Chandan Reaves MD: [address] [facility] [address], [address], [place] [address] , Ph. [facility] - GC_SWHAOMC_ [place] Office* [id number] [facility] 2022-01-19 05:02:00 2022-01-19 05:02:00 Outpatient GC_SWHAOMC_ Ramos_C PRIV PRIV [id number] [facility] 2022-01-14 11:01:00 2022-01-14 11:01:00 Outpatient GC_SWHAOMC_ Ramos_C PRIV PRIV [id number] [facility] 2021-12-29 12:00:00 2022-01-08 13:11:00 Inpatient UR Chandan Reaves [facility] MEDI.01 [id number] [facility] 2021-12-29 12:00:00 2022-01-08 13:11:00 Inpatient UR Chandan Reaves [facility] MEDI.01 [id number] [facility] 2021-11-10 03:29:00 2021-11-10 03:29:00 Outpatient GC_SWHATBIC _Ball_C PRIV PRIV [id number] [facility] 2021-10-14 01:06:00 2021-10-14 01:06:00 Outpatient GC_SWHATBIC _Ball_C PRIV PRIV [id number] [facility] 2021-10-14 01:06:00 2021-10-14 01:06:00 Outpatient GC_SWHAOMC_ Ramos_C PRIV PRIV [id number] [facility] 2021-10-12 02:16:00 2021-10-12 02:16:00 Outpatient GC_SWHATBIC _Ball_C PRIV PRIV [id number] [facility] 2021-10-06 10:50:00 2021-10-06 10:50:00 Outpatient GC_SWHAOMC_ Ramos_C PRIV PRIV [id number] [facility] 2021-10-05 01:26:00 2021-10-05 01:26:00 Outpatient GC_SWHATBIC _Ball_C PRIV PRIV [id number] [facility] 2021-09-29 11:55:00 2021-09-29 11:55:00 Outpatient GC_SWHAOMC_ Ramos_C PRIV PRIV [id number] [facility] 2021-09-27 03:15:00 2021-09-27 03:15:00 Outpatient GC_SWHATBIC _Ball_C PRIV PRIV [id number] [facility] 2021-09-27 00:00:00 2021-09-27 00:00:00 Outpatient Chandan Reaves [facility] PRIV PRIV [id number] 2021-09-27 00:00:00 2021-09-27 00:00:00 Chandan Reaves MD: [address], [address], [place] [address] , Ph. [facility] - GC_SWHAOMC_ [place] Office* [id number] [facility] 2021-09-22 03:12:00 2021-09-22 03:12:00 Outpatient GC_SWHAOMC_ Ramos_C PRIV PRIV [id number] [facility] 2021-09-01 05:45:00 2021-09-01 05:45:00 Outpatient GC_SWHAOMC_ Ramos_C PRIV PRIV [id number] [facility] 2021-09-01 05:45:00 2021-09-01 05:45:00 Outpatient GC_SWHAOMC_ Ramos_C PRIV PRIV [id number] [facility] 2021-09-01 00:00:00 2021-09-01 00:00:00 Outpatient Alf Chandan Rodriguez PRIV PRIV [id number] 2021-09-01 00:00:00 2021-09-01 00:00:00 Chandan Reaves MD: [address], [address], [place] [address] , Ph. [facility] - GC_SWHAOMC_ Max Office* [id number] [facility] 2021-08-31 04:03:00 2021-08-31 04:03:00 Outpatient GC_SWHAOMC_ Ramos_C PRIV PRIV [id number] [facility] 2021-08-25 03:09:00 2021-08-25 03:09:00 Outpatient GC_SWHAOMC_ Ramos_C PRIV PRIV [id number] [facility] 2021-08-25 03:09:00 2021-08-25 03:09:00 Outpatient GC_SWHAOMC_ Ramos_C PRIV PRIV [id number] [facility] 2021-08-09 14:25:00 2021-08-09 14:25:00 Outpatient Chandan Reaves [facility] [id number] [facility] 2021-08-09 08:37:00 2021-08-09 08:37:00 Outpatient GC_SWHAOMC_ Ramos_C PRIV PRIV [id number] [facility] 2021-08-05 04:29:00 2021-08-05 04:29:00 Outpatient GC_SWHAOMC_ Ramos_C PRIV PRIV [id number] [facility] 2021-08-04 03:25:00 2021-08-04 03:25:00 Outpatient GC_SWHAOMC_ Ramos_C PRIV PRIV [id number] [facility] 2021-08-03 12:45:00 2021-08-03 12:45:00 Outpatient GC_SWHAOMC_ Ramos_C PRIV PRIV [id number] [facility] 2021-08-02 04:05:00 2021-08-02 04:05:00 Outpatient GC_SWHAOMC_ Ramos_C PRIV PRIV [id number] [facility] 2021-08-02 00:00:00 2021-08-02 00:00:00 Chandan Reaves MD: [address] [facility] [address] [facility] [address], [address], [place] [address] , Ph. [facility] - GC_SWHAOMC_ [place] Office* [id number] [facility] 2021-07-27 11:36:00 2021-07-27 11:36:00 Outpatient GC_SWHAOMC_ Ramos_C PRIV PRIV [id number] [facility] 2021-07-27 11:36:00 2021-07-27 11:36:00 Outpatient GC_SWHAOMC_ Ramos_C PRIV PRIV [id number] [facility] 2021-07-21 04:29:00 2021-07-21 04:29:00 Outpatient GC_SWHAWPRC _Toña [facility] [id number] [facility] 2021-05-25 04:19:00 2021-05-25 04:19:00 Outpatient GC_SWHAOMC_ Ramos_C [facility] [id number] [facility] 2020-08-12 11:07:00 2020-08-12 11:07:00 Outpatient Alvarez_R VFP VFP [id number] [facility] e Results Test Description Test Time Test Comments Results Result Co mments Source BASIC METABOLIC [id number] 05:34:00* Test Item Value Reference Range Interpretation [...] CA) 8.0 mg/dL 8.4-10.2 L CBC W/AUTO [id number] 05:30:00* Test Item Value Reference Range Interpretation [...] = PLTMR) NORMAL NORMAL - US ABDOMEN [id number] 00:00:00 [facility] 1980 Sex: F Patient Name: LORI CABRAL Unit No: [id number] EXAMS: CPT CODE: [id number] US ABDOM EN LTD 17732 PROCEDURE INFORMATION: Exam: US Abdomen; Limited Exam [...] free fluid. at 1231 Reported and signed by: Real Ko MD CC: Chandan Reaves Technologist: Taylor Meraz RDMS Probe: Trnscrbd D/ (1231) GCD.CPS Orig Print D/T: S: 01/07/2022 (1133) [facility] NAME: LORI CABRAL Radiology Department PHYS: ANA. Chandan Lu MD [address] : 1980 AGE: 41 SEX: F [place] [address] LOC: F.2600 A PHONE #: [phone] EXAM DATE: 01/06/2022 STATUS: ADM IN FAX #: [phone] RAD NO: Page 1 Signed Report Patient Name: MARIANNABOURNE PRUDENCE Unit No: [id number] EXAMS: CPT CODE: [id number] ABDOMEN LTD 12537 (Continued) [facility] NAME: LORI CABRAL Radiology Department PHYS: ANA. Chandan Lu MD [address] : 1980 AGE: 41 SEX: F [place], [place] [address] LOC: F.2600 A PHONE #: [phone] EXAM DATE: 01/06/2022 STATUS: ADM IN FAX #: [phone] RAD NO: Page 2 Signed Report- CT GUID NDL PLCMT (Biopsy/Asp)2022-01-06 00:00:00 [facility] 1980 Sex: F Patient Name: LORI CABRAL Unit No: [id number] EXAMS: CPT CODE: [id number] CT GUID NDL [facility] (Biopsy/Asp) 93519 Radiation Dose CTDIVOL = 13.84 (mGy): DLP = 1025.37 (mGy-cm) PROCEDURE INFORMATION: Exam: IR Left DRAIN OVARIAN ABCESS ABD APPROACH Exam date and time: 01/06/2022 3:53 PMAge: 41 years old Clinical indication: Device placement; Patient HX: Pelvic abscess drain and elsie placement on 12/30/2021; Additional info: Left ovarian abscess drain TECHNIQUE: Imaging protocol: LeftIR DRAIN OVARIAN ABCESS ABD APPROACH Radiation optimization: All CT scans at this facility use at least one of these dose optimization techniques: automated exposure control; mA and/or kV adjustment per patient size (includes targeted exams where dose is matched to clinical indication); or iterative reconstruction. ADDITIONAL STUDY INFORMATION: CTDI volume (mGy): 13.84 Total DLP (mGy-cm): 1025.37Fluoroscopy time (seconds): N/A Number of fluoro spot images: N/A COMPARISON: ABDOMEN LTD 01/06/2022 10:14 AM FINDINGS: After [...] The intended puncture site was marked on theskin and this area prepped and draped in the usual sterile fashion. Elements of maximum sterile barrier use include face mask, sterile drapes, sterile gloves, hand washing and chlorhexidine for cutaneous antisepsis (skin prep). [facility] NAME: [facility]: ANA. - Chandan Reaves MD [address] : 1980 AGE: 41 SEX: F [place], [place] [address] LOC: FMateus2600 A PHONE #: [phone] EXAM DATE: 01/06/2022 STATUS: ADM IN FAX #: [phone] RAD NO: Page 1 Signed Report 1 Patient Name: LORI CABRAL Unit No: [id number] EXAMS: CPT CODE: [id number] CT GUID NDL [facility] (Biopsy/Asp) 02403 (Continued) After infiltration of the skin and soft tissues with 1% lidocaine solution, access into the left tubal ovarian abscess was obtained using an 18 gauge, 20 cm long Chiba biopsy needle. After confirmation of needle tip position with CT, approximately 11 cc of jorje purulent fluid were aspirated with complete col lapse of the abscess cavity. Postprocedure images showed collapse of the pre- existing cavity and novisible procedural complication. The procedure was then terminated and adequate hemostasis was achieved. No immediate complications were reported. The fluid sample was sent for culture, sensitivity and Gram stain analysis. IMPRESSION: 1. Successful, uncomplicated CT-guided aspiration of left tubal ovarian abscess. Comments: Case was discussed with Dr. Reaves at 1658 hrs. at 1811 Reported and signed by: Real Ko MD CC: Chandan Reaves Technologist: Xavier Deutsch, RT, CT CTDI: DLP: Trnscrbd D/ (1810) GCD.CPS [facility] NAME: LORI CABRAL Radiology Department PHYS: Chandan Cabrera MD [address] : 1980 AGE: 41 SEX: F [place], [place] [address]YCSI NO: [id number] LOC: F.2600 A PHONE #: [phone] EXAM DATE: 01/06/2022 STATUS: ADM IN FAX #: [phone] RAD NO: Page 2 Signed Report 1 Patient Name: LORI CABRAL Unit No: [id number] EXAMS: CPT CODE: [id number] CT GUID NDL [facility] (Biopsy/Asp) 95506 (Continued) Orig Print D/T: S: 01/06/2022 (1810) [facility] NAME: LORI CABRAL Radiology DepartmentPHYS: Chandan Cabrera MD [address] : 1980 AGE: 41 SEX: F [place], [place] [address] LOC: F.2600 A PHONE #: [phone] EXAM DATE: 01/06/2022 STATUS: ADM IN FAX #: [phone] RAD NO: Page 3 Signed Report 1BASIC METABOLIC PANEL 2022-01-05 06:22:00* Test Item Value Reference Range Interpretation [...] = CA) 8.0 mg/dL 8.4-10.2 L PROTHROMBIN [id number] 06:11:00* Test Item Value Reference Range Interpretation Comme nts PROTHROMBIN TIME PATIENT (te st code = PTP) 16.6 secs 10.1-12.3 H IS PATIENT ON ANTICOAGULANTS ? NINTERNATIONAL NORMAL [id number] 06:11:00* Test Item Value Reference Range Interpretation [...] IS PATIENT ON ANTICOAGULANTS ? NTHROMBOPLASTIN TIME [id number] 06:11:00* Test Item Value Reference Range Interpretation Comme nts THROMBOPLASTIN TIME PARTIAL (test code = PTT) 36.6 secs 22-38 N IS PATIENT ON ANTICOAGULANTS ? NCBC W/AUTO [id number] 05:52:00* Test Item Value Reference Range Interpretation [...] code = PLTMR) NORMAL NORMAL CBC W/AUTO [id number] 05:22:00* Test Item Value Reference Range Interpretation [...] PLTMR) NORMAL NORMAL - CT ABD PELVIS [id number] 00:00:00 [facility] 1980 Sex: F Patient Name: LORI CABRAL Unit No: [id number] EXAMS: CPT CODE: [id number] CT ABD P NAKIA W/CONT 36805 Radiation Dose CTDIVOL = 4.43 (mGy): DLP [...] Computed tomography of the abdomen and pelvis withcontrast. Radiation optimization: All CT scans at this [...] splenomegaly. Adrenal glands: Normal. No mass. [facility] NAME: LORI CABRAL Radiology Department PHYS: Arvin Williamson MD [address] : 1980 AGE: 41 SEX: F [place], [place] [address] LOC: F.2600 A PHONE #: [phone] EXAM DATE: 01/04/2022 STATUS: ADM IN FAX #: [phone] RAD NO: Page 1 Signed Report 1 Patient Name: LORI CABRAL Unit No: [id number] EXAMS:CPT CODE: [id number] CT ABD PELVIS W/CONT 25281 (Continued) Kidneys and ureters: Normal. No stones [...] of the drain. 2. Inflammatory changes of the sigmoid colon are felt to be secondary. 3. Postsurgical changes along the abdominal wall. 4. Smallbilateral pleural effusions with bibasilar atelectasis. at 1532 Reported and signed by: Jose J Shearer MD [facility] NAME: CABRALLORI Radiology Department PHYS: Arvin Williamson MD [address] : 1980 AGE: 41 SEX: F [place] [address] LOC: F.2600 A PHONE #:[phone] EXAM DATE: 01/04/2022 STATUS: ADM IN FAX #: [phone] RAD NO: Page 2 Signed Report 1 Patient Name: LORI CABRALDOREEN Unit No: [id number] EXAMS: CPT CODE: [id number] CT ABD PELVIS W/CONT 57041 (Continued) CC: Chandan Reaves; Arvin Harding MD Technologist: Xavier Deutsch, RT, CT CTDI: DLP: Trnscrbd D/ (1225) GCD.CPS [facility] NAME: LORI CABRAL Radiology Department PHYS: Arvin Williamson MD [address] : 1980 AGE: 41 SEX: F [place] [address] LOC: F.2600 A PHONE #: [phone] EXAMDATE: 01/04/2022 STATUS: ADM IN FAX #: [phone] RAD NO: Page 3 Signed Report 1 Patient Name: LORI CABRAL Unit No: [id number] EXAMS: CPT CODE: [id number] CT ABD PELVIS W/CONT 87360 (Continued) Orig Print D/T: S: 01/04/2022 (1225) [facility] NAME: LORI CABRAL Radiology Department PHYS: Arvin Williamson MD [address] : 1980 AGE: 41 SEX: F [place], [place] [address] LOC: Tank A PHONE #: [phone] EXAM DATE: 01/04/2022 STATUS: ADM IN FAX #: [phone] RAD NO: Page 4 Signed Report 1CBC W/AUTO DIFF 2022-01-03 07:10:00* Test Item Value Reference Range Interpretation [...] (test code = PLTMR) NORMAL NORMAL WBC [id number] 07:10:00* Test Item Value Reference Range Interpretation [...] de = PLTMORPH) NORMAL NORMAL CBC W/AUTO [id number] 05:42:00* Test Item Value Reference Range Interpretation [...] code = PLTMR) NORMAL NORMAL CBC W/AUTO [id number] 05:32:00* Test Item Value Reference Range Interpretation [...] code = PLTMR) NORMAL NORMAL CBC W/AUTO [id number] 06:01:00* Test Item Value Reference Range Interpretation Comme nts WHITE BLOOD CELL (test code = WBC) 27.2 K/mm3 6.5-12.3 HH RESULTS CALLED Arnaud NOWAK.READ BACK & CONFIRMED? Y.BY DOMOLGL0 12/31/21 0559.RESULTS VERIFIED BY REPEAT ANALYSIS RED [...] code = PLTMR) NORMAL NORMAL CBC W/AUTO [id number] 06:43:00* Test Item Value Reference Range Interpretation [...] PLTMR) NORMAL NORMAL - CT ABD PELVIS [id number] 00:00:00 [facility] 1980 Sex: F Patient Name: LORI CABRAL Unit No: [id number] Report Has Been Amended EXAMS: CPT CODE: [id number] CT ABD PELVIS W/CONT 90818 Addendum - 12/29/2021 SIGNED 12/29/2021 ADDENDUM:[id number] CT/CTABPLW Radiation Dose CTDIVOL = 4.51 (mGy): DLP = 219.41 (mGy-cm) Addendum after is questions with colorectal surgeon the finding in the pelvis may represent tubo-ovarian abscess. Less likely is postop abscess as the patient's prior surgery was in July 2021. The possibility this isan colonic abscess is thought to be less likely. at 0808 Reported and signed by: Talia Branch MD Transcribed: 12/29/2021 (0808) [facility] Report Radiation Dose CTDIVOL = 4.51 (mGy): DLP = 219.41 (mGy-cm) PROCEDURE INFORMATION: Exam: CT Abdomen And Pelvis With Contrast Exam date and time: 12/28/2021 9:44 AM Age: 41 years old Clinicalindication: Abdominal pain; Prior surgery; Surgery type: History [...] Other contrast: Oral, GASTROGRAFIN, 41; COMPARISON: [facility] NAME: LORI CABRAL Radiology Department PHYS: Karen Cruz MD [address] : 1980 AGE: 41 SEX: F [place], [place] [address] LOC: FMateus2600 A PHONE #: [phone] EXAM DATE: 12/28/2021 STATUS: ADM IN FAX #: [phone] RAD NO: Page 1 Signed Report 1 Patient Name: LORI CABRAL Unit No: [id number] Report Has Been Amended EXAMS: CPT CODE: [id number] CT ABD PELVIS W/CONT 27886 (Continued) No relevant prior studies available. RADIATION DOSE METRICS: CTDI volume (mGy): 4.51 Total DLP (mGy-cm): 219.41 FINDINGS: Lungs: Hypoventilatory changes are noted in the lung bases [...] region. Bilateral bibasilar hypoventilatory changes noted. [facility] NAME: LORI CABRAL Radiology Department PHYS: Karen Cruz MD[address] : 1980 AGE: 41 SEX: F [place], [place] [address] LOC: F.2600 A PHONE #: [phone] EXAM DATE: 12/28/2021 STATUS: ADM IN FAX #: [phone] RAD NO: Page 2 Signed Report 1 Patient Name: LORI CABRAL Unit No: [id number] Report Has Been Amended EXAMS: CPT CODE: [id number] CT ABD PELVIS W/CONT 83297 (Continued) at 1019 Reported and signed by: Talia Branch MD CC: Karen Draper; Chandan Reaves Technologist: Danii Guerra RT, CT CTDI: 4.51 DLP: 219.41 Trnscrbd D/ (1019) [facility] NAME: RYLEE CABRALNORA FOSS Radiology Department PHYS: Karen Cruz MD [address] : 1980 AGE: 41 SEX: F [place], [place] [address] LOC: F.2600 A PHONE #: [phone] EXAM DATE: 12/28/2021 STATUS: ADM IN FAX #: [phone] RAD NO: Page 3 Signed Report 1 Patient Name: LORI CABRAL Unit No: [id number] Report Has Been Amended EXAMS: CPT CODE: [id number] CT ABD PELVIS W/CONT 86530 (Continued) Orig Print D/T: S: 12/28/2021 (1020) [facility] NAME: LORI CABRAL Radiology Department PHYS: Karen Cruz MD [address] : 1980 AGE: 41 SEX: F [place], [place] [address] LOC: F.2600 A PHONE #: [phone] EXAM DATE: 12/28/2021 STATUS: ADM IN FAX #: [phone] RAD NO: Page 4 Signed Report 1CBC W/AUTO DIFF 2021-12-28 06:22:00* Test Item Value Reference Range Interpretation Comme nts WHITE BLOOD CELL (test code = WBC) 20.8 K/mm3 6.5-12.3 HH RESULTS CALLED Arnaud HERNANDEZ.READ BACK & CONFIRMED? Y.BY [id number] 12/28/2104. RED BLOOD CELL (test code = RBC) [...] (test code = PLTMR) NORMAL NORMAL WBC [id number] 06:22:00* Test Item Value Reference Range Interpretation Comme nts SEGMENTED NEUTROPHILS (test code = SEG) 76 % 56.5-79.4 N LYMPHOCYTE (test code = LYMPH) 11 % 20-40 L TOTAL CELLS COUNTED (test co de = TCC) 100 #CELLS MONOCYTE (test code = MON) 12 % 0-8 H EOSINOPHIL (test code = EOS) 1 % 0-4 N COMPREHENSIVE METABOLIC [id number] 05:59:00* Test Item Value Reference Range Interpretation [...] code = ALKP) 106 units/L 46-116 N [id number] 13:49:00* Test Item Value Reference Range Interpretation Comme nts SURGICAL (test code = SR) RUN DATE: 08/11/21 [facility] PAGE 1 RUN TIME: 1349 Specimen Inquiry RUN USER: INTERFACE [id number] LOC: YAJAIRA U #: [id number] AGE/SX: 40/F ROOM: RE08/09/21REG DR: Chandan Reaves Jr, MD : [birth year] BED: DIS: STATUS: REG REF TLOC: SPEC #: [id number] RECD: 08/09/21 STATUS: [facility] #: [id number] EUSEBIO: 08/09/[address] [facility] [address]: Chandan Reaves Jr, MD ENTERED: 08/09/21 SP TYPE: SURGICAL OTHR DR: ORDERED: ANATOMIC SPEC, SPEC TRACK, [id number] PROCEDURES: 39538 (08/09/21) TISSUES: A. UTERUS W/WO TUBES OVARIES [...] and left fallopian tubes are grossly unremarkable. Ticketing Agent sections aresubmitted as follows:Section code: A1: Anterior cervix. A2: Posterior cervix A3: Anterior endometrium.A4: Posterior endometrium. A5: Anterior myometrium.A6: Posterior myometrium.A7: Right fallopian tube. A 8: Left fallopian tube.XZ CONTINUED ON NEXT PAGE RUN DATE: 08/11/21 [facility] PAGE 2 RUN TIME: 1349 Specimen Inquiry RUN USER: INTERFACE SPEC #: [id number] PATIENT: LORI CABRAL Felicia #[id number] (Continued) --- GROSS DESCRIPTION (Continued) Technical component performed at [facility], [place] [address] MICROSCOPIC DESCRIPTION The diagnosis is based upon microscopic examination. CLINICAL INFORMATION DYSMENORRHEA, MENORRHAGIA, ADENOMYOSIS --- Signed SIGNATURE ON FILE Mildred Siu 08/11/21 1349 END OF REPORT Notes Date/Time Note Provider Source 2022-01-20 13:01:00 [id number] [facility] [address], [place] [address] PATIENT NAME: LORI CABRAL ADMIT DATE: 12/29/21 ACCOUNT NO: [id number] ROOM NO: 2600 AGE: 41 SEX: F ADMITTING PHYSICIAN: Chandan Reaves MD ATTENDING PHYSICIAN: Chandan Reaves MD ADMISSION DATE: 12/29/2021 DISCHARGE DATE: 01/08/2022 ADMISSION DIAGNOSIS: Pelvic abscess. DISCHARGE DIAGNOSIS: Status post treatment of pelvic abscess. DISCHARGE MEDICATIONS: Augmentin. DISCHARGE FOLLOWUP: In 2 weeks. DISCHARGE ACTIVITY: Nonstrenuous. SUMMARY OF HOSPITAL COURSE: The patient is a 41-year-old who was transferred from [place] for continued care of a pelvic abscess. The patient had an uncomplicated hysterectomy in 07/2021 with full recovery. Two to three days prior to transfer, the patient experienced abdominal pain and fever and nausea. She was admitted and was determined to have a pelvic abscess of unknown origin. She was placed on antibiotics. After 2 nights with no improvement, the managing physician asked for her to be transferred to [facility]. They informed the patient there were no surgeons available to potentially drain the abscess. They were also uncertain if this was an ovarian abscess in nature. The patient does not have fallopian tubes which were removed with prior hysterectomy. Transfer was accepted and she was admitted to [facility] on December 28. Upon admission to [facility], her antibiotics were changed to Zosyn and Flagyl. Her initial temperature was 98.6. Other vitals were normal. Her initial white count upon admission was 20.8. The patient underwent a repeat CAT scan. Her CAT scan on 12/28 had findings compatible with an abscess noted in the left pelvic region. The abscess measured approximately 7 cm in diameter and again it was difficult to ascertain the exact etiology of the abscess. Colorectal surgery consultation was obtained. Colorectal surgery initially consulted with interventional radiology who stated they were initially unable to perform the drainage. I explained to the patient that a TOA is usually associated with STI, which the patient never had a history of and has no uterus or fallopian tubes. However, an ovarian abscess would still be a remote possibility. Colorectal surgery agreed to perform a diagnostic laparoscopy with washout, and if necessary, possible oophorectomy if needed. The patient agreed to the surgery. The patient underwent the surgery by colorectal surgery, which is dictated separately and was found to have a pelvic abscess, still of unknown origin, as the ovary was not identified. A drain was placed and the pus was sent for cultures. Postoperatively, the patient was feeling well and remained afebrile; but however, the WBC was elevated at 27.2. On postoperative day #3, from the laparoscopic abscess drainage, the patient was continued to have an PATIENT NAME: LORI CABRAL elevated white count of 16.8 and remained afebrile, but was still having some abdominal pain. The microbiology of the cultures returned streptococcus. At this time, an infectious disease consult was obtained and the patient was evaluated by ID. There was no change in antibiotics. On 01/03, the patient's white count was again elevated at 19.1 and the patient was therefore re-imaged. Reimaging showed a residual abscess but smaller than [...] Dictated By: Chandan Reaves Jr, MD WT: DS:FCOLBY/ANA. Conf#: [id number]/DID#: [id number] Authenticated and Edited by Chandan Reaves MD On 02/10/22 7:52:24 AM at 0755 PATIENT NAME: LORI CABRAL [facility] 2022-01-13 07:23:00 [id number] [place] [address] PATIENT NAME: LORI CABRAL ADMIT DATE: 12/29/21 ACCOUNT NO: [id number] ROOM NO: F.2600 AGE: 41 SEX: F ADMITTING PHYSICIAN: Chandan Reaves MD ATTENDING PHYSICIAN: Chandan Reaves MD Provider Query QUERY TEXT: Relationship Procedure Condition 360MD Query related questions should be directed to: [facility] [place] [facility] Coding Query Helpline Please clarify the etiology of the diagnosis left tubal ovarian abscess and its relationship, if any, to the procedure s/p hysterectomy The classification system provides these guidelines for intraoperative and/or post procedure conditions/diagnoses: -- Not all post procedure conditions are classified as complications. - There must be an unexpected or abnormal occurrence. - There must be a documented cause and effect relationship between the condition and the care. - There must be an indication that it is a complication -- The term ''complication'' as used in ICD-10-CM does not imply that improper or inadequate care is responsible for the problem -- There is no time limit for development of complication -- The term postoperative requires clarity to determine if it is a complication or condition resulting from medical/surgical care that is a residual condition of the procedure. -- When laceration/tear/enterotomy occurs during a procedure, the physician must provide clarity as to whether the tear was an incidental occurrence inherent to the procedure or clinically significant (complication). -- When hemorrhage occurs with procedure, clarify if it is expected or unexpected as well as abnormal amount of blood loss and the organ or tissue structure involved (i.e., subcutaneous, fascia, specific organ, specific artery/vein, etc.). The patient's Clinical Indicators include: Upon entry into the pocket and we opened this up, there was noted to be copious amounts of purulent drainage.The drainage was thick white drainage.We cultured this and sent off as pelvic abscess and we irrigated the area locally.We then placed a 19 round Taran drain under laparoscopic guidance at the area and secured this to the skin-OPERATIVE REPORT 12/30/2021 She had uncomplicated recovery from hysterectomy, these symptoms started approximately a month ago well after surgical recovery-History Physical - Adult 12/28/2021 POD 4 for l-scope pelvic abscess drainage by CRS.Afebrile since procedure with an initial drop in WBC.However patient is clinically the same and WBC is elevated this am.Continues on Zosyn/Flagly and awaiting sensitivities-Clinical Note 01/03/2022 CT scan of abd/pelvis repeated 01/04- showing decreased size of the left pelvic abscess following placement of abdominal drain-Infectious Dis. Progress Note 01/07/2022 Successful, uncomplicated CT-guided aspiration of left tubal ovarian abscess-CT GUID NDL [facility] 01/06/2022 Options provided: -- Routine, inherent or integral -- Unexpected or abnormal -- Unrelated, Please specify the cause if known. -- Other - I will add my own diagnosis -- Dismiss - Not applicable / Not valid -- Dismiss - Clinically unable to determine / Unknown -- Assign to another provider QUERY RESPONSE: This [...] Query related questions should be directed to: [facility] [place] [facility] Coding Query Helpline Please clarify the condition or diagnosis for the clinical / diagnostic findings noted within the clinical indicators. (Hyponatremia ,Abnormal Lab result ,unable to determine or other more appropriate diagnosis) The patient's Clinical Indicators include: SODIUM (mEq/L) 136 133L -Laboratory Results RINGERS SOLUTION,LACTATED 1000 ML BAG-MAR Options provided: -- Respond - Create new note now -- Dismiss - Not applicable / Not valid -- Dismiss - Clinically unable to determine / Unknown -- Assign to another provider QUERY RESPONSE: Provider was clinically unable to determine a response for this query Query created by: Ashley Pimentel on 01/10/2022 7:58 AM at 0723 PATIENT NAME: LORI CABRAL [facility] 2022-01-08 08:30:[address] [facility] ([facility]) Colorectal Surgery Prog Note REPORT#:[id number] REPORT STATUS: Signed DATE:01/08/22 TIME: 829 PATIENT: LORI CABRAL UNIT #: [id number] ROOM/BED: [address] : 81 AGE: 41 SEX: F ATTEND: Chandan Reaves MD ADM AUTHOR: Chucky Velarde MD * ALL edits or amendments must be made on the electronic/computer document * Subjective Chief complaint: Abdominal pain and LLQ pelvic multiloculated mass HPI: s/p IR drainage on 01/06 and she is feeling better. Still with some slight soreness but denies fever or chills, no nausea or vomiting, tolerating diet. + ambulation Objective Physical Exam Wound/incision: Location: CDI. Respiratory: aerating well Abdomen: tenderness (minimal in LLQ), soft, no distention, no guarding, no rebound, ELSIE drain is serous. Results Findings/Data: Laboratory Tests 01/08/22 0620: [Embedded Image Not Available] Laboratory Tests 01/09 620 Hematology WBC (6.5 - [...] % (Auto) (14.5 - 29.7 %) 22.2 [place] % (Auto) (3.6 - 10.2 %) 7.6 Eos % (Auto) (0.0 - 3.0 %) 3.6 H Baso % (Auto) (0.1 - 0.9 %) 1.6 H Neut # (Auto) (K/mm3) 7.7 Lymph # (Auto) (K/mm3) 2.7 [place] # (Auto) (K/mm3) 0.9 Eos # (Auto) (K/mm3) 0.44 Baso # (Auto) (K/mm3) 0.2 Diagnosis, Assessment Plan Free Text A P: 41/F with pelvic abscess on cross sectional imaging WBC remains elevated, vitals stable. Hgb stable. Continue IV abx, Continue PPI, Cotninue zofran as needed. Advance diet as tolerated. IF the WBC remains elevated consider CT scan with rectal contrast tomorrow to rule out undrained abscesses. remainder of care per [facility]ST[facility]. Discussed with Dr. Velarde. 01/04/22. PT is still [...] to have IR percutaneous aspiration of fluid collection. NPO until after the procedure is completed. No labs today. We should follow WBC trend. Continue antibiotics per ID recommendations. We will continue to follow. 01/08/22 She is doing better with improved pain and no fever or chills. WBC: 12 okay to advance and keep on soft diet Abx recs per ID We discussed with her that either a repeat imaging study or another surgery may be required in the future, but at this time, we would attempt to allow the inflammation to improve and for her to recover. She is okay to discharge from a colona nd rectal standpoint at 0835 RPT #:[id number] END OF REPORT [facility] 2022-01-08 07:57:[address] [facility] ([facility]) Clinical Note REPORT#:[id number] REPORT STATUS: Signed DATE:01/08/22 TIME: 756 PATIENT: LORI CABRAL UNIT #: [id number] ROOM/BED: [address] : 81 AGE: 41 SEX: F ATTEND: Chandan Reaves MD ADM AUTHOR: Chandan Reaves MD * ALL edits or amendments must be made on the electronic/computer document * Clinical Note Note: Patient is doing well ELSIE removed yesterday Vital Signs Date Time Temp Pulse Resp B/P B/P Pulse O2 O2 Flow FiO2 Mean Ox Delivery Rate 01/08 07 98.2 69 16 113/75 87.3 98 01/08 0530 98.1 83 18 124/86 98.8 97 Room air 01/07 2340 97.9 74 18 105/69 81.2 97 Room air 01/07 2000 98.1 64 18 134/58 0.0 98 Room air 01/07 1612 98.1 60 18 113/72 85.6 97 01/07 1110 97.5 63 16 112/74 86.3 [...] 0805 98.2 66 17 132/88 102.7 97 Laboratory Tests: 01/08 01/07 0620 0445 Chemistry Sodium [...] (Auto) (14.5 - 29.7 %) 22.2 20.5 [place] % (Auto) (3.6 - 10.2 %) 7.6 8.4 Eos % (Auto) (0.0 - 3.0 %) 3.6 H 3.8 H Baso % (Auto) (0.1 - 0.9 %) 1.6 H 1.1 H Neut # (Auto) (K/mm3) 7.7 8.1 Lymph # (Auto) (K/mm3) 2.7 2.6 [place] # (Auto) (K/mm3) 0.9 1.1 Eos # (Auto) (K/mm3) 0.44 0.48 Baso # (Auto) (K/mm3) 0.2 0.1 Microbiology: Date/Time Procedure - Status Source Growth 01/06 2100 Gram Stain - CAN ABDOMINAL Cancelled: DUPLICATE 01/06 2100 Body Fluid Culture - RES GASTRIC 01/06 2100 Gram Stain - RES GASTRIC Pending Recent Impressions: ULTRASOUND - US ABDOMEN LTD 01/06 1015 Report Impression - Status: SIGNED Entered: 01/07/2022 1133 IMPRESSION: 1. Similar, roughly 27 mm hypoechoic left tubo-ovarian abscess. 2. No surrounding free fluid. Impression By: Chantal Ko MD CAT SCAN - CT GUID [facility] (Biopsy/Asp) 01/06 1535 Report Impression - Status: SIGNED Entered: 01/06/2022 1811 IMPRESSION: 1. Successful, uncomplicated CT-guided aspiration of left tubal ovarian abscess. Comments: Case was discussed with Dr. Reaves at 1658 hrs. Impression By: Chantal Ko MD Discussed potential discharge today. Awaiting updated read on cultures this am to help determine PO antibiotics. at 0800 RPT #:[id number] END OF REPORT [facility] 2022-01-07 14:34:00 [facility] Infectious Dis. Progress Note REPORT#:[id number] REPORT STATUS: Signed DATE:01/07/22 TIME: 1433 PATIENT: LORI CABRAL UNIT #: [id number] ROOM/BED: 2600-A : 81 AGE: 41 SEX: F ATTEND: Chandan Reaves MD ADM AUTHOR: Henrique Mckenna APRNNP * ALL edits or amendments must be made on the electronic/computer document * Henrique Mckenna 01/07/22 1434: Subjective Patient reports: Yes: feeling better. No: fever. Objective General VS/I O: Vital Signs Date Temp Pulse Resp B/P B/P Mean Pulse Ox FiO2 01/06-01/07 97.5-98.2 61-86 15-18 108-131/71-86 83.6-99.4 97-99 Last Documented: Result Date Time Pulse Ox 97 01/07 1110 B/P 112/74 07/ 1110 B/P Mean 86.3 07/ 1110 Temp 97.5 / 1110 Pulse 63 / 1110 Resp 16 / 1110 O2 Delivery Room air 01/07 0323 O2 Flow Rate 10 12/30 1956 Vital [...] Output, 2 Drainage PATIENT WEIGHT: Weight (lb): 130 Weight (oz): 1.16 Weight (kg): 59.000 Medications: Active Meds + DC'd Last 24 Hrs Lidocaine HCl (XYLOCAINE 1% MDV 20 ML) 20 [...] Sodium Chloride (SODIUM CHLORIDE 0.9% 100 ML ADD-[place]) 100 ML Ondansetron HCl (ZOFRAN 2 MG/ML 4 MG [...] 25 MG Q6H PRN PRN PO Physical Exam General appearance: alert, awake, oriented Head/Eyes: atraumatic, EOMI, normocephalic, PERRLA Cardiovascular: normal heart sounds, regular rate rhythm Respiratory: clear to auscultation, aerating well, no distress Abdomen: non-tender, normal bowel sounds, soft, no distention Extremities: no contracture, no cyanosis, no edema Neuro/TRANSMITTER SUPERVISOR: alert, oriented X 3 Results Findings/Data: Laboratory Tests 01/07 445 Chemistry Sodium (135 - [...] % (Auto) (14.5 - 29.7 %) 20.5 [place] % (Auto) (3.6 - 10.2 %) 8.4 Eos % (Auto) (0.0 - 3.0 %) 3.8 H Baso % (Auto) (0.1 - 0.9 %) 1.1 H Neut # (Auto) (K/mm3) 8.1 Lymph # (Auto) (K/mm3) 2.6 [place] # (Auto) (K/mm3) 1.1 Eos # (Auto) (K/mm3) 0.48 Baso # (Auto) (K/mm3) 0.1 Radiology data: Recent Impressions: CAT SCAN - CT GUID NDL [facility] (Biopsy/Asp) 01/06 1535 Report Impression - Status: SIGNED Entered: 01/06/2022 1811 IMPRESSION: 1. Successful, uncomplicated CT-guided aspiration of left tubal ovarian abscess. Comments: Case was discussed with Dr. Reaves at 1658 hrs. Impression By: [email or web address] - Real Ko MD Results: labs reviewed, vital signs reviewed, vital signs stable, CT results reviewed, x-ray personally reviewed, current med profile rev'd Diagnosis, Assessment Plan Free Text A P: This is a 41-year-old female, who has a [...] a drainable collection. Subsequently, on 12/30/2021 had a robotic-assisted diagnostic laporoscopy with lysis of pelvic adhesions, drainage of pelvic abscess on the left side. A drain was left in place. A small bowel or large bowel resection was deferred at that point. The patient has been on antibiotic treatment with Zosyn and metronidazole. Cultures from abscess showed Streptococcus anginosus. Since surgery, white count has fluctuated between 19, 000 to 16,000. Abdominal pain is less and has not had any febrile episodes. CT scan of abd/pelvis repeated 6/28- showing decreased [...] to evaluate for any residual fluid collection.- CT scan repeated 01/04 RECOMMENDATIONS continue with IV Zosyn follow repeat culture results case discussed with Dr. Harding we will continue to follow along with you Arvin Harding 01/08/22 1809: Attestations Physician Attestation Agree w/findings plan: Agree with the findings and plan as documented by Bala COBURN at 1539 at 1813 RPT #:[id number] END OF REPORT [facility] 2022-01-07 11:56:[address] [facility] ([facility]) Clinical Note REPORT#:[id number] REPORT STATUS: Signed DATE:01/07/22 TIME: 1156 PATIENT: LORI CABRAL UNIT #: [id number] ROOM/BED: [address] : 81 AGE: 41 SEX: F ATTEND: Chandan Reaves MD ADM AUTHOR: Chandan Reaves MD * ALL edits or amendments must be made on the electronic/computer document * Clinical Note Note: POD 7 s/p l-scope pelvic abscess drainage POD 1 s/p IR drainage of residual abscess Feeling better after drainage of abscess yesterday 01/06/22. Vital Signs Date Time Temp Pulse Resp B/P B/P Pulse O2 O2 Flow FiO2 Mean Ox Delivery Rate 01/07 1110 97.5 63 16 112/74 86.3 97 01/07 0712 97.7 66 18 109/71 83.6 98 01/07 0323 98.1 61 16 124/80 95.0 98 Room air 07/01 0004 97.9 68 16 115/77 89.9 97 [...] 91.1 98 Abd soft Laboratory Tests: 01/07 445 Chemistry Sodium (135 - 145 [...] % (Auto) (14.5 - 29.7 %) 20.5 [place] % (Auto) (3.6 - 10.2 %) 8.4 Eos % (Auto) (0.0 - 3.0 %) 3.8 H Baso % (Auto) (0.1 - 0.9 %) 1.1 H Neut # (Auto) (K/mm3) 8.1 Lymph # (Auto) (K/mm3) 2.6 [place] # (Auto) (K/mm3) 1.1 Eos # (Auto) (K/mm3) 0.48 Baso # (Auto) (K/mm3) 0.1 Microbiology: Date/Time Procedure - Status Source Growth 01/06 2100 Gram Stain - CAN ABDOMINAL Cancelled: DUPLICATE 01/06 2100 Body Fluid Culture - RES GASTRIC 01/06 2100 Gram Stain - RES GASTRIC Recent Impressions: CAT SCAN - CT GUID [facility] (Biopsy/Asp) 01/06 1535 Report Impression - Status: SIGNED Entered: 01/06/2022 181 IMPRESSION: 1. Successful, uncomplicated CT-guided aspiration of left tubal ovarian abscess. Comments: Case was discussed with Dr. Reaves at 1658 hrs. Impression By: [email or web address] - Real Ko MD Doing well Improved leukocytosis Discussed with ID discharge plan. Awaiting culture results to determine antibiotic regimen. at 1200 RPT #:[id number] END OF REPORT [facility] 2022-01-06 13:22:[address] [facility] ([facility]) Clinical Note REPORT#:[id number] REPORT STATUS: Signed DATE:01/06/22 TIME: 1322 PATIENT: LORI CABRAL UNIT #: [id number] ROOM/BED: [facility] : 81 AGE: 41 SEX: F ATTEND: Chandan Reaves MD ADM AUTHOR: Chandan Reaves MD * ALL edits or amendments must be made on the electronic/computer document * Clinical Note Note: Patient awainting IR abscess drainage. Schedule for 11 am but IR is delayed. at 1323 RPT #:[id number] END OF REPORT [facility] 2022-01-06 09:24:[address] [facility] ([facility]) Colorectal Surgery Prog Note REPORT#:[id number] REPORT STATUS: Signed DATE:01/06/22 TIME: 923 PATIENT: LORI CABRAL UNIT #: [id number] ROOM/BED: [address] : 81 AGE: 41 SEX: F ATTEND: Chandan Reaves MD ADM AUTHOR: Scott Nguyễn MD * ALL edits or amendments must be made on the electronic/computer document * Subjective Chief complaint: Abdominal pain and LLQ pelvic multiloculated mass Comments: Pt feels better, still having lower abdominal pain, low appetite. No fevers or chills. Objective General VS/I O: Last Documented: Result Date Time Pulse Ox [...] Output, 0 Drainage PATIENT WEIGHT: Weight (lb): 130 Weight (oz): 1.16 Weight (kg): 59.000 Nutrition assessment: The data set between the solid lines has been imported from the dietitian's assessment. Any exceptions have been noted under Provider comments. BMI Calculated: 23.8 Nutrition related diagnosis: Nutrition diagnosis details: Nutrition problem: Altered nutrition labs Nutrition etiology: Inadequate mineral intake Nutrition signs and symptoms: LOW H H Nutrition prescription: Dietitian name: Fifi SATINDER Davies Assessment completed: 01/04/22 Provider comments on imported dietitian assessment: Physical Exam General appearance: alert, awake, oriented, no acute distress, no respiratory distress Wound/incision: Location: CDI. Respiratory: aerating well Abdomen: tenderness (lower abdomen), soft, no distention, no guarding, no rebound, ELSIE drain is serous. Diagnosis, Assessment Plan Free Text A P: 4//0/F with pelvic abscess on cross sectional imaging WBC remains elevated, vitals stable. Hgb stable. Continue IV abx, Continue PPI, Cotninue zofran as needed. Advance diet as tolerated. IF the WBC remains elevated consider CT scan with rectal contrast tomorrow to rule out undrained abscesses. remainder of care per [facility]. Discussed with Dr. Velarde. 01/04/22. PT is still [...] to have IR percutaneous aspiration of fluid collection. NPO until after the procedure is completed. No labs today. We should follow WBC trend. Continue antibiotics per ID recommendations. We will continue to follow. at 0928 RPT #[id number] END OF REPORT [facility] 2022-01-05 19:18:[address] [facility] ([facility]) Infectious Dis. Progress Note REPORT#:[id number] REPORT STATUS: Signed DATE:01/05/22 TIME: 1917 PATIENT: LORI CABRAL UNIT #: [id number] ROOM/BED: [facility] [place]-A : 81 AGE: 41 SEX: F ATTEND: Chandan Reaves MD ADM AUTHOR: Henrique Mckenna * ALL edits or amendments must be made on the electronic/computer document * Henrique Mckenna 01/05/221917: Subjective Chief complaint: [id number] Patient reports: Yes: feeling better. No: fever. Objective General VS/I O: Vital Signs Date Temp Pulse Resp B/P B/P Mean Pulse Ox FiO2 01/04-01/05 98.1-98.8 65-70 16-18 112-138/76-89 88.1-105.6 97-98 Last [...] 18 117/78 91.2 97 Room air 01/04 195 98.8 67 16 115/77 89.6 98 Room air 24 hour I O ending at 0700: 01/05 0700 01/04 1900 Intake Total 430.00 300.00 Output Total 0 Balance 430.00 300.00 Intake, IV 230.00 300.00 Intake, Oral 200 Output, 0 Drainage PATIENT WEIGHT: Weight (lb): 130 Weight (oz): 1.16 Weight (kg): 59.000 Medications: Active Meds + DC'd Last 24 Hrs Diatrizoate Meglum/Diatrizoate Sod (GASTROGRAFIN) 40 ML ONCE PRN PO Piperacillin Sod/Tazobactam Sod (PIPERACILLIN/TAZOBACTAM 3 GM/0.375 GM INJ.) 3.375 GM Q6H IV Sodium Chloride (SODIUM CHLORIDE 0.9% 100 ML ADD-[place]) 100 ML Ondansetron HCl (ZOFRAN 2 MG/ML 4 MG [...] 25 MG Q6H PRN PRN PO Physical Exam General appearance: alert, awake, oriented Head/Eyes: atraumatic, EOMI, normocephalic, PERRLA Cardiovascular: normal heart sounds, regular rate rhythm Respiratory: clear to auscultation, aerating well, no distress Abdomen: non-tender, normal bowel sounds, soft, no distention Extremities: no contracture, no cyanosis, no edema Neuro/TRANSMITTER SUPERVISOR: alert, oriented X 3 Results Findings/Data: Laboratory Tests 06/29 0437 Chemistry Sodium (135 - 145 mEq/L) [...] - 10.2 mg/dL) 8.0 L Laboratory Tests 01/05 427 Coagulation PT (10.1 - 12.3 secs) 16.6 H INR 1.45 PTT ([place]) (22 - 38 secs) 36.6 Laboratory Tests 01/05 427 Hematology WBC (6.5 - 12.3 K/mm3) 18.1 [...] (Auto) (14.5 - 29.7 %) 13.3 L [place] % (Auto) (3.6 - 10.2 %) 7.1 Eos % (Auto) (0.0 - 3.0 %) 2.1 Baso % (Auto) (0.1 - 0.9 %) 1.1 H Neut # (Auto) (K/mm3) 13.1 Lymph # (Auto) (K/mm3) 2.4 [place] # (Auto) (K/mm3) 1.3 Eos # (Auto) (K/mm3) 0.38 Baso # (Auto) (K/mm3) 0.2 Results: labs reviewed, vital signs reviewed, vital signs stable, x-ray personally reviewed, current med profile rev'd Diagnosis, Assessment Plan Free Text A P: This is a 41-year-old female, who has a [...] a drainable collection. Subsequently, on 12/30/2021 had a robotic-assisted diagnostic laporoscopy with lysis of pelvic adhesions, drainage of pelvic abscess on the left side. A drain was left in place. A small bowel or large bowel resection was deferred at that point. The patient has been on antibiotic treatment with Zosyn and metronidazole. Cultures from abscess showed Streptococcus anginosus. Since surgery, white count has fluctuated between 19, 000 to 16,000. Abdominal pain is less and [...] to evaluate for any residual fluid collection.- CT scan repeated 01/04 RECOMMENDATIONS continue with IV Zosyn planning oral abxs for discharge aspiration planned tomorrow case discussed with Dr. Harding we will continue to follow along with you Arvin Harding 01/08/22 1811: Attestations Physician Attestation Agree w/findings plan: Agree with the findings and plan as documented by Bala COBURN at 1928 at 1813 RPT #:[id number] END OF REPORT [facility] 2022-01-05 09:04:[address] [facility] ([facility]) Colorectal Surgery Prog Note REPORT#:[id number] REPORT STATUS: Signed DATE:01/05/22 TIME: 903 PATIENT: LORI CABRAL UNIT #: [id number] ROOM/BED: 2600-A : 81 AGE: 41 SEX: F ATTEND: Chandan Reaves MD ADM AUTHOR: Scott Nguyễn MD * ALL edits or amendments must be made on the electronic/computer document * Subjective Chief complaint: Abdominal pain and LLQ pelvic multiloculated mass Comments: PT feels well, passing BMs and eating well, no chills. Still complains of mild lower abdominal discomfort. Objective General VS/I O: Last Documented: Result Date Time Pulse Ox 97 01/05 0830 B/P 120/81 01/05 0830 B/P Mean 93.7 01/05 0830 O2 Delivery Room air 01/05 0830 Temp 36.7 01/05 0830 Pulse 66 01/05 0830 Resp 16 01/05 0830 O2 Flow Rate 10 12/30 195 24 hour I O ending at 0700: 01/05 0700 01/04 1900 Intake Total 430.00 300.00 Output Total 0 Balance 430.00 300.00 Intake, IV 230.00 300.00 Intake, Oral 200 Output, 0 Drainage PATIENT WEIGHT: Weight (lb): 130 Weight (oz): 1.16 Weight (kg): 59.000 Physical Exam Wound/incision: Location: CDI. Respiratory: aerating well Abdomen: tenderness (lower abdomen), soft, no distention, no guarding, no rebound, ELSIE drain is serous. Diagnosis, Assessment Plan Free Text A P: 4//0F with pelvic abscess on cross sectional imaging WBC remains elevated, vitals stable. Hgb stable. Continue IV abx, Continue PPI, Cotninue zofran as needed. Advance diet as tolerated. IF the WBC remains elevated consider CT scan with rectal contrast tomorrow to rule out undrained abscesses. remainder of care per BLIND INSTALLER. Discussed with Dr. Velarde. 01/04/22. PT is still [...] We will continue to follow. at 0909 RPT #:[id number] END OF REPORT [facility] 2022-01-05 07:46:[address] [facility] ([facility]) Clinical Note REPORT#:[id number] REPORT STATUS: Signed DATE:01/05/22 TIME: 745 PATIENT: LORI CABRAL UNIT #: [id number] ROOM/BED: [address] : 81 AGE: 41 SEX: F ATTEND: Chandan Reaves MD ADM AUTHOR: Chandan Reaves MD * ALL edits or amendments must be made on the electronic/computer document * Clinical Note Note: POD 5 s/p l-scope pelvic abscess drainage No new complaints Patient had discussion with CRS yesterday regarding IR drainage of residual abscess seen on CT 01/04/22. Pt agrees with plan. Also seen by ID 01/04/22 who agreed with antibiotic choice. at 0752 RPT #:[id number] END OF REPORT [facility] 2022-01-04 17:42:[address] [facility] ([facility]) Clinical Note REPORT#:[id number] REPORT STATUS: Signed DATE:01/04/22 TIME: 1741 PATIENT: LORI CABRAL UNIT #: [id number] ROOM/BED: [address] : 81 AGE: 41 SEX: F ATTEND: Chandan Reaves MD ADM AUTHOR: Chucky Velarde MD * ALL edits or amendments must be made on the electronic/computer document * Clinical Note Note: The patient was seen and evaluated with her mother in the room. The patient is doing well but feeling tired. She has completed the CT scan of the abdomen pelvis at this time. She denies any fevers or chills. She states she will have some discomfort in her lower pelvic region. But [...] we would defer to infectious disease regarding antibiotic treatment plan. Please call with any questions or concerns Efren Velarde MD [phone] at 1745 RPT #:[id number] END OF REPORT [facility] 2022-01-04 10:27:[address] [facility] ([facility]) Infect Dis Consult Note_ Brief REPORT#:[id number] REPORT STATUS: Signed DATE:01/04/22 TIME: 1027 PATIENT: LORI CABRAL UNIT #: [id number] ROOM/BED: [facility] [place]-[facility] : 81 AGE: 41 SEX: F ATTEND: Chandan Reaves MD ADM AUTHOR: Arvin Harding MD * ALL edits or amendments must be made on the electronic/computer document * History of Present Illness HPI Chief complaint: [id number] History - Adult longitudinal Past medical history: Reports: ADD/ADHD. Past surgical history: Reports: Appendectomy, , Hysterectomy, Spine surgery. Smoking status: Smoking status for patients 13 years old or older: Current every day smoker Packs per day: 0.5 Pack years: 0 Other social history: Local resident, Good social support Allergies: Coded Allergies: No Known Allergies (12/28/21) at 1346 RPT #:[id number] END OF REPORT [facility] 2022-01-04 10:27:00 [id number] [place] [address] patient name: lori cabral admit date: 12/29/21 account no: [id number] room no: .2600 age: 41 sex: f admitting physician: chandan reaves md attending physician: chandan reaves md consultation date: 01/04/2022 consulting physician: arvin harding md hematology consultation physician requesting consultation: chandan reaves jr, md consultation requested regarding: pelvic abscess, persistent leukocytosis. thank you for this consultation. history of present illness: this is a 41-year-old female, who has a history of hysterectomy in july or august of this year. has been unwell with abdominal pain, which has been going on for about a month, had been at outpatient facility, and which showed a ct scan showing a left lower quadrant inflammatory mass. the patient had been started on antibiotic treatment. seen by colorectal surgery. underwent an evaluation by ir, not a drainable collection. subsequently, on 12/30/2021 had a robotic-assisted diagnostic laporoscopy with lysis of pelvic adhesions, drainage of pelvic abscess on the left side. a drain was left in place. a small bowel or large bowel resection was deferred at that point. the patient has been on antibiotic treatment with zosyn and metronidazole. cultures from abscess showed streptococcus anginosus. since surgery, white count has fluctuated between 19,000 to 16,000. abdominal pain is less and has not had any febrile episodes. review of systems: heent: denies any headaches, visual complaints, sinus congestion, earache, throat pain, neck pain. respiratory: no cough or shortness of breath. cardiovascular: no chest pain or palpitations. gastrointestinal: some abdominal pain. genitourinary: no urinary symptoms. past medical history: appendectomy, , hysterectomy, spine surgery. allergies: no known drug allergies. chronic medications: reviewed. family history: noncontributory. social history: no active alcohol, tobacco, or drug use. patient name: lori cabral physical examination: vital signs: temperature 36.8, pulse 69, respiratory rate 18, blood pressure 136/88. heent: normocephalic and atraumatic. extraocular movements not assessed. neck: supple. lungs: fair entry bilaterally. clear to auscultation. heart: sounds s1, s2. abdomen: soft. left lower quadrant drain is in place. extremities: there is no cyanosis, clubbing, or edema. laboratory data: wbc count 17, hemoglobin 10.3, and platelets 571. assessment: this is a 41-year-old female, who had a pelvic abscess, status post laparoscopic drainage of multiloculated mass. probably related to small bowel or colon. cultures positive for streptococcus anginosus. persistent leukocytosis, need to evaluate for any residual fluid collection. recommendations: antibiotic regimen of zosyn to continue. will repeat ct scan of the abdomen and pelvis to evaluate for any residual collection. will discontinue metronidazole. zosyn adequate coverage for pelvic abscess. once repeat ct scan is done, can determine course and duration of antibiotic treatment. thank you for this consultation. will follow the patient along with you. dictated by: arvin harding md wt: con:bill/autumn/benigno dd: 01/04/2022 10:27:20 dt: 01/04/2022 12:16:46 conf#: [id number]/did#: [id number] authenticated by arvin harding md on 03/02/2022 03:29:03 pm electronically signed by arvin harding md on 03/02/22 at 0329 patient name: lori cabral [facility] 2022-01-04 07:28:[address] [facility] ([facility]) Clinical Note REPORT#:[id number] REPORT STATUS: Signed DATE:01/04/22 TIME: 727 PATIENT: LORI CABRAL UNIT #: [id number] ROOM/BED: 2600-A : 81 AGE: 41 SEX: F ATTEND: Chandan Reaves MD ADM AUTHOR: Chandan Reaves MD * ALL edits or amendments must be made on the electronic/computer document * Clinical Note Note: PPD 4 s/p l-scope by CRS for pelvic abscess drainage [...] (Auto) (14.5 - 29.7 %) 13.9 L [place] % (Auto) (3.6 - 10.2 %) 7.1 Eos % (Auto) (0.0 - 3.0 %) 2.5 Baso % (Auto) (0.1 - 0.9 %) 0.8 Neut # (Auto) (K/mm3) 12.3 Lymph # (Auto) (K/mm3) 2.4 [place] # (Auto) (K/mm3) 1.2 Eos # (Auto) [...] (NORMAL) NORMAL Microcytosis 1+ A/P Appreciate CRS involvement Afebrile and improving leukocytosis. No new imaging orders per CR Plan in ID consult as uncertainty of abx choice and micro results. at 0739 RPT #:[id number] END OF REPORT [facility] 2022-01-04 07:15:[address] [facility] ([facility]) Colorectal Surgery Prog Note REPORT#:[id number] REPORT STATUS: Signed DATE:01/04/22 TIME: 07 PATIENT: LORI CABRAL UNIT #: [id number] ROOM/BED: 2600-A : 81 AGE: 41 SEX: F ATTEND: Chandan Reaves MD ADM AUTHOR: Scott Nguyễn MD * ALL edits or amendments must be made on the electronic/computer document * See Addendum Subjective Chief complaint: Abdominal pain and LLQ pelvic multiloculated mass Comments: Pt feels better today, has tolerated crackers and bread, no nausea or vomiting reported. Still having bowel function. No chills, abd discomfort persists. Objective General VS/I O: Last Documented: Result Date Time Pulse Ox 96 01/04 333 B/P 138/86 01/04 0333 B/P Mean 103.6 01/04 033 O2 Delivery Room air 01/04 333 Temp 36.8 01/04 033 Pulse 70 01/04 033 Resp 18 01/04 033 O2 Flow Rate 10 12/30 195 24 hour I O ending at 0700: 01/04 0700 01/03 1900 Intake Total 690.00 1000.00 Output Total 1 15 Balance 689.00 985.00 Intake, IV 390.00 400.00 Intake, Oral 300 600 Output, 1 15 Drainage PATIENT WEIGHT: Weight (lb): 130 Weight (oz): 1.16 Weight (kg): 59.000 Nutrition assessment: The data set between the solid lines has been imported from the dietitian's assessment. Any exceptions have been noted under Provider comments. BMI Calculated: 23.8 Nutrition related diagnosis: Nutrition diagnosis details: Nutrition problem: Nutrition etiology: Nutrition signs and symptoms: Nutrition prescription: Dietitian name: Assessment completed: Provider comments on imported dietitian assessment: Physical Exam General appearance: alert, awake, oriented, no acute distress, mental status normal, no respiratory distress Wound/incision: Location: CDI. Respiratory: aerating well Abdomen: tenderness (difusely to deep palpation), soft, no distention, no guarding, no rebound, ELSIE drain is serous. Diagnosis, Assessment Plan Free Text A P: 4//0F with pelvic abscess on cross sectional imaging WBC remains elevated, vitals stable. Hgb stable. Continue IV abx, Continue PPI, Cotninue zofran as needed. Advance diet as tolerated. IF the WBC remains elevated consider CT scan with rectal contrast tomorrow to rule out undrained abscesses. remainder of care per BLIND INSTALLER. Discussed with Dr. Velarde. 01/04/22. PT is still [...] fluid collection can be drained percutaneously. at 1357 RPT #:[id number] END OF REPORT [facility] 2022-01-03 08:20:[address] [facility] ([facility]) Clinical Note REPORT#:[id number] REPORT STATUS: Signed DATE:01/03/22 TIME: 819 PATIENT: LORI CABRAL UNIT #: [id number] [address] AGE: 41 SEX: F ATTEND: Chandan Reaves MD ADM AUTHOR: Chandan Reaves MD * ALL edits or amendments must be made on the electronic/computer document * Clinical Note Note: POD #4 s/p l/s pelvic abscess drainage by [...] 1131 98.2 69 18 143/92 108.9 96 NAD Abd llq tenderness no rebound/guarding ELSIE drain with minimal drainage. Microbiology: 12/30 1409 ABSCESS: Wound Culture - RES STREPTOCOCCUS SPECIES 12/30 1409 ABSCESS: Anaerobic Culture - RES 12/30 1409 ABSCESS: Gram Stain - RES 12/28 0230 NASAL: MRSA Screen - RES Laboratory [...] % (Auto) (14.5 - 29.7 %) 15.2 [place] % (Auto) (3.6 - 10.2 %) 9.6 Eos % (Auto) (0.0 - 3.0 %) 1.7 Baso % (Auto) (0.1 - 0.9 %) 0.9 Neut # (Auto) (K/mm3) 11.5 Lymph # (Auto) (K/mm3) 2.6 [place] # (Auto) (K/mm3) 1.6 Eos # (Auto) [...] the same and WBC is elevated this am. Continues on Zosyn/Flagly and awaiting sensitivities. If no improvement CRS is recommending additional imaging. at 0828 RPT #:[id number] END OF REPORT [facility] 2022-01-03 07:53:[address] [facility] ([facility]) Colorectal Surgery Prog Note REPORT#:[id number] REPORT STATUS: Signed DATE:01/03/22 TIME: 752 PATIENT: LORI CABRAL UNIT #: [id number] [address] AGE: 41 SEX: F ATTEND: Chandan Reaves MD ADM AUTHOR: Scott Nguyễn MD * ALL edits or amendments must be made on the electronic/computer document * Subjective Chief complaint: Abdominal pain and LLQ pelvic multiloculated mass Comments: PT says that she has not vomited for 24 hrs, tolerating apple sauce. Having BMs. No fevers/chills. Complains of diffuse abdominal discomfort. Objective General VS/I O: Last Documented: Result Date Time Pulse Ox 99 01/03 041 B/P 123/82 01/03 0412 B/P Mean 95 01/03 0412 O2 Delivery Room air 01/04 412 Temp 36.8 01/03 041 Pulse 68 01/03 0412 Resp 18 01/03 041 O2 Flow Rate 10 12/30 1956 24 hour I O ending at 0700: 01/03 0700 01/02 1900 Intake Total 240 1600.00 Output Total 9 Balance 240 1591.00 Intake, IV 700.00 Intake, Oral 240 900 Number Voids 1 5 Output, 9 Drainage PATIENT WEIGHT: Weight (lb): 130 Weight (oz): 1.16 Weight (kg): 59.000 Physical Exam General appearance: alert, awake, oriented, no acute distress, mental status normal, no respiratory distress Wound/incision: Location: CDI. Respiratory: aerating well Abdomen: tenderness (difusely to deep palpation), soft, no distention, ELSIE drain is serous. Diagnosis, Assessment Plan Free Text A P: 41F with pelvic abscess on cross sectional imaging WBC remains elevated, vitals stable. Hgb stable. Continue IV abx, Continue PPI, Cotninue zofran as needed. Advance diet as tolerated. IF the WBC remains elevated consider CT scan with rectal contrast tomorrow to rule out undrained abscesses. remainder of care per BLIND INSTALLER. Discussed with Dr. Velarde. at 0757 RPT #:[id number] END OF REPORT [facility] 2022-01-02 15:39:[address] [facility] ([facility]) Clinical Note REPORT#:[id number] REPORT STATUS: Signed DATE:01/02/22 TIME: 153 PATIENT: LORI CABRAL UNIT #: [id number] ROOM/BED: [address] : 81 AGE: 41 SEX: F ATTEND: Chandan Reaves MD ADM AUTHOR: Lindsey Zimmerman MD * ALL edits or amendments must be made on the electronic/computer document * Clinical Note Note: yardage caller for Dr. Reaves POD#3,s/p L/S drainage of [...] Room air General :NAD Laboratory Tests: 01/02 05 Hematology WBC (6.5 - 12.3 K/mm3) 16.8 [...] % (Auto) (14.5 - 29.7 %) 15.2 [place] % (Auto) (3.6 - 10.2 %) 9.6 Eos % (Auto) (0.0 - 3.0 %) 1.7 Baso % (Auto) (0.1 - 0.9 %) 0.9 Neut # (Auto) (K/mm3) 11.5 Lymph # (Auto) (K/mm3) 2.6 [place] # (Auto) (K/mm3) 1.6 Eos # (Auto) (K/mm3) 0.29 Baso # (Auto) (K/mm3) 0.2 A/P POD#3,s/p L/S drainage of pelvic mass -afebrile and vitals stable -leukocytosis improving -GI: tolerating clear lig diet. Continue current management as recommended by Colorectal service. at 1548 RPT #:[id number] END OF REPORT [facility] 2022-01-01 17:31:[address] [facility] ([facility]) Clinical Note REPORT#:[id number] REPORT STATUS: Signed DATE:01/01/22 TIME: 1731 PATIENT: LORI CABRAL UNIT #: [id number] ROOM/BED: [address] : 81 AGE: 41 SEX: F ATTEND: Chandan Reaves MD ADM AUTHOR: Magali Carlson MD * ALL edits or amendments must be made on the electronic/computer document * Clinical Note Note: Pt reports continued pain. Reports that the pain is making her nauseous. She has had several episodes of vomiting despite starting zofran. Last episode with possible coffee grounds. Toradol discontinued, change diet back to clears Abdomen mildly distended, hypoactive bowel sounds Plan to continue IV pain meds and zofran. Protonix IV per colorectal will continue to follow at 1736 RPT #:[id number] END OF REPORT [facility] 2022-01-01 15:55:[address] [facility] ([facility]) Clinical Note REPORT#:[id number] REPORT STATUS: Signed DATE:01/01/22 TIME: 155 PATIENT: LORI CABRAL UNIT #: [id number] ROOM/BED: [address] : 81 AGE: 41 SEX: F ATTEND: Chandan Reaves MD ADM AUTHOR: Magali Carlson MD * ALL edits or amendments must be made on the electronic/computer document * Clinical Note Note: Pt had starte PO pain meds, reported nausea and had episode of vomiting. Pt is now asleep. Nurse staff states that pt's pain is being reported as 8/10 Will change back to toradol and dilaudid for now, zofran OTC. will return to assess pt when awake at 1556 RPT #:[id number] END OF REPORT [facility] 2021-12-31 17:17:[address] [facility] ([facility]) Clinical Note REPORT#:[id number] REPORT STATUS: Signed DATE:12/31/21 TIME: 1716 PATIENT: LORI CABRAL UNIT #: [id number] ROOM/BED: [address] : 81 AGE: 41 SEX: F ATTEND: Chandan Reaves MD ADM AUTHOR: Chandan Reaves MD * ALL edits or amendments must be made on the electronic/computer document * Clinical Note Note: Patient is feeling well Passing gas, requesting reg diet s/p Pelvic abscess washout by CRL Will advance diet and change to PO pain meds. at 1718 RPT #:[id number] END OF REPORT [facility] 2021-12-31 07:22:[address] [facility] ([facility]) Clinical Note REPORT#:[id number] REPORT STATUS: Signed DATE:12/31/21 TIME: 721 PATIENT: LORI CABRAL UNIT #: [id number] ROOM/BED: [address] : 81 AGE: 41 SEX: F ATTEND: Chandan Reaves MD ADM AUTHOR: Chandan Reaves MD * ALL edits or amendments must be made on the electronic/computer document * Clinical Note Note: POD 1 s/p l-scope drainage of pelvic abscess Patient feeling well no n/v no flatus Vital Signs Date Time Temp Pulse [...] 18 115/79 91.0 99 Room air 12/29 2001 98.6 85 18 109/72 84.7 98 Room [...] (Auto) (14.5 - 29.7 %) 5.2 L [place] % (Auto) (3.6 - 10.2 %) 4.9 Eos % (Auto) (0.0 - 3.0 %) 0.0 Baso % (Auto) (0.1 - 0.9 %) 0.4 Neut # (Auto) (K/mm3) 23.5 Lymph # (Auto) (K/mm3) 1.4 [place] # (Auto) (K/mm3) 1.3 Eos # (Auto) (K/mm3) 0 Baso # (Auto) (K/mm3) 0.1 Microbiology: Date/Time Procedure - Status Source Growth 12/30 1410 Wound Culture - RECD ABSCESS 12/30 1410 Anaerobic Culture - RECD ABSCESS 12/30 1410 Gram Stain - RECD ABSCESS DC IV fluids in change to oral meds Folliow CBC Advance diet per CRS at 0726 RPT #:[id number] END OF REPORT [facility] 2021-12-31 06:30:[address] [facility] ([facility]) Colorectal Surgery Prog Note REPORT#:[id number] REPORT STATUS: Signed DATE:12/31/21 TIME: 629 PATIENT: LORI CABRAL UNIT #: [id number] ROOM/BED: [address] : 81 AGE: 41 SEX: F ATTEND: Chandan Reaves MD ADM AUTHOR: Thony Stallworth DO * ALL edits or amendments must be made on the electronic/computer document * Subjective Chief complaint: Abdominal pain and LLQ pelvic multiloculated mass HPI: S/p drainage of intraabdominal abscess. WBC 27. Feeling better lower abdominal pain Review of Systems All systems rev neg: except as marked Objective General VS/I O: Last Documented: Result Date Time Pulse Ox 96 12/31 342 B/P 101/68 12/31 342 B/P Mean 78.7 12/31 342 O2 Delivery Room air 12/31 342 Temp 97.9 12/31 342 Pulse 65 12/31 342 Resp 18 12/31 342 O2 Flow Rate 10 12/30 1956 24 hour I O ending at 0700: 12/31 0700 12/30 1900 Intake Total 1600.00 1500.00 Output Total 1900 300 Balance -300 1200.00 Intake, IV 1100.00 1500.00 Intake, Oral 500 Output, 200 40 Drainage Output, 10 Estimated Blood Loss Output, Urine 1700 250 Patient 59 kg Weight Weight Standing scale Measurement Method PATIENT WEIGHT: Weight (lb): 130 Weight (oz): 1.16 Weight (kg): 59.000 Physical Exam Respiratory: aerating well Abdomen: soft, no distention, +LLQ TTP, mild TTP in suprapubic/RLQ as well, well healed incisions; ELSIE drain serosanguinous Diagnosis, Assessment Plan Free Text A P: 41F with pelvic abscess on cross sectional imaging Monitor drain outputs continue IV abx fu cultures continue cld for now repeat CBC/labs in AM tomorrow OOB as tolerated remainder of care per BLIND INSTALLER at [address] [facility] #:[id number] END OF REPORT [facility] 2021-12-30 16:08:00 [id number] [facility] [address], [place] [address] PATIENT NAME: LORI CABRAL ADMIT DATE: 12/29/21 ACCOUNT NO: [id number] ROOM NO: 260 AGE: 41 SEX: F ADMITTING PHYSICIAN: Chandan Reaves MD ATTENDING PHYSICIAN: Chandan Reaves MD OPERATION DATE: 12/30/2021 SURGEON: Chucky Velarde MD PREOPERATIVE DIAGNOSES: 1. Left lower quadrant pain. 2. Multiloculated collection concerning for abscess. POSTOPERATIVE DIAGNOSES: 1. Left lower quadrant pain. 2. Multiloculated abscess. PROCEDURES PERFORMED: 1. Robotic-assisted diagnostic laparoscopy with lysis of pelvic adhesions. 2. Robotic-assisted laparoscopic drainage of pelvic abscess on the left side. 3. Robotic-assisted laparoscopic placement of 19-round Taran drain. DEVICES: None. IMPLANTS: A 19 round Taran drain placed along the left lower quadrant and pelvis. ANESTHESIA: General. INDICATIONS: The patient is a 41-year-old female with history of roughly 1 month of worsening abdominal pain with fevers and chills. She presents for surgical exploration secondary to inability to place interventional radiology drain and continued elevated WBC while on antibiotics. We have spoken with interventional radiology, Dr. Mccurdy and he stated that there was no window to achieve adequate drainage. FINDINGS: Entry into the abdomen was achieved via Optiview technique in the right upper quadrant. Upon entry to the abdomen, there was noted to be multiple loops of small bowel and the sigmoid colon adherent to the pelvis and left lower abdominal and pelvic peritoneum. We then placed 3 other ports including the left upper, right lower quadrant and umbilical port sites. These were placed under direct visualization. Then, we docked the robot. We noted that there were multiple inflame loops of bowel with dense adherence to each other as well as the peritoneum. We were able to carefully lyse these down from the abdominal wall and upon doing so, we started to come to the lateral aspect of the sigmoid colon. Upon doing so further, we entered into an abscess cavity, which roughly about 10 to 15 mL of purulent material was expressed from the area. We PATIENT NAME: LORI CABRAL irrigated and suctioned this locally. Then, any further dissection would have jeopardized the bowel and likely caused the bowel injury. Therefore, we elected to place a 19 round Taran drain in the area. No overt bowel injury was identified during the lysis of adhesions portion. Most of the lysis of adhesion was performed with blunt and minimal sharp dissection. The drain was secured in place. We desufflated the abdomen. Due to her thin body habitus, we did place a 0 Vicryl stitch in the fascia at 2 other port sites for we could see the fascia. Of note, the liver was very low lying and there was a small rent created in the liver parenchyma during entry into the right upper quadrant; however, this appeared to be hemostatic at the end of the case. PROCEDURE IN DETAIL: The patient was seen and evaluated in preoperative holding. Proper consents were obtained. All questions were answered prior taken back to the operating theater. We had spoken to her and her mother regarding steps. We informed them that our goal was to drain the collection and then to see if we could identify the source of the abscess. They wished to proceed with drainage and possible small bowel resection, but avoid any sigmoid or colon resection if at all possible. At this point, the patient was brought to the operating theater and placed in supine position. The patient underwent general anesthesia via anesthesia staff. Proper time-out occurred with everyone in agreement of procedure. The patient was then placed in modified lithotomy position. Alonso catheter was placed by OR team. The patient was prepped and draped in normal sterile fashion. Proper time-out occurred with her in agreement of procedure. Entry into the abdomen was achieved via Optiview technique in the right upper quadrant. Upon entry into the abdomen, there was noted to be a small rent in the liver; however, this appeared hemostatic at the end of the case. We then placed 3 other ports in the abdomen, 1 in the right mid and 1 in the umbilical and one in the left upper abdomen. These ports were placed under direct visualization. Once we placed the patient in Trendelenburg position, we docked the robot and noted there were multiple loops of small bowel adherent into the pelvis and the left lower pelvic sidewall. Also, the sigmoid colon was noted to be thickened and inflamed up to the descending colon and adherent into the left lower quadrant as well. We were able to use the camera and looking into the pelvis, we could see the PATIENT NAME: LORI CABRAL right ovary, which appeared to be uninvolved. The left side was then we were not able to visualized. Therefore, we started blunt and minimal sharp dissection in order to lyse adhesions down into the pelvis. The colon was carefully peeled off of the anterior abdominal wall and the left lateral sidewall. Upon doing so, we started to see a pocket on the left as we were going into the pelvis. Upon entry into the pocket and we opened this up, there was noted to be copious amounts of purulent drainage. The drainage was thick white drainage. We cultured this and sent off as pelvic abscess and we irrigated the area locally. We then placed a 19 round Taran drain under laparoscopic guidance at the area and secured this to the skin. After this was accomplished, we checked the abdomen and pelvis for hemostasis, which appeared to be achieved and then, we evaluated the bowel and the colon. Of note, the small bowel and the sigmoid colon were densely adherent to each other. Most of the loops of bowel present in the pelvis were inflamed and thickened. We could not free up any further without concern for bowel injury. At this point, the ports were removed. Due to her body habitus and being so thin, we noted the fascia when we removed the ports. Therefore, we put a stitch on this with 0 Vicryl in order to close the fascial edges that we could see. This was done with careful visualization of the peritoneum underneath it. At this point, all counts were correct at the end of the case. The patient tolerated the procedure well. Dr. Reaves was present for the critical portions of the procedure and was consulted during the procedure. Dictated By: Chucky Velarde MD WT: OP:BILL/MARIA ISABEL/BENIGNO Conf#: [id number]/DID#: [id number] Authenticated by Chucky Velarde MD On 01/03/2022 01:00:55 PM at 0100 PATIENT NAME: LORI CABRAL [facility] 2021-12-30 08:43:[address] [facility] ([facility]) Clinical Note REPORT#:[id number] REPORT STATUS: Signed DATE:12/30/21 TIME: 842 PATIENT: LORI CABRAL UNIT #: [id number] ROOM/BED: [address] : 81 AGE: 41 SEX: F ATTEND: Chandan Reaves MD ADM AUTHOR: Chandan Reaves MD * ALL edits or amendments must be made on the electronic/computer document * Clinical Note Note: Patient has no new complaints Vital Signs Date [...] 99 Discussed plan for dx-l-scope and possible oophorectomy. Patient is in agreement. Appreciate CRS involvement in taking lead on surgery given the probabilty of bowel involvement. at 0845 RPT #:[id number] END OF REPORT [facility] 2021-12-30 07:37:[address] [facility] ([facility]) Colorectal Surgery Prog Note REPORT#:[id number] REPORT STATUS: Signed DATE:12/30/21 TIME: 07 PATIENT: LORI CABRAL UNIT #: [id number] ROOM/BED: [address] : 81 AGE: 41 SEX: F ATTEND: Chandan Reaves MD ADM AUTHOR: Chucky Velarde MD * ALL edits or amendments must be made on the electronic/computer document * Subjective Chief complaint: Abdominal pain and LLQ pelvic multiloculated mass HPI: 41 year old female with a history of LLQ abdominal pain and elevated WBC. She is doing okay this morning but still with LLQ pain. She was tolerating some liquids. She states she was having bowel movements as of last night. She denies fever over night. She is ambulatory. Objective General VS/I O: Last Documented: Result Date Time Pulse Ox [...] IV 1200.00 1300.00 PATIENT WEIGHT: Weight (lb): 130 Weight (oz): 1.16 Weight (kg): 59.000 Physical Exam Respiratory: aerating well Abdomen: soft, no distention, +LLQ TTP, mild TTP in suprapubic/RLQ as well, well healed incisions Diagnosis, Assessment Plan Free Text A P: 41F with pelvic abscess on cross sectional imaging Continue IV abx imaging reviewed with radiology, abscess etiology difficult to surmise based on imaging. 12/29/2021: IR (Dr. Alvarado) has stated that there is not a safe window for pecutaneous drainage NPO for now pending surgical exploration with possible drainage monitor labs Serial abdominal exams at 0742 RPT #:[id number] END OF REPORT [facility] 2021-12-29 12:32:[address] [facility] ([facility]) Clinical Note REPORT#:[id number] REPORT STATUS: Signed DATE:12/29/21 TIME: 1232 PATIENT: LORI CABRAL UNIT #: [id number] ROOM/BED: [address] : 81 AGE: 41 SEX: F ATTEND: Chandan Reaves MD ADM AUTHOR: Chandan Reaves MD * ALL edits or amendments must be made on the electronic/computer document * Clinical Note Note: Updated patient IR reviewed films and states patient is not a candidate for drainage. Patient denies h/o STIs. Explained TOA is usually associated with STI. Patient does not have a uterus or fallopian tubes but there are case reports of ovarian abscess 10 years after a hyst. Considering dx l-scope with washout and possible oophorectomy versus continue abx treatment as patient is afebrile and WBC is declining. Patient defers decision to managing doctors. at 1237 RPT #:[id number] END OF REPORT [facility] 2021-12-29 07:39:[address] [facility] ([facility]) Clinical Note REPORT#:[id number] REPORT STATUS: Signed DATE:12/29/21 TIME: 0739 PATIENT: LORI CABRAL UNIT #: [id number] ROOM/BED: [address] : 81 AGE: 41 SEX: F ATTEND: Chandan Reaves MD ADM AUTHOR: Chandan Reaves MD * ALL edits or amendments must be made on the electronic/computer document * Clinical Note Note: HD#2 Pelvic abscess No new complaints Vital Signs Date Temp Pulse [...] (Auto) (14.5 - 29.7 %) 9.7 L [place] % (Auto) (3.6 - 10.2 %) 10.2 Eos % (Auto) (0.0 - 3.0 %) 2.0 Baso % (Auto) (0.1 - 0.9 %) 0.6 Neut # (Auto) (K/mm3) 14.9 Lymph # (Auto) (K/mm3) 1.9 [place] # (Auto) (K/mm3) 2.0 Eos # (Auto) [...] 0230 MRSA Screen - RECD NASAL Recent Impressions: CAT SCAN - CT ABD PELVIS W/CONT 12/28 0944 Report Impression - Status: SIGNED Entered: 12/28/2021 1020 IMPRESSION: Findings compatible with abscess noted in the left pelvic region as described above. Small amount of free fluid noted in the pelvic region. Bilateral bibasilar hypoventilatory changes noted. Impression By: Ralph Branch MD s/p CRS evaluation Possibility of drainage by IR. at 0741 RPT #:[id number] END OF REPORT [facility] 2021-12-29 07:31:[address] [facility] ([facility] Colorectal Surgery Prog Note REPORT#:[id number] REPORT STATUS: Signed DATE:12/29/21 TIME: 730 PATIENT: LORI CABRAL UNIT #: [id number] ROOM/BED: [address] : 81 AGE: 41 SEX: F ATTEND: Chandan Reaves MD ADM AUTHOR: Thony Stallworth DO * ALL edits or amendments must be made on the electronic/computer document * Subjective HPI: No events, still with LLQ pain. Imaging reviewed with radiology, abscess etiology unclear, possible ToA Review of Systems All systems rev neg: except as marked Objective General VS/I O: Last Documented: Result Date Time Pulse Ox 96 12/295 B/P 119/82 12/29 0435 B/P Mean 94.3 12/29 0435 O2 Delivery Room air 12/29 434 Temp 99.3 12/29 434 Pulse 86 12/29 0435 Resp 16 12/29 434 24 hour I O ending at 0700: 12/29 0700 12/28 1900 Intake Total 700.00 1300.00 Output Total Balance 700.00 1300.00 Intake, IV 700.00 1300.00 PATIENT WEIGHT: Weight (lb): 130 Weight (oz): 1.16 Weight (kg): 59.000 Physical Exam General appearance: alert, awake, oriented Respiratory: aerating well Abdomen: soft, no distention, +LLQ TTP, mild TTP in suprapubic/RLQ as well Diagnosis, Assessment Plan Free Text A P: 41F with pelvic abscess on cross sectional imaging Continue IV abx imaging reviewed with radiology, abscess etiology difficult to surmise based on imaging. possible ToA given history would reach out to IR to evaluate for possible percutaneous drainage NPO for now pending possible drainage monitor labs will follow at 0734 RPT #:[id number] END OF REPORT [facility] 2021-12-29 02:51:[address] [facility] ([facility]) OB Delivery Note REPORT#:[id number] REPORT STATUS: Signed DATE:12/29/21 TIME: 250 PATIENT: LORI CABRAL UNIT #: [id number] ROOM/BED: [address] : 81 AGE: 41 SEX: F ATTEND: Chandan Reaves MD ADM AUTHOR: Chandan Reaves MD * ALL edits or amendments must be made on the electronic/computer document * See Addendum OB Delivery Pre-delivery [place] evaluation at delivery: NRP certified personnel Admission EGA: Weeks: 40 Days: 1 EGA at delivery (wks/days): 40 weeks (2 days) Admission indication: Labor Blood Loss/Details Blood loss at delivery: <1K: no sx hypovol=no hem, no more than expected EBL at delivery (ml's): 300 Baby A Information Baby A information Delivery date: 12/29/21 Delivery time: 229 status: live born Wt of baby: not yet available Gender: female 1 minute: 8 5 minutes: 9 Presentation: vertex Nuchal cord Baby A Nuchal cord: no Vaginal Delivery Vaginal Delivery Vaginal delivery: Labor: spontaneous Vaginal delivery: spontaneous Amniotic fluid: clear Anesthesia type: epidural anesthesia Episiotomy: none Episiotomy repair: not applicable Laceration repair: yes, 2-0 suture Placenta: spontaneous Post delivery meds used: oxytocin Count: correct Vaginal packing: No Mother's condition: mother stable Infant's condition: stable in room Lacerations: Perineal laceration(s): 2nd Degree Shoulder dystocia present: no at 0253 Addendum 1: 12/29/21 025 by Chandan Reaves MD Disregard above note. Wrong patient. at 0258 RPT #:[id number] END OF REPORT [facility] 2021-12-28 18:59:00 [id number] [facility] [address], [place] [address] PATIENT NAME: LORI CABRAL ADMIT DATE: 12/28/21 ACCOUNT NO: [id number] ROOM NO: 2600 AGE: 41 SEX: F ADMITTING PHYSICIAN: Chandan Reaves MD ATTENDING PHYSICIAN: Chandan Reaves MD CONSULTATION DATE: 12/28/2021 CONSULTING PHYSICIAN: Chucky Velarde MD SURGEON: Chucky Velarde MD CONSULTING SERVICE: Colorectal surgery. REASON FOR CONSULTATION: Abdominal pain and left lower quadrant inflammatory process. CHIEF COMPLAINT: Abdominal pain. HISTORY OF PRESENT ILLNESS: The patient is a 41-year-old female who presents after transfer from an outside facility due to concern for pelvic infection and left ovarian versus small bowel inflammatory process. The patient states she has had intermittent abdominal pain and cramps over the last month or so. She has had times where she has had severe pain. This led her to an episode of syncope due to the pain. This is the only time this has occurred. It took her a few minutes to regain consciousness, but she was transferred to the hospital at that time. The symptoms were also related to nausea and decreased p.o. intake. She thinks she has lost some weight; however, during the hospital stay, she has gained a little bit of weight back as well. She states that her bowel habits have never been "regular", but she denies any consistent diarrhea or constipation. She has had some decreased p.o. intake. In the past, she had undergone an uncomplicated same day hysterectomy by Dr. Reaves in July or August of this year. She states she recovered well from this and her symptoms really did not start until roughly 1 month ago. She has had fevers at home up to 103, but also she has had multiple low-grade temperatures. On outside laboratory work at the other facility, it was noted that she had a WBC of 30. She was initially started on antibiotics including doxycycline and Rocephin. CT scan of the abdomen and pelvis was performed as well as ultrasound. The images are being uploaded into the [facility] imaging system. At the outside facility, there was concern that this could be small bowel involvement with an inflammatory process and surgery was consulted. PATIENT NAME: LORI CABRAL During her current hospital stay, she states the pain has improved. She has not had the significant fevers that she was having before. She states she is tolerating some diet. She states she is having bowel movements. She denies any vomiting episodes at this time. The abdominal pain is mostly in the lower abdomen, worse on the left than right. She states that she has had no significant blood per rectum, dark stools, or black stools. She has not had a colonoscopy. She denies any family history of ulcerative colitis, Crohn's disease, colon cancer, colon polyps. We reviewed her outside chart from [facility] including laboratory work and urinalysis, which was negative. Her COVID test was negative. Her white blood cell count on 12/27/2021 was 24.4. Hemoglobin was 11.5. SOCIAL HISTORY: The patient denies alcohol use, illicit substance use, and is currently an every day smoker since the age of 13. PAST MEDICAL HISTORY: Significant for ADHD, endometriosis, abdominal pain, status post back surgery. PAST SURGICAL HISTORY: Includes appendectomy, section, hysterectomy performed laparoscopically in 2021, and anterior approach for back surgery with hardware implantation. HOME MEDICATIONS: None. We reviewed her current medications in the hospital. ALLERGIES: NONE. REVIEW OF SYSTEMS: SKIN: Shows no rashes or itching, well-healed incisions. HEAD: Shows no headaches, but history of syncope. EYES: Show no double vision or flashing lights. EARS: Show no changes in hearing. NOSE AND SINUSES: No nosebleeds or congestion. ALLERGIES: NO KNOWN DRUG ALLERGIES. MOUTH AND THROAT: Showed no swelling or cough. NECK: Shows no lumps or lymph nodes. BREASTS: Show no pain or discharge. RESPIRATORY: No shortness of breath, cough, or wheezing. GASTROINTESTINAL: As stated above, but with decreased p.o. intake and no blood in the stool. URINARY: Shows no difficulty with urination, slight discomfort of lower abdominal pain with urination. No blood in the urine. PERIPHERAL VASCULAR: Shows no cramps or varicose veins. MUSCULOSKELETAL: Shows positive back pain and status post back surgery. NEUROLOGIC: Shows history of syncope, first episode one month ago. HEMATOLOGIC: History of anemia. ENDOCRINE: Shows no abnormal growth, increased thirst or appetite. PSYCHIATRIC: Appropriate judgment and insight. No history of anxiety. PATIENT NAME: LORI CABRAL PHYSICAL EXAMINATION: GENERAL: Awake, alert, and oriented x3. SKIN: Shows no rash or ecchymosis. Positive tattoos on the abdomen. Multiple skin incisions from prior surgery including a lower midline and laparoscopic port sites. HEENT: Shows clear oropharynx. EYES: Extraocular motions intact. Appropriate hearing. NECK: Shows no masses. CHEST: Shows no cough, wheezing, or shortness of breath. CARDIOVASCULAR: Shows positive peripheral pulses. GASTROINTESTINAL: Shows nondistended, no rebound but some slight voluntary guarding present. Pain on deep palpation in the left lower and right lower and suprapubic regions. No peritoneal signs appreciated at this time. GYNECOLOGIC: Status post hysterectomy. GENITOURINARY: Currently voiding on own. NEUROLOGIC: Intact with no deficits appreciated. MUSCULOSKELETAL: Shows no joint pain or swelling to extremities. PSYCHIATRIC: Appropriate judgment and insight. VITAL SIGNS: Show most recent temperature is 36.8, pulse 84, respiratory rate 18, blood pressure 111/77, and pulse ox 98. LABORATORY WORK: Reviewed with WBC of 20, hemoglobin 10.7, hematocrit 32.6, and platelet count 403. Sodium 138, potassium 3.6, chloride 103, bicarbonate 27, BUN 4, creatinine 0.6, glucose 113, and calcium 8.3. RADIOGRAPHIC STUDIES: Reviewed including a CT scan performed at the [facility]. We reviewed the images. There does appear to be a multiloculated or loculated cystic structure in the left lower abdominal/pelvic region. The colon appears to be separate from the area. There are loops of small bowel present as well. There may be some enteritis associated or reactive. There does not appear to be any free air. There is no diverticula that we can fully appreciate on this side. ASSESSMENT AND PLAN: A 41-year-old female presenting with abdominal pain and inflammatory process on CT scan concerning for ovarian abscess versus small bowel enteritis, leukocytosis, history of fever and nausea and decreased p.o. appetite, status post hysterectomy in July or August of this year. 1. Serial abdominal exams. 2. We had the CT scan imaging from the outside facility brought to radiology for upload. We will compare the images with the radiologist and discuss next steps and intervention. 3. At this time, we will discuss potential interventional radiology drainage, particularly with the continued elevated white blood cell count in the setting of recent IV antibiotic use. 4. If interventional radiology is not capable, then consideration for either early repeat imaging study versus surgical washout and exploration with possible oophorectomy versus drain placement. 5. At this time, we would recommend n.p.o. after midnight in case interventional radiology would be performed. We recommend IV antibiotics and IV fluids. Recommend pain control. 6. Recommend deep venous thrombosis and gastrointestinal prophylaxis. 7. At this time, we would trend labs as well. We discussed these findings with the patient as well as Dr. Reaves. PATIENT NAME: LORI CABRAL Thank you for this consultation and we will continue to follow along with the patient. Dictated By: Chucky Velarde MD WT: CON:BILL/MARIA ISABEL/BENIGNO Conf#: [id number]#: [id number] Authenticated by Chucky Velarde MD On 12/29/2021 07:31:44 AM at 0731 PATIENT NAME: LORI CABRAL [facility] 2021-12-28 07:39:00 [facility] ([facility]) Clinical Note REPORT#:[id number] REPORT STATUS: Signed DATE:12/28/21 TIME: 0739 PATIENT: LORI CABRAL UNIT #: [id number] ROOM/BED: [address] : 81 AGE: 41 SEX: F ATTEND: Chandan Reaves MD ADM AUTHOR: Chandan Reaves MD * ALL edits or amendments must be made on the electronic/computer document * Clinical Note Note: HD #1 - Transfer from [place] Patient has no complaints this am. No BM for 1 week. Abdominal pain is stable. Vital Signs: Date Time Temp Pulse Resp B/P B/P Pulse O2 O2 Flow FiO2 Mean Ox Delivery Rate 12/28 0720 98.4 71 16 102/69 80.2 99 12/28 0338 98.6 79 16 104/69 80.4 97 Room air 12/27 2355 98.6 87 18 129/87 101 98 NAD Conversant Unlabored breathing Abd mild left lower quadrant tenderness No rebound or guarding Laboratory Tests Test Result [...] ALT (12 - 78 units/L) 13 12/28 0515 Total Alk Phosphatase (46 - 116 units/L) 106 12/28 0515 Total Protein (6.3 - 8.2 gm/dL) 5.5 L 12/28 0515 Albumin (3.4 - 4.8 gm/dL) 2.3 L 12/28 0515 Hematology WBC (6.5 - 12.3 K/mm3) 20.8 *H 12/28 0515 RBC (3.51 - 4.69 M/mm3) 3.44 L 12/28 0515 Hgb (10.1 - 13.8 g/dL) 10.7 12/28 0515 Hct (32.5 - 41.8 %) 32.6 12/28 05 MCV (84.6 - 96.6 fL) 94.8 12/28 05 MCH (27.3 - 33.9 pg) 31.1 12/28 05 MCHC (32.0 - 34.2 gm/dL) 32.8 12/28 0515 RDW (12.2 - 16.3 %) 13.2 12/28 05 Plt Count (134 - 363 K/mm3) 403 H 12/28 05 MPV (9.2 - 12.7 fL) 9.9 12/28 05 Add Manual Diff YES 12/28 514 Total Counted (#CELLS) 100 12/28 514 Seg Neutrophils % (56.5 - 79.4 %) 76 12/28 0515 Lymphocytes % (Manual) (20 - 40 %) 11 L 12/28 0515 Monocytes % (Manual) (0 - 8 %) 12 H 12/28 0515 Eosinophils % (Manual) (0 - 4 %) 1 12/[address] pending 41 yo s/p TLH/BS on 08/09/21 admitted for nausea and abdominal pain with fever and leukocyctosis in [place]. Pelvic scan showed normal ovaries. CT showed [...] to help with constipation. at 0759 RPT #:[id number] END OF REPORT [facility] 2021-12-28 01:13:[address] [facility] ([facility]) History Physical - Adult REPORT#:[id number] REPORT STATUS: Signed DATE:12/28/21 TIME: 0113 PATIENT: LORI CABRAL UNIT #: [id number] [address] AGE: 41 SEX: F ATTEND: Chandan Reaves MD ADM AUTHOR: Karen De La Rosa MD * ALL edits or amendments must be made on the electronic/computer document * History of Present Illness HPI Chief complaint: abdominal pain HPI: pt is transferred from outside facility for continued care for presumed pelvic infection - left ovarian vs small bowel. Pt reports intermittent abdominal pain associated with nausea over the past month. She [...] zosyn and flagyl. blood cultures negative. Ekg negative Informant/historian: patient History Past medical history: Reports: ADD/ADHD. Past surgical history: Reports: Appendectomy, , Hysterectomy, Spine surgery. Smoking status: Smoking status for patients 13 years old or older: Current every day smoker Other social history: Local resident, Good social support Medication/Allergy-Vaccine Hx Medications: Current Hospital Medications: Anti-Infective Agents Sig/Jax Start time Last Medication Dose Route Stop Time Status Admin Metronidazole/Sodium 100 ML Q8H 12/28 114 UNV Chloride IV 02/26 114 (metroNIDAZOLE 500 MG PREMIX IV) Piperacillin Sod/ 3.375 GM Q6H 12/28 114 UNV Tazobactam Sod IV 02/26 114 (PIPERACILLIN/ TAZOBACTAM 3 GM/ 0.375 GM INJ.) Sodium Chloride 100 ML (SODIUM CHLORIDE 0.9% 100 ML ADD- [place]) Antihistamine Drugs Sig/Jax Start time Last Medication [...] 114 CKD (morphine SULFATE IV 01/11 111 CONCERT SINGER 1 MG/ML 30ML) Naloxone HCl 0.4 MG [...] ML ASDIR 12/28 114 AC Chloride IV 02/26 114 (DEXTROSE 5% WITH NORMAL SALINE 1000ML) Gastrointestinal Drugs Sig/Jax Start time Last Medication Dose Route Stop Time Status Admin Pantoprazole Sodium 40 MG DAILY@0800 12/28 0800 AC (PROTONIX) PO 02/26 075 Ondansetron HCl 4 MG Q4H PRN PRN 12/28 114 AC (ZOFRAN 2 MG/ML 4 MG IV 02/26 114 SYR) Allergies: Coded Allergies: No Known Allergies (12/28/21) Review of Systems Skin: Denies: rash. Respiratory: Denies: BEAL (dyspnea on exertion), SOB. Cardiovascular: Denies: chest pain, edema, palpitations. GI: Reports: abdominal pain, anorexia, nausea, vomiting. Denies: constipation, diarrhea, hematochezia, melena, rectal pain. : Denies: dysuria, vaginal discharge. Neuro: Denies: focal weakness, headache, seizure. Psych: Denies: change in mental status. Physical Exam VS/I O Vital Signs: Date Time Temp Pulse Resp B/P B/P Pulse O2 O2 Flow FiO2 Mean Ox Delivery Rate 12/27 2355 98.6 87 18 129/87 101 98 24 hour I O ending at 0700: 12/28 0700 12/27 1900 Intake Total Output Total Balance Patient 59 kg Weight Weight Standing scale Measurement Method PATIENT WEIGHT: Weight (lb): 130 Weight (oz): 1.16 Weight (kg): 59.000 General appearance: alert, awake, oriented, no acute distress, pleasant, conversational, mental status normal, no respiratory distress Head/Eyes: atraumatic ENT: moist mucosal membranes Cardiovascular: regular rate rhythm Respiratory: clear to auscultation Abdomen/GI: soft, non-tender, no guarding, no rebound, no distention Genitourinary: deferred Extremities: no edema-all extremities Neuro/[employer]SMITTER [employer]PER[employer]: alert, oriented X 3, normal speech Psychiatry: normal affect, normal judgment/insight, normal mood Diagnosis, Assessment Plan Free Text DxA P Notes Free Text DxA P Notes: 41 year old with abdominal pain, LLQ inflammation on CT scan TOA vs small bowel enteritis, leukocytosis, fever, nausea, decreased appetite. She had uncomplicated recovery from hysterectomy, these symptoms started approximately a month ago well after surgical recovery. Unlikely TOA given history of hysterectomy. Exam benign upon admit. Continue IV antibiotics, anti emetics, pain control NPO for now. Will hold lovenox for now. CT scan in am, surgical consult after CT scan results. repeat labs in am. at 0131 RPT #:[id number] END OF REPORT [facility]
== END 2024-02-22 06:33 | disposition home or self-care (01) ==
LOC: ER 03:03
DX: S93.501A Unspecified sprain of right great toe, initial encounter (principal); S90.121A Contusion of right lesser toe(s) without damage to nail, initial encounter; E03.9 Hypothyroidism, unspecified; D64.9 Anemia, unspecified
CPT/HCPCS: 99283